=== PATIENT | female | born 1945 | race Caucasian/White ===

== ENCOUNTER 2017-11-10 19:51 | Emergency (ER) | payer MEDICARE ==
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
[2017-11-10] MEDS ORDERED: TYLENOL EXTRA STRENGTH 500 MG PO STA (22:09)
[2017-11-10] MEDS ORDERED: TYLENOL EXTRA STRENGTH 500 MG ONE (22:12)
[2017-11-10 22:22] VITALS: BP 108/54; PULSE 62; O2SAT 96
--- NOTE | 2017-11-11 08:44 | XRAY ---
Indication: Lower rib pain following injury. Comparison: None 2 views of the right ribs demonstrates mild osteopenia, mild multilevel degenerative spondylosis, and mild/moderate right shoulder degenerative arthropathy. No other bony, articular, or soft tissue abnormalities. Comment: Preliminary interpretation was made by [facility]. No discrepancy.
--- NOTE | 2017-11-11 08:46 | XRAY ---
Indication: Right sided pain following injury. Comparison: April 09, 2017. PA/lateral chest again demonstrates normal heart and lungs. Bony thorax intact with stable degenerative changes. No new/acute findings.
== END 2017-11-10 22:24 | disposition home or self-care (01) ==
LOC: ED 19:51
DX: S20.211A Contusion of right front wall of thorax, initial encounter (principal); Y04.2XXA Assault by strike against or bumped into by another person, initial encounter; Z79.899 Other long term (current) drug therapy
CPT/HCPCS: 71046; 71100; 99283; A9270-GY

== ENCOUNTER 2021-01-02 16:03 | Inpatient (IN) | payer MEDICARE ==
[2021-01-02] MEDS ORDERED: BABY ASPIRIN 81 MG CHEW PO ONE (16:28)
[2021-01-02 16:41] LABS: ALBUMIN 4.9 g/dL (3.5-5.0); BILIRUBIN,TOTAL 0.5 mg/dL (0.2-1.3); Calcium 10.1 mg/dL (8.4-10.2); Creatinine 1 1.13 mg/dL (0.52-1.04); EST GLOMERULAR FILTRATION RATE 49.6 ML/MIN; Total Protein 8.1 g/dL (6.3-8.2)
[2021-01-02] MEDS ORDERED: BABY ASPIRIN 81 MG CHEW ONE (16:51)
[2021-01-02 17:06] LABS: Hematocrit 40.6 % (35-47); Hemoglobin 12.9 gm/dl (12.0-16.0); Mean Cell Volume 89.4 fl (78-100); Mean Corpuscular Hemoglobin 28.4 pg (26-32); Mean Corpuscular Hgb Concent. 31.8 g/dl (32-36); Mean Platelet Volume 11.9 fl (7.5-11.0); Red Blood Count 4.54 M/mm3 (4.1-5.4)
[2021-01-02 17:08] LABS: Platelet Count 15 K/mm3 (150-450)
[2021-01-02 17:20] LABS: INR 1.06 (0.8-3.0); PROTIME 12.5 SECONDS (9.4-12.5)
[2021-01-02 17:23] LABS: PTT 25.3 SECONDS (25.1-36.5)
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
--- NOTE | 2021-01-02 17:38 | XRAY ---
Indication: Nausea and back pain. Comparison: November 10, 2017. Portable chest remains clear. Heart and mediastinal structures within normal limits. Bony thorax intact again with degenerative changes. No new/acute findings.
[2021-01-02] MEDS ORDERED: Zofran 4 MG/2 ML VIAL IV PRN (21:14)
[2021-01-02 22:01] LABS: Eosinophil 1 % (0.00-3.0); Lymphocytes 12 % (24-44); Monocyte 3 % (0.0-12.0); Neutrophils 84 % (36.0-66.0); Platelet Estimate DECREASED (NORMAL); Total Cells Counted 100
[2021-01-02 22:02] LABS: Microcytosis 1+
[2021-01-02] MEDS: Sodium Chloride 0.9% 1000 ML 1,000 ML IV SCH (22:17)
[2021-01-02] MEDS: MORPHINE SULFATE 2 MG INJ IV PRN (22:21)
[2021-01-03] MEDS: MORPHINE SULFATE 2 MG INJ IV PRN ×2 (05:04→09:15)
[2021-01-03 05:45] LABS: Absolute Neutrophil Ct (ANC) 6.08 (1.4-6.9); BASOPHIL % 0.2 % (0.0-0.4); Basophil (Absolute #) 0.02 (0-0.4); Eosinophil % 0.8 % (0.00-5.0); Eosinophil (Absolute #) 0.07 (0-0.5); Hemoglobin 11.6 gm/dl (12.0-16.0); Lymphocyte (Absolute #) 1.44 (1.0-4.6); Lymphocytes % 17.3 % (24.0-44.0); Mean Cell Volume 89.6 fl (78-100); Mean Corpuscular Hemoglobin 28.1 pg (26-32); Mean Corpuscular Hgb Concent. 31.4 g/dl (32-36); Mean Platelet Volume 14.1 fl (7.5-11.0); Monocytes % 8.4 % (0.0-12.0); Neutrophil % 73.3 % (36.0-66.0); Red Blood Count 4.13 M/mm3 (4.1-5.4); Red Cell Distribution Width 15.1 % (11.5-14.0); White Blood Count 8.3 K/mm3 (4.0-10.5)
[2021-01-03 05:56] LABS: ALBUMIN 4.1 g/dL (3.5-5.0); ALKALINE PHOSPHATASE 65 U/L (38-126); ANION GAP 15.4 MEQ/L (5-15); BLOOD UREA NITROGEN 23 mg/dL (7-17); CHLORIDE 102 mmol/L (98-107); Carbon Dioxide 24 mmol/L (22-30); Creatinine 1 0.87 mg/dL (0.52-1.04); EST GLOMERULAR FILTRATION RATE > 60.0 ML/MIN; Glucose 116 mg/dL (74-106); Potassium 4.6 mmol/L (3.5-5.1); SGOT/AST 20 U/L (14-36); SGPT/ALT 14 U/L (0-35); SODIUM 137 mmol/L (137-145); Total Protein 6.9 g/dL (6.3-8.2)
[2021-01-03 06:03] LABS: Platelet Count 15 K/mm3 (150-450)
[2021-01-03] MEDS: Sodium Chloride 0.9% 1000 ML 1,000 ML IV SCH ×2 (07:32→17:19)
[2021-01-03 07:33] LABS: Slide Review 1 YES
--- NOTE | 2021-01-03 08:42 | XRAY ---
Indication: Back pain. Aortic dissection. Conventional contrast enhanced CTA chest performed using 80 cc Isovue 370 contrast. Two-dimensional sagittal and coronal reformatted images obtained. Additional 3-dimensional reformatted images obtained using a separate workstation. Comparison: None Thoracic aorta demonstrates mild scattered arteriosclerotic disease without aneurysm/dissection. Heart is not enlarged. No pathologic mediastinal/hilar lymphadenopathy. Moderate-sized hiatal hernia with partial intrathoracic stomach. Lungs demonstrate very minimal bilateral dependent atelectasis. No suspicious pulmonary mass, infiltrate, effusion, or pneumothorax. Bony thorax intact with mild degenerative changes throughout the spine and moderate degenerative changes of both shoulders. Limited upper abdomen demonstrates fatty liver, distended gallbladder without gallstones, and colonic diverticulosis. Impression: 1. Mild scattered arteriosclerotic disease without thoracic aneurysm/dissection. 2. Incidental hiatal hernia with partial intrathoracic stomach, fatty liver, distended gallbladder without gallstones, colonic diverticulosis, and chronic bony findings.
[2021-01-03] MEDS: PROTONIX 40 MG IV IV SCH (09:11)
--- NOTE | 2021-01-03 10:44 | XRAY ---
Indication: Abdomen and back pain. Two-dimensional abdominal sonogram performed. Comparison: None Pancreas and mid to distal aorta not well-seen due to overlying bowel gas. Proximal aorta negative for aneurysm. Gallbladder moderately distended with layering of sludge in the dependent portion. No gallstones, wall thickening, or pericholecystic fluid. Common bile duct measures 6.3 mm. No intrahepatic biliary distention. Mild fatty echogenic liver without focal solid/cystic mass or ascites. Spleen is not enlarged with incidental calcified granulomas. Right kidney measures 8.3 x 4.2 x 3.8 cm and the left measures 8.7 x 5.5 x 5.0 cm. No focal solid/cystic renal mass or hydronephrosis. Impression: 1. Nonvisualization pancreas and mid to distal aorta. 2. Gallbladder sludge. Negative cholelithiasis/cholecystitis. 3. Fatty liver and splenic calcified granulomas. 4. Remaining abdominal sonogram is negative.
--- NOTE | 2021-01-03 11:54 | XRAY ---
Indication: Low back pain. Compression fracture. Comparison: None 3 view lumbar spine demonstrates 5 lumbar segments in normal alignment with vertebral body heights/disc spaces maintained. Mild osteopenia, minimal multilevel thoracal lumbar endplate spurring, and mild aortic calcifications. No other bony, articular, or soft tissue abnormalities.
--- NOTE | 2021-01-03 13:30 | HP ---
CHIEF COMPLAINT: Epigastric and left-sided chest pain. HISTORY OF PRESENT ILLNESS: The patient is a 75 year-old white female who had been seen for sinus infection in the outpatient [facility] and placed on doxycycline and prednisone for what was felt to be a sinus infection. The patient began developing severe epigastric radiating to her back. The patient reports she has had back pain similar to this in the past but due to the area in the epigastric region she was concerned about her overall health and was worried about her heart. She therefore presented to the emergency room and there she reported having some diaphoresis at home. The patient has no history of heart problems in the past, according to her. Evaluation in the emergency room was essentially negative for heart issue as her troponin was less than 0.012 on four different occasions. The patient's only medical problem otherwise she is taking lisinopril and amlodipine. She is normally taken care of by Dr. Sherman but he has not actually seen her in quite a while. PAST MEDICAL/SURGICAL HISTORY: The patient reports past history of diabetes mellitus type II, osteoporosis, hyperlipidemia and hypertension. She previous had a colon resection for what apparently was diverticular abscess that ruptured and she was in the hospital at [place] for nearly two weeks at that time before she had a partial colon resection. She has also had a hysterectomy in the past. The patient reports that she has a bruise over her right knee and denied any petechiae or any other problems with rashes on the skin. MEDICATIONS: Lisinopril 2.5 mg a day, amlodipine 5 mg daily routinely and again she recently had been taking doxycycline and prednisone. ALLERGIES: NKDA. PHYSICAL EXAMINATION: The patient's vital signs in the emergency room showed a temperature of 98.2F, pulse 74, respiratory rate 22, blood pressure 131/81. O2 saturation 97% on room air. HEENT: Normocephalic, atraumatic. Pupils equal round reactive to light. Extraocular movements intact. Oropharynx is pink and moist. NECK: Supple without lymphadenopathy, thyromegaly or JVD. CHEST: Clear to auscultation. HEART: Regular rate and rhythm without murmurs, rubs or gallops. ABDOMEN: Tender in the epigastric region, slightly firm left upper quadrant and also in the suprapubic area. No masses were felt. There is no guarding or rebound. EXTREMITIES: Without cyanosis, clubbing or edema. There is however a bruise over the top of the right foot. LAB DATA AND TESTS: The patient's laboratory studies were significant for PLT count of only 15,000. She had a white count of 8,300, hemoglobin 11.6. The patient's most recent PLT count otherwise was noted in August 2020 was normal. She had a glucose of 116, BUN 22, creatinine 0.87. Liver enzymes were normal. She did have CT scan of abdomen and pelvis which showed distended gallbladder. She is to have a gallbladder ultrasound today. We also looked at her liver, spleen and pancreas for possible for a total abdominal ultrasound. There is also concern for the patient for possible compression fracture of the spine as she has been complaining mostly of back pain which has been going on for quite a while. Her INR was noted to be 1.16. ASSESSMENT: Currently the etiology of thrombocytopenia is in question possibly secondary to doxycycline which undoubtedly causing her gastric pain. As the patient's troponins were negative and gallbladder is currently pending but showed gallbladder distension but no elevation in her liver enzymes or bilirubin level. The patient otherwise currently is getting IV fluid hydration, pain management for her abdominal pain. Unfortunately, we do not have a meat and seafood manager in our facility to help us with the thrombocytopenia issue but will talk with pharmacy about the potential for prednisone and/or doxycycline as the cause for her recent thrombocytopenia issue.
[2021-01-03] MEDS: TYLENOL 325 MG PO PRN (19:59)
[2021-01-04] MEDS: Sodium Chloride 0.9% 1000 ML 1,000 ML IV SCH (03:25)
[2021-01-04 05:35] LABS: Absolute Neutrophil Ct (ANC) 3.19 (1.4-6.9); BASOPHIL % 0.4 % (0.0-0.4); Basophil (Absolute #) 0.02 (0-0.4); Eosinophil % 2.3 % (0.00-5.0); Eosinophil (Absolute #) 0.11 (0-0.5); Hematocrit 33.3 % (35-47); Hemoglobin 10.5 gm/dl (12.0-16.0); Lymphocyte (Absolute #) 1.03 (1.0-4.6); Lymphocytes % 21.5 % (24.0-44.0); Mean Cell Volume 91.2 fl (78-100); Mean Corpuscular Hemoglobin 28.8 pg (26-32); Mean Corpuscular Hgb Concent. 31.5 g/dl (32-36); Mean Platelet Volume 12.2 fl (7.5-11.0); Monocyte (Absolute #) 0.44 (0.0-1.3); Monocytes % 9.2 % (0.0-12.0); Neutrophil % 66.6 % (36.0-66.0); Red Blood Count 3.65 M/mm3 (4.1-5.4); Red Cell Distribution Width 14.8 % (11.5-14.0); White Blood Count 4.8 K/mm3 (4.0-10.5)
[2021-01-04 05:40] LABS: Platelet Count 6 K/mm3 (150-450)
[2021-01-04 06:06] LABS: ALBUMIN 3.6 g/dL (3.5-5.0); ALKALINE PHOSPHATASE 58 U/L (38-126); ANION GAP 11.8 MEQ/L (5-15); BLOOD UREA NITROGEN 13 mg/dL (7-17); CHLORIDE 105 mmol/L (98-107); Calcium 8.5 mg/dL (8.4-10.2); Carbon Dioxide 26 mmol/L (22-30); Creatinine 1 0.87 mg/dL (0.52-1.04); EST GLOMERULAR FILTRATION RATE > 60.0 ML/MIN; Glucose 100 mg/dL (74-106); Potassium 4.7 mmol/L (3.5-5.1); SGOT/AST 20 U/L (14-36); SGPT/ALT 12 U/L (0-35); SODIUM 138 mmol/L (137-145); Total Protein 6.1 g/dL (6.3-8.2)
[2021-01-04 07:17] LABS: Slide Review 1 YES
[2021-01-04] MEDS: PROTONIX 40 MG IV IV SCH (08:05)
[2021-01-04] MEDS: DELTASONE 20 MG PO SCH (08:59)
[2021-01-04] MEDS: TYLENOL 325 MG PO PRN (20:16)
[2021-01-05] MEDS: TYLENOL 325 MG PO PRN ×4 (04:00→20:37)
[2021-01-05 05:07] LABS: Hematocrit 33.6 % (35-47); Hemoglobin 10.8 gm/dl (12.0-16.0); Mean Cell Volume 89.1 fl (78-100); Mean Corpuscular Hemoglobin 28.6 pg (26-32); Mean Corpuscular Hgb Concent. 32.1 g/dl (32-36); Mean Platelet Volume 12.2 fl (7.5-11.0); Red Blood Count 3.77 M/mm3 (4.1-5.4); Red Cell Distribution Width 14.3 % (11.5-14.0); White Blood Count 7.9 K/mm3 (4.0-10.5)
[2021-01-05 05:15] LABS: Platelet Count 13 K/mm3 (150-450)
[2021-01-05 07:22] LABS: BAND 2 % (0.0-2.0); Eosinophil 1 % (0.00-3.0); Lymphocytes 16 % (24-44); Monocyte 5 % (0.0-12.0); Neutrophils 76 % (36.0-66.0); Total Cells Counted 100
[2021-01-05 07:23] LABS: ANISOCYTOSIS 1+; Platelet Estimate DECREASED (NORMAL); Toxic Granulation 1+
[2021-01-05] MEDS: DELTASONE 20 MG PO SCH (08:12)
[2021-01-05] MEDS: PROTONIX 40 MG IV IV SCH (08:13)
[2021-01-05 09:51] LABS: ALBUMIN 4.1 g/dL (3.5-5.0); ALKALINE PHOSPHATASE 56 U/L (38-126); ANION GAP 13.8 MEQ/L (5-15); BLOOD UREA NITROGEN 17 mg/dL (7-17); CHLORIDE 102 mmol/L (98-107); Calcium 9.3 mg/dL (8.4-10.2); Carbon Dioxide 25 mmol/L (22-30); Creatinine 1 0.84 mg/dL (0.52-1.04); EST GLOMERULAR FILTRATION RATE > 60.0 ML/MIN; Glucose 118 mg/dL (74-106); Potassium 4.2 mmol/L (3.5-5.1); SGOT/AST 28 U/L (14-36); SGPT/ALT 19 U/L (0-35); SODIUM 137 mmol/L (137-145); Total Protein 6.9 g/dL (6.3-8.2)
--- NOTE | 2021-01-05 11:19 | XRAY ---
Indication: Headache. Head pressure. Thrombocytopenia. Multiple contiguous axial images obtained through the head prior to and following 80 cc Isovue 370 contrast. Age-appropriate global atrophy. No acute intracranial hemorrhage, abnormal extra-axial fluid collection, or mass effect. Fourth ventricle is midline without hydrocephalus. Postcontrast images are negative for abnormal enhancing intra or extra-axial mass. Moul[place]-white matter differentiation preserved. Bony calvarium intact. Visualized paranasal sinuses and mastoid air cells are clear. Impression: Negative CT head with and without contrast exam.
[2021-01-06 07:23] LABS: Hematocrit 35.8 % (35-47); Hemoglobin 11.5 gm/dl (12.0-16.0); Mean Cell Volume 88.6 fl (78-100); Mean Corpuscular Hemoglobin 28.5 pg (26-32); Mean Corpuscular Hgb Concent. 32.1 g/dl (32-36); Mean Platelet Volume 11.8 fl (7.5-11.0); Red Blood Count 4.04 M/mm3 (4.1-5.4); Red Cell Distribution Width 14.6 % (11.5-14.0); White Blood Count 9.6 K/mm3 (4.0-10.5)
[2021-01-06 07:44] VITALS: BP 147/72; PULSE 69; O2SAT 96
[2021-01-06 07:48] LABS: Platelet Count 25 K/mm3 (150-450)
[2021-01-06] MEDS: PROTONIX 40 MG IV IV SCH (08:43)
[2021-01-06] MEDS: DELTASONE 20 MG PO SCH (08:43)
--- NOTE | 2021-01-06 13:53 | DS ---
DISCHARGE DIAGNOSES: 1) THROMBOCYTOPENIA. 2) GASTRITIS SECONDARY TO DOXYCYCLINE. 3) VIRAL UPPER RESPIRATORY ILLNESS. HOSPITAL COURSE: The patient is a 75 year-old white female who presented to the emergency room after having excruciating epigastric pain radiating to her back. It is important to note that the patient recently had been placed on doxycycline for what they thought was a sinus infection. On the patient's evaluation in the emergency room, she was found to also be thrombocytopenic. She was brought into the hospital and given IV fluids. Doxycycline was immediately discontinued. The patient's platelet count continued to fall to 6,000. We gave her prednisone 1 mg/kg which was roughly 60 mg which the patient had been receiving. Her platelet count rebounded to 13,000 on 01/05/2021 and 25,000 by 01/06/2021. We have arranged for the patient to see a solar photovoltaic crew lead which she will see on Saturday morning. We will recheck her CBC at that time to recheck her platelets. The patient has had no symptoms other than mild bruising over the left foot and occasional bruising where she had IV's drawn and blood draws but otherwise the patient has no internal bleeding whatsoever. We did do a CT scan of the head due to complaints of headache which was present actually before she arrived and a CT scan with and without contrast was essentially negative. The patient will be discharged home now. She was instructed not to take doxycycline any longer. She was given prednisone at 60 mg a day for a total of five days and then down to 40 mg for five days and then 20 mg for five days. I will see her in the office in one week. Again, she will see solar photovoltaic crew lead in three days. She is instructed to take it easy at home particularly with fall prevention in place. The patient verbalized her understanding. She will call if she has any problems in the interim.
== END 2021-01-06 10:17 | disposition home or self-care (01) | DRG 813 ==
LOC: ED 16:03 → MED SURG 21:22 → OBSVTOIN 01-03 13:02
PROVIDERS: ADMIT Family Medicine; ATTEND Family Medicine
DX: D69.6 Thrombocytopenia, unspecified (principal); K29.70 Gastritis, unspecified, without bleeding; T36.4X5A Adverse effect of tetracyclines, initial encounter; J06.9 Acute upper respiratory infection, unspecified; R51.9 Headache, unspecified; R07.9 Chest pain, unspecified; E11.9 Type 2 diabetes mellitus without complications; I10 Essential (primary) hypertension; E78.5 Hyperlipidemia, unspecified; Z79.899 Other long term (current) drug therapy; M54.9 Dorsalgia, unspecified; Z20.828 Contact with and (suspected) exposure to other viral communicable diseases
CPT/HCPCS: 36000; 36415; 70470; 71045; 71275; 72100; 76700; 80053; 82947; 83880; 84484; 85025; 85027; 85610; 85730; 93005; 93268; 99285; G0328; G0378; U0003; 82274; J2270; J2405; A9270-GY

== ENCOUNTER 2021-03-27 05:55 | Day surgery (SDC) | payer MEDICARE ==
[2021-03-27] MEDS ORDERED: Lactated Ringers 1,000 ML IV SCH (06:30)
[2021-03-27] MEDS ORDERED: DIPRIVAN 200 MG/20 ML IV ONE (07:43)
[2021-03-27 08:45] VITALS: PULSE 84; O2SAT 97
[2021-03-27 09:05] VITALS: BP 139/93
--- NOTE | 2021-03-27 11:09 | OP ---
SURGERY DATE/TIME: 03/27/2021 0744 PREOPERATIVE DIAGNOSIS: Heme positive stool, previous history of colon resection for diverticulosis. POSTOPERATIVE DIAGNOSIS: Diverticulosis throughout the colon otherwise normal exam. PROCEDURE: Colonoscopy. SURGEON: Dr. Pérez. ANESTHESIA: MAC. Medications given by anesthesia department. HISTORY: The patient is a 75-year-old white female who had heme positive stools recently. The patient was felt to need endoscopic evaluation. She reports on her history previously she had diverticular abscess and colostomy which was then reversed. The patient has not been evaluated since that time. The patient is felt the need to have endoscopic evaluation. She was appraised of the risks of the procedure including the risk of perforation, phlebitis, untoward reaction to medication, bleeding and missed lesions. The patient verbalized her understanding and desired to have the procedure performed. DESCRIPTION OF PROCEDURE: The patient was given the medications by the anesthesia department. She had continuous pulse oximetry, ECG monitoring, intermittent blood pressure monitoring and tidal CO2 monitoring during the examination. She was placed in the left lateral decubitus position. A digital rectal examination was performed and revealed normal anal sphincter tone and no masses. The flexible Olympus pediatric colonoscope was used to intubate the rectum. A view of the colon was developed sequentially to the cecum. Upon insertion and withdrawal including a retroflex view in the rectum, no mucosal lesions were noted other than scattered diverticula throughout the colon. The scope was removed from the patient who tolerated the procedure well and was sent back to OP recovery in good condition. The prep was noted to be fair with semisolid stool noted in the deep end portion of the colon pretty much throughout the transverse colon.
== END 2021-03-27 09:10 | disposition home or self-care (01) ==
LOC: SDC 05:55
PROVIDERS: ATTEND Family Medicine
DX: K57.30 Diverticulosis of large intestine without perforation or abscess without bleeding (principal); Z87.19 Personal history of other diseases of the digestive system; Z79.899 Other long term (current) drug therapy
CPT/HCPCS: 99100; J2704

== ENCOUNTER 2021-08-02 12:41 | Emergency (ER) | payer MEDICARE ==
--- NOTE | 2021-08-02 12:46 | ERPHSYRPT ---
- History of Present Illness Time Seen by Provider: 08/02/21 12:46 Source: patient, EMS Exam Limitations: no limitations Physician History: This is a 75-year-old white female patient of Dr. Pérez who also sees a flare man for management of her thrombocytopenia and presents with what initially appeared to be was a syncopal episode, diaphoresis and weakness. Patient was brought into the hospital by EMS. Patient denies headache. Patient denies chest pain and denies shortness of breath. She has no abdominal pain. Patient arrives alert and oriented. She did not hit her head. 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 Patient has a history of low platelet count, gastroesophageal reflux disease and hypertension as well as [id number] diabetes. In the last approximately 2 weeks, patient has been taking prednisone because of an 18,000 platelet count level. Patient had a repeat platelet count of 239,000 yesterday. She states during the last 2 weeks she has felt awful on the prednisone. Her blood sugars are all over the place, low in the 70s and his highs in the high 200s. She feels that she has been weak and diaphoretic because of the prednisone. She has never felt like this before. Timing/Duration: today Severity: moderate Associated Symptoms: diaphoresis, weakness, No abdominal pain, No shortness of breath, No chest pain Allergies/Adverse Reactions: No Known Drug Allergies Allergy (Verified 08/02/21 12:52) Home Medications: lisinopriL [Zestril] 2.5 tab PO DAILY 04/09/17 [History] Amlodipine Besylate 5 mg [Norvasc 5 mg] 5 mg PO DAILY 04/10/17 [History] Magnesium 200 mg PO DAILY 03/16/21 [History] ALPRAZolam [Alprazolam] 1 ea DAILY PRN PRN 08/02/21 [History] Prednisone 20 mg [Deltasone 20 mg] 1 ea DAILY 08/02/21 [History] Hx Tetanus, Diphtheria Vaccination/Date Given: Yes Hx Influenza Vaccination/Date Given: Yes Hx Pneumococcal Vaccination/Date Given: Yes Travel Risk - International Travel Have you traveled outside of the country in past 3 weeks: No - Coronavirus Screening Are you exhibiting any of the following symptoms?: No Close contact with a COVID-19 positive Pt in past 14-21 Days: No - Vaccine Status Have you recieved a Covid-19 vaccination: Yes 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 - Vaccination Dates Date of 2cond Vaccination (if applicable): 08/08/20 - Review of Systems Constitutional: Weakness Eyes: No Symptoms Ears, Nose, & Throat: No Symptoms Respiratory: No Symptoms Cardiac: No Symptoms Abdominal/Gastrointestinal: No Symptoms Genitourinary Symptoms: No Symptoms Musculoskeletal: No Symptoms Skin: No Symptoms Neurological: Dizziness Psychological: Anxiety Endocrine: No Symptoms Immunological/Allergic: No Symptoms - Past Medical History Pertinent Past Medical History: Yes Neurological History: No Pertinent History ENT History: Cataracts Cardiac History: High Cholesterol, Hypertension Respiratory History: No Pertinent History Endocrine Medical History: Diabetes Type II Musculoskeletal History: Osteoporosis GI Medical History: No Pertinent History, Diverticulitis History: Other Psycho-Social History: No Pertinent History Female Reproductive Disorders: No Pertinent History Other Medical History: PT STATES SHE WAS ON DIABETIC MEDICATIONS IN IN THE PAST BUT NOTHING PRESENTLY - Past Surgical History Past Surgical History: Yes Neuro Surgical History: No Pertinent History Cardiac: No Pertinent History Respiratory: No Pertinent History Gastrointestinal: Appendectomy, Colon Resection, Hernia Repair Genitourinary: No Pertinent History Musculoskeletal: No Pertinent History Female Surgical History: Hysterectomy - Social History Smoking Status: Former smoker Exposure to second hand smoke: No Drug Use: none Patient Lives Alone: No Significant Family History: no pertinent family hx - Nursing Vital Signs Nursing Vital Signs: Initial Vital Signs O2 Sat by Pulse Oximetry 93 L 08/02/21 12:42 Pain Scale Pain Intensity 0 - Physical Exam General Appearance: no apparent distress, alert, anxiety Eye Exam: PERRL/EOMI, eyes nml inspection Ears, Nose, Throat Exam: normal ENT inspection, moist mucous membranes Neck Exam: normal inspection, non-tender, supple, full range of motion Respiratory Exam: normal breath sounds, lungs clear, airway intact, No chest tenderness, No respiratory distress Cardiovascular Exam: regular rate/rhythm, normal heart sounds, normal peripheral pulses Gastrointestinal/Abdomen Exam: soft, normal bowel sounds, No tenderness Pelvic Exam: not done Rectal Exam: not done Back Exam: normal inspection, normal range of motion, No CVA tenderness, No vertebral tenderness Extremity Exam: normal inspection, normal range of motion, pelvis stable Neurologic Exam: alert, oriented x 3, cooperative, wreath inspector II-XII nml as tested, normal mood/affect, nml cerebellar function, nml station & gait, sensation nml Skin Exam: normal color, warm, dry Lymphatic Exam: No adenopathy SpO2 Interpretation: borderline oxygenation O2 Delivery: Room Air - Course Nursing assessment & vital signs reviewed: Yes Ordered Tests: Active Orders 24 hr Category Date Time Status Clean Catch Urine Specimen STAT Care 08/02/21 12:57 Active EKG-ER Only STAT Care 08/02/21 12:57 Active IV Insertion STAT Care 08/02/21 12:57 Active Pulse Oximetry (ED) STAT Care 08/02/21 12:57 Active HEAD WITHOUT CONTRAST [CT] Stat Exams 08/02/21 12:57 Completed CBC W DIFF Stat Lab 08/02/21 14:13 Completed CMP Stat Lab 08/02/21 14:13 Completed CULTURE,URINE Stat Lab 08/02/21 15:52 Received MAGNESIUM Stat Lab 08/02/21 14:13 Completed TROPONIN Q3H Lab 08/02/21 14:13 Completed TROPONIN Q3H Lab 08/02/21 16:00 Ordered TROPONIN Q3H Lab 08/02/21 19:00 Ordered TROPONIN Q3H Lab 08/02/21 22:00 Ordered TROPONIN Q3H Lab 08/03/21 01:00 Ordered UA W/RFX UR CULTURE Stat Lab 08/02/21 15:52 Completed Urine Triage Profile Stat Lab 08/02/21 15:52 Completed Medication Summary Generic Name Dose Route Start Last Admin Trade Name Freq PRN Reason Stop Dose Admin Sodium Chloride 1,000 mls @ 100 mls/hr 08/02/21 13:00 08/02/21 13:08 Sodium Chloride 0.9% 1000 Ml IV 09/01/21 12:59 100 mls/hr .Q10H SARAH Administration Potassium Chloride 20 meq in 100 mls @ 50 mls/hr 08/02/21 14:39 08/02/21 14:45 Potassium Chloride 20 Meq In Water 100ml IV 08/02/21 16:38 50 mls/hr STAT ONE Administration Discontinued Medications Generic Name Dose Route Start Last Admin Trade Name Freq PRN Reason Stop Dose Admin Potassium Chloride Confirm 08/02/21 14:42 Potassium Chloride 20 Meq In Water 100ml Administered 08/02/21 14:43 Dose 100 mls @ ud IV .STK-MED ONE Potassium Chloride 20 meq 08/02/21 14:39 08/02/21 14:45 Potassium Chloride 10 Meq Tablet PO 08/02/21 14:40 20 meq STAT ONE Administration Potassium Chloride Confirm 08/02/21 14:42 Potassium Chloride 10 Meq Tablet Administered 08/02/21 14:43 Dose 20 meq PO .STK-MED ONE Lab/Rad Data: Laboratory Result Diagrams 08/02/21 14:13 08/02/21 14:13 Laboratory Results 08/02/21 08/02/21 08/02/21 Range/Units 15:52 15:52 14:13 WBC (4.0-10.5) K/mm3 RBC (4.1-5.4) M/mm3 Hgb (12.0-16.0) gm/dl Hct (35-47) % MCV (78-100) fl MCH (26-32) pg MCHC (32-36) g/dl RDW (11.5-14.0) % Plt Count (150-450) K/mm3 MPV (7.5-11.0) fl Gran % (36.0-66.0) % Eos # (Auto) (0-0.5) Absolute Lymphs (auto) (1.0-4.6) Absolute Monos (auto) (0.0-1.3) Lymphocytes % (24.0-44.0) % Monocytes % (0.0-12.0) % Eosinophils % (0.00-5.0) % Basophils % (0.0-0.4) % Absolute Granulocytes (1.4-6.9) Basophils # (0-0.4) Sodium (137-145) mmol/L Potassium (3.5-5.1) mmol/L Chloride (98-107) mmol/L Carbon Dioxide (22-30) mmol/L Anion Gap (5-15) MEQ/L BUN (7-17) mg/dL Creatinine (0.52-1.04) mg/dL Estimated GFR ML/MIN Glucose (74-106) mg/dL Calcium (8.4-10.2) mg/dL Magnesium (1.6-2.3) mg/dL Total Bilirubin (0.2-1.3) mg/dL AST (14-36) U/L ALT (0-35) U/L Alkaline Phosphatase (38-126) U/L Troponin I < 0.012 (0.000-0.034) ng/mL Serum Total Protein (6.3-8.2) g/dL Albumin (3.5-5.0) g/dL Urine Color JAEL (YELLOW) Urine Appearance CLOUDY (CLEAR) Urine pH 5.0 (5-6) Ur Specific [place] 1.017 (1.005-1.025) Urine Protein 30 (Negative) Urine Ketones TRACE (NEGATIVE) Urine Blood SMALL (0-5) Emanuel/ul Urine Nitrite NEGATIVE (NEGATIVE) Urine Bilirubin NEGATIVE (NEGATIVE) Urine Urobilinogen NEGATIVE (0-1) mg/dL Ur Leukocyte Esterase MODERATE (NEGATIVE) Urine WBC (Auto) 16-25 (0-5) /HPF Urine RBC (Auto) 3-5 (0-2) /HPF U Hyaline Cast (Auto) 6-10 (0-2) /LPF U Epithel Cells (Auto) RARE (FEW) /HPF Urine Bacteria (Auto) RARE (NEGATIVE) /HPF Urine Mucus (Auto) SLIGHT (NEGATIVE) /HPF Urine Culture Reflexed YES (NO) Urine Glucose NEGATIVE (NEGATIVE) mg/dL Urine Opiates Level NEGATIVE (NEGATIVE) Ur Methadone NEGATIVE (NEGATIVE) Urine Barbiturates NEGATIVE (NEGATIVE) Ur Phencyclidine (PCP) NEGATIVE (NEGATIVE) Urine Amphetamine NEGATIVE (NEGATIVE) U Benzodiazepine Level POSITIVE (NEGATIVE) Urine Cocaine NEGATIVE (NEGATIVE) Urine Marijuana (THC) NEGATIVE (NEGATIVE) 08/02/21 08/02/21 Range/Units 14:13 14:13 WBC 15.6 H (4.0-10.5) K/mm3 RBC 4.50 (4.1-5.4) M/mm3 Hgb 12.5 (12.0-16.0) gm/dl Hct 38.2 (35-47) % MCV 84.9 (78-100) fl MCH 27.8 (26-32) pg MCHC 32.7 (32-36) g/dl RDW 16.1 H (11.5-14.0) % Plt Count 194 (150-450) K/mm3 MPV 9.9 (7.5-11.0) fl Gran % 76.1 H (36.0-66.0) % Eos # (Auto) 0.05 (0-0.5) Absolute Lymphs (auto) 2.32 (1.0-4.6) Absolute Monos (auto) 1.34 H (0.0-1.3) Lymphocytes % 14.9 L (24.0-44.0) % Monocytes % 8.6 (0.0-12.0) % Eosinophils % 0.3 (0.00-5.0) % Basophils % 0.1 (0.0-0.4) % Absolute Granulocytes 11.89 H (1.4-6.9) Basophils # 0.01 (0-0.4) Sodium 136 L (137-145) mmol/L Potassium 2.6 L* D (3.5-5.1) mmol/L Chloride 100 (98-107) mmol/L Carbon Dioxide 23 (22-30) mmol/L Anion Gap 16.4 H (5-15) MEQ/L BUN 27 H (7-17) mg/dL Creatinine 1.39 H (0.52-1.04) mg/dL Estimated GFR 39.1 ML/MIN Glucose 144 H (74-106) mg/dL Calcium 9.2 (8.4-10.2) mg/dL Magnesium 1.8 (1.6-2.3) mg/dL Total Bilirubin 0.80 (0.2-1.3) mg/dL AST 34 (14-36) U/L ALT 74 H (0-35) U/L Alkaline Phosphatase 48 (38-126) U/L Troponin I (0.000-0.034) ng/mL Serum Total Protein 6.6 (6.3-8.2) g/dL Albumin 4.1 (3.5-5.0) g/dL Urine Color (YELLOW) Urine Appearance (CLEAR) Urine pH (5-6) Ur Specific [place] (1.005-1.025) Urine Protein (Negative) Urine Ketones (NEGATIVE) Urine Blood (0-5) Emanuel/ul Urine Nitrite (NEGATIVE) Urine Bilirubin (NEGATIVE) Urine Urobilinogen (0-1) mg/dL Ur Leukocyte Esterase (NEGATIVE) Urine WBC (Auto) (0-5) /HPF Urine RBC (Auto) (0-2) /HPF U Hyaline Cast (Auto) (0-2) /LPF U Epithel Cells (Auto) (FEW) /HPF Urine Bacteria (Auto) (NEGATIVE) /HPF Urine Mucus (Auto) (NEGATIVE) /HPF Urine Culture Reflexed (NO) Urine Glucose (NEGATIVE) mg/dL Urine Opiates Level (NEGATIVE) Ur Methadone (NEGATIVE) Urine Barbiturates (NEGATIVE) Ur Phencyclidine (PCP) (NEGATIVE) Urine Amphetamine (NEGATIVE) U Benzodiazepine Level (NEGATIVE) Urine Cocaine (NEGATIVE) Urine Marijuana (THC) (NEGATIVE) - Progress Progress Note: 08/02/21 16:36 CAT scan of the head shows no acute intracranial abnormality. - Departure Departure Disposition: Home Clinical Impression: Hypokalemia, Weakness, UTI (urinary tract infection), Mild dehydration Condition: Stable Critical Care Time: No Referrals: BHARGAV PÉREZ [Primary Care Provider] - Follow up/PCP as directed Additional Instructions: Drink plenty of fluids. Take your antibiotic medication as prescribed. Hold the prednisone until you speak with your flare man tomorrow. Obtain the repeat potassium level on August 04, 2021 in the morning. Follow-up with Dr. Pérez's office for the report on that potassium level Prescriptions: Ciprofloxacin [Cipro 500 MG] 500 mg PO BID #14 tablet Potassium Chloride 10 Meq Tab* [Klor Con 10 MEQ] 10 meq PO BID #5 tab
[2021-08-02] MEDS ORDERED: Sodium Chloride 0.9% 1000 ML 1,000 ML IV SCH (13:00)
[2021-08-02] MEDS ORDERED: Sodium Chloride 0.9% 1000 ML 1,000 ML ONE (13:07)
[2021-08-02 14:15] LABS: Absolute Neutrophil Ct (ANC) 11.89 (1.4-6.9); Basophil (Absolute #) 0.01 (0-0.4); Eosinophil % 0.3 % (0.00-5.0); Eosinophil (Absolute #) 0.05 (0-0.5); Hematocrit 38.2 % (35-47); Hemoglobin 12.5 gm/dl (12.0-16.0); Lymphocyte (Absolute #) 2.32 (1.0-4.6); Lymphocytes % 14.9 % (24.0-44.0); Mean Cell Volume 84.9 fl (78-100); Mean Corpuscular Hemoglobin 27.8 pg (26-32); Mean Corpuscular Hgb Concent. 32.7 g/dl (32-36); Mean Platelet Volume 9.9 fl (7.5-11.0); Monocyte (Absolute #) 1.34 (0.0-1.3); Monocytes % 8.6 % (0.0-12.0); Neutrophil % 76.1 % (36.0-66.0); Platelet Count 194 K/mm3 (150-450); Red Cell Distribution Width 16.1 % (11.5-14.0); White Blood Count 15.6 K/mm3 (4.0-10.5)
[2021-08-02 14:27] LABS: ALBUMIN 4.1 g/dL (3.5-5.0); ANION GAP 16.4 MEQ/L (5-15); BILIRUBIN,TOTAL 0.8 mg/dL (0.2-1.3); Calcium 9.2 mg/dL (8.4-10.2); Creatinine 1 1.39 mg/dL (0.52-1.04); EST GLOMERULAR FILTRATION RATE 39.1 ML/MIN; MAGNESIUM 1.8 mg/dL (1.6-2.3); Total Protein 6.6 g/dL (6.3-8.2)
--- NOTE | 2021-08-02 14:35 | XRAY ---
Indication: Syncope. Multiple contiguous axial images obtained through the head without contrast. Comparison: January 05, 2021 Age-appropriate global atrophy. No acute intracranial hemorrhage, abnormal extra-axial fluid collection, or mass effect. Fourth ventricle is midline without hydrocephalus. [place]oul[place]-white matter differentiation preserved. Bony calvarium intact. Visualized paranasal sinuses and mastoid air cells are clear. Impression: Continued negative CT head without contrast exam.
[2021-08-02 14:37] LABS: Potassium 2.6 mmol/L (3.5-5.1)
[2021-08-02] MEDS ORDERED: POTASSIUM CHLORIDE 20 mEq IN WATER 100ML 20 MEQ/100 ML BAG IV ONE (14:39)
[2021-08-02] MEDS ORDERED: Klor Con 10 MEQ PO ONE ×2 (14:39→14:42)
[2021-08-02] MEDS ORDERED: POTASSIUM CHLORIDE 20 mEq IN WATER 100ML 100 ML IV ONE (14:42)
[2021-08-02 15:58] LABS: Appearance CLOUDY (CLEAR); Bacteria RARE /HPF (NEGATIVE); Bilirubin NEGATIVE (NEGATIVE); Blood SMALL Ery/ul (0-5); Epithelial Cells RARE /HPF (FEW); Glucose NEGATIVE (NEGATIVE); Ketones TRACE (NEGATIVE); Leukocyte Esterase MODERATE (NEGATIVE); Mucus SLIGHT /HPF (NEGATIVE); Nitrite NEGATIVE (NEGATIVE); Protein,Urine Dip 30 (Negative); Specific Gravity 1.017 (1.005-1.025); Urobilinogen NEGATIVE mg/dL (0-1)
[2021-08-02 16:08] LABS: Amphetamine,Urine NEGATIVE (NEGATIVE); Barbiturate,Urine NEGATIVE (NEGATIVE); Benzodiazepine,Urine POSITIVE (NEGATIVE); Cocaine,Urine NEGATIVE (NEGATIVE); Methadone,Urine NEGATIVE (NEGATIVE); Opiate,Urine NEGATIVE (NEGATIVE); PCP,Urine NEGATIVE (NEGATIVE); THC,Urine NEGATIVE (NEGATIVE)
[2021-08-02] MEDS ORDERED: ROCEPHIN 1 Gm-D5w 50 ml Bag** 1 G/50 ML IVPB IV STA (16:35)
[2021-08-02] MEDS ORDERED: ROCEPHIN 1 Gm-D5w 50 ml Bag** 1 G/50 ML IVPB IV ONE (16:45)
[2021-08-02 17:46] VITALS: BP 136/87; PULSE 73; O2SAT 100
== END 2021-08-02 17:41 | disposition home or self-care (01) ==
LOC: ED 12:41
DX: N39.0 Urinary tract infection, site not specified (principal); E87.6 Hypokalemia; R53.1 Weakness; E86.0 Dehydration; E78.5 Hyperlipidemia, unspecified; I10 Essential (primary) hypertension; E11.9 Type 2 diabetes mellitus without complications; D69.6 Thrombocytopenia, unspecified; K21.9 Gastro-esophageal reflux disease without esophagitis; Z79.899 Other long term (current) drug therapy
CPT/HCPCS: 36415; 70450; 80053; 80307; 81001; 83735; 84484; 85025; 87077; 87086; 87186; 93005; 94760; 96360; 96361; 96365; 96367; 96374; 99285; J0696; J3480; A9270-GY

== ENCOUNTER 2021-12-23 17:11 | Emergency (ER) | payer MEDICARE | END 2021-12-23 17:27 | disposition home or self-care (01) | LOC: ED 17:11 | DX: Z53.9 Procedure and treatment not carried out, unspecified reason (principal) | CPT/HCPCS: 99281 ==

== ENCOUNTER 2021-12-23 17:12 | Emergency (ER) | payer MEDICARE ==
[2021-12-23] MEDS ORDERED: Zofran 4 MG/2 ML VIAL ONE (17:18)
[2021-12-23] MEDS ORDERED: MORPHINE SULFATE 4 MG INJ ONE ×2 (17:18→17:43)
[2021-12-23] MEDS ORDERED: MORPHINE SULFATE 4 MG INJ IV ONE ×2 (17:18→17:39)
[2021-12-23] MEDS ORDERED: Zofran 4 MG/2 ML VIAL IV ONE (17:18)
[2021-12-23] MEDS ORDERED: Sodium Chloride 0.9% 1000 ML 1,000 ML ONE (17:18)
[2021-12-23] MEDS ORDERED: Sodium Chloride 0.9% 1000 ML 1,000 ML IV SCH (17:30)
[2021-12-23 17:35] LABS: Absolute Neutrophil Ct (ANC) 7.74 x10^3/uL (1.4-6.9); Basophil (Absolute #) 0.02 x10^3/uL (0-0.4); Eosinophil (Absolute #) 0 x10^3/uL (0-0.5); Hematocrit 39.7 % (35-47); Hemoglobin 12.5 g/dL (12.0-16.0); Lymphocytes % 11.8 % (24.0-44.0); Mean Corpuscular Hgb Concent. 31.5 g/dL (32-36); Mean Platelet Volume 8.8 fL (7.5-11.0); Monocytes % 4.3 % (0.0-12.0); Neutrophil % 83.2 % (36.0-66.0); Platelet Count 338 x10^3/uL (150-450); Red Blood Count 4.46 x10^6/uL (4.1-5.4); Red Cell Distribution Width 14.2 % (11.5-14.0); White Blood Count 9.3 x10^3/uL (4.0-10.5)
--- NOTE | 2021-12-23 17:48 | ERPHSYRPT ---
- History of Present Illness Source: patient Exam Limitations: no limitations Patient Subjective Stated Complaint: pt here for chest pain to epigastric area that radiates to back, pain since 0900 today. she states pain radiates to back, Triage Nursing Assessment: pt alert, resp easy at rest, anxious at times, face mask in place, skin w/d/p. no edema noted, cehst clear Physician History: 76 yo wf w epigastric/inferior chest pain x 8.5 hours. Pain is 10 on scale, sharp, and radiates to her back. She has had nausea/dyspnea wo vomiting/diaphore sis. Direct pressure makes the pain better. She denies DC/CAD but has h/o HTN/Renal failure/DM in the past. Fever/cough/diarrhea/melena/hematochezia all denied. She has had similar pain in the past. Timing/Duration: other (9AM) Quality: sharpness Location: central, epigastric Chest Pain Radiation: back Severity of Pain-Max: severe Severity of Pain-Current: severe Modifying Factors: Improves With: other (Better w direct pressure) Nitro Today/Relief: no nitro taken today Aspirin Treatment Today: no aspirin today Associated Symptoms: nausea, abdominal pain, shortness of breath, loss of appetite, No vomiting, No heartburn, No diaphoresis, No cough, No chills, No chest pain, No fever, No headaches, No malaise, No rash, No syncope, No seizure, No weakness Prior Chest Pain/Cardiac Workup: no prior chest pain Allergies/Adverse Reactions: No Known Drug Allergies Allergy (Verified 12/23/21 17:22) Home Medications: lisinopriL [Zestril] 5 tab PO DAILY 04/09/17 [History] Amlodipine Besylate 5 mg [Norvasc 5 mg] 5 mg PO DAILY 04/10/17 [History] Magnesium 200 mg PO DAILY 03/16/21 [History] ALPRAZolam [Alprazolam] 1 ea DAILY PRN PRN 08/02/21 [History] Prednisone 20 mg [Deltasone 20 mg] 5 mg DAILY 08/02/21 [History] Hx Tetanus, Diphtheria Vaccination/Date Given: Yes Hx Influenza Vaccination/Date Given: Yes Hx Pneumococcal Vaccination/Date Given: Yes Immunizations Up to Date: Yes Travel Risk - International Travel Have you traveled outside of the country in past 3 weeks: No - Coronavirus Screening Are you exhibiting any of the following symptoms?: No - Vaccine Status Have you recieved a Covid-19 vaccination: Yes Synthetic Cloth Binding Cutter: Moderna - Vaccination Dates Date of 2cond Vaccination (if applicable): 08/08/20 - Review of Systems Constitutional: No Symptoms Eyes: No Symptoms Ears, Nose, & Throat: No Symptoms Respiratory: No Symptoms, Dyspnea Cardiac: No Symptoms, Chest Pain Abdominal/Gastrointestinal: Abdominal Pain, Nausea, No Vomiting, No Diarrhea, No Constipation, No Hematemesis, No Hematochezia, No Melena, No Dysphagia Genitourinary Symptoms: No Symptoms Musculoskeletal: No Symptoms Skin: No Symptoms Neurological: No Symptoms Psychological: No Symptoms Endocrine: No Symptoms Hematologic/Lymphatic: No Symptoms Immunological/Allergic: No Symptoms - Past Medical History Pertinent Past Medical History: Yes Neurological History: No Pertinent History ENT History: Cataracts Cardiac History: High Cholesterol, Hypertension Respiratory History: No Pertinent History Endocrine Medical History: Diabetes Type II Musculoskeletal History: Osteoporosis GI Medical History: No Pertinent History, Diverticulitis History: Renal Disease, Other Psycho-Social History: No Pertinent History Female Reproductive Disorders: No Pertinent History Other Medical History: PT STATES SHE WAS ON DIABETIC MEDICATIONS IN IN THE PAST BUT NOTHING PRESENTLY - Past Surgical History Past Surgical History: Yes Neuro Surgical History: No Pertinent History Cardiac: No Pertinent History Respiratory: No Pertinent History Gastrointestinal: Appendectomy, Colon Resection, Hernia Repair Genitourinary: No Pertinent History Musculoskeletal: No Pertinent History Female Surgical History: Hysterectomy - Social History Smoking Status: Former smoker Exposure to second hand smoke: No Drug Use: none Patient Lives Alone: No Significant Family History: no pertinent family hx - Nursing Vital Signs Nursing Vital Signs: Initial Vital Signs Temperature 97 F 12/23/21 17:13 Pulse Rate 104 H 12/23/21 17:13 Respiratory Rate 18 12/23/21 17:13 Blood Pressure 159/106 12/23/21 17:13 O2 Sat by Pulse Oximetry 97 12/23/21 17:13 Pain Scale Pain Intensity 0 Hypertensive/Tachycardic - Physical Exam General Appearance: mild distress Eye Exam: PERRL/EOMI, eyes nml inspection Ears, Nose, Throat Exam: normal ENT inspection, TMs normal, pharynx normal, moist mucous membranes Neck Exam: normal inspection, non-tender, supple, full range of motion, No meningismus, No mass, No Brudzinski, No Kernig's, No carotid bruit Respiratory Exam: normal breath sounds, lungs clear, airway intact Cardiovascular Exam: tachycardia, capillary refill <2 sec, No murmur Gastrointestinal/Abdomen Exam: soft, tenderness (Subxyphoid markedly TTP w guarding) Extremity Exam: normal inspection, normal range of motion Neurologic Exam: alert, oriented x 3, cooperative, pharmacy intake technician II-XII nml as tested, normal mood/affect, nml cerebellar function, nml station & gait, sensation nml, No motor deficits, No sensory deficit Skin Exam: normal color, warm, dry Lymphatic Exam: No adenopathy SpO2 Interpretation: normal SpO2: 97 O2 Delivery: Room Air - Course Nursing assessment & vital signs reviewed: Yes EKG Interpreted by Me: RATE (Sinus tach/[id number]/Normal QT-QTc/Low voltage/Possible Q wave 3-AVF) - Radiology Exams Chest X-ray Interpretation: Interpreted by me (CXR NAD) - CT Exams Abdomen/Pelvis CT Interpretation: Tele-radiologist Report (Dilated Gallbladder) Ordered Tests: Active Orders 24 hr Category Date Time Status EKG-ER Only STAT Care 12/23/21 17:19 Completed IV Insertion STAT Care 12/23/21 17:19 Completed Oxygen-ED Only Nasal Cannula 2 lpm Care 12/23/21 17:47 Completed ABDOMEN AND PELVIS W CONTRAST [CT] Stat Exams 12/23/21 18:36 Taken CHEST 1 VIEW (PORTABLE) Stat Exams 12/23/21 17:25 Completed AMYLASE Stat Lab 12/23/21 17:32 Completed CBC W DIFF Stat Lab 12/23/21 17:32 Completed CMP Stat Lab 12/23/21 17:32 Completed LIPASE Stat Lab 12/23/21 17:32 Completed Lactic Acid Stat Lab 12/23/21 17:19 Completed NT PRO BNP Stat Lab 12/23/21 17:32 Completed PROTIME WITH INR Stat Lab 12/23/21 17:32 Completed PTT Stat Lab 12/23/21 17:32 Completed TROPONIN Q3H Lab 12/23/21 17:32 Completed TROPONIN Q3H Lab 12/23/21 19:50 Completed Medication Summary Discontinued Medications Generic Name Dose Route Start Last Admin Trade Name Freq PRN Reason Stop Dose Admin Sodium Chloride Confirm 12/23/21 17:18 Sodium Chloride 0.9% 1000 Ml Administered 12/23/21 17:19 Dose 1,000 mls @ ud .ROUTE .STK-MED ONE Sodium Chloride 1,000 mls @ 100 mls/hr 12/23/21 17:30 12/23/21 17:26 Sodium Chloride 0.9% 1000 Ml IV 01/22/22 17:29 100 mls/hr .Q10H SARAH Administration Morphine Sulfate 4 mg 12/23/21 17:18 12/23/21 17:26 Morphine Sulfate 4 Mg/Ml Injection IV 12/23/21 17:19 4 mg STAT ONE Administration Morphine Sulfate Confirm 12/23/21 17:18 Morphine Sulfate 4 Mg/Ml Injection Administered 12/23/21 17:19 Dose 4 mg .ROUTE .STK-MED ONE Morphine Sulfate 4 mg 12/23/21 17:39 12/23/21 17:44 Morphine Sulfate 4 Mg/Ml Injection IV 12/23/21 17:40 4 mg STAT ONE Administration Morphine Sulfate Confirm 12/23/21 17:43 Morphine Sulfate 4 Mg/Ml Injection Administered 12/23/21 17:44 Dose 4 mg .ROUTE .STK-MED ONE Ondansetron HCl 4 mg 12/23/21 17:18 12/23/21 17:26 Ondansetron Hcl 4 Mg/2 Ml Vial IV 12/23/21 17:19 4 mg STAT ONE Administration Ondansetron HCl Confirm 12/23/21 17:18 Ondansetron Hcl 4 Mg/2 Ml Vial Administered 12/23/21 17:19 Dose 4 mg .ROUTE .STK-MED ONE Lab/Rad Data: Laboratory Result Diagrams 12/23/21 17:32 12/23/21 17:32 Laboratory Results 12/23/21 12/23/21 12/23/21 Range/Units 19:50 17:32 17:32 WBC (4.0-10.5) x10^3/uL RBC (4.1-5.4) x10^6/uL Hgb (12.0-16.0) g/dL Hct (35-47) % MCV (78-100) fL MCH (26-32) pg MCHC (32-36) g/dL RDW (11.5-14.0) % Plt Count (150-450) x10^3/uL MPV (7.5-11.0) fL Gran % (36.0-66.0) % Immature Gran % (Auto) (0.00-0.4) % Nucleat RBC Rel Count (0.00-0.1) % Eos # (Auto) (0-0.5) x10^3/uL Immature Gran # (Auto) (0.00-0.03) x10^3u/L Absolute Lymphs (auto) (1.0-4.6) x10^3/uL Absolute Monos (auto) (0.0-1.3) x10^3/uL Absolute Nucleated RBC (0.00-0.01) x10^3u/L Lymphocytes % (24.0-44.0) % Monocytes % (0.0-12.0) % Eosinophils % (0.00-5.0) % Basophils % (0.0-0.4) % Absolute Granulocytes (1.4-6.9) x10^3/uL Basophils # (0-0.4) x10^3/uL PT 10.7 (9.4-12.5) SECONDS INR 1.01 (0.8-3.0) APTT 24.2 L (25.1-36.5) SECONDS Sodium (137-145) mmol/L Potassium (3.5-5.1) mmol/L Chloride (98-107) mmol/L Carbon Dioxide (22-30) mmol/L Anion Gap (5-15) MEQ/L BUN (7-17) mg/dL Creatinine (0.52-1.04) mg/dL Estimated GFR ML/MIN Glucose (74-106) mg/dL Lactic Acid (0.4-2.0) Calcium (8.4-10.2) mg/dL Total Bilirubin (0.2-1.3) mg/dL AST (14-36) U/L ALT (0-35) U/L Alkaline Phosphatase (38-126) U/L Troponin I < 0.012 < 0.012 (0.000-0.034) ng/mL NT-Pro-B Natriuret Pep (0-1800) pg/mL Serum Total Protein (6.3-8.2) g/dL Albumin (3.5-5.0) g/dL Amylase (30-110) U/L Lipase (23-300) U/L 12/23/21 12/23/21 12/23/21 Range/Units 17:32 17:32 17:19 WBC 9.3 (4.0-10.5) x10^3/uL RBC 4.46 (4.1-5.4) x10^6/uL Hgb 12.5 (12.0-16.0) g/dL Hct 39.7 (35-47) % MCV 89.0 (78-100) fL MCH 28.0 (26-32) pg MCHC 31.5 L (32-36) g/dL RDW 14.2 H (11.5-14.0) % Plt Count 338 (150-450) x10^3/uL MPV 8.8 (7.5-11.0) fL Gran % 83.2 H (36.0-66.0) % Immature Gran % (Auto) 0.5 H (0.00-0.4) % Nucleat RBC Rel Count 0.0 (0.00-0.1) % Eos # (Auto) 0 (0-0.5) x10^3/uL Immature Gran # (Auto) 0.05 H (0.00-0.03) x10^3u/L Absolute Lymphs (auto) 1.10 (1.0-4.6) x10^3/uL Absolute Monos (auto) 0.40 (0.0-1.3) x10^3/uL Absolute Nucleated RBC 0.00 (0.00-0.01) x10^3u/L Lymphocytes % 11.8 L (24.0-44.0) % Monocytes % 4.3 (0.0-12.0) % Eosinophils % 0.0 (0.00-5.0) % Basophils % 0.2 (0.0-0.4) % Absolute Granulocytes 7.74 H (1.4-6.9) x10^3/uL Basophils # 0.02 (0-0.4) x10^3/uL PT (9.4-12.5) SECONDS INR (0.8-3.0) APTT (25.1-36.5) SECONDS Sodium 138 (137-145) mmol/L Potassium 5.1 (3.5-5.1) mmol/L Chloride 102 (98-107) mmol/L Carbon Dioxide 25 (22-30) mmol/L Anion Gap 15.5 H (5-15) MEQ/L BUN 19 H (7-17) mg/dL Creatinine 1.15 H (0.52-1.04) mg/dL Estimated GFR 48.5 ML/MIN Glucose 127 H (74-106) mg/dL Lactic Acid 1.8 (0.4-2.0) Calcium 10.1 (8.4-10.2) mg/dL Total Bilirubin 0.40 (0.2-1.3) mg/dL AST 30 (14-36) U/L ALT 20 (0-35) U/L Alkaline Phosphatase 94 (38-126) U/L Troponin I (0.000-0.034) ng/mL NT-Pro-B Natriuret Pep 285 (0-1800) pg/mL Serum Total Protein 7.3 (6.3-8.2) g/dL Albumin 4.6 (3.5-5.0) g/dL Amylase 91 (30-110) U/L Lipase 132 (23-300) U/L - Progress Progress: improved Progress Note: 12/23/21 20:15 4mg IV Morphine/4mg IV Zofran w improvement 4mg IV Morphine w resolution of pain Gallbladder US 01/03/21 w sludging Counseled pt/family regarding: lab results, diagnosis, need for follow-up, rad results - Departure Departure Disposition: Home Clinical Impression: Biliary colic Condition: Stable Critical Care Time: No Referrals: BHARGAV PÉREZ [ACTIVE STAFF] - Follow up/PCP as directed Instructions: Gallstones (DC) Additional Instructions: Follow up with Dr. Pérez on Saturday Return to ER for increasing pain or temperature greater than 100.5
[2021-12-23 17:51] LABS: INR 1.01 (0.8-3.0); PROTIME 10.7 SECONDS (9.4-12.5); PTT 24.2 SECONDS (25.1-36.5)
[2021-12-23 18:08] LABS: ALBUMIN 4.6 g/dL (3.5-5.0); ANION GAP 15.5 MEQ/L (5-15); BILIRUBIN,TOTAL 0.4 mg/dL (0.2-1.3); Calcium 10.1 mg/dL (8.4-10.2); Creatinine 1 1.15 mg/dL (0.52-1.04); EST GLOMERULAR FILTRATION RATE 48.5 ML/MIN; Potassium 5.1 mmol/L (3.5-5.1); Total Protein 7.3 g/dL (6.3-8.2)
--- NOTE | 2021-12-23 20:07 | XRAY ---
Indication: Epigastric/back pain. Comparison: January 02, 2021. Portable chest remains inflated and clear. Heart not enlarged. Bony thorax intact again with osteopenia and degenerative changes. No new/acute findings.
[2021-12-23 20:41] VITALS: BP 150/90; PULSE 68
[2021-12-23 21:13] VITALS: O2SAT 97
--- NOTE | 2021-12-23 21:31 | XRAY ---
Indication: Epigastric and back pain. Multiple contiguous axial images obtained through the abdomen and pelvis using 80 cc Isovue 370 contrast. Comparison: None Lung bases demonstrates mild bibasilar dependent atelectasis. No infiltrate or effusion. Heart not enlarged. Noncontrasted stomach and bowel loops appear nonobstructed. Appendectomy and hysterectomy reported. Diffuse colonic diverticulosis throughout without diverticulitis. Intact sigmoid anastomosis. Distended gallbladder without gallstones or biliary distention. No free fluid/air. Remaining liver, pancreas, spleen, adrenal glands, kidneys, ureters, and bladder are unremarkable. Mild scattered aortoiliac calcifications. No AAA or pathologic retroperitoneal lymphadenopathy. Osseous structures intact with mild osteopenia, minimal degenerative changes throughout the spine, and mild degenerative changes both hips. Impression: 1. Distended gallbladder without gallstones. Sonogram may yield further information if clinically warranted. 2. Diffuse colonic diverticulosis, arteriosclerotic disease, and chronic bony findings. 3. Remaining CT abdomen/pelvis without contrast exam is negative. Comment: Preliminary interpretation made by [facility]. No critical discrepancy.
== END 2021-12-23 20:45 | disposition home or self-care (01) ==
LOC: ED 17:12
DX: K80.50 Calculus of bile duct without cholangitis or cholecystitis without obstruction (principal); R07.9 Chest pain, unspecified; R10.13 Epigastric pain; R11.0 Nausea; R06.09 Other forms of dyspnea; E78.5 Hyperlipidemia, unspecified; I10 Essential (primary) hypertension; E11.9 Type 2 diabetes mellitus without complications; Z79.899 Other long term (current) drug therapy
CPT/HCPCS: 36000; 36415; 71045; 74177; 80053; 82150; 83605; 83690; 83880; 84484; 85025; 85610; 85730; 93005; 96374; 96375; 96376; 99284; J2270; J2405

== ENCOUNTER 2021-12-24 06:34 | Observation (INO) | payer MEDICARE ==
[2021-12-24] MEDS ORDERED: Zofran 4 MG/2 ML VIAL IV ONE (07:29)
[2021-12-24] MEDS ORDERED: MORPHINE SULFATE 4 MG INJ IV ONE ×2 (07:29→10:13)
[2021-12-24] MEDS ORDERED: Sodium Chloride 0.9% 1000 ML 1,000 ML IV SCH (07:30)
--- NOTE | 2021-12-24 07:37 | ERPHSYRPT ---
- History of Present Illness Time Seen by Provider: 12/24/21 07:29 Historian: patient Exam Limitations: no limitations Patient Subjective Stated Complaint: pt states "I just can't deal with this pain." Triage Nursing Assessment: pt ambulated into the er; pt is axo x4; c/o abd pain; pt states 10/10 pain to RUQ; tenderness present to RUQ; active bowel sounds in all quads; pt denies BM this morning; c/o nausea, denies vomiting; vitals wnl Physician History: 76 years old female with a history of hypertension, hiatal hernia, gallbladder sludging on ultrasound in the past was worked up in detail yesterday for epigastric/right upper quadrant pain with normal white count, normal liver enzymes and CT showing distended gallbladder. Patient was given symptomatic treatment and resolution of pain, was sent home and presented back with worsening pain on the right upper and lower quadrants with radiation to the back, rates 8/10 intensity sharp without any significant aggravating or relieving factors and associated with nausea and dry heaving. Denies any chest pain palpitations or shortness of breath. Patient reports yesterday her pain was more in the epigastric area but today is more in the right upper and special ly on the lower quadrants. Does have history of colon resection anastomosis from perforated diverticulitis. Timing/Duration: yesterday, gradual onset, worse Activities at Onset: rest Quality: sharpness Abdominal Pain Onset Location: RUQ, RLQ Pain Radiation: back Severity of Pain-Max: severe Severity of Pain-Current: moderate Modifying Factors: Improves With: nothing Associated Symptoms: nausea Previous symptoms: same symptoms as today Allergies/Adverse Reactions: No Known Drug Allergies Allergy (Verified 12/24/21 06:41) Home Medications: lisinopriL [Zestril] 5 tab PO DAILY 04/09/17 [History] Amlodipine Besylate 5 mg [Norvasc 5 mg] 5 mg PO DAILY 04/10/17 [History] Magnesium 200 mg PO BID 03/16/21 [History] ALPRAZolam [Alprazolam] 1 ea DAILY PRN PRN 08/02/21 [History] Prednisone 20 mg [Deltasone 20 mg] 5 mg DAILY 08/02/21 [History] Hx Tetanus, Diphtheria Vaccination/Date Given: Yes Hx Influenza Vaccination/Date Given: Yes Hx Pneumococcal Vaccination/Date Given: Yes Travel Risk - International Travel Have you traveled outside of the country in past 3 weeks: No - Coronavirus Screening Are you exhibiting any of the following symptoms?: No Close contact with a COVID-19 positive Pt in past 14-21 Days: No - Vaccine Status Have you recieved a Covid-19 vaccination: Yes [address] Collections Officer: Moderna - Vaccination Dates Date of 2cond Vaccination (if applicable): 08/08/20 - Review of Systems Constitutional: No Symptoms Eyes: No Symptoms Ears, Nose, & Throat: No Symptoms Respiratory: No Symptoms Cardiac: No Symptoms Abdominal/Gastrointestinal: Abdominal Pain, Nausea Genitourinary Symptoms: No Symptoms Musculoskeletal: No Symptoms Skin: No Symptoms Neurological: No Symptoms Psychological: No Symptoms Endocrine: No Symptoms Hematologic/Lymphatic: No Symptoms Immunological/Allergic: No Symptoms - Past Medical History Pertinent Past Medical History: Yes Neurological History: No Pertinent History ENT History: Cataracts Cardiac History: High Cholesterol, Hypertension Respiratory History: No Pertinent History Endocrine Medical History: Diabetes Type II Musculoskeletal History: Osteoporosis GI Medical History: No Pertinent History, Diverticulitis History: Renal Disease, Other Psycho-Social History: Anxiety Female Reproductive Disorders: No Pertinent History Other Medical History: PT STATES SHE WAS ON DIABETIC MEDICATIONS IN IN THE PAST BUT NOTHING PRESENTLY - Past Surgical History Past Surgical History: Yes Neuro Surgical History: No Pertinent History Cardiac: No Pertinent History Respiratory: No Pertinent History Gastrointestinal: Appendectomy, Colon Resection, Hernia Repair Genitourinary: No Pertinent History Musculoskeletal: No Pertinent History Female Surgical History: Hysterectomy - Social History Smoking Status: Former smoker Exposure to second hand smoke: No Drug Use: none Patient Lives Alone: No Significant Family History: no pertinent family hx - Nursing Vital Signs Nursing Vital Signs: Initial Vital Signs Temperature 97.4 F 12/24/21 06:44 Pulse Rate 79 12/24/21 06:44 Respiratory Rate 18 12/24/21 06:44 Blood Pressure 140/84 12/24/21 06:44 O2 Sat by Pulse Oximetry 98 12/24/21 06:44 Pain Scale Pain Intensity 6 - Physical Exam General Appearance: no apparent distress, alert Eye Exam: PERRL/EOMI Ears, Nose, Throat Exam: normal ENT inspection, pharynx normal Neck Exam: normal inspection, supple, full range of motion Respiratory Exam: normal breath sounds, lungs clear Cardiovascular Exam: regular rate/rhythm, normal heart sounds Gastrointestinal/Abdomen Exam: soft, normal bowel sounds, tenderness (Right upper quadrant with positive Mcbride sign. Tenderness right lower quadrant.), guarding Back Exam: normal inspection Extremity Exam: normal inspection, pelvis stable Neurologic Exam: alert, oriented x 3, cooperative Skin Exam: normal color SpO2 Interpretation: normal SpO2: 98 O2 Delivery: Room Air Ordered Tests: Active Orders 24 hr Category Date Time Status IV Insertion STAT Care 12/24/21 07:29 Active NPO (ED) STAT Care 12/24/21 07:29 Active ABDOMEN AND PELVIS W/0 CONTRAS [CT] Stat Exams 12/24/21 07:30 Taken AMYLASE Stat Lab 12/24/21 07:40 Completed CBC W DIFF Stat Lab 12/24/21 07:40 Completed CMP Stat Lab 12/24/21 07:40 Completed LIPASE Stat Lab 12/24/21 07:40 Completed UA W/RFX CULTURE Stat Lab 12/24/21 Ordered Medication Summary Generic Name Dose Route Start Last Admin Trade Name Freq PRN Reason Stop Dose Admin Sodium Chloride 1,000 mls @ 125 mls/hr 12/24/21 07:30 12/24/21 08:04 Sodium Chloride 0.9% 1000 Ml IV 01/23/22 07:29 125 mls/hr .Q8H SARAH Administration Discontinued Medications Generic Name Dose Route Start Last Admin Trade Name Freq PRN Reason Stop Dose Admin Morphine Sulfate 4 mg 12/24/21 07:29 12/24/21 08:05 Morphine Sulfate 4 Mg/Ml Injection IV 12/24/21 07:30 4 mg STAT ONE Administration Morphine Sulfate Confirm 12/24/21 07:56 Morphine Sulfate 4 Mg/Ml Injection Administered 12/24/21 07:57 Dose 4 mg .ROUTE .STK-MED ONE Morphine Sulfate 4 mg 12/24/21 10:13 12/24/21 10:21 Morphine Sulfate 4 Mg/Ml Injection IV 12/24/21 10:14 4 mg STAT ONE Administration Morphine Sulfate Confirm 12/24/21 10:20 Morphine Sulfate 4 Mg/Ml Injection Administered 12/24/21 10:21 Dose 4 mg .ROUTE .STK-MED ONE Ondansetron HCl 4 mg 12/24/21 07:29 12/24/21 08:04 Ondansetron Hcl 4 Mg/2 Ml Vial IV 12/24/21 07:30 4 mg STAT ONE Administration Ondansetron HCl Confirm 12/24/21 07:56 Ondansetron Hcl 4 Mg/2 Ml Vial Administered 12/24/21 07:57 Dose 4 mg .ROUTE .STK-MED ONE Lab/Rad Data: Laboratory Result Diagrams 12/24/21 07:40 12/24/21 07:40 Laboratory Results 12/24/21 12/24/21 Range/Units 07:40 07:40 WBC 9.0 (4.0-10.5) x10^3/uL RBC 4.24 (4.1-5.4) x10^6/uL Hgb 12.0 (12.0-16.0) g/dL Hct 38.3 (35-47) % MCV 90.3 (78-100) fL MCH 28.3 (26-32) pg MCHC 31.3 L (32-36) g/dL RDW 14.3 H (11.5-14.0) % Plt Count 296 (150-450) x10^3/uL MPV 8.8 (7.5-11.0) fL Gran % 74.6 H (36.0-66.0) % Immature Gran % (Auto) 0.4 (0.00-0.4) % Nucleat RBC Rel Count 0.0 (0.00-0.1) % Eos # (Auto) 0.06 (0-0.5) x10^3/uL Immature Gran # (Auto) 0.04 H (0.00-0.03) x10^3u/L Absolute Lymphs (auto) 1.50 (1.0-4.6) x10^3/uL Absolute Monos (auto) 0.63 (0.0-1.3) x10^3/uL Absolute Nucleated RBC 0.00 (0.00-0.01) x10^3u/L Lymphocytes % 16.7 L (24.0-44.0) % Monocytes % 7.0 (0.0-12.0) % Eosinophils % 0.7 (0.00-5.0) % Basophils % 0.6 (0.0-0.4) % Absolute Granulocytes 6.70 (1.4-6.9) x10^3/uL Basophils # 0.05 (0-0.4) x10^3/uL Sodium 134 L (137-145) mmol/L Potassium 4.1 (3.5-5.1) mmol/L Chloride 98 (98-107) mmol/L Carbon Dioxide 28 (22-30) mmol/L Anion Gap 12.1 (5-15) MEQ/L BUN 16 (7-17) mg/dL Creatinine 1.05 H (0.52-1.04) mg/dL Estimated GFR 53.9 ML/MIN Glucose 103 (74-106) mg/dL Calcium 9.8 (8.4-10.2) mg/dL Total Bilirubin 0.40 (0.2-1.3) mg/dL AST 24 (14-36) U/L ALT 18 (0-35) U/L Alkaline Phosphatase 80 (38-126) U/L Serum Total Protein 7.4 (6.3-8.2) g/dL Albumin 4.4 (3.5-5.0) g/dL Amylase 90 (30-110) U/L Lipase 80 (23-300) U/L - Progress Progress: improved, pain not gone completely, re-examined Progress Note: 12/24/21 10:[address] Jacobs and Dr. Stoll Discussed with : Other Will see patient in: hospital (observation) Counseled pt/family regarding: lab results, diagnosis, rad results - Departure Departure Disposition: Observation Clinical Impression: Cholecystitis Condition: Stable Critical Care Time: No Referrals: DIMPLE STACY, RUSSIAN RUBBER [Primary Care Provider] - Follow up/PCP as directed
[2021-12-24 07:44] LABS: Basophil (Absolute #) 0.05 x10^3/uL (0-0.4); Eosinophil % 0.7 % (0.00-5.0); Eosinophil (Absolute #) 0.06 x10^3/uL (0-0.5); Hematocrit 38.3 % (35-47); Lymphocytes % 16.7 % (24.0-44.0); Mean Cell Volume 90.3 fL (78-100); Mean Corpuscular Hemoglobin 28.3 pg (26-32); Mean Corpuscular Hgb Concent. 31.3 g/dL (32-36); Mean Platelet Volume 8.8 fL (7.5-11.0); Monocyte (Absolute #) 0.63 x10^3/uL (0.0-1.3); Neutrophil % 74.6 % (36.0-66.0); Platelet Count 296 x10^3/uL (150-450); Red Blood Count 4.24 x10^6/uL (4.1-5.4); Red Cell Distribution Width 14.3 % (11.5-14.0)
[2021-12-24 07:55] LABS: ALBUMIN 4.4 g/dL (3.5-5.0); ANION GAP 12.1 MEQ/L (5-15); BILIRUBIN,TOTAL 0.4 mg/dL (0.2-1.3); Calcium 9.8 mg/dL (8.4-10.2); Creatinine 1 1.05 mg/dL (0.52-1.04); EST GLOMERULAR FILTRATION RATE 53.9 ML/MIN; Potassium 4.1 mmol/L (3.5-5.1); Total Protein 7.4 g/dL (6.3-8.2)
[2021-12-24] MEDS ORDERED: MORPHINE SULFATE 4 MG INJ ONE ×2 (07:56→10:20)
[2021-12-24] MEDS ORDERED: Zofran 4 MG/2 ML VIAL ONE (07:56)
[2021-12-24] MEDS ORDERED: PIPERACILLIN/TAZOBACTAM 3.375 GM in Sodium Chloride 100ML MINI-BAG PLUS 100 ML IV ONE (10:32)
[2021-12-24] MEDS ORDERED: PIPERACILLIN/TAZOBACTAM IV ONE ×2 (11:02→11:03)
[2021-12-24] MEDS ORDERED: Sodium Chloride 100ML MINI-BAG PLUS 100 ML IV ONE (11:03)
[2021-12-24 11:55] LABS: INFLUENZA A NEGATIVE (NEGATIVE); INFLUENZA B NEGATIVE (NEGATIVE); RESPIRATORY SYNCTIAL VIRUS NEGATIVE (Negative); SARS-CoV-2 Xpert Express NEGATIVE (NEGATIVE)
[2021-12-24] MEDS ORDERED: Zofran 4 MG/2 ML VIAL IV PRN (12:25)
[2021-12-24] MEDS ORDERED: DUONEB 0.5-3 MG/3 ml Neb IH PRN (12:25)
[2021-12-24] MEDS ORDERED: PROTONIX 40 MG IV IV SCH (13:00)
[2021-12-24 13:01] LABS: Appearance CLEAR (CLEAR); Bilirubin NEGATIVE (NEGATIVE); Glucose NEGATIVE (NEGATIVE); Ketones NEGATIVE (NEGATIVE); Ph 5.5 (5-6); Protein,Urine Dip NEGATIVE (Negative); RBC NEGATIVE Ery/ul (0-5)
[2021-12-24 13:02] LABS: Dipstick done @ ? MAIN LAB; Nitrite NEGATIVE (NEGATIVE); Urobilinogen 0.2 mg/dL (0-1)
[2021-12-24 13:03] LABS: Mucus SLIGHT /HPF (NEGATIVE); Urine Cultured Indicated? NO
[2021-12-24] MEDS: MORPHINE SULFATE 4 MG INJ IV PRN ×2 (13:31→19:27)
[2021-12-24] MEDS ORDERED: xanAX 0.25 MG PO PRN (15:12)
[2021-12-24] MEDS: Sodium Chloride 0.9% 1000 ML 1,000 ML IV SCH (15:47)
[2021-12-24] MEDS: Calcium 500MG W/Vit D Tablet PO SCH (17:01)
--- NOTE | 2021-12-24 17:39 | XRAY ---
Indication: Worsening right abdomen pain. Multiple contiguous axial images obtained through the abdomen and pelvis without contrast. Comparison: One day earlier. Lung bases again demonstrates minimal dependent atelectasis. Heart not enlarged. New moderate-sized sliding hiatal hernia with partial intrathoracic stomach. Noncontrasted stomach and bowel loops remain nonobstructed again with diffuse diverticulosis and intact sigmoid anastomosis. Gallbladder continues to remain abnormally distended without gallstones or biliary distention. Stable tiny splenic calcified granulomas. Urinary bladder is now contrast distended from CT with contrast exam one day earlier. Remaining liver, pancreas, adrenal glands, kidneys, and ureters are unremarkable. Again mild scattered aortoiliac calcifications. Impression: 1. New sliding hiatal hernia with partial intrathoracic stomach. 2. Again abnormal distended gallbladder better evaluated with sonogram. 3. Again colonic diverticulosis, arteriosclerotic disease, and old granulomatous disease. Comment: Preliminary interpretation made by [facility]. No critical discrepancy.
[2021-12-24] MEDS: PIPERACILLIN/TAZOBACTAM 3.375 GM in Sodium Chloride 100ML MINI-BAG PLUS 100 ML IV SCH ×2 (17:59→23:45)
--- NOTE | 2021-12-25 01:33 | PCM.HP ---
History of Present Illness - Chief Complaint Chief Complaint: Cholecystitis History of Present Illness: is a 76 year old female admitted through ER for probable cholecystectomy. This is patient's 2nd visit to ER for upper abdominal pain. Work up shows gall bladder sludge and distended gall bladder.Patient c/o severe RUQ pain and nausea. PMHx includes HTN,HLD,Hx DM2 not currently on meds,Diverticulitis S/P colon resection,Anxiety.Denies chest pain cough or dyspnea. Medications & Allergies Home Medications: Home Medication List lisinopriL [Zestril] 5 tab PO DAILY 04/09/17 [History Confirmed 12/24/21] Amlodipine Besylate 5 mg [Norvasc 5 mg] 5 mg PO DAILY 04/10/17 [History Confirmed 12/24/21] Omeprazole Magnesium [Prilosec Otc] 20 mg PO DAILY 30 Days tablet. 01/06/21 [Rx Confirmed 12/24/21] Magnesium 250 mg PO BID 03/16/21 [History Confirmed 12/24/21] ALPRAZolam [Alprazolam] 0.25 mg PO Q6H PRN 08/02/21 [History Confirmed 12/24/21] Prednisone 20 mg [Deltasone 20 mg] 5 mg DAILY 08/02/21 [History Confirmed 12/24/21] Calcium Carbonate [Calcium] 300 mg PO DAILY 12/24/21 [History Confirmed 12/24/21] Multivitamin [One-Daily Multi-Vitamin] 1 each PO DAILY 12/24/21 [History Confirmed 12/24/21] Allergies/Adverse Reactions: Allergies Allergy/AdvReac Type Severity Reaction Status Date / Time No Known Drug Allergies Allergy Verified 12/24/21 14:03 - Past Medical History Past Medical History: Yes Neurological History: No Pertinent History ENT History: Cataracts Cardiac History: High Cholesterol, Hypertension Respiratory History: No Pertinent History Endocrine Medical History: No Pertinent History Musculoskelatal History: No Pertinent History GI Medical History: Diverticulitis History: Renal Disease Pyscho-Social History: Anxiety Reproductive Disorders: No Pertinent History Comment: PT STATES SHE WAS ON DIABETIC MEDICATIONS IN IN THE PAST BUT NOTHING PRESENTLY - Female History Hx Last Menstrual Period: Years ago Are you now?: No - Past Surgical History Past Surgical History: Yes Neuro Surgical History: No Pertinent History Cardiac History: No Pertinent History Respiratory Surgery: No Pertinent History GI Surgical History: Appendectomy, Colon Resection, Hernia Repair Genitourinary Surgical Hx: No Pertinent History Musculskeletal Surgical Hx: No Pertinent History Female Surgical History: Hysterectomy - Social History Smoking Status: Former smoker Exposure to second hand smoke: No Alcohol: None Drug Use: none Significant Family History: no pertinent family hx - Physical Exam Vital Signs: Vital Signs - 24 hr Temp Pulse Resp BP BP Pulse Ox 12/24/21 23:39 97.6 F 80 18 120/59 96 12/24/21 19:19 97.5 F 84 20 133/65 96 12/24/21 15:55 98.9 F 74 18 144/63 98 12/24/21 13:42 98.7 F 74 18 150/63 112/62 97 12/24/21 12:30 98.7 F 74 18 150/63 97 12/24/21 12:25 98.7 F 74 18 150/63 97 12/24/21 11:16 97.1 F 78 20 112/62 92 L 12/24/21 10:30 98 12/24/21 10:19 97.2 F 72 20 115/70 98 12/24/21 09:04 97.4 F 77 18 108/71 92 L 12/24/21 08:06 79 154/93 98 12/24/21 06:44 97.4 F 79 18 140/84 98 Results - Labs Lab/Micro Results: Lab Results-Last 24 Hours 12/24/21 12/24/21 12/24/21 Range/Units 07:40 07:40 10:30 WBC 9.0 (4.0-10.5) x10^3/uL RBC 4.24 (4.1-5.4) x10^6/uL Hgb 12.0 (12.0-16.0) g/dL Hct 38.3 (35-47) % MCV 90.3 (78-100) fL MCH 28.3 (26-32) pg MCHC 31.3 L (32-36) g/dL RDW 14.3 H (11.5-14.0) % Plt Count 296 (150-450) x10^3/uL MPV 8.8 (7.5-11.0) fL Gran % 74.6 H (36.0-66.0) % Immature Gran % (Auto) 0.4 (0.00-0.4) % Nucleat RBC Rel Count 0.0 (0.00-0.1) % Eos # (Auto) 0.06 (0-0.5) x10^3/uL Immature Gran # (Auto) 0.04 H (0.00-0.03) x10^3u/L Absolute Lymphs (auto) 1.50 (1.0-4.6) x10^3/uL Absolute Monos (auto) 0.63 (0.0-1.3) x10^3/uL Absolute Nucleated RBC 0.00 (0.00-0.01) x10^3u/L Lymphocytes % 16.7 L (24.0-44.0) % Monocytes % 7.0 (0.0-12.0) % Eosinophils % 0.7 (0.00-5.0) % Basophils % 0.6 (0.0-0.4) % Absolute Granulocytes 6.70 (1.4-6.9) x10^3/uL Basophils # 0.05 (0-0.4) x10^3/uL Sodium 134 L (137-145) mmol/L Potassium 4.1 (3.5-5.1) mmol/L Chloride 98 (98-107) mmol/L Carbon Dioxide 28 (22-30) mmol/L Anion Gap 12.1 (5-15) MEQ/L BUN 16 (7-17) mg/dL Creatinine 1.05 H (0.52-1.04) mg/dL Estimated GFR 53.9 ML/MIN Glucose 103 (74-106) mg/dL Calcium 9.8 (8.4-10.2) mg/dL Magnesium (1.6-2.3) mg/dL Total Bilirubin 0.40 (0.2-1.3) mg/dL AST 24 (14-36) U/L ALT 18 (0-35) U/L Alkaline Phosphatase 80 (38-126) U/L Serum Total Protein 7.4 (6.3-8.2) g/dL Albumin 4.4 (3.5-5.0) g/dL Amylase 90 (30-110) U/L Lipase 80 (23-300) U/L Urinalys Dipstick Clnc Urine Color (YELLOW) Urine Appearance (CLEAR) Urine pH (5-6) Ur Specific Valera (1.005-1.025) POC Urine Protein Conf (Negative) Urine Ketones (NEGATIVE) Urine Nitrite (NEGATIVE) Urine Bilirubin (NEGATIVE) Urine Urobilinogen (0-1) mg/dL Urine Leukocytes (NEGATIVE) Urine WBC (Auto) (0-5) /HPF Urine RBC (Auto) (0-2) /HPF U Epithel Cells (Auto) (FEW) /HPF Urine Bacteria (Auto) (NEGATIVE) /HPF Urine RBC (0-5) Emanuel/ul Urine Mucus (Auto) (NEGATIVE) /HPF Ur Culture Indicated? Urine Glucose (NEGATIVE) mg/dL Influenza Type A Ag NEGATIVE (NEGATIVE) Influenza Type B Ag NEGATIVE (NEGATIVE) RSV (PCR) NEGATIVE (Negative) SARS-CoV-2 (PCR) NEGATIVE (NEGATIVE) 12/24/21 12/24/21 Range/Units 12:55 15:45 WBC (4.0-10.5) x10^3/uL RBC (4.1-5.4) x10^6/uL Hgb (12.0-16.0) g/dL Hct (35-47) % MCV (78-100) fL MCH (26-32) pg MCHC (32-36) g/dL RDW (11.5-14.0) % Plt Count (150-450) x10^3/uL MPV (7.5-11.0) fL Gran % (36.0-66.0) % Immature Gran % (Auto) (0.00-0.4) % Nucleat RBC Rel Count (0.00-0.1) % Eos # (Auto) (0-0.5) x10^3/uL Immature Gran # (Auto) (0.00-0.03) x10^3u/L Absolute Lymphs (auto) (1.0-4.6) x10^3/uL Absolute Monos (auto) (0.0-1.3) x10^3/uL Absolute Nucleated RBC (0.00-0.01) x10^3u/L Lymphocytes % (24.0-44.0) % Monocytes % (0.0-12.0) % Eosinophils % (0.00-5.0) % Basophils % (0.0-0.4) % Absolute Granulocytes (1.4-6.9) x10^3/uL Basophils # (0-0.4) x10^3/uL Sodium (137-145) mmol/L Potassium (3.5-5.1) mmol/L Chloride (98-107) mmol/L Carbon Dioxide (22-30) mmol/L Anion Gap (5-15) MEQ/L BUN (7-17) mg/dL Creatinine (0.52-1.04) mg/dL Estimated GFR ML/MIN Glucose (74-106) mg/dL Calcium (8.4-10.2) mg/dL Magnesium 1.7 (1.6-2.3) mg/dL Total Bilirubin (0.2-1.3) mg/dL AST (14-36) U/L ALT (0-35) U/L Alkaline Phosphatase (38-126) U/L Serum Total Protein (6.3-8.2) g/dL Albumin (3.5-5.0) g/dL Amylase (30-110) U/L Lipase (23-300) U/L Urinalys Dipstick Clnc MAIN LAB Urine Color YELLOW (YELLOW) Urine Appearance CLEAR (CLEAR) Urine pH 5.5 (5-6) Ur Specific Valera 1.020 (1.005-1.025) POC Urine Protein Conf NEGATIVE (Negative) Urine Ketones NEGATIVE (NEGATIVE) Urine Nitrite NEGATIVE (NEGATIVE) Urine Bilirubin NEGATIVE (NEGATIVE) Urine Urobilinogen 0.2 (0-1) mg/dL Urine Leukocytes NEGATIVE (NEGATIVE) Urine WBC (Auto) NONE (0-5) /HPF Urine RBC (Auto) NONE (0-2) /HPF U Epithel Cells (Auto) NONE (FEW) /HPF Urine Bacteria (Auto) NONE (NEGATIVE) /HPF Urine RBC NEGATIVE (0-5) Emanuel/ul Urine Mucus (Auto) SLIGHT (NEGATIVE) /HPF Ur Culture Indicated? NO Urine Glucose NEGATIVE (NEGATIVE) mg/dL Influenza Type A Ag (NEGATIVE) Influenza Type B Ag (NEGATIVE) RSV (PCR) (Negative) SARS-CoV-2 (PCR) (NEGATIVE) - Radiology Impressions Radiology Exams & Impressions: Radiology Procedures Category Date Time Status ABDOMEN AND PELVIS W/0 CONTRAS [CT] Stat Exams 12/24/21 07:30 Completed CHEST 1 VIEW (PORTABLE) Routine Exams 12/25/21 05:00 Ordered GALLBLADDER [US] Urgent Exams 12/25/21 08:00 Ordered - Other Procedures and Tests Respiratory Therapy 12/25/21 01:06 EKG ROUTINE
[2021-12-25 04:41] LABS: Absolute Neutrophil Ct (ANC) 5.69 x10^3/uL (1.4-6.9); Basophil (Absolute #) 0.06 x10^3/uL (0-0.4); Eosinophil % 0.8 % (0.00-5.0); Eosinophil (Absolute #) 0.06 x10^3/uL (0-0.5); Hematocrit 35.6 % (35-47); Hemoglobin 11.3 g/dL (12.0-16.0); Lymphocyte (Absolute #) 0.96 x10^3/uL (1.0-4.6); Lymphocytes % 13.1 % (24.0-44.0); Mean Cell Volume 89.7 fL (78-100); Mean Corpuscular Hemoglobin 28.5 pg (26-32); Mean Corpuscular Hgb Concent. 31.7 g/dL (32-36); Monocyte (Absolute #) 0.52 x10^3/uL (0.0-1.3); Monocytes % 7.1 % (0.0-12.0); Neutrophil % 77.9 % (36.0-66.0); Platelet Count 296 x10^3/uL (150-450); Red Blood Count 3.97 x10^6/uL (4.1-5.4); Red Cell Distribution Width 14.8 % (11.5-14.0); White Blood Count 7.3 x10^3/uL (4.0-10.5)
[2021-12-25 05:25] LABS: ALBUMIN 3.7 g/dL (3.5-5.0); ALKALINE PHOSPHATASE 73 U/L (38-126); AMYLASE 87 U/L (30-110); BLOOD UREA NITROGEN 13 mg/dL (7-17); CHLORIDE 104 mmol/L (98-107); Calcium 8.9 mg/dL (8.4-10.2); Carbon Dioxide 26 mmol/L (22-30); EST GLOMERULAR FILTRATION RATE 51.1 ML/MIN; Glucose 94 mg/dL (74-106); LIPASE 77 U/L (23-300); Potassium 4.5 mmol/L (3.5-5.1); SGOT/AST 71 U/L (14-36); SGPT/ALT 47 U/L (0-35); SODIUM 136 mmol/L (137-145); TROPONIN < 0.012 ng/mL (0.000-0.034); Total Protein 6.5 g/dL (6.3-8.2)
[2021-12-25] MEDS: PIPERACILLIN/TAZOBACTAM 3.375 GM in Sodium Chloride 100ML MINI-BAG PLUS 100 ML IV SCH ×2 (06:06→13:33)
--- NOTE | 2021-12-25 08:50 | XRAY ---
Indication: Hypertension. Comparison: December 23, 2021. Portable chest demonstrates new minimal right base infiltrate versus atelectasis. Remaining heart and lungs unremarkable.
[2021-12-25] MEDS: Sodium Chloride 0.9% 1000 ML 1,000 ML IV SCH (09:00)
[2021-12-25] MEDS ORDERED: Protonix 40MG Tablet PO SCH (10:00)
[2021-12-25] MEDS ORDERED: NORVASC 5 MG PO SCH (10:00)
[2021-12-25] MEDS ORDERED: NON-FORMULARY ITEM (Calcium Carbonate [Calcium] 600 MG Tablet) PO SCH (10:00)
[2021-12-25] MEDS ORDERED: NON-FORMULARY ITEM (Omeprazole Magnesium [Prilosec Otc] 20 MG Tablet.Dr) PO SCH (10:00)
[2021-12-25] MEDS ORDERED: Zestril 5 MG PO SCH (10:00)
[2021-12-25] MEDS ORDERED: DELTASONE 5 MG PO SCH (10:00)
--- NOTE | 2021-12-25 10:17 | XRAY ---
Indication: Right upper quadrant abdomen pain. Two-dimensional gallbladder sonogram performed. Comparison: None Gallbladder moderately distended with sludge in the dependent portion. No gallstones, wall thickening, or pericholecystic fluid. Common bile duct measures 4.5 mm. No intrahepatic biliary distention. Remaining visualized liver, pancreas, and right kidney are sonographically unremarkable. Right kidney measures 9.7 cm in length. No ascites. Impression: Distended gallbladder with sludge. Negative for acute cholecystitis or biliary distention.
[2021-12-25] MEDS: Calcium 500MG W/Vit D Tablet PO SCH (10:34)
--- NOTE | 2021-12-25 11:48 | CONS ---
CONSULT DATE: 12/24/2021 REASON FOR CONSULT: Possible gallbladder disease. HISTORY: A 76-year-old white female who has had her first major attack. She presented to the emergency room. She felt better. She went home. She came back. She had a CT scan showing distended gallbladder. PAST MEDICAL HISTORY: ALLERGIES: Per the chart. MEDICATIONS: Per the chart. PAST SURGICAL HISTORY: None recent. REVIEW OF SYSTEMS: Cardiovascular stable. Pulmonary stable. : Negative. GI: Present illness. Ortho/Neuro: Negative. PHYSICAL EXAMINATION: She is alert and oriented. She is reasonably comfortable. IMPRESSION/PLAN: She said the attack was substantial and it really brought her back in doubled over. Her chart is reviewed. CT scan showed distended gallbladder. An ultrasound has been ordered for tomorrow morning. We will see if this shows stone. If this does not suggestive of gallbladder disease, will proceed immediately with HIDA scan. She possibly could have surgical intervention tomorrow. The procedure was discussed with her to some degree at this point.
[2021-12-25 13:12] VITALS: BP 135/66; PULSE 77; O2SAT 95
--- NOTE | 2021-12-25 16:39 | XRAY ---
Indication: Right upper quadrant/epigastric pain. Comparison: None Patient received 6.0 mCi technetium 99 Choletec. Immediate anterior planar imaging was performed for 60 minutes. Normal hepatic activity on the first image. Normal biliary and gallbladder activity within 20 minutes. Normal biliary to bowel activity within 40 minutes. Patient then ingested 8 ounces of Ensure Plus. Ejection fraction calculated 3%, low. Impression: 1. HIDA scan portion of the exam is normal. 2. Low ejection fraction 3%. Rule out chronic cholecystitis.
--- NOTE | 2021-12-26 11:15 | CONS ---
CONSULT DATE: 12/25/2021 HISTORY: A 76-year-old who had some aches and pain on Saturday and got better. She came back to the emergency room apparently yesterday and had some more aches and pains. She had some epigastric right upper quadrant pain radiating to her back. She is not having any pain right now. She had an ultrasound that showed no cholelithiasis. It did show a little bit of sludge. CT scan showed a little bit distended gallbladder and a little bit slight hiatal hernia. Otherwise had some diverticula in the past. PAST MEDICAL HISTORY: High cholesterol, hypertension, diabetes, anxiety and renal disease in the past. PAST SURGICAL HISTORY: Diverticular resection in the past by Dr. Kidd and later had hernia repair by Dr. Leticia Tracy in the past with some mesh. I think she mentioned something about a hysterectomy, too. She had colonoscopy by Dr. Bienvenido Pérez. MEDICATIONS: Lisinopril, amlodipine, omeprazole, magnesium, Alprazolam, prednisone, calcium carbonate, multivitamins. ALLERGIES: NKDA. FAMILY HISTORY: Negative in regards to this problem. SOCIAL HISTORY: No current smoking, former smoker. REVIEW OF SYSTEMS: Fourteen systems reviewed. Negative or noncontributory as above and per preadmission questionnaire. No current chest pain or palpitations. Denies any abdominal pain, nausea or vomiting currently. PHYSICAL EXAMINATION: GENERAL: No acute distress. She is afebrile. Vital signs stable. HEENT: Sclera nonicteric. NECK: No JVD. CHEST: Equal excursion, nonlabored breathing. CVS: Regular rate and rhythm. ABDOMEN: Soft. No peritoneal signs. EXTREMITIES: No cyanosis. NEURO: Alert, moving extremities grossly symmetrically. PSYCH: Appropriate mood and affect. IMPRESSION: Some upper abdominal pain radiating to the back. She had a distended gallbladder. The ultrasound did not show any specific stones, it may have had a little bit of sludge and/or stones. HIDA scan is pending. She said she did not have any pain after drinking. She is not NPO. She is not willing to consider any intervention. We do not have the results back yet. If it is abnormal, would offer cholecystectomy in the future. However, she is not jumping to want any surgical intervention at this time. She wants to try some diet modifications. She understands if her HIDA is normal, chance of being a gallbladder issue would be less likely. She likely would benefit from upper endoscopy at some point. Otherwise, she agrees she is not interested in jumping into any surgical intervention at this time. Likely if she tolerates p.o. she can follow up in our office.
== END 2021-12-25 17:27 | disposition home or self-care (01) ==
LOC: ED 06:34 → MED SURG 12:20
PROVIDERS: ADMIT Family Medicine; ATTEND Family Medicine
DX: K81.9 Cholecystitis, unspecified (principal); K44.9 Diaphragmatic hernia without obstruction or gangrene; I10 Essential (primary) hypertension; E78.5 Hyperlipidemia, unspecified; E11.9 Type 2 diabetes mellitus without complications; K57.92 Diverticulitis of intestine, part unspecified, without perforation or abscess without bleeding; F41.9 Anxiety disorder, unspecified; Z79.899 Other long term (current) drug therapy; Z20.828 Contact with and (suspected) exposure to other viral communicable diseases
CPT/HCPCS: 0241U; 36415; 71045; 74176; 76705; 78226; 80053; 81015; 82150; 83036; 83690; 83735; 84484; 85025; 93005; 96374; 96375; 96376; 99284; A9537; 93268; J2270; J2405; G0378

== ENCOUNTER 2022-01-29 08:25 | Day surgery (SDC) | payer MEDICARE ==
[2022-01-29] MEDS ORDERED: Lactated Ringers 1,000 ML IV SCH (09:00)
--- NOTE | 2022-01-29 09:56 | HP ---
DATE OF SURGERY: 01/29/2022 HISTORY OF PRESENT ILLNESS: The patient is a 76-year-old has history of hiatal hernia and is in need of upper endoscopy. She has a history of some gallbladder issues but wanted to hold off on the cholecystectomy at the moment and would like to proceed with upper endoscopy. She had HIDA ejection fraction of about 3% consistent with some chronic cholecystitis. She had gallbladder with some sludge in it. No gallstones. She had some epigastric pain in the past. She had epigastric pain with pain to her back. PAST MEDICAL HISTORY: Diabetes mellitus type II, cataracts, hypertension, reflux, osteoporosis, anxiety. History of hiatal hernia on CT scan in the past. PAST SURGICAL HISTORY: Hysterectomy. Colon resection. Appendectomy. Hernia repair. No recent upper endoscopy. MEDICATIONS: Lisinopril, prednisone, alprazolam, omeprazole, amlodipine, calcium, magnesium, one a day vitamins. ALLERGIES: NKDA. FAMILY HISTORY: Negative in regards to this problem. SOCIAL HISTORY: No alcohol abuse. REVIEW OF SYSTEMS: Fourteen systems reviewed. Pertinent for as noted above. No chest pain or palpitations currently. Other systems negative or noncontributory as above and per preadmission assessment. PHYSICAL EXAMINATION: GENERAL: No acute distress. HEENT: Sclerae nonicteric. NECK: No JVD. CHEST: Equal excursion, nonlabored breathing. CVS: Regular rate and rhythm. ABDOMEN: Soft. No peritoneal signs. EXTREMITIES: No significant edema. NEURO: Alert, oriented, moving extremities symmetrically. PSYCH: Appropriate mood and affect. IMPRESSION: HIDA scan ejection fraction 3%. She does have chronic cholecystitis. She has history of sludge. She also has history of hiatal hernia on CT scan. She has not had a recent upper endoscopy. Discussed options. She wants to hold off on cholecystectomy now. She would however like to proceed with upper endoscopy possible biopsy to evaluate hiatal hernia, evaluate gastropathy, reflux or other etiology, would consider cholecystectomy at a later date. General risk of bleeding or infection, risk of bowel injury or perforation possibly requiring further procedure, risk of missed or nondiagnosis or incomplete exam possibly requiring barium swallow, other studies or procedures, general risk of anesthesia or sedation but not limited to. She understands and agrees to the planned procedure, will proceed with EGD possible biopsy as an outpatient for history of some epigastric pain, history of hiatal hernia, history of abnormal HIDA scan. Will proceed with EGD possible biopsy as outpatient. She will hold off on considering cholecystectomy at this time.
[2022-01-29] MEDS ORDERED: DIPRIVAN 200 MG/20 ML IV ONE (10:38)
[2022-01-29 11:46] VITALS: BP 139/90; PULSE 67; O2SAT 97
--- NOTE | 2022-01-29 15:34 | OP ---
SURGERY DATE/TIME: 01/29/2022 1053 PREOPERATIVE DIAGNOSES: 1) History of abnormal HIDA scan, symptomatic biliary colic, biliary dyskinesia, low ejection fraction, chronic cholecystitis. 2) History of hiatal hernia. 3) History of epigastric pain, need for upper endoscopy and evaluation of hiatal hernia. POSTOPERATIVE DIAGNOSES: 1) Small hiatal hernia. 2) Mild gastritis. PROCEDURES: 1) EGD with cold biopsy of antrum. 2) Cold biopsy of small bowel to evaluate for celiac disease, evaluate other causes of her symptoms. 3) Cold biopsy of antrum for Helicobacter pylori. SURGEON: Dr. Navneet Serrato. ANESTHESIA: MAC. ESTIMATED BLOOD LOSS: Minimal. INDICATIONS: As noted above. Risks and benefits explained in detail and not limited to and consent obtained. DESCRIPTION OF PROCEDURE AND FINDINGS: The patient is taken to the endoscopy room. MAC anesthesia introduced. After official time out and no disagreement with planned procedure, a bite block positioned. Video gastroscope easily passed down the esophagus. The gastroesophageal junction was about 36 to 37 cm. The Z-line was fairly crisp. There was a small hiatal hernia. Scope passed through the pylorus to the third portion of the duodenum. Third, second, first portion of duodenum no obvious ulcers. To rule out other cause of her symptoms, cold biopsy to taken to evaluate for celiac disease. Good hemostasis noted. Back in the stomach, she had some minimal to mild gastritis. Cold biopsy taken to evaluate for Helicobacter pylori. Good hemostasis noted. On retroflex, she did have a small hiatal hernia. There were no signs of any obvious ulcers or other mucosal lesions. The scope is carefully withdrawn. Cold biopsy taken in the antrum for Helicobacter pylori. Good hemostasis noted. The patient tolerated the procedure well. There were no immediate complications. The esophageal mucosa looked fairly unremarkable. No signs of any obvious lesions or masses. The scope is withdrawn. The patient tolerated the procedure well. Findings discuss with the family out in the waiting area.
== END 2022-01-29 11:53 | disposition home or self-care (01) ==
LOC: SDC 08:25
PROVIDERS: ATTEND Surgery
DX: K44.9 Diaphragmatic hernia without obstruction or gangrene (principal); K82.8 Other specified diseases of gallbladder; K81.1 Chronic cholecystitis; K29.70 Gastritis, unspecified, without bleeding
CPT/HCPCS: 99100; J2704

== ENCOUNTER 2022-03-05 08:18 | Day surgery (SDC) | payer MEDICARE ==
[~2022-03-05 08:18] MED LIST: Sensorcaine 0.25% 10 ML ONE
[2022-03-05] MEDS ORDERED: MEFOXIN 2 GM PREMIX** 2 GM/50 ML ML IV ONE (08:42)
[2022-03-05] MEDS ORDERED: Lactated Ringers 1,000 ML IV ONE (08:42)
[2022-03-05] MEDS ORDERED: Lactated Ringers 1,000 ML IV SCH (09:00)
[2022-03-05] MEDS ORDERED: MEFOXIN 2 GM PREMIX** 2 GM/50 ML ML IV SCH (09:00)
--- NOTE | 2022-03-05 09:12 | HP ---
DATE OF SURGERY: 03/05/2022 HISTORY OF PRESENT ILLNESS: The patient is a 76-year-old had epigastric pain in the past radiating to her back. She had upper endoscopy show just a small hiatal hernia and some minimal gastritis. She had a low ejection fraction at 3%. It was felt she had acute exacerbation of chronic cholecystitis, symptomatic cholelithiasis. She is agreeable to cholecystectomy at this point. PAST MEDICAL HISTORY: Diabetes. Cataracts. Hypertension. Hypercholesterolemia. Anxiety. She had a small hiatal hernia in the past. PAST SURGICAL HISTORY: Hysterectomy. Colon resection. Appendectomy. Hernia repair. Recent upper endoscopy. MEDICATIONS: Lisinopril, prednisone, Alprazolam, omeprazole, amlodipine, Calcium, magnesium, One-Daily vitamin. ALLERGIES: NKDA. FAMILY HISTORY: Negative in regards to this problem. SOCIAL HISTORY: No alcohol abuse. REVIEW OF SYSTEMS: Fourteen systems reviewed. No chest pain or palpitations. Other systems negative or noncontributory as above and per preadmission questionnaire. PHYSICAL EXAMINATION: GENERAL: No acute distress. HEENT: Sclerae nonicteric. NECK: No JVD. CHEST: Equal excursion, nonlabored breathing. CVS: Regular rate and rhythm. ABDOMEN: Soft, some mild tenderness epigastric. EXTREMITIES: No significant edema. NEURO: Alert, oriented, moving extremities symmetrically. PSYCH: Appropriate mood and affect. IMPRESSION: Acute exacerbation of chronic cholecystitis, symptomatic cholelithiasis. I feel the patient would benefit from cholecystectomy. Risks and benefits explained in detail including but not limited to bleeding or infection, risk of trocar injury or hernia, risk of bowel, bladder or blood vessel injury, risk of bile leak, bile duct injury, retained stone or sludge possibly requiring further procedure either open or ERCP, general risk of anesthesia, deep venous thrombosis, pulmonary embolism, pneumonia, perioperative risk of aches, pains, bloating, constipation and/or loose stools but not limited to, consent was obtained. Will proceed with laparoscopic cholecystectomy with possible open as an outpatient.
[2022-03-05] MEDS ORDERED: TORAdol 30 mg Injection ONE (10:48)
[2022-03-05] MEDS ORDERED: SUBLIMAZE 100 MCG/2 ML ONE (10:48)
[2022-03-05] MEDS ORDERED: Decadron 4 MG INJ ONE (10:48)
[2022-03-05] MEDS ORDERED: Zofran 4 MG/2 ML VIAL ONE (10:48)
[2022-03-05] MEDS ORDERED: BRIDION 200MG/2ML IV ONE (10:48)
[2022-03-05] MEDS ORDERED: Xylocaine-Mpf 2% 5 Ml Vial ONE (10:48)
[2022-03-05] MEDS ORDERED: Zemuron 100 MG/10 ML ONE (10:48)
[2022-03-05] MEDS ORDERED: DIPRIVAN 200 MG/20 ML IV ONE (10:48)
[2022-03-05] MEDS ORDERED: NORCO 5/325 MG PO PRN (13:20)
[2022-03-05 13:39] VITALS: O2SAT 93
[2022-03-05 13:52] VITALS: BP 169/77; PULSE 91
--- NOTE | 2022-03-06 08:51 | OP ---
SURGERY DATE/TIME: 03/05/2022 1056 PREOPERATIVE DIAGNOSIS: Acute exacerbation of chronic cholecystitis, symptomatic biliary dyskinesia. POSTOPERATIVE DIAGNOSIS: Acute exacerbation of chronic cholecystitis, symptomatic biliary dyskinesia. PROCEDURE: Laparoscopic cholecystectomy. SURGEON: Dr. Navneet Serrato. ANESTHESIA: General. ESTIMATED BLOOD LOSS: Minimal. INDICATIONS: As noted above. Risks and benefits explained in detail but not limited to and consent obtained. DESCRIPTION OF PROCEDURE AND FINDINGS: The patient was taken to the operating room. General anesthesia was induced. Abdomen prepped and draped in usual sterile fashion. After official time out and no disagreement with planned procedure, a transverse incision made in the supraumbilical area. Fascia grasped pulled up. Veress needle inserted and tested with saline. Pneumoperitoneum accomplished insufflating opening pressure of 0-15. An 11 mm bladeless port and camera were inserted without difficulty followed by two - 5 mm right upper quadrant ports and 5 mm epigastric port. The gallbladder is grasped. There was quite a bit of omental reaction over the top. It is dissected posterior, lateral to anterior fashion with gentle blunt dissection and cautery as necessary. Slowly and carefully cystic duct and infundibular junction isolated until the critical view was obtained both anteriorly and posteriorly. Once this is accomplished, the cystic duct and cystic artery were clipped x3 and divided in the usual fashion. The gallbladder is slowly and carefully dissected free from its dense attachment to the liver bed. Staying directly on gallbladder wall clipping additional oozing side branches off the cystic vein and cystic artery as necessary directly on the gallbladder wall this took some time as she was quite friable, almost like an antiplatelet effect. The gallbladder was slowly and carefully dissected free. A small amount bile in the gallbladder spilled from the gallbladder. It is suctioned and irrigated as clear as possible. Just prior to releasing from final attachments to the anterior edge of the liver, the liver bed re-inspected. Clips noted in place in the cystic duct and cystic artery stumps. No signs of any active bleeding or bile leakage from the gallbladder bed itself. Clips noted to be in place cystic duct and cystic artery stumps. The gallbladder released from final attachments to anterior edge of the liver and placed in the provided sac, pulled up in the supraumbilical port site and decompressed of bile, gallbladder and bag pulled free and passed off. The fascia defect closed with puncture closure device with #1 Vicryl. Copious amount of irrigation accomplished lateral to the liver and subhepatic space irrigating clear. Liver bed re-inspected. Clips noted to be in place cystic duct and cystic artery stumps. No signs of any active bleeding or bile leakage. It was felt there was no benefit of any drain placement. Pneumoperitoneum decompressed. The wound irrigated out. Skin incision closed with 4-0 Vicryl. Steri-Strips and sterile dressing applied. 0.25% Marcaine local had been injected along the skin incision fascial defect at the beginning of the procedure. There were no immediate complications. Findings discussed with the family out in the waiting area.
== END 2022-03-05 14:00 | disposition home or self-care (01) ==
LOC: SDC 08:18
PROVIDERS: ATTEND Surgery
DX: K81.1 Chronic cholecystitis (principal); K82.8 Other specified diseases of gallbladder; E11.9 Type 2 diabetes mellitus without complications
CPT/HCPCS: 82947; J0694; J1100; J1885; J2405; J2704; J3010; A9270-GY

== ENCOUNTER 2022-06-08 10:06 | Emergency (ER) | payer MEDICARE ==
[2022-06-08 10:39] LABS: Absolute Neutrophil Ct (ANC) 7.69 x10^3/uL (1.4-6.9); Basophil (Absolute #) 0.03 x10^3/uL (0-0.4); Eosinophil % 0.2 % (0.00-5.0); Eosinophil (Absolute #) 0.02 x10^3/uL (0-0.5); Hematocrit 39.7 % (35-47); Hemoglobin 12.3 g/dL (12.0-16.0); Lymphocyte (Absolute #) 0.76 x10^3/uL (1.0-4.6); Lymphocytes % 8.6 % (24.0-44.0); Mean Cell Volume 91.1 fL (78-100); Mean Corpuscular Hemoglobin 28.2 pg (26-32); Mean Platelet Volume 8.9 fL (7.5-11.0); Monocyte (Absolute #) 0.34 x10^3/uL (0.0-1.3); Monocytes % 3.8 % (0.0-12.0); Neutrophil % 86.8 % (36.0-66.0); Platelet Count 270 x10^3/uL (150-450); Red Blood Count 4.36 x10^6/uL (4.1-5.4); Red Cell Distribution Width 14.7 % (11.5-14.0); White Blood Count 8.9 x10^3/uL (4.0-10.5)
[2022-06-08 10:53] LABS: ALBUMIN 4.7 g/dL (3.5-5.0); ANION GAP 14.1 MEQ/L (5-15); BILIRUBIN,TOTAL 0.4 mg/dL (0.2-1.3); Calcium 9.9 mg/dL (8.4-10.2); Creatinine 1 1.02 mg/dL (0.52-1.04); EST GLOMERULAR FILTRATION RATE 55.7 ML/MIN; Potassium 4.5 mmol/L (3.5-5.1); Total Protein 7.8 g/dL (6.3-8.2)
[2022-06-08 11:19] LABS: PROTIME 10.6 SECONDS (9.4-12.5); PTT 21.4 SECONDS (25.1-36.5)
--- NOTE | 2022-06-08 11:34 | ERPHSYRPT ---
- History of Present Illness Source: patient Exam Limitations: other (Poor historian) Patient Subjective Stated Complaint: pt here for dizziness, unsteady and nasuea about 0500 this am. she was able to dirve self here Triage Nursing Assessment: pt alert arrived per wc, resp easy, face mask in place, skin w/d/p. able to get undressed, no edema noted Physician History: 76 yo wf cc of dizziness x2-3 weeks. Pt also complains of a frontal GALINDO which she describes as throbbing and 7/10 which started at 5AM. She states that she has been nauseated wo vomiting. Focal weakness/fever/chest pain/dyspnea/cough/coryza/abdominal pain/dysuria/hematuria are all denied. She has mild B otalgia. Timing/Duration: other (Dizziness 2-3 wks/GALINDO since 5AM) Character of Deficits: none Deficits: no difficulties Baseline/Normal Cognition: alert oriented x 3 Current Cognition: alert oriented x 3 Baseline Gait: walks w/o assistance Associated Symptoms: denies symptoms, nausea, weakness, headache Allergies/Adverse Reactions: No Known Drug Allergies Allergy (Verified 06/08/22 10:15) Home Medications: lisinopriL [Zestril] 5 tab PO DAILY 04/09/17 [History] Amlodipine Besylate 5 mg [Norvasc 5 mg] 5 mg PO DAILY 04/10/17 [History] Magnesium 250 mg PO BID 03/16/21 [History] ALPRAZolam [Alprazolam] 0.25 mg PO Q6H PRN 08/02/21 [History] Prednisone 20 mg [Deltasone 20 mg] 5 mg PO DAILY 08/02/21 [History] Calcium Carbonate [Calcium] 300 mg PO DAILY 12/24/21 [History] Multivitamin [One-Daily Multi-Vitamin] 1 each PO DAILY 12/24/21 [History] Hx Tetanus, Diphtheria Vaccination/Date Given: Yes Hx Influenza Vaccination/Date Given: Yes Hx Pneumococcal Vaccination/Date Given: Yes Immunizations Up to Date: Yes Travel Risk - International Travel Have you traveled outside of the country in past 3 weeks: No - Coronavirus Screening Are you exhibiting any of the following symptoms?: No Close contact with a COVID-19 positive Pt in past 14-21 Days: No - Vaccine Status Have you recieved a Covid-19 vaccination: Yes [employer]: Moderna - Vaccination Dates Date of 2cond Vaccination (if applicable): 08/08/20 - Review of Systems Constitutional: No Symptoms Eyes: No Symptoms Ears, Nose, & Throat: No Symptoms, Ear Pain Respiratory: No Symptoms Cardiac: No Symptoms Abdominal/Gastrointestinal: No Symptoms, Nausea Genitourinary Symptoms: No Symptoms Musculoskeletal: No Symptoms Skin: No Symptoms Neurological: No Symptoms Psychological: No Symptoms Endocrine: No Symptoms Hematologic/Lymphatic: No Symptoms Immunological/Allergic: No Symptoms - Past Medical History Pertinent Past Medical History: Yes Neurological History: No Pertinent History ENT History: Cataracts Cardiac History: High Cholesterol, Hypertension Respiratory History: No Pertinent History Endocrine Medical History: Diabetes Type II Musculoskeletal History: Osteoporosis GI Medical History: No Pertinent History, Diverticulitis History: Renal Disease, Other Psycho-Social History: Anxiety Female Reproductive Disorders: No Pertinent History Other Medical History: PT STATES SHE WAS ON DIABETIC MEDICATIONS IN IN THE PAST BUT NOTHING PRESENTLY. 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 Ruiz manages. - Past Surgical History Past Surgical History: Yes Neuro Surgical History: No Pertinent History Cardiac: No Pertinent History Respiratory: No Pertinent History Gastrointestinal: Appendectomy, Colon Resection, Hernia Repair Genitourinary: No Pertinent History Musculoskeletal: No Pertinent History Female Surgical History: Hysterectomy - Social History Smoking Status: Former smoker Exposure to second hand smoke: No Drug Use: none Patient Lives Alone: Yes Significant Family History: no pertinent family hx - Nursing Vital Signs Nursing Vital Signs: Initial Vital Signs Temperature 97.3 F 06/08/22 10:14 Pulse Rate 104 H 06/08/22 10:14 Respiratory Rate 20 06/08/22 10:14 Blood Pressure 139/87 06/08/22 10:14 O2 Sat by Pulse Oximetry 98 06/08/22 10:14 Pain Scale Pain Intensity 0 Tachy/Mildly hypertensive - Zoila Coma Scale Best Eye Response ([place]): (4) open spontaneously Best Verbal Response ([place]): (5) oriented Best Motor Response ([place]): (6) obeys commands [place] Total: 15 - Physical Exam General Appearance: no apparent distress, anxiety Eye Exam: bilateral eye: normal inspection, PERRL, EOMI Ears, Nose, Throat Exam: normal ENT inspection, TMs normal, pharynx normal, moist mucous membranes Neck Exam: normal inspection, non-tender, supple, full range of motion, No meningismus, No mass, No Brudzinski, No Kernig's, No carotid bruit Respiratory: normal breath sounds, lungs clear, airway intact Cardiovascular: regular rate/rhythm, normal heart sounds, normal peripheral pulses, capillary refill <2 sec, No murmur Gastrointestinal: soft, normal bowel sounds Back Exam: normal inspection, normal range of motion, No CVA tenderness, No vertebral tenderness Extremity Exam: normal inspection, normal range of motion Peripheral Pulses: carotid (R): 2+, carotid (L): 2+ Mental Status: alert, oriented x 3, cooperative cpas Exam: normal hearing, normal speech, PERRL, No abnormal eye position, No abnormal gag reflex Coordination/Gait: negative Romberg's sign Motor/Sensory: no motor deficit, no sensory deficit, no pronator drift, negative Babinski's sign DTR: bicep (R): 2+, bicep (L): 2+ Skin Exam: normal color, warm, dry, No rash SpO2 Interpretation: normal SpO2: 95 O2 Delivery: Room Air - Course Nursing assessment & vital signs reviewed: Yes EKG Interpreted by Me: RATE (NSR/Rate 98/Normal QT-QTc/Low voltage/Tall R wave V2/Possible Qwave 3-AVF) - CT Exams Head CT Interpretation: Discussed w/radiologist (CT-CTA head neg) Other CT Interpretation: Discussed w/radiologist (CTA of neck-minimal calcifications) Ordered Tests: Active Orders 24 hr Category Date Time Status EKG-ER Only STAT Care 06/08/22 10:29 Completed CHEST 1 VIEW (PORTABLE) Stat Exams 06/08/22 13:[address] ANGIOGRAPHY NECK [CT] Stat Exams 06/08/22 11:20 Completed CTA HEAD W AND/OR WO CONTRAST [CT] Stat Exams 06/08/22 11:20 Completed CBC W DIFF Stat Lab 06/08/22 10:29 Completed CMP Stat Lab 06/08/22 10:41 Completed Lactic Acid Stat Lab 06/08/22 10:41 Completed Lactic Acid Stat Lab 06/08/22 12:49 Completed POCT GLUCOSE Stat Lab 06/08/22 10:14 Completed PROTIME WITH INR Stat Lab 06/08/22 10:41 Completed PTT Stat Lab 06/08/22 10:41 Completed TROPONIN Q4H Lab 06/08/22 10:41 Completed UA W/RFX CULTURE Stat Lab 06/08/22 11:43 Completed Medication Summary Discontinued Medications Generic Name Dose Route Start Last Admin Trade Name Lady PRN Reason Stop Dose Admin Acetaminophen 1,000 mg 06/08/22 14:53 06/08/22 14:57 Acetaminophen 500 Mg Tablet PO 06/08/22 14:54 1,000 mg STAT ONE Administration Acetaminophen Confirm 06/08/22 14:55 Acetaminophen 500 Mg Tablet Administered 06/08/22 14:56 Dose 1,000 mg .ROUTE .STK-MED ONE Sodium Chloride 1,000 mls @ 999 mls/hr 06/08/22 13:15 06/08/22 14:54 Sodium Chloride 0.9% 1000 Ml IV 06/08/22 14:15 Infused .Q1H1M STA Infusion Sodium Chloride Confirm 06/08/22 13:18 Sodium Chloride 0.9% 1000 Ml Administered 06/08/22 13:19 Dose 1,000 mls @ ud .ROUTE .STK-MED ONE Lab/Rad Data: Laboratory Result Diagrams 06/08/22 10:29 06/08/22 10:41 Laboratory Results 06/08/22 06/08/22 06/08/22 Range/Units 13:09 12:49 11:43 WBC (4.0-10.5) x10^3/uL RBC (4.1-5.4) x10^6/uL Hgb (12.0-16.0) g/dL Hct (35-47) % MCV (78-100) fL MCH (26-32) pg MCHC (32-36) g/dL RDW (11.5-14.0) % Plt Count (150-450) x10^3/uL MPV (7.5-11.0) fL Gran % (36.0-66.0) % Immature Gran % (Auto) (0.00-0.4) % Nucleat RBC Rel Count (0.00-0.1) % Eos # (Auto) (0-0.5) x10^3/uL Immature Gran # (Auto) (0.00-0.03) x10^3u/L Absolute Lymphs (auto) (1.0-4.6) x10^3/uL Absolute Monos (auto) (0.0-1.3) x10^3/uL Absolute Nucleated RBC (0.00-0.01) x10^3u/L Lymphocytes % (24.0-44.0) % Monocytes % (0.0-12.0) % Eosinophils % (0.00-5.0) % Basophils % (0.0-0.4) % Absolute Granulocytes (1.4-6.9) x10^3/uL Basophils # (0-0.4) x10^3/uL PT (9.4-12.5) SECONDS INR (0.8-3.0) APTT (25.1-36.5) SECONDS Sodium (137-145) mmol/L Potassium (3.5-5.1) mmol/L Chloride (98-107) mmol/L Carbon Dioxide (22-30) mmol/L Anion Gap (5-15) MEQ/L BUN (7-17) mg/dL Creatinine (0.52-1.04) mg/dL Estimated GFR ML/MIN Glucose (74-106) mg/dL POC Glucometer (74 to 106) mg/dL Lactic Acid 1.1 (0.4-2.0) Calcium (8.4-10.2) mg/dL Total Bilirubin (0.2-1.3) mg/dL AST (14-36) U/L ALT (0-35) U/L Alkaline Phosphatase (38-126) U/L Troponin I (0.000-0.034) ng/mL Serum Total Protein (6.3-8.2) g/dL Albumin (3.5-5.0) g/dL Urinalys Dipstick Clnc MAIN LAB Urine Color YELLOW (YELLOW) Urine Appearance CLEAR (CLEAR) Urine pH 7.0 (5-6) Ur Specific Colon 1.010 (1.005-1.025) POC Urine Protein Conf NEGATIVE (Negative) Urine Ketones NEGATIVE (NEGATIVE) Urine Nitrite NEGATIVE (NEGATIVE) Urine Bilirubin NEGATIVE (NEGATIVE) Urine Urobilinogen 0.2 (0-1) mg/dL Urine Leukocytes NEGATIVE (NEGATIVE) Urine WBC (Auto) 0-2 (0-5) /HPF Urine RBC (Auto) 0-2 (0-2) /HPF U Epithel Cells (Auto) RARE (FEW) /HPF Urine Bacteria (Auto) FEW A (NEGATIVE) /HPF Urine RBC TRACE-INTACT A (0-5) Emanuel/ul Ur Culture Indicated? NO Urine Glucose NEGATIVE (NEGATIVE) mg/dL Influenza Type A Ag NEGATIVE (NEGATIVE) Influenza Type B Ag NEGATIVE (NEGATIVE) RSV (PCR) NEGATIVE (Negative) SARS-CoV-2 (PCR) POSITIVE A (NEGATIVE) 06/08/22 06/08/22 06/08/22 Range/Units 10:41 10:41 10:41 WBC (4.0-10.5) x10^3/uL RBC (4.1-5.4) x10^6/uL Hgb (12.0-16.0) g/dL Hct (35-47) % MCV (78-100) fL MCH (26-32) pg MCHC (32-36) g/dL RDW (11.5-14.0) % Plt Count (150-450) x10^3/uL MPV (7.5-11.0) fL Gran % (36.0-66.0) % Immature Gran % (Auto) (0.00-0.4) % Nucleat RBC Rel Count (0.00-0.1) % Eos # (Auto) (0-0.5) x10^3/uL Immature Gran # (Auto) (0.00-0.03) x10^3u/L Absolute Lymphs (auto) (1.0-4.6) x10^3/uL Absolute Monos (auto) (0.0-1.3) x10^3/uL Absolute Nucleated RBC (0.00-0.01) x10^3u/L Lymphocytes % (24.0-44.0) % Monocytes % (0.0-12.0) % Eosinophils % (0.00-5.0) % Basophils % (0.0-0.4) % Absolute Granulocytes (1.4-6.9) x10^3/uL Basophils # (0-0.4) x10^3/uL PT 10.6 (9.4-12.5) SECONDS INR 1.00 (0.8-3.0) APTT 21.4 L (25.1-36.5) SECONDS Sodium 137 (137-145) mmol/L Potassium 4.5 (3.5-5.1) mmol/L Chloride 103 (98-107) mmol/L Carbon Dioxide 24 (22-30) mmol/L Anion Gap 14.1 (5-15) MEQ/L BUN 18 H (7-17) mg/dL Creatinine 1.02 (0.52-1.04) mg/dL Estimated GFR 55.7 ML/MIN Glucose 179 H (74-106) mg/dL POC Glucometer (74 to 106) mg/dL Lactic Acid (0.4-2.0) Calcium 9.9 (8.4-10.2) mg/dL Total Bilirubin 0.40 (0.2-1.3) mg/dL AST 23 (14-36) U/L ALT 18 (0-35) U/L Alkaline Phosphatase 73 (38-126) U/L Troponin I < 0.012 (0.000-0.034) ng/mL Serum Total Protein 7.8 (6.3-8.2) g/dL Albumin 4.7 (3.5-5.0) g/dL Urinalys Dipstick Clnc Urine Color (YELLOW) Urine Appearance (CLEAR) Urine pH (5-6) Ur Specific Colon (1.005-1.025) POC Urine Protein Conf (Negative) Urine Ketones (NEGATIVE) Urine Nitrite (NEGATIVE) Urine Bilirubin (NEGATIVE) Urine Urobilinogen (0-1) mg/dL Urine Leukocytes (NEGATIVE) Urine WBC (Auto) (0-5) /HPF Urine RBC (Auto) (0-2) /HPF U Epithel Cells (Auto) (FEW) /HPF Urine Bacteria (Auto) (NEGATIVE) /HPF Urine RBC (0-5) Emanuel/ul Ur Culture Indicated? Urine Glucose (NEGATIVE) mg/dL Influenza Type A Ag (NEGATIVE) Influenza Type B Ag (NEGATIVE) RSV (PCR) (Negative) SARS-CoV-2 (PCR) (NEGATIVE) 06/08/22 06/08/22 06/08/22 Range/Units 10:41 10:29 10:14 WBC 8.9 (4.0-10.5) x10^3/uL RBC 4.36 (4.1-5.4) x10^6/uL Hgb 12.3 (12.0-16.0) g/dL Hct 39.7 (35-47) % MCV 91.1 (78-100) fL MCH 28.2 (26-32) pg MCHC 31.0 L (32-36) g/dL RDW 14.7 H (11.5-14.0) % Plt Count 270 (150-450) x10^3/uL MPV 8.9 (7.5-11.0) fL Gran % 86.8 H (36.0-66.0) % Immature Gran % (Auto) 0.3 (0.00-0.4) % Nucleat RBC Rel Count 0.0 (0.00-0.1) % Eos # (Auto) 0.02 (0-0.5) x10^3/uL Immature Gran # (Auto) 0.03 (0.00-0.03) x10^3u/L Absolute Lymphs (auto) 0.76 L (1.0-4.6) x10^3/uL Absolute Monos (auto) 0.34 (0.0-1.3) x10^3/uL Absolute Nucleated RBC 0.00 (0.00-0.01) x10^3u/L Lymphocytes % 8.6 L (24.0-44.0) % Monocytes % 3.8 (0.0-12.0) % Eosinophils % 0.2 (0.00-5.0) % Basophils % 0.3 (0.0-0.4) % Absolute Granulocytes 7.69 H (1.4-6.9) x10^3/uL Basophils # 0.03 (0-0.4) x10^3/uL PT (9.4-12.5) SECONDS INR (0.8-3.0) APTT (25.1-36.5) SECONDS Sodium (137-145) mmol/L Potassium (3.5-5.1) mmol/L Chloride (98-107) mmol/L Carbon Dioxide (22-30) mmol/L Anion Gap (5-15) MEQ/L BUN (7-17) mg/dL Creatinine (0.52-1.04) mg/dL Estimated GFR ML/MIN Glucose (74-106) mg/dL POC Glucometer 147 H (74 to 106) mg/dL Lactic Acid 2.3 H (0.4-2.0) Calcium (8.4-10.2) mg/dL Total Bilirubin (0.2-1.3) mg/dL AST (14-36) U/L ALT (0-35) U/L Alkaline Phosphatase (38-126) U/L Troponin I (0.000-0.034) ng/mL Serum Total Protein (6.3-8.2) g/dL Albumin (3.5-5.0) g/dL Urinalys Dipstick Clnc Urine Color (YELLOW) Urine Appearance (CLEAR) Urine pH (5-6) Ur Specific Colon (1.005-1.025) POC Urine Protein Conf (Negative) Urine Ketones (NEGATIVE) Urine Nitrite (NEGATIVE) Urine Bilirubin (NEGATIVE) Urine Urobilinogen (0-1) mg/dL Urine Leukocytes (NEGATIVE) Urine WBC (Auto) (0-5) /HPF Urine RBC (Auto) (0-2) /HPF U Epithel Cells (Auto) (FEW) /HPF Urine Bacteria (Auto) (NEGATIVE) /HPF Urine RBC (0-5) Emanuel/ul Ur Culture Indicated? Urine Glucose (NEGATIVE) mg/dL Influenza Type A Ag (NEGATIVE) Influenza Type B Ag (NEGATIVE) RSV (PCR) (Negative) SARS-CoV-2 (PCR) (NEGATIVE) - Progress Progress Note: 06/08/22 14:53 1gm po Tylenol 1L NS Bolus w normalization of lactic acid 06/08/22 15:37 Pt's headache most likely due to CV19, and since GALINDO started today, will start Paxlovid. GFR greater than 50. Dizziness most likely peripheral/benign as CT/CTA of head-neck negative for CVA/Aneurism/Bleed. Counseled pt/family regarding: lab results, diagnosis, need for follow-up, rad results - Departure Departure Disposition: Home Clinical Impression: COVID-19, Dizziness Condition: Stable Critical Care Time: No Referrals: JACQUELYN STYLES DO [Primary Care Provider] - Follow up/PCP as directed Instructions: COVID-19 (DC) Additional Instructions: Fluids Rest Quarantine for 5 days Paxlovid for 5 days Get a pulse oximeter and monitor oxygen saturation 2-3 times a day Return to ER for persistent oxygen saturation less than 90% Prescriptions: Nirmatrelvir/Ritonavir [Paxlovid 2X150 mg-100 mg (Eua)] 1 each PO BID 5 Days #30 tablet
[2022-06-08 12:08] VITALS: BP 153/86
--- NOTE | 2022-06-08 12:35 | XRAY ---
Indication: Headache and dizziness. Conventional contrast enhanced CTA neck performed using 100 cc Isovue 370 contrast. 2-D sagittal and coronal reformatted images obtained. Additional 3-D reformatted images obtained using a separate workstation. Comparison: None Visualized aortic arch minimally arteriosclerotic with normal widely patent branching right brachiocephalic, left common carotid, and left subclavian arteries. Examination of the right carotid circulation demonstrates minimal eccentric calcifications at the level of the bulb and lesser degree origin internal carotid artery. Remaining common carotid, external carotid, and more distal internal carotid arteries are normal in CTA appearance. Examination of the left carotid circulation also demonstrates minimal eccentric calcifications at the level of bulb and internal carotid artery. Remaining common carotid, external carotid, and more distal internal carotid arteries are normal in CTA appearance. Vertebral arteries are bilaterally patent with the right larger in caliber. Visualized soft tissues are negative for pathologic cervical/supraclavicular lymphadenopathy. Thyroid gland enhances homogeneously. Parotid and submandibular glands are bilaterally symmetric. Supra and infraglottic airway widely patent. Patient is edentulous. Visualized cervical spine intact with minimal C4-C6 degenerative changes. Lung apices are clear. Impression: 1. Minimal eccentric calcifications in both carotid bulb and both origins internal carotid artery. No critical stenosis/obstruction. 2. Remaining CTA neck with contrast exam is normal. 3. Incidental minimal cervical degenerative spondylosis.
--- NOTE | 2022-06-08 12:39 | XRAY ---
Indication: Headache and dizziness. Initial CT head performed without contrast. Than conventional contrast enhanced CTA head performed using 100 cc Isovue 370 contrast. 2-D sagittal and coronal reformatted images obtained. Additional 3-D reformatted images obtained using a separate workstation. Comparison: None Noncontrast CT head demonstrate normal appearing brain parenchyma, ventricles, and bony calvarium. Visualized paranasal sinuses and mastoid air cells are clear. CTA images demonstrate bilaterally symmetric internal carotid arteries with minimal calcifications in both parasellar segments without critical stenosis/obstruction. Normal carotid terminus with normal branching A1 and M1 segments bilaterally. More distal anterior cerebral and middle cerebral arteries are normal in CT appearance bilaterally. Posterior circulation demonstrates normal CTA appearance to the basilar, left/right posterior cerebral, and left/right superior cerebellar arteries. Venous sinuses/drainage unremarkable. There is no abnormal enhancing intra-or extra-axial mass. Impression: 1. Normal CT head with and without contrast exam. 2. CTA head demonstrates minimal calcifications in both parasellar internal carotid arteries without critical stenosis/obstruction. Remaining CTA head with contrast exam is normal.
[2022-06-08 12:50] LABS: Appearance CLEAR (CLEAR); Bilirubin NEGATIVE (NEGATIVE); Dipstick done @ ? MAIN LAB; Glucose NEGATIVE (NEGATIVE); Ketones NEGATIVE (NEGATIVE); Nitrite NEGATIVE (NEGATIVE); Protein,Urine Dip NEGATIVE (Negative); RBC TRACE-INTACT Ery/ul (0-5); Urobilinogen 0.2 mg/dL (0-1)
[2022-06-08 12:58] LABS: Bacteria FEW /HPF (NEGATIVE); Epithelial Cells RARE /HPF (FEW); RBC 0-2 /HPF (0-2); Urine Cultured Indicated? NO; WBC 0-2 /HPF (0-5)
[2022-06-08] MEDS ORDERED: Sodium Chloride 0.9% 1000 ML 1,000 ML IV STA (13:15)
[2022-06-08] MEDS ORDERED: Sodium Chloride 0.9% 1000 ML 1,000 ML ONE (13:18)
--- NOTE | 2022-06-08 13:19 | XRAY ---
Indication: Vertigo. Lethargy. Comparison: December 25, 2021 Portable chest inflated and clear. Heart not enlarged. Bony thorax intact again with mild osteopenia and degenerative changes. Impression: Nonacute chest with chronic bony findings.
[2022-06-08 13:47] LABS: INFLUENZA A NEGATIVE (NEGATIVE); INFLUENZA B NEGATIVE (NEGATIVE); RESPIRATORY SYNCTIAL VIRUS NEGATIVE (Negative)
[2022-06-08 13:49] LABS: SARS-CoV-2 Xpert Express POSITIVE (NEGATIVE)
[2022-06-08 14:50] VITALS: O2SAT 95
[2022-06-08] MEDS ORDERED: TYLENOL EXTRA STRENGTH 500 MG PO ONE (14:53)
[2022-06-08] MEDS ORDERED: TYLENOL EXTRA STRENGTH 500 MG ONE (14:55)
[2022-06-08 14:59] VITALS: PULSE 96
== END 2022-06-08 15:04 | disposition home or self-care (01) ==
LOC: ED 10:06
DX: U07.1 COVID-19 (principal); R42 Dizziness and giddiness; R51.9 Headache, unspecified; R11.0 Nausea; E78.5 Hyperlipidemia, unspecified; I10 Essential (primary) hypertension; E11.9 Type 2 diabetes mellitus without complications; Z79.899 Other long term (current) drug therapy; Z79.52 Long term (current) use of systemic steroids
CPT/HCPCS: 0241U; 36000; 36415; 70496; 70498; 71045; 80053; 81015; 82947; 83605; 84484; 85025; 85610; 85730; 93005; 96360; 99284; A9270-GY

== ENCOUNTER 2022-06-14 03:11 | Emergency (ER) | payer MEDICARE ==
--- NOTE | 2022-06-14 03:27 | ERPHSYRPT ---
- History of Present Illness Time Seen by Provider: 06/14/22 03:23 Source: patient Exam Limitations: no limitations Physician History: This is an obese 76-year-old white female who presents with 2 to 3-day history of right plantar surface base of fifth toe sharp, stabbing, shooting pain that travels proximally when a very localized area is palpated. There is been no drainage. There is no odor. Patient does not recall stepping on glass or metal. She has no history of peripheral neuropathy. She does have a history, she states, of diabetes but does not take medication for it. Patient use Neosporin ointment to the area but there was no improvement in her symptoms. Timing/Duration: day(s) (2 to 3 days), other (Persistent) Quality: painful Severity: moderate (When she steps or if it is palpated) Location: feet (Plantar surface base of right fifth toe) Possible Causes: no cause identified Associated Symptoms: denies symptoms Allergies/Adverse Reactions: No Known Drug Allergies Allergy (Verified 06/14/22 03:22) Home Medications: lisinopriL [Zestril] 5 tab PO DAILY 04/09/17 [History] Amlodipine Besylate 5 mg [Norvasc 5 mg] 5 mg PO DAILY 04/10/17 [History] Magnesium 250 mg PO BID 03/16/21 [History] ALPRAZolam [Alprazolam] 0.25 mg PO Q6H PRN 08/02/21 [History] Prednisone 20 mg [Deltasone 20 mg] 5 mg PO DAILY 08/02/21 [History] Calcium Carbonate [Calcium] 300 mg PO DAILY 12/24/21 [History] Multivitamin [One-Daily Multi-Vitamin] 1 each PO DAILY 12/24/21 [History] Hx Tetanus, Diphtheria Vaccination/Date Given: Yes Hx Influenza Vaccination/Date Given: Yes Hx Pneumococcal Vaccination/Date Given: Yes Travel Risk - International Travel Have you traveled outside of the country in past 3 weeks: No - Coronavirus Screening Are you exhibiting any of the following symptoms?: No Close contact with a COVID-19 positive Pt in past 14-21 Days: No - Vaccine Status Have you recieved a Covid-19 vaccination: Yes Manager Project Management: Moderna - Vaccination Dates Date of 2cond Vaccination (if applicable): 08/08/20 - Review of Systems Constitutional: No Symptoms Eyes: No Symptoms Ears, Nose, & Throat: No Symptoms Respiratory: No Symptoms Cardiac: No Symptoms Abdominal/Gastrointestinal: No Symptoms Genitourinary Symptoms: No Symptoms Musculoskeletal: No Symptoms Skin: Other (Very localized area of tenderness plantar surface base of right fifth toe with palpation. No redness or drainage present. No obvious foreign body) Neurological: No Symptoms Psychological: No Symptoms Endocrine: No Symptoms Hematologic/Lymphatic: No Symptoms Immunological/Allergic: No Symptoms All Other Systems: Reviewed and Negative - Past Medical History Pertinent Past Medical History: Yes Neurological History: No Pertinent History ENT History: Cataracts Cardiac History: High Cholesterol, Hypertension Respiratory History: No Pertinent History Endocrine Medical History: Diabetes Type II Musculoskeletal History: Osteoporosis GI Medical History: No Pertinent History, Diverticulitis History: Renal Disease, Other Psycho-Social History: Anxiety Female Reproductive Disorders: No Pertinent History Other Medical History: PT STATES SHE WAS ON DIABETIC MEDICATIONS IN IN THE PAST BUT NOTHING PRESENTLY. 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 Ruiz manages. - Past Surgical History Past Surgical History: Yes Neuro Surgical History: No Pertinent History Cardiac: No Pertinent History Respiratory: No Pertinent History Gastrointestinal: Appendectomy, Colon Resection, Hernia Repair Genitourinary: No Pertinent History Musculoskeletal: No Pertinent History Female Surgical History: Hysterectomy - Social History Smoking Status: Former smoker Exposure to second hand smoke: No Drug Use: none Patient Lives Alone: Yes Significant Family History: no pertinent family hx - Nursing Vital Signs Nursing Vital Signs: Initial Vital Signs Temperature 97 F 06/14/22 03:22 Pulse Rate 100 H 06/14/22 03:22 Respiratory Rate 20 06/14/22 03:22 Blood Pressure 140/81 06/14/22 03:22 O2 Sat by Pulse Oximetry 97 06/14/22 03:22 Pain Scale Pain Intensity 10 - Physical Exam General Appearance: no apparent distress, alert, anxiety, obese Eye Exam: PERRL/EOMI, eyes nml inspection Ears, Nose, Throat Exam: normal ENT inspection, moist mucous membranes Neck Exam: normal inspection, non-tender, supple, full range of motion Respiratory Exam: airway intact, No chest tenderness, No respiratory distress Gastrointestinal/Abdomen Exam: No tenderness Pelvic Exam: not done Rectal Exam: not done Back Exam: normal inspection, normal range of motion, No CVA tenderness, No vertebral tenderness Extremity Exam: normal inspection, normal range of motion, pelvis stable, tenderness (Localized tenderness plantar surface base of right fifth toe at the crease. No visible or palpable foreign body present. No redness and no drainage present) Neurologic Exam: alert, oriented x 3, cooperative, crisis worker II-XII nml as tested, normal mood/affect, nml cerebellar function, nml station & gait, sensation nml Skin Exam: normal color, warm, dry, other (See extremity exam section above) Lymphatic Exam: No adenopathy SpO2 Interpretation: normal O2 Delivery: Room Air Procedures - Additional Procedures Progress: Timeout performed at wa 3:40 AM on 06/14/2022. The skin overlying the radiopaque foreign body was prepped with Betadine solution. Next approximately 1 cc of 1% lidocaine plain was used to infiltrate the skin and subcutaneous tissue around the radiopaque foreign body. A #15 blade was used to make approximately 3 to 4 mm incision. The radiopaque foreign body was grasped with a hemostat and brought out. It appears to be intact. Patient tolerated procedure well. The area was cleaned dried and a thin layer of antibiotic ointment was applied overlying the site, next a nonstick gauze and bandage was placed. Post foreign body removal x-ray pending - Course Nursing assessment & vital signs reviewed: Yes Ordered Tests: Active Orders 24 hr Category Date Time Status FOOT (MINIMUM 3 VIEWS) Stat Exams 06/14/22 03:21 Taken FOOT (MINIMUM 3 VIEWS) Stat Exams 06/14/22 03:58 Ordered - Progress Progress: improved, re-examined Progress Note: 06/14/22 03:53 X-ray right foot shows a approximately 5 mm linear radiopaque foreign body plantar surface base of right fifth toe. X-ray was interpreted by me 06/14/22 03:57 Counseled pt/family regarding: diagnosis, need for follow-up, rad results - Departure Departure Disposition: Home Clinical Impression: H/O retained foreign body fully removed Condition: Stable Critical Care Time: No Referrals: JACQUELYN STYLES DO [Primary Care Provider] - Follow up/PCP as directed Additional Instructions: Today, begin twice a day soaking of right foot and warm soapy water or warm Epson salts. After each soaking, blot dry use a hairdryer to dry the site and apply bandage. Use Tylenol and ibuprofen for pain control.
[2022-06-14 04:39] VITALS: BP 114/97; PULSE 85; O2SAT 94
--- NOTE | 2022-06-14 08:54 | XRAY ---
Indication: Foreign body removal. Comparison: Taken earlier in the day 2 nonweightbearing views right foot demonstrates successful removal of previous foreign body. Stable heel spur. No other bony, articular, or soft tissue abnormalities.
--- NOTE | 2022-06-14 08:54 | XRAY ---
Indication: Pain. Unknown injury. Comparison: February 10, 2011 3 nonweightbearing views right foot demonstrates new 9 mm plantar foreign body needle between 4th and 5th toes. Stable small posterior spur. No other bony, articular, or soft tissue abnormalities.
== END 2022-06-14 04:43 | disposition home or self-care (01) ==
LOC: ED 03:11
DX: M79.5 Residual foreign body in soft tissue (principal); M79.674 Pain in right toe(s); E78.5 Hyperlipidemia, unspecified; I10 Essential (primary) hypertension; E11.9 Type 2 diabetes mellitus without complications; Z79.52 Long term (current) use of systemic steroids; Z79.899 Other long term (current) drug therapy
CPT/HCPCS: 28190; 73620; 73630; 99283

== ENCOUNTER 2022-07-04 11:16 | Emergency (ER) | payer MEDICARE ==
[2022-07-04] MEDS ORDERED: Sodium Chloride 0.9% 1000 ML 1,000 ML IV STA (11:34)
[2022-07-04] MEDS ORDERED: Sodium Chloride 0.9% 1000 ML 1,000 ML ONE (11:41)
[2022-07-04 11:51] LABS: Absolute Neutrophil Ct (ANC) 7.12 x10^3/uL (1.4-6.9); BASOPHIL % 0.4 % (0.0-0.4); Basophil (Absolute #) 0.04 x10^3/uL (0-0.4); Eosinophil % 0.3 % (0.00-5.0); Eosinophil (Absolute #) 0.03 x10^3/uL (0-0.5); Hemoglobin 12.7 g/dL (12.0-16.0); IMMATURE GRAN # 0.03 x10^3u/L (0.00-0.03); IMMATURE GRAN % 0.3 % (0.00-0.4); Lymphocyte (Absolute #) 1.51 x10^3/uL (1.0-4.6); Lymphocytes % 16.2 % (24.0-44.0); Mean Cell Volume 90.7 fL (78-100); Mean Corpuscular Hemoglobin 28.8 pg (26-32); Mean Corpuscular Hgb Concent. 31.8 g/dL (32-36); Mean Platelet Volume 8.9 fL (7.5-11.0); Monocyte (Absolute #) 0.59 x10^3/uL (0.0-1.3); Monocytes % 6.3 % (0.0-12.0); Neutrophil % 76.5 % (36.0-66.0); Platelet Count 335 x10^3/uL (150-450); Red Blood Count 4.41 x10^6/uL (4.1-5.4); Red Cell Distribution Width 15.5 % (11.5-14.0); White Blood Count 9.3 x10^3/uL (4.0-10.5)
[2022-07-04 11:54] LABS: Appearance CLEAR (CLEAR); Bilirubin NEGATIVE (NEGATIVE); Glucose NEGATIVE (NEGATIVE); Ketones NEGATIVE (NEGATIVE); RBC NEGATIVE Ery/ul (0-5)
[2022-07-04 11:55] LABS: Nitrite NEGATIVE (NEGATIVE); Protein,Urine Dip NEGATIVE (Negative); Urobilinogen 0.2 mg/dL (0-1)
[2022-07-04 12:01] LABS: Bacteria None Seen /HPF (None Seen); Epithelial Cells None Seen /HPF (None Seen); Hyaline Casts NONE SEEN /LPF (0-2); RBC 0-2 /HPF (0-5); WBC 0-2 /HPF (0-5)
[2022-07-04 12:03] LABS: Urine Cultured Indicated? NO
--- NOTE | 2022-07-04 12:16 | XRAY ---
Indication: Pneumonia. Comparison: June 08, 2022 PA/lateral chest remains inflated and clear. Heart not enlarged again with tortuous distal descending aorta. Bony thorax intact again with osteopenia and moderate degenerative changes. Impression: Continued nonacute chest with chronic features.
[2022-07-04 12:24] LABS: ISTAT CREA 1.1 mg/dL (0.6-1.3); ISTAT K 4.6 mmol/L (3.5-4.9); ISTAT iCA 1.23 mmol/L (1.12-1.32)
[2022-07-04 12:30] LABS: INFLUENZA A NEGATIVE (NEGATIVE); INFLUENZA B NEGATIVE (NEGATIVE); RESPIRATORY SYNCTIAL VIRUS NEGATIVE (Negative); SARS-CoV-2 Xpert Express NEGATIVE (NEGATIVE)
[2022-07-04 13:11] LABS: ALBUMIN 4.8 g/dL (3.5-5.0); BILIRUBIN,TOTAL 0.4 mg/dL (0.2-1.3); Direct Bilirubin 0.3 mg/dL (0.0-0.4); Total Protein 7.6 g/dL (6.3-8.2)
[2022-07-04 13:22] VITALS: O2SAT 94
--- NOTE | 2022-07-04 14:03 | XRAY ---
Indication: Diarrhea. Multiple contiguous axial images obtained through the abdomen and pelvis using 80 cc Isovue-370 contrast. Comparison: December 24, 2021 Lung bases again demonstrate minimal dependent atelectasis. Heart not enlarged. Again small hiatal hernia. Noncontrasted stomach and bowel loops nonobstructed. There remains scattered colonic diverticulosis without diverticulitis or inflammatory changes. Intact sigmoid anastomosis. Interval cholecystectomy. Again appendectomy and hysterectomy reported. No free fluid/air. Remaining liver, pancreas, spleen, adrenal glands, kidneys, ureters, and bladder are unremarkable. Again mild scattered aortoiliac calcifications. No AAA or pathologic retroperitoneal lymphadenopathy. Osseous structures intact again with mild degenerative changes throughout the spine and both hips. Impression: 1. Interval cholecystectomy. 2. Again small hiatal hernia, colonic diverticulosis, arteriosclerotic disease, and chronic bony findings. 3. Remaining CT abdomen/pelvis with contrast exam is negative.
[2022-07-04 14:11] VITALS: BP 135/88; PULSE 96
--- NOTE | 2022-07-04 14:11 | ERPHSYRPT ---
- History of Present Illness Time Seen by Provider: 07/04/22 11:18 Source: patient Exam Limitations: no limitations Patient Subjective Stated Complaint: Pt states "I was at Dr. Chauhan office on saturday and she gave me two shots and an antibiotic to take for an ear infection. My ears hurt, my head hurts, my neck hurts, I am so weak I just do not feel well. I have diarrhea." Triage Nursing Assessment: Pt presented alert and oriented X 3, skin pwd. Pt ambulates with an upright steady gait, able to speak in clear full sentences. PT moaning when moves. Physician History: Patient here with sore throat, ear pain, generalized malaise. Patient states she has not been feeling good for a few days. She was seen by her PCP, Dr. Jarvis earlier this week. She was started on an antibiotic. This antibiotic was Augmentin. Patient went on to develop diarrhea. She now feels minimally weak from the diarrhea, overall does not feel well. No falls or other trauma. No fever, tachycardia, chest pain or shortness of breath. Patient just complains of "generally not feeling well". He has not tried thing to make her symptoms better or worse outside of taking the antibiotic. Patient states that she was given several shots by Dr. Chauhan. However she does not know what the shots were. Allergies/Adverse Reactions: No Known Drug Allergies Allergy (Verified 06/14/22 03:22) Home Medications: lisinopriL [Zestril] 5 tab PO DAILY 04/09/17 [History] Amlodipine Besylate 5 mg [Norvasc 5 mg] 5 mg PO DAILY 04/10/17 [History] Magnesium 250 mg PO BID 03/16/21 [History] ALPRAZolam [Alprazolam] 0.25 mg PO Q6H PRN 08/02/21 [History] Calcium Carbonate [Calcium] 300 mg PO DAILY 12/24/21 [History] Multivitamin [One-Daily Multi-Vitamin] 1 each PO DAILY 12/24/21 [History] Hx Tetanus, Diphtheria Vaccination/Date Given: Yes Hx Influenza Vaccination/Date Given: Yes Hx Pneumococcal Vaccination/Date Given: Yes Immunizations Up to Date: Yes Travel Risk - International Travel Have you traveled outside of the country in past 3 weeks: No - Coronavirus Screening Are you exhibiting any of the following symptoms?: Yes Symptoms: Vomiting/Diarrhea, Headaches/Body Aches/Fatigue Close contact with a COVID-19 positive Pt in past 14-21 Days: No - Vaccine Status Have you recieved a Covid-19 vaccination: Yes Purchase Request Editor: Moderna - Vaccination Dates Date of 2cond Vaccination (if applicable): 08/08/20 - Review of Systems Constitutional: Malaise, No Fever, No Chills Eyes: No Symptoms Ears, Nose, & Throat: Ear Pain, Nose Congestion Respiratory: No Cough, No Dyspnea Cardiac: No Chest Pain, No Edema, No Syncope Abdominal/Gastrointestinal: Diarrhea, No Abdominal Pain, No Nausea, No Vomiting Genitourinary Symptoms: No Dysuria Musculoskeletal: No Back Pain, No Neck Pain Skin: No Rash Neurological: No Dizziness, No Focal Weakness, No Sensory Changes Psychological: No Symptoms Endocrine: No Symptoms All Other Systems: Reviewed and Negative - Past Medical History Pertinent Past Medical History: Yes Neurological History: No Pertinent History ENT History: Cataracts Cardiac History: High Cholesterol, Hypertension Respiratory History: No Pertinent History Endocrine Medical History: Diabetes Type II Musculoskeletal History: Osteoporosis GI Medical History: No Pertinent History, Diverticulitis History: Renal Disease, Other Psycho-Social History: Anxiety Female Reproductive Disorders: No Pertinent History Other Medical History: PT STATES SHE WAS ON DIABETIC MEDICATIONS IN IN THE PAST BUT NOTHING PRESENTLY. 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 Ruiz manages. - Past Surgical History Past Surgical History: Yes Neuro Surgical History: No Pertinent History Cardiac: No Pertinent History Respiratory: No Pertinent History Gastrointestinal: Appendectomy, Colon Resection, Hernia Repair Genitourinary: No Pertinent History Musculoskeletal: No Pertinent History Female Surgical History: Hysterectomy - Social History Smoking Status: Former smoker Exposure to second hand smoke: No Drug Use: none Patient Lives Alone: Yes Significant Family History: no pertinent family hx - Nursing Vital Signs Nursing Vital Signs: Initial Vital Signs Temperature 98.1 F 07/04/22 11:27 Pulse Rate 110 H 07/04/22 11:27 Respiratory Rate 20 07/04/22 11:27 Blood Pressure 152/94 07/04/22 11:27 O2 Sat by Pulse Oximetry 97 07/04/22 11:27 Pain Scale Pain Intensity 4 - Physical Exam General Appearance: no apparent distress, alert Eye Exam: PERRL/EOMI, eyes nml inspection Ears, Nose, Throat Exam: normal ENT inspection, TMs normal, pharynx normal, mois t mucous membranes Neck Exam: normal inspection, non-tender, supple, full range of motion Respiratory Exam: normal breath sounds, lungs clear, No respiratory distress Cardiovascular Exam: regular rate/rhythm, normal heart sounds, normal peripheral pulses Gastrointestinal/Abdomen Exam: soft, normal bowel sounds, No tenderness, No mass Back Exam: normal inspection, normal range of motion, No CVA tenderness, No vertebral tenderness Extremity Exam: normal inspection, normal range of motion, pelvis stable Neurologic Exam: alert, oriented x 3, cooperative, normal mood/affect, nml cerebellar function, nml station & gait, sensation nml, No motor deficits Skin Exam: normal color, warm, dry, No rash Lymphatic Exam: No adenopathy SpO2: 94 Comments: 07/04/22 18:05 No abdominal pain, rebound, guarding. No trismus, able to fully extend neck, normal range of motion of neck without pain. Uvula is midline, no swelling of the mouth, noraml oropharynx. No exudate, no signs of meningitis, no floor of mouth swelling, no hot potato voice on exam. No buccal swelling, no gum bleeding, no signs of tooth abscess/infection. TMs are clear bilaterally - Course Nursing assessment & vital signs reviewed: Yes EKG Interpreted by Me: Sinus Rhythm Ordered Tests: Active Orders 24 hr Category Date Time Status EKG-ER Only STAT Care 07/04/22 11:34 Completed IV Insertion STAT Care 07/04/22 11:34 Completed ABDOMEN AND PELVIS W CONTRAST [CT] Stat Exams 07/04/22 12:52 Completed CHEST 2 VIEWS (PA AND LAT) Stat Exams 07/04/22 11:35 Completed CBC W DIFF Stat Lab 07/04/22 11:47 Completed Hepatic Function Panel Stat Lab 07/04/22 11:47 Completed LIPASE Stat Lab 07/04/22 11:47 Completed NT PRO BNP Stat Lab 07/04/22 11:47 Completed Medication Summary Discontinued Medications Generic Name Dose Route Start Last Admin Trade Name Freq PRN Reason Stop Dose Admin Sodium Chloride 1,000 mls @ 500 mls/hr 07/04/22 11:34 07/04/22 13:54 Sodium Chloride 0.9% 1000 Ml IV 07/04/22 13:33 Infused .Q2H STA Infusion Sodium Chloride Confirm 07/04/22 11:41 Sodium Chloride 0.9% 1000 Ml Administered 07/04/22 11:42 Dose 1,000 mls @ .ROUTE [facility] Lab/Rad Data: Laboratory Result Diagrams 07/04/22 11:47 07/04/22 12:23 Laboratory Results 07/04/22 07/04/22 07/04/22 Range/Units Unknown 12: 11:51 WBC (4.0-10.5) x10^3/uL RBC (4.1-5.4) x10^6/uL Hgb (12.0-16.0) g/dL Hct (35-47) % MCV (78-100) fL MCH (26-32) pg MCHC (32-36) g/dL RDW (11.5-14.0) % Plt Count (150-450) x10^3/uL MPV (7.5-11.0) fL Gran % (36.0-66.0) % Immature Gran % (Auto) (0.00-0.4) % Nucleat RBC Rel Count (0.00-0.1) % Eos # (Auto) (0-0.5) x10^3/uL Immature Gran # (Auto) (0.00-0.03) x10^3u/L Absolute Lymphs (auto) (1.0-4.6) x10^3/uL Absolute Monos (auto) (0.0-1.3) x10^3/uL Absolute Nucleated RBC (0.00-0.01) x10^3u/L Lymphocytes % (24.0-44.0) % Monocytes % (0.0-12.0) % Eosinophils % (0.00-5.0) % Basophils % (0.0-0.4) % Absolute Granulocytes (1.4-6.9) x10^3/uL Basophils # (0-0.4) x10^3/uL Sodium Direct 138 (138-146) mmol/L Potassium 4.6 (3.5-4.9) mmol/L Chloride 103 (98-109) mmol/L Carbon Dioxide 27 (24-29) mmol/L Venous BUN 30 H (8-26) mg/dL Creatinine 1.1 (0.6-1.3) mg/dL Glucose 121 H (70-105) mg/dL Ionized Calcium 1.23 (1.12-1.32) mmol/L Total Bilirubin (0.2-1.3) mg/dL Direct Bilirubin (0.0-0.4) mg/dL AST (14-36) U/L ALT (0-35) U/L Alkaline Phosphatase (38-126) U/L Troponin 0.00 NT-Pro-B Natriuret Pep (0-1800) pg/mL Serum Total Protein (6.3-8.2) g/dL Albumin (3.5-5.0) g/dL Lipase (23-300) U/L Urine Color YELLOW (YELLOW) Urine Appearance CLEAR (CLEAR) Urine pH 6.0 (5-6) Ur Specific [place] 1.010 (1.005-1.025) Urine Protein Cancelled POC Urine Protein Conf NEGATIVE (Negative) Urine Glucose (UA) Cancelled Urine Ketones NEGATIVE (NEGATIVE) Urine Blood Cancelled Urine Nitrite NEGATIVE (NEGATIVE) Urine Bilirubin NEGATIVE (NEGATIVE) Urine Urobilinogen 0.2 (0-1) mg/dL Ur Leukocyte Esterase Cancelled Urine Leukocytes NEGATIVE (NEGATIVE) U Hyaline Cast (Auto) NONE SEEN (0-2) /LPF Urine RBC NEGATIVE (0-5) Emanuel/ul Urine Microscopic RBC 0-2 (0-5) /HPF Urine Microscopic WBC 0-2 (0-5) /HPF Ur Epithelial Cells None Seen (None Seen) /HPF Urine Bacteria None Seen (None Seen) /HPF Ur Culture Indicated? NO Urine Culture Reflexed Cancelled Urine Glucose NEGATIVE (NEGATIVE) mg/dL Influenza Type A Ag (NEGATIVE) Influenza Type B Ag (NEGATIVE) RSV (PCR) (Negative) SARS-CoV-2 (PCR) (NEGATIVE) Group A Strep Antibody (NEGATIVE) 07/04/22 07/04/22 07/04/22 Range/Units 11:47 11:47 11:47 WBC (4.0-10.5) x10^3/uL RBC (4.1-5.4) x10^6/uL Hgb (12.0-16.0) g/dL Hct (35-47) % MCV (78-100) fL MCH (26-32) pg MCHC (32-36) g/dL RDW (11.5-14.0) % Plt Count (150-450) x10^3/uL MPV (7.5-11.0) fL Gran % (36.0-66.0) % Immature Gran % (Auto) (0.00-0.4) % Nucleat RBC Rel Count (0.00-0.1) % Eos # (Auto) (0-0.5) x10^3/uL Immature Gran # (Auto) (0.00-0.03) x10^3u/L Absolute Lymphs (auto) (1.0-4.6) x10^3/uL Absolute Monos (auto) (0.0-1.3) x10^3/uL Absolute Nucleated RBC (0.00-0.01) x10^3u/L Lymphocytes % (24.0-44.0) % Monocytes % (0.0-12.0) % Eosinophils % (0.00-5.0) % Basophils % (0.0-0.4) % Absolute Granulocytes (1.4-6.9) x10^3/uL Basophils # (0-0.4) x10^3/uL Sodium Direct (138-146) mmol/L Potassium (3.5-4.9) mmol/L Chloride (98-109) mmol/L Carbon Dioxide (24-29) mmol/L Venous BUN (8-26) mg/dL Creatinine (0.6-1.3) mg/dL Glucose (70-105) mg/dL Ionized Calcium (1.12-1.32) mmol/L Total Bilirubin 0.40 (0.2-1.3) mg/dL Direct Bilirubin 0.3 (0.0-0.4) mg/dL AST 20 (14-36) U/L ALT 17 (0-35) U/L Alkaline Phosphatase 78 (38-126) U/L Troponin Cancelled NT-Pro-B Natriuret Pep 153 (0-1800) pg/mL Serum Total Protein 7.6 (6.3-8.2) g/dL Albumin 4.8 (3.5-5.0) g/dL Lipase 203 (23-300) U/L Urine Color (YELLOW) Urine Appearance (CLEAR) Urine pH (5-6) Ur Specific [place] (1.005-1.025) Urine Protein POC Urine Protein Conf (Negative) Urine Glucose (UA) Urine Ketones (NEGATIVE) Urine Blood Urine Nitrite (NEGATIVE) Urine Bilirubin (NEGATIVE) Urine Urobilinogen (0-1) mg/dL Ur Leukocyte Esterase Urine Leukocytes (NEGATIVE) U Hyaline Cast (Auto) (0-2) /LPF Urine RBC (0-5) Emanuel/ul Urine Microscopic RBC (0-5) /HPF Urine Microscopic WBC (0-5) /HPF Ur Epithelial Cells (None Seen) /HPF Urine Bacteria (None Seen) /HPF Ur Culture Indicated? Urine Culture Reflexed Urine Glucose (NEGATIVE) mg/dL Influenza Type A Ag NEGATIVE (NEGATIVE) Influenza Type B Ag NEGATIVE (NEGATIVE) RSV (PCR) NEGATIVE (Negative) SARS-CoV-2 (PCR) NEGATIVE (NEGATIVE) Group A Strep Antibody NOT DETECTED (NEGATIVE) 07/04/22 Range/Units 11:47 WBC 9.3 (4.0-10.5) x10^3/uL RBC 4.41 (4.1-5.4) x10^6/uL Hgb 12.7 (12.0-16.0) g/dL Hct 40.0 (35-47) % MCV 90.7 (78-100) fL MCH 28.8 (26-32) pg MCHC 31.8 L (32-36) g/dL RDW 15.5 H (11.5-14.0) % Plt Count 335 (150-450) x10^3/uL MPV 8.9 (7.5-11.0) fL Gran % 76.5 H (36.0-66.0) % Immature Gran % (Auto) 0.3 (0.00-0.4) % Nucleat RBC Rel Count 0.0 (0.00-0.1) % Eos # (Auto) 0.03 (0-0.5) x10^3/uL Immature Gran # (Auto) 0.03 (0.00-0.03) x10^3u/L Absolute Lymphs (auto) 1.51 (1.0-4.6) x10^3/uL Absolute Monos (auto) 0.59 (0.0-1.3) x10^3/uL Absolute Nucleated RBC 0.00 (0.00-0.01) x10^3u/L Lymphocytes % 16.2 L (24.0-44.0) % Monocytes % 6.3 (0.0-12.0) % Eosinophils % 0.3 (0.00-5.0) % Basophils % 0.4 (0.0-0.4) % Absolute Granulocytes 7.12 H (1.4-6.9) x10^3/uL Basophils # 0.04 (0-0.4) x10^3/uL Sodium Direct (138-146) mmol/L Potassium (3.5-4.9) mmol/L Chloride (98-109) mmol/L Carbon Dioxide (24-29) mmol/L Venous BUN (8-26) mg/dL Creatinine (0.6-1.3) mg/dL Glucose (70-105) mg/dL Ionized Calcium (1.12-1.32) mmol/L Total Bilirubin (0.2-1.3) mg/dL Direct Bilirubin (0.0-0.4) mg/dL AST (14-36) U/L ALT (0-35) U/L Alkaline Phosphatase (38-126) U/L Troponin NT-Pro-B Natriuret Pep (0-1800) pg/mL Serum Total Protein (6.3-8.2) g/dL Albumin (3.5-5.0) g/dL Lipase (23-300) U/L Urine Color (YELLOW) Urine Appearance (CLEAR) Urine pH (5-6) Ur Specific [place] (1.005-1.025) Urine Protein POC Urine Protein Conf (Negative) Urine Glucose (UA) Urine Ketones (NEGATIVE) Urine Blood Urine Nitrite (NEGATIVE) Urine Bilirubin (NEGATIVE) Urine Urobilinogen (0-1) mg/dL Ur Leukocyte Esterase Urine Leukocytes (NEGATIVE) U Hyaline Cast (Auto) (0-2) /LPF Urine RBC (0-5) Emanuel/ul Urine Microscopic RBC (0-5) /HPF Urine Microscopic WBC (0-5) /HPF Ur Epithelial Cells (None Seen) /HPF Urine Bacteria (None Seen) /HPF Ur Culture Indicated? Urine Culture Reflexed Urine Glucose (NEGATIVE) mg/dL Influenza Type A Ag (NEGATIVE) Influenza Type B Ag (NEGATIVE) RSV (PCR) (Negative) SARS-CoV-2 (PCR) (NEGATIVE) Group A Strep Antibody (NEGATIVE) - Progress Progress: improved Progress Note: 07/04/22 18:06 differential diagnosis includes kidney stone, compression fracture, infection, UTI, triple AAA, STEMI, non-STEMI - basic labs including: CBC, lipase, CMP, UA - Troponin, EKG, chest x-ray - insert IV for fluids, pain meds, nausea control - consider imaging: CT ab/pelvis Patient feels improved with medication. Labs and CT demonstrate no obvious pathology. Troponin negative, EKG, chest x-ray unremarkable as well. I feel comfortable with 1 time negative troponin given patient is feeling stable, no change in chest pain, shortness of breath or anything sense 3-4 days when she was seen. Patient states that she would like to stop taking her antibiotic be cause she feels that the diarrhea is the worst part. Overall, labs and imaging are reassuring. No obvious cause for symptoms outside of a viral illness with antibiotic induced diarrhea. At this point time plan for discharge home. Patient may return here sooner for new or changing symptoms. Counseled pt/family regarding: lab results, diagnosis, need for follow-up, rad results - Departure Departure Disposition: Home Clinical Impression: Viral syndrome, Antibiotic-associated diarrhea Condition: Stable Critical Care Time: No Referrals: JACQUELYN JARVIS, DO [Primary Care Provider] - Follow up/PCP as directed
== END 2022-07-04 14:45 | disposition home or self-care (01) ==
LOC: ED 11:16
DX: K52.1 Toxic gastroenteritis and colitis (principal); T36.0X5A Adverse effect of penicillins, initial encounter; B34.9 Viral infection, unspecified; J02.9 Acute pharyngitis, unspecified; H92.03 Otalgia, bilateral; R53.81 Other malaise; E78.5 Hyperlipidemia, unspecified; I10 Essential (primary) hypertension; E11.9 Type 2 diabetes mellitus without complications; Z79.899 Other long term (current) drug therapy; Z20.828 Contact with and (suspected) exposure to other viral communicable diseases
CPT/HCPCS: 0241U; 36000; 36415; 71046; 74177; 80047; 80076; 81015; 83690; 83880; 84484; 85025; 87651; 93005; 96360; 99284

== ENCOUNTER 2022-07-06 19:58 | Emergency (ER) | payer MEDICARE ==
[2022-07-06] MEDS ORDERED: TYLENOL 325 MG PO ONE (21:20)
[2022-07-06] MEDS ORDERED: Compazine 10 MG/2 ML IV ONE (21:21)
[2022-07-06] MEDS ORDERED: TORAdol 30 mg Injection IV ONE (21:21)
[2022-07-06] MEDS ORDERED: BENADRYL 50 MG/ML IV ONE (21:21)
[2022-07-06] MEDS ORDERED: Compazine 10 MG/2 ML ONE (21:25)
[2022-07-06] MEDS ORDERED: BENADRYL 50 MG/ML ONE (21:25)
[2022-07-06] MEDS ORDERED: TORAdol 30 mg Injection ONE (21:25)
[2022-07-06] MEDS ORDERED: TYLENOL 325 MG ONE (21:25)
[2022-07-06 21:58] LABS: Absolute Neutrophil Ct (ANC) 6.91 x10^3/uL (1.4-6.9); BASOPHIL % 0.6 % (0.0-0.4); Basophil (Absolute #) 0.05 x10^3/uL (0-0.4); Eosinophil % 0.6 % (0.00-5.0); Eosinophil (Absolute #) 0.05 x10^3/uL (0-0.5); Hematocrit 39.9 % (35-47); Hemoglobin 12.9 g/dL (12.0-16.0); IMMATURE GRAN # 0.04 x10^3u/L (0.00-0.03); IMMATURE GRAN % 0.4 % (0.00-0.4); Lymphocyte (Absolute #) 1.25 x10^3/uL (1.0-4.6); Mean Cell Volume 89.7 fL (78-100); Mean Corpuscular Hgb Concent. 32.3 g/dL (32-36); Mean Platelet Volume 10.2 fL (7.5-11.0); Monocyte (Absolute #) 0.65 x10^3/uL (0.0-1.3); Monocytes % 7.3 % (0.0-12.0); Neutrophil % 77.1 % (36.0-66.0); Platelet Count 276 x10^3/uL (150-450); Red Blood Count 4.45 x10^6/uL (4.1-5.4); Red Cell Distribution Width 15.9 % (11.5-14.0)
[2022-07-06 22:08] LABS: ALBUMIN 4.5 g/dL (3.5-5.0); ANION GAP 14.2 MEQ/L (5-15); BILIRUBIN,TOTAL 0.8 mg/dL (0.2-1.3); Calcium 9.4 mg/dL (8.4-10.2); Creatinine 1 1.25 mg/dL (0.52-1.04); EST GLOMERULAR FILTRATION RATE 44.1 ML/MIN; Total Protein 7.8 g/dL (6.3-8.2)
[2022-07-06 23:12] VITALS: O2SAT 95
[2022-07-06 23:28] LABS: ADD URINE CULTURE? NO (NO); Appearance Clear (Clear); Bacteria None Seen /HPF (None Seen); Bilirubin Negative (Negative); Blood Negative (Negative); Epithelial Cells Few /HPF (None Seen); Glucose, Urine Negative (Negative); Ketones Negative (Negative); Leukocyte Esterase Negative (Negative); Nitrite Negative (Negative); Protein,Urine Dip Negative (Negative); RBC 0-2 /HPF (0-5); Urobilinogen 0.2 mg/dL (0.2); WBC 0-2 /HPF (0-5)
[2022-07-06 23:57] VITALS: BP 101/67; PULSE 73
--- NOTE | 2022-07-07 00:02 | ERPHSYRPT ---
- History of Present Illness Time Seen by Provider: 07/06/22 20:20 Source: patient Patient Subjective Stated Complaint: pt states I was here saturday and was told I have an ear infection. I was given a new antibiotic today to help but it is not relieving the pain. Triage Nursing Assessment: pt ambulated into the er; pt is axo x4; c/o headache, mario ear pain; pt states 9/10 pain; pupils 3 mm and PERRL; redness in mario middle ear; no respiratory distress present; skin PDW; vital wnl Physician History: Patient is a 76-year-old female presents to our ED for evaluation of a headache. Patient states she has a history of migraine headaches but states that her symptoms do not feel the same. Headache is global. No trauma. No fevers. No neck pain or nuchal rigidity. No photophobia. No meningeal signs. Patient was in our ED on Saturday. She was diagnosed with an ear infection. Patient took her medications for 1 day. Patient states her symptoms not improve. Patient called Dr. Chauhan who changed her antibiotic. Patient is here because the antibiotic has not helped her ear pain at this point. Symptoms are mild to moderate in intensity. No specific worsening improving factors. Patient voices no other complaints or concerns at this time. Portions of this note were created with voice recognition technology. There may be grammatical, spelling, punctuation or sound alike errors Timing/Duration: day(s) (2 days) Quality: aching Head Pain Location: global (Headache involves her frontal sinuses or maxillary sinuses both ears) Severity of Pain-Max: moderate Severity of Pain-Current: mild Recent Head Trauma: no recent headache/trauma Modifying Factors: Improves With: other (Patient has not taken any pain medication. Patient has only taken antibiotics.) Associated Symptoms: denies symptoms, No confusion, No dizziness, No nausea/vomiting, No neck pain, No sensitive to light, No trouble walking, No visual disturbance Previous symptoms: no prior history Allergies/Adverse Reactions: No Known Drug Allergies Allergy (Verified 07/06/22 20:08) Home Medications: lisinopriL [Zestril] 10 tab PO DAILY 04/09/17 [History] Amlodipine Besylate 5 mg [Norvasc 5 mg] 5 mg PO DAILY 04/10/17 [History] Magnesium 400 mg PO BID 03/16/21 [History] ALPRAZolam [Alprazolam] 0.25 mg PO Q6H PRN 08/02/21 [History] Calcium Carbonate [Calcium] 300 mg PO DAILY 12/24/21 [History] Multivitamin [One-Daily Multi-Vitamin] 1 each PO DAILY 12/24/21 [History] Amitriptyline HCl 25 mg [Amitriptyline 25 mg Tablet] 25 mg PO HS 07/06/22 [History] Cephalexin Mh 500 mg [Keflex 500 mg] 500 mg PO TID 07/06/22 [History] Cyanocobalamin/Cobamamide [Vitamin B-12 5,000 Mcg Tab Sl] 1,000 mcg SL DAILY 07/06/22 [History] Obie/Baci/Poly/Hc Ear Susp [Cortisporin Ear Drops 10 ml Suspension] 3 drop OP TID 07/06/22 [History] Spironolactone 25 mg [Aldactone 25 MG] 25 mg PO DAILY 07/06/22 [History] Hx Tetanus, Diphtheria Vaccination/Date Given: Yes Hx Influenza Vaccination/Date Given: Yes Hx Pneumococcal Vaccination/Date Given: Yes Travel Risk - International Travel Have you traveled outside of the country in past 3 weeks: No - Coronavirus Screening Are you exhibiting any of the following symptoms?: No Close contact with a COVID-19 positive Pt in past 14-21 Days: No - Vaccine Status Have you recieved a Covid-19 vaccination: Yes [employer]: Moderna - Vaccination Dates Date of 2cond Vaccination (if applicable): 08/08/20 - Review of Systems Constitutional: No Symptoms, No Fever, No Chills Eyes: No Symptoms Ears, Nose, & Throat: No Symptoms Respiratory: No Symptoms, No Cough, No Dyspnea Cardiac: No Symptoms, No Chest Pain, No Edema, No Syncope Abdominal/Gastrointestinal: No Symptoms, No Abdominal Pain, No Nausea, No Vomiting, No Diarrhea Genitourinary Symptoms: No Symptoms, No Dysuria Musculoskeletal: No Symptoms, No Back Pain, No Neck Pain Skin: No Symptoms, No Rash Neurological: No Symptoms, No Dizziness, No Focal Weakness, No Sensory Changes Psychological: No Symptoms Endocrine: No Symptoms Hematologic/Lymphatic: No Symptoms Immunological/Allergic: No Symptoms All Other Systems: Reviewed and Negative - Past Medical History Pertinent Past Medical History: Yes Neurological History: Migraines ENT History: Cataracts Cardiac History: High Cholesterol, Hypertension Respiratory History: No Pertinent History Endocrine Medical History: Diabetes Type II Musculoskeletal History: Osteoporosis GI Medical History: No Pertinent History, Diverticulitis History: Renal Disease, Other Psycho-Social History: Anxiety Female Reproductive Disorders: No Pertinent History Other Medical History: PT STATES SHE WAS ON DIABETIC MEDICATIONS IN IN THE PAST BUT NOTHING PRESENTLY. 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 Ruiz manages. - Past Surgical History Past Surgical History: Yes Neuro Surgical History: No Pertinent History Cardiac: No Pertinent History Respiratory: No Pertinent History Gastrointestinal: Appendectomy, Colon Resection, Hernia Repair Genitourinary: No Pertinent History Musculoskeletal: No Pertinent History Female Surgical History: Hysterectomy - Social History Smoking Status: Former smoker Exposure to second hand smoke: No Drug Use: none Patient Lives Alone: Yes Significant Family History: no pertinent family hx - Nursing Vital Signs Nursing Vital Signs: Initial Vital Signs Temperature 98.8 F 07/06/22 20:09 Pulse Rate 80 07/06/22 20:09 Respiratory Rate 20 07/06/22 20:09 Blood Pressure 140/56 07/06/22 20:09 O2 Sat by Pulse Oximetry 97 07/06/22 20:09 Pain Scale Pain Intensity 4 - Physical Exam General Appearance: no apparent distress Eye Exam: PERRL/EOMI Ears, Nose, Throat Exam: normal ENT inspection, moist mucous membranes Neck Exam: normal inspection, supple, full range of motion, No meningismus Respiratory Exam: normal breath sounds, lungs clear, airway intact, No respiratory distress Cardiovascular Exam: regular rate/rhythm, normal heart sounds, normal peripheral pulses Gastrointestinal/Abdominal Exam: soft, No tenderness, No distention Back Exam: normal inspection, normal range of motion Extremity Exam: normal inspection, normal range of motion Mental Status Exam: alert, oriented x 3, 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 Mild chronic brain volume loss and chronic small vessel ischemic changes.) Ordered Tests: Active Orders 24 hr Category Date Time Status Whizzer STAT Care 07/06/22 21:18 Active IV Insertion STAT Care 07/06/22 21:18 Active Pulse Oximetry (ED) STAT Care 07/06/22 21:18 Active HEAD WITHOUT CONTRAST [CT] Stat Exams 07/06/22 21:19 Taken BLOOD CULTURE Stat Lab 07/06/22 22:35 Received CBC W DIFF Stat Lab 07/06/22 21:30 Completed CMP Stat Lab 07/06/22 21:30 Completed UA W/RFX UR CULTURE Stat Lab 07/06/22 23:03 Completed Medication Summary Discontinued Medications Generic Name Dose Route Start Last Admin Trade Name Freq PRN Reason Stop Dose Admin Acetaminophen 975 mg 07/06/22 21:20 07/06/22 21:58 Acetaminophen 325 Mg Tablet PO 07/06/22 21:21 975 mg STAT ONE Administration Acetaminophen Confirm 07/06/22 21:25 Acetaminophen 325 Mg Tablet Administered 07/06/22 21:26 Dose 975 mg .ROUTE .STK-MED ONE Diphenhydramine HCl 25 mg 07/06/22 21:21 07/06/22 22:07 Diphenhydramine Hcl 50 Mg/Ml Vial IV 07/06/22 21:22 25 mg STAT ONE Administration Diphenhydramine HCl Confirm 07/06/22 21:25 Diphenhydramine Hcl 50 Mg/Ml Vial Administered 07/06/22 21:26 Dose 50 mg .ROUTE .STK-MED ONE Ketorolac Tromethamine 30 mg 07/06/22 21:21 07/06/22 22:07 Ketorolac Tromethamine 30 Mg/Ml Inj IV 07/06/22 21:22 30 mg STAT ONE Administration Ketorolac Tromethamine Confirm 07/06/22 21:25 Ketorolac Tromethamine 30 Mg/Ml Inj Administered 07/06/22 21:26 Dose 30 mg .ROUTE .STK-MED ONE Prochlorperazine Edisylate 10 mg 07/06/22 21:21 07/06/22 21:58 Prochlorperazine Edisylate 10 Mg/2 Ml Vial IV 07/06/22 21:22 10 mg STAT ONE Administration Prochlorperazine Edisylate Confirm 07/06/22 21:25 Prochlorperazine Edisylate 10 Mg/2 Ml Vial Administered 07/06/22 21:26 Dose 10 mg .ROUTE .STK-MED ONE Lab/Rad Data: Laboratory Result Diagrams 07/06/22 21:30 07/06/22 21:30 Laboratory Results 07/06/22 07/06/22 07/06/22 Range/Units 23:03 21:30 21:30 WBC 9.0 (4.0-10.5) x10^3/uL RBC 4.45 (4.1-5.4) x10^6/uL Hgb 12.9 (12.0-16.0) g/dL Hct 39.9 (35-47) % MCV 89.7 (78-100) fL MCH 29.0 (26-32) pg MCHC 32.3 (32-36) g/dL RDW 15.9 H (11.5-14.0) % Plt Count 276 (150-450) x10^3/uL MPV 10.2 (7.5-11.0) fL Gran % 77.1 H (36.0-66.0) % Immature Gran % (Auto) 0.4 (0.00-0.4) % Nucleat RBC Rel Count 0.0 (0.00-0.1) % Eos # (Auto) 0.05 (0-0.5) x10^3/uL Immature Gran # (Auto) 0.04 H (0.00-0.03) x10^3u/L Absolute Lymphs (auto) 1.25 (1.0-4.6) x10^3/uL Absolute Monos (auto) 0.65 (0.0-1.3) x10^3/uL Absolute Nucleated RBC 0.00 (0.00-0.01) x10^3u/L Lymphocytes % 14.0 L (24.0-44.0) % Monocytes % 7.3 (0.0-12.0) % Eosinophils % 0.6 (0.00-5.0) % Basophils % 0.6 (0.0-0.4) % Absolute Granulocytes 6.91 H (1.4-6.9) x10^3/uL Basophils # 0.05 (0-0.4) x10^3/uL Sodium 132 L (137-145) mmol/L Potassium 5.0 (3.5-5.1) mmol/L Chloride 102 (98-107) mmol/L Carbon Dioxide 20 L (22-30) mmol/L Anion Gap 14.2 (5-15) MEQ/L BUN 33 H (7-17) mg/dL Creatinine 1.25 H (0.52-1.04) mg/dL Estimated GFR 44.1 ML/MIN Glucose 121 H (74-106) mg/dL Calcium 9.4 (8.4-10.2) mg/dL Total Bilirubin 0.80 (0.2-1.3) mg/dL AST 63 H (14-36) U/L ALT 71 H (0-35) U/L Alkaline Phosphatase 82 (38-126) U/L Serum Total Protein 7.8 (6.3-8.2) g/dL Albumin 4.5 (3.5-5.0) g/dL Urine Color Yellow (Yellow) Urine Appearance Clear (Clear) Urine pH 5.0 (4.6-8.0) Ur Specific [place] 1.020 (1.005-1.030) Urine Protein Negative (Negative) Urine Glucose (UA) Negative (Negative) mg/dL Urine Ketones Negative (Negative) Urine Blood Negative (Negative) Urine Nitrite Negative (Negative) Urine Bilirubin Negative (Negative) Urine Urobilinogen 0.2 (0.2) mg/dL Ur Leukocyte Esterase Negative (Negative) U Hyaline Cast (Auto) 6-10 A (0-2) /LPF Urine Microscopic RBC 0-2 (0-5) /HPF Urine Microscopic WBC 0-2 (0-5) /HPF Ur Epithelial Cells Few (None Seen) /HPF Urine Bacteria None Seen (None Seen) /HPF Urine Culture Reflexed NO (NO) - Progress Progress: improved Air Movement: good Progress Note: Patient is a 76-year-old female history of migraine presents to our ED for evaluation of a headache. Headache ongoing for approximately 2 days. Patient was diagnosed with an ear infection 2 days ago. Patient currently on antibiotic. Patient's headache is global. Physical exam nonremarkable. Patient's headache is gradual in onset but considered acute. Headache was not abrupt on onset. Complexity of complaint is moderate. No significant comorbidities to attribute patient symptoms. Work-up reveals CT head, CBC CMP UA. CBC shows elevated creatinine. Mild hyponatremia. CT head negative for acute pathology. Lab findings used for me dical decision making. Patient received Benadryl Compazine Toradol and acetaminophen for headache. Headache resolved. Patient requested discharge prior to IV fluid administration. Was negative for UTI. Patient requesting discharge. Patient agrees to follow- up with her primary care doctor within 48 hours for evaluation. Level of EM service provided was moderate. Complexity of problem addressed was moderate. Complexity of data reviewed and analyzed is moderate. Risks of complication or risk of morbidity/mortality of patient management is moderate. Patient served as an independent historian. Patient competent and reliable. Patient history used for history of present illness. Time spent during discharge is approximately 5 to 10 minutes. Discharge diagnosis is headache. Patient agrees to follow-up with primary care doctor within 48 hours for evaluation. Portions of this note were created with voice recognition technology. There may be grammatical, spelling, punctuation or sound alike errors 07/07/22 00:10 Blood Culture(s) Obtained: No Antibiotics given: No Counseled pt/family regarding: diagnosis, need for follow-up, rad results - Departure Departure Disposition: Home Clinical Impression: Headache, Elevated serum creatinine Condition: Stable Critical Care Time: No Referrals: JACQUELYN STYLES DO [Primary Care Provider] - Follow up/PCP as directed Additional Instructions: Discharge/Care Plan PITA NICOLE was seen on 07/06/22 in the Emergency Room. The patient was counseled regarding Diagnosis,Lab results, Imaging studies, need for follow up and when to return to the Emergency Room. Prescriptions given: Discharge Note I have spoken with the patient and/or caregivers. I have explained the patient's condition, diagnosis and treatment plan based on the information available to me at this time. I have answered the patient's and/or caregiver's questions and addressed any concerns. The patient and/or caregivers have as good understanding of the patient's diagnosis, condition and treatment plan as can be expected at this point. The vital signs have been stable. The patient's condition is stable and appropriate for discharge from the emergency department. The patient will pursue further outpatient evaluation with the primary care physician or other designated or consulting physician as outlined in the discharge instructions. The patient and/or caregivers are agreeable to this plan of care and follow-up instructions have been explained in detail. The patient and/or caregivers have received these instruction. The patient/and or caregivers are aware that any significant change in condition or worsening of symptoms should prompt an immediate return to this or the closest emergency department or call 911.
--- NOTE | 2022-07-07 08:10 | XRAY ---
Indication: Headache. Sinus infection. Multiple contiguous axial images obtained through the head without contrast. Comparison: August 02, 2021 Normal appearing brain parenchyma, ventricles, and bony calvarium for patient's age. Visualized paranasal sinuses and mastoid air cells are clear. Impression: Continued normal CT head without contrast exam. Comment: Preliminary interpretation made by [facility]. No critical discrepancy.
== END 2022-07-07 00:05 | disposition home or self-care (01) ==
LOC: ED 19:58
DX: R51.9 Headache, unspecified (principal); R79.89 Other specified abnormal findings of blood chemistry; E78.5 Hyperlipidemia, unspecified; I10 Essential (primary) hypertension; E11.9 Type 2 diabetes mellitus without complications; Z79.899 Other long term (current) drug therapy
CPT/HCPCS: 36000; 36415; 70450; 80053; 81001; 85025; 87040; 93041; 94760; 96374; 96375; 99284; J1200; J1885; A9270-GY

== ENCOUNTER 2022-07-17 10:26 | Emergency (ER) | payer MEDICARE ==
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
[2022-07-17 10:32] VITALS: BP 98/67
[2022-07-17] MEDS ORDERED: Sodium Chloride 0.9% 1000 ML 1,000 ML IV STA (11:01)
[2022-07-17] MEDS ORDERED: Ativan 2 MG/1 ML VIAL IV ONE (11:02)
[2022-07-17] MEDS ORDERED: Ativan 2 MG/1 ML VIAL ONE (11:22)
[2022-07-17] MEDS ORDERED: Sodium Chloride 0.9% 1000 ML 1,000 ML ONE (11:22)
[2022-07-17 11:31] LABS: Appearance Clear (Clear); Bacteria None Seen /HPF (None Seen); Bilirubin Negative (Negative); Blood Negative (Negative); Epithelial Cells Rare /HPF (None Seen); Glucose, Urine Negative (Negative); Hyaline Casts NONE SEEN /LPF (0-2); Ketones Negative (Negative); Leukocyte Esterase Negative (Negative); Nitrite Negative (Negative); Protein,Urine Dip Negative (Negative); RBC 0-2 /HPF (0-5); Urobilinogen 0.2 mg/dL (0.2); WBC 0-2 /HPF (0-5)
[2022-07-17 11:35] VITALS: PULSE 72; O2SAT 97
[2022-07-17 11:43] LABS: Amphetamine,Urine NEGATIVE (NEGATIVE); Barbiturate,Urine NEGATIVE (NEGATIVE); Benzodiazepine,Urine NEGATIVE (NEGATIVE); Cocaine,Urine NEGATIVE (NEGATIVE); Methadone,Urine NEGATIVE (NEGATIVE); Opiate,Urine NEGATIVE (NEGATIVE); PCP,Urine NEGATIVE (NEGATIVE); THC,Urine NEGATIVE (NEGATIVE)
[2022-07-17 11:47] LABS: ADD URINE CULTURE? NO (NO)
[2022-07-17 11:55] LABS: BASOPHIL % 0.4 % (0.0-0.4); Basophil (Absolute #) 0.03 x10^3/uL (0-0.4); Eosinophil % 0.4 % (0.00-5.0); Eosinophil (Absolute #) 0.03 x10^3/uL (0-0.5); Hematocrit 38.2 % (35-47); Hemoglobin 12.3 g/dL (12.0-16.0); IMMATURE GRAN # 0.02 x10^3u/L (0.00-0.03); IMMATURE GRAN % 0.3 % (0.00-0.4); Lymphocyte (Absolute #) 1.14 x10^3/uL (1.0-4.6); Lymphocytes % 16.2 % (24.0-44.0); Mean Cell Volume 90.7 fL (78-100); Mean Corpuscular Hemoglobin 29.2 pg (26-32); Mean Corpuscular Hgb Concent. 32.2 g/dL (32-36); Mean Platelet Volume 9.6 fL (7.5-11.0); Monocyte (Absolute #) 0.43 x10^3/uL (0.0-1.3); Monocytes % 6.1 % (0.0-12.0); Neutrophil % 76.6 % (36.0-66.0); Platelet Count 286 x10^3/uL (150-450); Red Blood Count 4.21 x10^6/uL (4.1-5.4); White Blood Count 7.1 x10^3/uL (4.0-10.5)
[2022-07-17 12:05] LABS: ALBUMIN 4.7 g/dL (3.5-5.0); ANION GAP 11.2 MEQ/L (5-15); BILIRUBIN,TOTAL 0.6 mg/dL (0.2-1.3); Calcium 9.2 mg/dL (8.4-10.2); Creatinine 1 1.02 mg/dL (0.52-1.04); EST GLOMERULAR FILTRATION RATE 55.7 ML/MIN; Potassium 4.5 mmol/L (3.5-5.1); Total Protein 7.7 g/dL (6.3-8.2)
== END 2022-07-17 13:37 | disposition home or self-care (01) ==
LOC: ED 10:26
DX: F45.9 Somatoform disorder, unspecified (principal); R53.1 Weakness; E78.5 Hyperlipidemia, unspecified; I10 Essential (primary) hypertension; E11.9 Type 2 diabetes mellitus without complications; Z79.899 Other long term (current) drug therapy; Z86.16 Personal history of COVID-19; Z59.89 Other problems related to housing and economic circumstances
CPT/HCPCS: 36000; 36415; 80053; 80307; 81001; 84484; 85025; 93005; 96374; 99284; J2060

== ENCOUNTER 2022-07-21 18:28 | Emergency (ER) | payer MEDICARE ==
[2022-07-21] MEDS ORDERED: Ativan 2 MG/1 ML VIAL IV ONE (18:37)
[2022-07-21] MEDS ORDERED: Ativan 2 MG/1 ML VIAL ONE (18:43)
[2022-07-21] MEDS ORDERED: Sodium Chloride 0.9% 1000 ML 1,000 ML ONE (18:43)
[2022-07-21] MEDS ORDERED: Sodium Chloride 0.9% 1000 ML 1,000 ML IV SCH (18:45)
--- NOTE | 2022-07-21 19:08 | ERPHSYRPT ---
- History of Present Illness Time Seen by Provider: 07/21/22 19:08 Source: patient, family Exam Limitations: no limitations Patient Subjective Stated Complaint: C/O RLE pain and swelling. Indicates the pain started in her big toe and has now spread up her calf area. Patient states this started yesterday. Pain is intermittent. Triage Nursing Assessment: Patient arrived by ambulance. She is alert and oriented but anxious; speaking rapidly. No SOB. Bilateral pedal pulses present. Physician History: Patient c/o right calf swelling and localized pain. Patient reports she was laying down on the couch w/ legs stretched out when a sudden pain occurred in her right calf and immediate swelling occurred. The episode lasted several minutes and by the time EMS arrived the swelling had improved, but pain persisted. She has never had an episode similar to this in the past. No h/o VTE. No h/o smoking. No recent hospitalization or major surgery. No recent trauma. No recent traveling. Denies F/C/N/V, CP, SOB, palpitations, abd pain. Method of Injury: unknown Occurred: just prior to arrival Quality: intermittent, cramping, sharpness, stabbing Severity of Pain-Max: severe Severity of Pain-Current: mild Lower Extremities Pain: leg: right (medial aspect right LE) Modifying Factors: Worsens With: movement Associated Symptoms: none Allergies/Adverse Reactions: No Known Drug Allergies Allergy (Verified 07/21/22 18:31) Home Medications: lisinopriL [Zestril] 10 tab PO DAILY 04/09/17 [History] Amlodipine Besylate 5 mg [Norvasc 5 mg] 5 mg PO DAILY 04/10/17 [History] hydrOXYzine HCL [Hydroxyzine HCl] 50 mg PO BID 07/17/22 [History] ALPRAZolam 0.25 MG [xanAX 0.25 MG] 1 tab PO DAILY 07/21/22 [History] Fluoxetine HCl [Prozac] 1 cap PO HS 07/21/22 [History] Levothyroxine Sodium 1 tab PO DAILY 07/21/22 [History] Hx Tetanus, Diphtheria Vaccination/Date Given: Yes Hx Influenza Vaccination/Date Given: Yes Hx Pneumococcal Vaccination/Date Given: Yes Immunizations Up to Date: Yes Travel Risk - International Travel Have you traveled outside of the country in past 3 weeks: No - Coronavirus Screening Are you exhibiting any of the following symptoms?: No Close contact with a COVID-19 positive Pt in past 14-21 Days: No - Vaccine Status Have you recieved a Covid-19 vaccination: Yes Portfolio Manager: Moderna - Vaccination Dates Date of 2cond Vaccination (if applicable): 08/08/20 - Review of Systems Constitutional: No Symptoms Eyes: No Symptoms Ears, Nose, & Throat: No Symptoms Respiratory: No Symptoms Cardiac: No Symptoms Abdominal/Gastrointestinal: No Symptoms Genitourinary Symptoms: No Symptoms Musculoskeletal: Other (RLE pain and swelling) Skin: No Symptoms Neurological: No Symptoms Psychological: Anxiety Endocrine: No Symptoms Hematologic/Lymphatic: No Blood Clots Immunological/Allergic: No Symptoms All Other Systems: Reviewed and Negative - Past Medical History Pertinent Past Medical History: Yes Neurological History: Migraines ENT History: Cataracts Cardiac History: High Cholesterol, Hypertension Respiratory History: No Pertinent History Endocrine Medical History: Diabetes Type II, Hypothyroidism Musculoskeletal History: Osteoporosis GI Medical History: No Pertinent History, Diverticulitis History: Renal Disease, Other Psycho-Social History: Anxiety Female Reproductive Disorders: No Pertinent History Other Medical History: hx low platelets; Dr. Ruiz manages. - Past Surgical History Past Surgical History: Yes Neuro Surgical History: No Pertinent History Cardiac: No Pertinent History Respiratory: No Pertinent History Gastrointestinal: Appendectomy, Colon Resection, Hernia Repair Genitourinary: No Pertinent History Musculoskeletal: No Pertinent History Female Surgical History: Hysterectomy - Social History Smoking Status: Former smoker Exposure to second hand smoke: No Drug Use: none Patient Lives Alone: Yes Significant Family History: no pertinent family hx - Nursing Vital Signs Nursing Vital Signs: Initial Vital Signs Temperature 98.2 F 07/21/22 18:34 Pulse Rate 81 07/21/22 18:34 Respiratory Rate 18 07/21/22 18:34 Blood Pressure 102/74 07/21/22 18:34 O2 Sat by Pulse Oximetry 96 07/21/22 18:34 Pain Scale Pain Intensity 2 - Physical Exam General Appearance: no apparent distress Eyes, Ears, Nose, Throat Exam: normal ENT inspection Neck Exam: normal inspection Cardiovascular/Respiratory Exam: chest non-tender, normal breath sounds, regular rate/rhythm, heart sounds normal Gastrointestinal/Abdominal Exam: non-tender, soft Back Exam: normal inspection Legs Exam: right leg: pain (medial RLE), soft tissue tenderness (medial RLE), bilateral leg: normal inspection, normal range of motion, no evidence of injury Neuro/Tendon Exam: normal sensation, normal motor functions, responds to pain, no evidence tendon injury Mental Status Exam: alert, oriented x 3, cooperative Skin Exam: normal color, warm, dry SpO2 Interpretation: normal SpO2: 96 O2 Delivery: Room Air - Course Nursing assessment & vital signs reviewed: Yes EKG Interpreted by Me: RATE (81), Sinus Rhythm, NORMAL AXIS, NORMAL INTERVALS, NORMAL ST-T - Radiology Exams Chest X-ray Interpretation: Interpreted by me, Negative - Radiology Ultrasound Exam Venous Lower Extremity Ultrasound: Other (neg for DVT) Ordered Tests: Active Orders 24 hr Category Date Time Status EKG-ER Only STAT Care 07/21/22 18:35 Active IV Insertion STAT Care 07/21/22 18:39 Active CHEST 1 VIEW (PORTABLE) Stat Exams 07/21/22 18:37 Completed VENOUS BILATERAL EXTREMITY [US] Stat Exams 07/21/22 19:14 Completed VENOUS UNILAT/LIMITED EXTREMIT [US] Stat Exams 07/21/22 18:33 Stop Req CBC W DIFF Stat Lab 07/21/22 19:43 Completed CMP Stat Lab 07/21/22 19:43 Completed D-DIMER QUANTITATIVE Stat Lab 07/21/22 19:43 Completed Ferritin Stat Lab 07/21/22 19:50 Received Folate (Folic Acid) Stat Lab 07/21/22 19:50 Received LDH-LACTATE DEHYDROGENASE Stat Lab 07/21/22 19:50 Completed Lactic Acid Stat Lab 07/21/22 19:40 Completed MAGNESIUM Stat Lab 07/21/22 19:43 Completed VENOUS BLOOD GAS Urgent Lab 07/21/22 19:40 Completed Vitamin B12 Stat Lab 07/21/22 19:50 Received Medication Summary Generic Name Dose Route Start Last Admin Trade Name Freq PRN Reason Stop Dose Admin Sodium Chloride 1,000 mls @ 100 mls/hr 07/21/22 18:45 07/21/22 18:45 Sodium Chloride 0.9% 1000 Ml IV 08/20/22 18:44 100 mls/hr .Q10H SARAH Administration Magnesium Sulfate/Dextrose 100 mls @ 100 mls/hr 07/21/22 20:30 07/21/22 20:48 Magnesium 1 Gm / 100 Ml D5w IV 07/21/22 22:29 100 mls/hr Q1H SARAH Administration Discontinued Medications Generic Name Dose Route Start Last Admin Trade Name aLdy PRN Reason Stop Dose Admin Lorazepam 1 mg 07/21/22 18:37 07/21/22 18:45 Lorazepam 2 Mg/1 Ml 2 Mg Vial IV 07/21/22 18:38 1 mg STAT ONE Administration Lorazepam Confirm 07/21/22 18:43 Lorazepam 2 Mg/1 Ml 2 Mg Vial Administered 07/21/22 18:44 Dose 2 mg .ROUTE .STK-MED ONE Lab/Rad Data: Laboratory Result Diagrams 07/21/22 19:43 07/21/22 19:43 Laboratory Results 07/21/22 07/21/22 07/21/22 Range/Units 19:50 19:50 19:43 WBC (4.0-10.5) x10^3/uL RBC (4.1-5.4) x10^6/uL Hgb (12.0-16.0) g/dL Hct (35-47) % MCV (78-100) fL MCH (26-32) pg MCHC (32-36) g/dL RDW (11.5-14.0) % Plt Count (150-450) x10^3/uL MPV (7.5-11.0) fL Gran % (36.0-66.0) % Immature Gran % (Auto) (0.00-0.4) % Nucleat RBC Rel Count (0.00-0.1) % Eos # (Auto) (0-0.5) x10^3/uL Immature Gran # (Auto) (0.00-0.03) x10^3u/L Absolute Lymphs (auto) (1.0-4.6) x10^3/uL Absolute Monos (auto) (0.0-1.3) x10^3/uL Absolute Nucleated RBC (0.00-0.01) x10^3u/L Lymphocytes % (24.0-44.0) % Monocytes % (0.0-12.0) % Eosinophils % (0.00-5.0) % Basophils % (0.0-0.4) % Absolute Granulocytes (1.4-6.9) x10^3/uL Basophils # (0-0.4) x10^3/uL D-Dimer 1.33 H* (0.0-0.50) mg/L pO2/FiO2 Ratio % VBG pH (7.32-7.42) VBG pCO2 at Pat Temp (42-55) mm/Hg VBG pO2 at Pat Temp (25-40) mm/Hg VBG HCO3 (22-28) meq/L VBG O2 Sat (Olive) (95-100) VBG Base Excess (-2.0-2.0) VBG Hemoglobin VBG Carboxyhemoglobin (0.0-6.9) % T HGB POC Potassium (3.5-5.1) Sodium (137-145) mmol/L Potassium (3.5-5.1) mmol/L Chloride (98-107) mmol/L Carbon Dioxide (22-30) mmol/L Anion Gap (5-15) MEQ/L BUN (7-17) mg/dL Creatinine (0.52-1.04) mg/dL Estimated GFR ML/MIN Glucose (74-106) mg/dL Lactic Acid (0.4-2.0) Calcium (8.4-10.2) mg/dL Magnesium (1.6-2.3) mg/dL Iron 61 (37-170) ug/dL TIBC 340 (265-462) ug/dL Iron Saturation 18 L (20-39) % Total Bilirubin (0.2-1.3) mg/dL AST (14-36) U/L ALT (0-35) U/L Alkaline Phosphatase (38-126) U/L Lactate Dehydrogenase 139 (120-246) U/L Serum Total Protein (6.3-8.2) g/dL Albumin (3.5-5.0) g/dL 07/21/22 07/21/22 07/21/22 Range/Units 19:43 19:43 19:40 WBC 7.6 (4.0-10.5) x10^3/uL RBC 4.12 (4.1-5.4) x10^6/uL Hgb 11.8 L (12.0-16.0) g/dL Hct 37.8 (35-47) % MCV 91.7 (78-100) fL MCH 28.6 (26-32) pg MCHC 31.2 L (32-36) g/dL RDW 15.7 H (11.5-14.0) % Plt Count 327 (150-450) x10^3/uL MPV 8.7 (7.5-11.0) fL Gran % 76.6 H (36.0-66.0) % Immature Gran % (Auto) 0.1 (0.00-0.4) % Nucleat RBC Rel Count 0.0 (0.00-0.1) % Eos # (Auto) 0.02 (0-0.5) x10^3/uL Immature Gran # (Auto) 0.01 (0.00-0.03) x10^3u/L Absolute Lymphs (auto) 1.22 (1.0-4.6) x10^3/uL Absolute Monos (auto) 0.48 (0.0-1.3) x10^3/uL Absolute Nucleated RBC 0.00 (0.00-0.01) x10^3u/L Lymphocytes % 16.2 L (24.0-44.0) % Monocytes % 6.4 (0.0-12.0) % Eosinophils % 0.3 (0.00-5.0) % Basophils % 0.4 (0.0-0.4) % Absolute Granulocytes 5.79 (1.4-6.9) x10^3/uL Basophils # 0.03 (0-0.4) x10^3/uL D-Dimer (0.0-0.50) mg/L pO2/FiO2 Ratio 21.0 % VBG pH 7.41 (7.32-7.42) VBG pCO2 at Pat Temp 44 (42-55) mm/Hg VBG pO2 at Pat Temp 23 L (25-40) mm/Hg VBG HCO3 27.9 (22-28) meq/L VBG O2 Sat (Olive) 40.6 L (95-100) VBG Base Excess 2.8 H (-2.0-2.0) VBG Hemoglobin 12.5 VBG Carboxyhemoglobin 2.8 (0.0-6.9) % T HGB POC Potassium 4.0 (3.5-5.1) Sodium 138 (137-145) mmol/L Potassium 4.1 (3.5-5.1) mmol/L Chloride 104 (98-107) mmol/L Carbon Dioxide 28 (22-30) mmol/L Anion Gap 10.0 (5-15) MEQ/L BUN 17 (7-17) mg/dL Creatinine 1.07 H (0.52-1.04) mg/dL Estimated GFR 52.7 ML/MIN Glucose 147 H (74-106) mg/dL Lactic Acid (0.4-2.0) Calcium 9.0 (8.4-10.2) mg/dL Magnesium 1.5 L (1.6-2.3) mg/dL Iron (37-170) ug/dL TIBC (265-462) ug/dL Iron Saturation (20-39) % Total Bilirubin 0.30 (0.2-1.3) mg/dL AST 19 (14-36) U/L ALT 14 (0-35) U/L Alkaline Phosphatase 51 (38-126) U/L Lactate Dehydrogenase (120-246) U/L Serum Total Protein 7.2 (6.3-8.2) g/dL Albumin 4.4 (3.5-5.0) g/dL 07/21/22 Range/Units 19:40 WBC (4.0-10.5) x10^3/uL RBC (4.1-5.4) x10^6/uL Hgb (12.0-16.0) g/dL Hct (35-47) % MCV (78-100) fL MCH (26-32) pg MCHC (32-36) g/dL RDW (11.5-14.0) % Plt Count (150-450) x10^3/uL MPV (7.5-11.0) fL Gran % (36.0-66.0) % Immature Gran % (Auto) (0.00-0.4) % Nucleat RBC Rel Count (0.00-0.1) % Eos # (Auto) (0-0.5) x10^3/uL Immature Gran # (Auto) (0.00-0.03) x10^3u/L Absolute Lymphs (auto) (1.0-4.6) x10^3/uL Absolute Monos (auto) (0.0-1.3) x10^3/uL Absolute Nucleated RBC (0.00-0.01) x10^3u/L Lymphocytes % (24.0-44.0) % Monocytes % (0.0-12.0) % Eosinophils % (0.00-5.0) % Basophils % (0.0-0.4) % Absolute Granulocytes (1.4-6.9) x10^3/uL Basophils # (0-0.4) x10^3/uL D-Dimer (0.0-0.50) mg/L pO2/FiO2 Ratio % VBG pH (7.32-7.42) VBG pCO2 at Pat Temp (42-55) mm/Hg VBG pO2 at Pat Temp (25-40) mm/Hg VBG HCO3 (22-28) meq/L VBG O2 Sat (Olive) (95-100) VBG Base Excess (-2.0-2.0) VBG Hemoglobin VBG Carboxyhemoglobin (0.0-6.9) % T HGB POC Potassium (3.5-5.1) Sodium (137-145) mmol/L Potassium (3.5-5.1) mmol/L Chloride (98-107) mmol/L Carbon Dioxide (22-30) mmol/L Anion Gap (5-15) MEQ/L BUN (7-17) mg/dL Creatinine (0.52-1.04) mg/dL Estimated GFR ML/MIN Glucose (74-106) mg/dL Lactic Acid 1.4 (0.4-2.0) Calcium (8.4-10.2) mg/dL Magnesium (1.6-2.3) mg/dL Iron (37-170) ug/dL TIBC (265-462) ug/dL Iron Saturation (20-39) % Total Bilirubin (0.2-1.3) mg/dL AST (14-36) U/L ALT (0-35) U/L Alkaline Phosphatase (38-126) U/L Lactate Dehydrogenase (120-246) U/L Serum Total Protein (6.3-8.2) g/dL Albumin (3.5-5.0) g/dL - Progress Progress: improved Progress Note: Venous duplex negative for DVT at shift change. 07/21/22 19:16 07/21/22 19:43 Patient evaluated, pain and swelling improved. Labs and CXR pending. Patient doi ng well at this time. Will reevaluate after results and likely d/c. 07/21/22 20:31 Mg 1.5, Hb 11.8, Cr 1.07, D-dimer 1.33. Patient has no sxs of CP, SOB, tachycardia and has Cr of 1.07 in light of neg venous duplex decision was made not to pursue CTA chest to r/o PE. 2g MgSO4 ordered. Iron studies ordered for anemia. Patient feeling much better on reevaluation. 07/21/22 21:25 Discussed discharge plans w/ patient encouraged her to try pickle juice QD to help w/ cramping. F/U w/ Dr. Jarvis at the beginning of the week. Counseled pt/family regarding: lab results, diagnosis, need for follow-up, rad results Medical Desision Making - Independent Historian Additional History obtained from: Spouse - Diagnostic Testing Diagnostic Testing: Diagnostic tests were ordered,analyzed, and reviewed by me and used in my medical decision making for this patient. Radiologic studies (if ordered) were read by me initially then discussed with the radiologist . - Risk of complications The pt has a mod risk of morbidity or mortality based on: Need for prescription drug management - Departure Departure Disposition: Home Clinical Impression: Hypomagnesemia, Anemia, Muscle spasm of calf Condition: Good Critical Care Time: No Referrals: JACQUELYN JARVIS DO [Primary Care Provider] - Follow up/PCP as directed Instructions: Muscle Spasm ED, Muscle Spasms (DC) Prescriptions: Cyclobenzaprine HCl 5 mg PO TID PRN 5 Days #15 tablet PRN Reason: Pain
[2022-07-21 19:45] LABS: Absolute Neutrophil Ct (ANC) 5.79 x10^3/uL (1.4-6.9); BASOPHIL % 0.4 % (0.0-0.4); Basophil (Absolute #) 0.03 x10^3/uL (0-0.4); Eosinophil % 0.3 % (0.00-5.0); Eosinophil (Absolute #) 0.02 x10^3/uL (0-0.5); Hematocrit 37.8 % (35-47); Hemoglobin 11.8 g/dL (12.0-16.0); IMMATURE GRAN # 0.01 x10^3u/L (0.00-0.03); IMMATURE GRAN % 0.1 % (0.00-0.4); Lymphocyte (Absolute #) 1.22 x10^3/uL (1.0-4.6); Lymphocytes % 16.2 % (24.0-44.0); Mean Cell Volume 91.7 fL (78-100); Mean Corpuscular Hemoglobin 28.6 pg (26-32); Mean Corpuscular Hgb Concent. 31.2 g/dL (32-36); Mean Platelet Volume 8.7 fL (7.5-11.0); Monocyte (Absolute #) 0.48 x10^3/uL (0.0-1.3); Monocytes % 6.4 % (0.0-12.0); Neutrophil % 76.6 % (36.0-66.0); Platelet Count 327 x10^3/uL (150-450); Red Blood Count 4.12 x10^6/uL (4.1-5.4); Red Cell Distribution Width 15.7 % (11.5-14.0); White Blood Count 7.6 x10^3/uL (4.0-10.5)
[2022-07-21 19:46] LABS: VBG BASE EXCESS 2.8 (-2.0-2.0); VBG CARBOXYHEMOGLOBIN 2.8 % T HGB (0.0-6.9); VBG HCO3- 27.9 meq/L (22-28); VBG HEMOGLOBIN 12.5; VBG O2 SATURATION 40.6 (95-100); VBG pH 7.41 (7.32-7.42)
[2022-07-21 19:56] LABS: ALBUMIN 4.4 g/dL (3.5-5.0); BILIRUBIN,TOTAL 0.3 mg/dL (0.2-1.3); Creatinine 1 1.07 mg/dL (0.52-1.04); EST GLOMERULAR FILTRATION RATE 52.7 ML/MIN; MAGNESIUM 1.5 mg/dL (1.6-2.3); Potassium 4.1 mmol/L (3.5-5.1); Total Protein 7.2 g/dL (6.3-8.2)
[2022-07-21] MEDS: Magnesium 1 Gm / 100 Ml D5W*** 100 ML IV SCH ×2 (20:21→20:48)
[2022-07-21 20:42] LABS: Iron 61 ug/dL (37-170); Iron Saturation 18 % (20-39); TIBC 340 ug/dL (265-462)
--- NOTE | 2022-07-21 20:53 | XRAY ---
Indication: Short of breath. Comparison: July 04, 2022 Portable chest remains inflated and clear. Heart not enlarged again with mild tortuous descending aorta. Bony thorax intact again with osteopenia and degenerative changes. Impression: Continued nonacute chest with chronic features.
--- NOTE | 2022-07-21 20:53 | XRAY ---
Indication: Bilateral pain and swelling. Two-dimensional sonogram and color Doppler imaging of the major venous vessels of the left and right leg performed. Comparison: None No thrombus seen in the examined deep venous vessels of the left and right leg including greater saphenous vein. Veins demonstrate normal compressibility. Venous waveforms are normal with and without augmentation. Impression: Left and right leg negative for DVT. Comment: Preliminary report was given.
[2022-07-21 21:34] VITALS: BP 107/73; PULSE 76; O2SAT 94
[2022-07-21 21:40] LABS: Ferritin 51.5 ng/mL (11.1-264); Folate (Folic Acid) 13.2 ng/mL (2.76 - >20)
== END 2022-07-21 21:39 | disposition home or self-care (01) ==
LOC: ED 18:28
DX: E83.42 Hypomagnesemia (principal); D64.9 Anemia, unspecified; R25.2 Cramp and spasm; M79.661 Pain in right lower leg; E78.5 Hyperlipidemia, unspecified; I10 Essential (primary) hypertension; E11.9 Type 2 diabetes mellitus without complications; Z79.899 Other long term (current) drug therapy
CPT/HCPCS: 36000; 36415; 71045; 80053; 82607; 82728; 82746; 82805; 83010; 83540; 83550; 83605; 83615; 83735; 85025; 85379; 93005; 93970; 96374; 99284; J2060; J3475

== ENCOUNTER 2022-12-12 21:25 | Emergency (ER) | payer MEDICARE ==
--- NOTE | 2022-12-12 21:29 | ERPHSYRPT ---
- History of Present Illness Time Seen by Provider: 12/12/22 21:28 Source: patient Exam Limitations: no limitations Physician History: This is a 76-year-old female who presents to the emergency room with an area of itching and redness in her right upper inner thigh. She thinks she had an insect bite. Since that time she has been putting Neosporin on the site. The redness area has increased and therefore she wanted the area evaluated. Patient's primary care doctor is Dr. Chauhan. Patient does see trash collector Dr. Thomas and has an appointment to see him this week. Patient has a history of hypertension, anxiety, migraine headaches, hyperlipidemia, osteop orosis, chronic thrombocytopenia and hypothyroidism. She has been told she is diabetic but she is currently not on any medications. She has not had a fever. Timing/Duration: day(s) (3 to 4 days ago) Quality: itchy Severity: mild Location: extremities (Right inner thigh) Possible Causes: insect bite Associated Symptoms: denies symptoms Allergies/Adverse Reactions: No Known Drug Allergies Allergy (Verified 12/12/22 21:30) Home Medications: lisinopriL [Zestril] 10 tab PO DAILY 04/09/17 [History] Amlodipine Besylate 5 mg [Norvasc 5 mg] 5 mg PO DAILY 04/10/17 [History] hydrOXYzine HCL [Hydroxyzine HCl] 50 mg PO BID 07/17/22 [History] ALPRAZolam 0.25 MG [xanAX 0.25 MG] 1 tab PO DAILY 07/21/22 [History] Fluoxetine HCl [Prozac] 1 cap PO HS 07/21/22 [History] Levothyroxine Sodium 1 tab PO DAILY 07/21/22 [History] Hx Tetanus, Diphtheria Vaccination/Date Given: Yes Hx Influenza Vaccination/Date Given: Yes Hx Pneumococcal Vaccination/Date Given: Yes Travel Risk - International Travel Have you traveled outside of the country in past 3 weeks: No - Coronavirus Screening Are you exhibiting any of the following symptoms?: No Close contact with a COVID-19 positive Pt in past 14-21 Days: No - Vaccine Status Have you recieved a Covid-19 vaccination: Yes Spray Mixer: Moderna - Vaccination Dates Date of 2cond Vaccination (if applicable): 08/08/20 - Review of Systems Constitutional: No Symptoms Eyes: No Symptoms Ears, Nose, & Throat: No Symptoms Respiratory: No Symptoms Cardiac: No Symptoms Abdominal/Gastrointestinal: No Symptoms Genitourinary Symptoms: No Symptoms Musculoskeletal: No Symptoms Skin: Cellulitis (Localized in the cervical right upper inner thigh) Neurological: No Symptoms Psychological: No Symptoms Endocrine: No Symptoms Hematologic/Lymphatic: No Symptoms Immunological/Allergic: No Symptoms All Other Systems: Reviewed and Negative - Past Medical History Pertinent Past Medical History: Yes Neurological History: Migraines ENT History: Cataracts Cardiac History: High Cholesterol, Hypertension Respiratory History: No Pertinent History Endocrine Medical History: Diabetes Type II, Hypothyroidism Musculoskeletal History: Osteoporosis GI Medical History: No Pertinent History, Diverticulitis History: Renal Disease, Other Psycho-Social History: Anxiety Female Reproductive Disorders: No Pertinent History Other Medical History: hx low platelets; Dr. Ruiz manages. - Past Surgical History Past Surgical History: Yes Neuro Surgical History: No Pertinent History Cardiac: No Pertinent History Respiratory: No Pertinent History Gastrointestinal: Appendectomy, Colon Resection, Hernia Repair Genitourinary: No Pertinent History Musculoskeletal: No Pertinent History Female Surgical History: Hysterectomy - Social History Smoking Status: Former smoker Exposure to second hand smoke: No Drug Use: none Patient Lives Alone: Yes Significant Family History: no pertinent family hx - Physical Exam General Appearance: no apparent distress, alert, anxiety Eye Exam: PERRL/EOMI, eyes nml inspection Ears, Nose, Throat Exam: normal ENT inspection, moist mucous membranes Neck Exam: normal inspection, non-tender, supple, full range of motion Respiratory Exam: airway intact, No chest tenderness, No respiratory distress Gastrointestinal/Abdomen Exam: No tenderness Pelvic Exam: not done Rectal Exam: not done Back Exam: normal inspection, normal range of motion, No CVA tenderness, No vertebral tenderness Extremity Exam: normal range of motion, pelvis stable Neurologic Exam: alert, oriented x 3, cooperative, turkey roll maker II-XII nml as tested, normal mood/affect, nml cerebellar function, nml station & gait, sensation nml Skin Exam: warm (No abscess), other (Localized cellulitis right upper inner thigh with 2 "insect bite galvez" in the center) Lymphatic Exam: No adenopathy SpO2 Interpretation: normal O2 Delivery: Room Air - Course Nursing assessment & vital signs reviewed: Yes - Progress Progress: unchanged Progress Note: 12/12/22 21:38 This patient's medical issue is 1 of low complexity. The level of complexity in the work-up performed is based on the review of the patient's past medical hi story, review the patient's medication list, review of the drug allergy list, history present illness and physical findings on examination. This patient does not require any laboratory radiographic studies. Patient has a localized area of cellulitis after an insect bite. There is no abscess to drain. Patient was using topical antibiotics and we will have her stop using the topical antibiotics and place her on Keflex 500 mg 3 times a day for 7 days. We will give her the first dose here in the emergency department. She can cover the area with a bandage and change as needed. Counseled pt/family regarding: diagnosis, need for follow-up Medical Desision Making - Diagnostic Testing Diagnostic test were ordered, analyzed, and reviewed by me: No - Risk of complications The pt has a mod risk of morbidity or mortality based on: Need for prescription drug management - Departure Departure Disposition: Home Clinical Impression: Insect bite, Cellulitis Condition: Stable Critical Care Time: No Referrals: JACQUELYN STYLES DO [Primary Care Provider] - Follow up/PCP as directed Additional Instructions: Keep the site clean daily with soap and water. Avoid lotion ointments and creams to the site. Cover the area with a bandage daily and as needed. Take your antibiotics as prescribed. Follow-up with your primary care provider for further evaluation management. Prescriptions: Cephalexin Mh 500 mg [Keflex 500 mg] 500 mg PO TID #21 cap
[2022-12-12 21:39] VITALS: BP 135/87
[2022-12-12] MEDS ORDERED: KEFLEX 500 MG PO ONE (21:44)
[2022-12-12] MEDS ORDERED: KEFLEX 500 MG ONE (21:47)
[2022-12-12 21:57] VITALS: PULSE 71; O2SAT 98
== END 2022-12-12 21:58 | disposition home or self-care (01) ==
LOC: ED 21:25
DX: S70.361A Insect bite (nonvenomous), right thigh, initial encounter (principal); L03.115 Cellulitis of right lower limb; I10 Essential (primary) hypertension; E78.5 Hyperlipidemia, unspecified; E11.9 Type 2 diabetes mellitus without complications; Z79.899 Other long term (current) drug therapy
CPT/HCPCS: 99281; A9270-GY

== ENCOUNTER 2023-01-18 14:35 | Emergency (ER) | payer MEDICARE ==
[2023-01-18 14:51] VITALS: TEMP 97.1; O2SAT 93
[2023-01-18] MEDS ORDERED: TORAdol 30 mg Injection IV ONE (15:13)
[2023-01-18] MEDS ORDERED: Sodium Chloride 0.9% 1000 ML 1,000 ML IV STA (15:13)
[2023-01-18] MEDS ORDERED: Zofran 4 MG/2 ML VIAL IV ONE (15:13)
[2023-01-18] MEDS ORDERED: TORAdol 30 mg Injection ONE (15:26)
[2023-01-18] MEDS ORDERED: Zofran 4 MG/2 ML VIAL ONE (15:26)
[2023-01-18] MEDS ORDERED: Sodium Chloride 0.9% 1000 ML 1,000 ML ONE (15:27)
[2023-01-18 15:28] LABS: Absolute Neutrophil Ct (ANC) 8.98 x10^3/uL (1.4-6.9); BASOPHIL % 0.6 % (0.0-0.4); Basophil (Absolute #) 0.07 x10^3/uL (0-0.4); Eosinophil % 0.7 % (0.00-5.0); Eosinophil (Absolute #) 0.08 x10^3/uL (0-0.5); Hematocrit 41.6 % (35-47); IMMATURE GRAN # 0.06 x10^3u/L (0.00-0.03); IMMATURE GRAN % 0.5 % (0.00-0.4); Lymphocyte (Absolute #) 2.15 x10^3/uL (1.0-4.6); Lymphocytes % 17.6 % (24.0-44.0); Mean Cell Volume 92.7 fL (78-100); Mean Corpuscular Hgb Concent. 31.3 g/dL (32-36); Mean Platelet Volume 10.4 fL (7.5-11.0); Monocyte (Absolute #) 0.91 x10^3/uL (0.0-1.3); Monocytes % 7.4 % (0.0-12.0); Neutrophil % 73.2 % (36.0-66.0); Platelet Count 377 x10^3/uL (150-450); Red Blood Count 4.49 x10^6/uL (4.1-5.4); Red Cell Distribution Width 13.2 % (11.5-14.0); White Blood Count 12.3 x10^3/uL (4.0-10.5)
[2023-01-18 15:43] LABS: INR 0.93 (0.8-3.0); PROTIME 10.2 SECONDS (9.4-12.5)
[2023-01-18 16:29] LABS: ALBUMIN 4.2 g/dL (3.5-5.0); ANION GAP 17.3 MEQ/L (5-15); BILIRUBIN,TOTAL 0.4 mg/dL (0.2-1.3); Calcium 9.4 mg/dL (8.4-10.2); Creatinine 1 1.29 mg/dL (0.52-1.04); EST GLOMERULAR FILTRATION RATE 42.4 ML/MIN; Potassium 5.3 mmol/L (3.5-5.1); Total Protein 7.1 g/dL (6.3-8.2)
--- NOTE | 2023-01-18 17:35 | ERPHSYRPT ---
- History of Present Illness Time Seen by Provider: 01/18/23 14:40 Historian: patient, lang interpreter Patient Subjective Stated Complaint: Pt states "I had lower belly pain for the past three days. I had diarrhea for the first two days and I took immodium and then I could not go, so I took some miralax and now the diarrhea is back and I have so much gas and pressure." Triage Nursing Assessment: Pt presented alert and oriented X 3, skin pwd. Pt ambulates with a slow gait, able to sepak in clear full sentences pt in no apparent respiratory distress. PT will moan occasionally. PT will guard abodmen occasionally Physician History: Patient is a 77-year-old white female who presents with generalized but especially lower abdominal pain and diarrhea for 3 days. She took some insulin Lomotil then became constipated and switched back to MiraLAX. She has a history of diverticulitis and feels that this is very similar. Timing/Duration: day(s) (3) Activities at Onset: none Quality: cramping, stabbing Abdominal Pain Onset Location: LLQ Pain Radiation: groin Severity of Pain-Max: moderate Severity of Pain-Current: mild Modifying Factors: Improves With: movement Associated Symptoms: diarrhea, heartburn, nausea Allergies/Adverse Reactions: No Known Drug Allergies Allergy (Verified 12/12/22 21:30) Home Medications: lisinopriL [Zestril] 10 tab PO DAILY 04/09/17 [History] Amlodipine Besylate 5 mg [Norvasc 5 mg] 5 mg PO DAILY 04/10/17 [History] hydrOXYzine HCL [Hydroxyzine HCl] 50 mg PO BID 07/17/22 [History] Levothyroxine Sodium 1 tab PO DAILY 07/21/22 [History] Buspirone HCl 5 mg [Buspar 5 mg] 5 mg PO DAILY 01/18/23 [History] Spironolactone 25 mg [Aldactone 25 MG] 25 mg PO DAILY 01/18/23 [History] Hx Tetanus, Diphtheria Vaccination/Date Given: Yes Hx Influenza Vaccination/Date Given: Yes Hx Pneumococcal Vaccination/Date Given: Yes Immunizations Up to Date: Yes Travel Risk - International Travel Have you traveled outside of the country in past 3 weeks: No - Coronavirus Screening Are you exhibiting any of the following symptoms?: Yes Symptoms: Vomiting/Diarrhea Close contact with a COVID-19 positive Pt in past 14-21 Days: No - Vaccine Status Have you recieved a Covid-19 vaccination: Yes Electronics [employer]sperson: Moderna - Vaccination Dates Date of 2cond Vaccination (if applicable): 08/08/20 - Review of Systems Constitutional: No Fever, No Chills Eyes: No Symptoms Ears, Nose, & Throat: No Symptoms Respiratory: No Cough, No Dyspnea Cardiac: No Chest Pain, No Edema, No Syncope Abdominal/Gastrointestinal: Abdominal Pain, Nausea, Diarrhea, Constipation, No Vomiting Genitourinary Symptoms: No Dysuria Musculoskeletal: No Back Pain, No Neck Pain Skin: No Rash Neurological: No Dizziness, No Focal Weakness, No Sensory Changes Psychological: No Symptoms Endocrine: No Symptoms All Other Systems: Reviewed and Negative - Past Medical History Pertinent Past Medical History: Yes Neurological History: Migraines ENT History: Cataracts Cardiac History: High Cholesterol, Hypertension Respiratory History: No Pertinent History Endocrine Medical History: Diabetes Type II, Hypothyroidism Musculoskeletal History: Osteoporosis GI Medical History: No Pertinent History, Diverticulitis History: Renal Disease, Other Psycho-Social History: Anxiety Female Reproductive Disorders: No Pertinent History Other Medical History: hx low platelets; Dr. Ruiz manages. - Past Surgical History Past Surgical History: Yes Neuro Surgical History: No Pertinent History Cardiac: No Pertinent History Respiratory: No Pertinent History Gastrointestinal: Appendectomy, Colon Resection, Hernia Repair Genitourinary: No Pertinent History Musculoskeletal: No Pertinent History Female Surgical History: Hysterectomy - Social History Smoking Status: Former smoker Exposure to second hand smoke: No Drug Use: none Patient Lives Alone: Yes Significant Family History: no pertinent family hx - Nursing Vital Signs Nursing Vital Signs: Initial Vital Signs Temperature 97.1 F 01/18/23 14:39 Pulse Rate 90 01/18/23 14:39 Respiratory Rate 20 01/18/23 14:39 Blood Pressure 96/67 01/18/23 14:39 O2 Sat by Pulse Oximetry 93 L 01/18/23 14:39 Pain Scale Pain Intensity 4 - Physical Exam General Appearance: no apparent distress, alert Eye Exam: PERRL/EOMI, eyes nml inspection Ears, Nose, Throat Exam: normal ENT inspection, pharynx normal, moist mucous membranes Neck Exam: normal inspection, non-tender, supple, full range of motion Respiratory Exam: normal breath sounds, lungs clear, No respiratory distress Cardiovascular Exam: regular rate/rhythm, normal heart sounds Gastrointestinal/Abdomen Exam: tenderness, guarding, rebound (Rebound in the lower quadrants), No mass Back Exam: normal inspection, normal range of motion, No CVA tenderness, No vert ebral tenderness Extremity Exam: normal inspection, normal range of motion, pelvis stable Neurologic Exam: alert, oriented x 3, cooperative, normal mood/affect, nml cerebellar function, sensation nml, No motor deficits Skin Exam: normal color, warm, dry SpO2: 93 - CT Exams Abdomen/Pelvis CT Interpretation: Other (Radiologist reports that there is on the CT scan of the abdomen pelvis and this patient a worsening of the hiatal hernia and now a small portion is intrathoracic in addition there is diverticulosis but no diverticulitis is grossly obvious.) Ordered Tests: Active Orders 24 hr Category Date Time Status IV Insertion STAT Care 01/18/23 15:13 Active ABDOMEN AND PELVIS W/0 CONTRAS [CT] Stat Exams 01/18/23 15:13 Completed AMYLASE Stat Lab 01/18/23 15:20 Completed CBC W DIFF Stat Lab 01/18/23 15:20 Completed CMP Stat Lab 01/18/23 15:20 Completed LIPASE Stat Lab 01/18/23 15:20 Completed Lactic Acid Stat Lab 01/18/23 15:13 Completed Lactic Acid Stat Lab 01/18/23 17:58 Stop Req PROTIME WITH INR Stat Lab 01/18/23 15:20 Completed UA W/RFX UR CULTURE Stat Lab 01/18/23 17:53 Completed Medication Summary Discontinued Medications Generic Name Dose Route Start Last Admin Trade Name Lady PRN Reason Stop Dose Admin Sodium Chloride 1,000 mls @ 999 mls/hr 01/18/23 15:13 01/18/23 16:35 Sodium Chloride 0.9% 1000 Ml IV 01/18/23 16:13 Infused .Q1H1M STA Infusion Sodium Chloride Confirm 01/18/23 15:27 Sodium Chloride 0.9% 1000 Ml Administered 01/18/23 15:28 Dose 1,000 mls @ ud .ROUTE .STK-MED ONE Ketorolac Tromethamine 30 mg 01/18/23 15:13 01/18/23 15:29 Ketorolac Tromethamine 30 Mg/Ml Inj IV 01/18/23 15:14 30 mg STAT ONE Administration Ketorolac Tromethamine Confirm 01/18/23 15:26 Ketorolac Tromethamine 30 Mg/Ml Inj Administered 01/18/23 15:27 Dose 30 mg .ROUTE .STK-MED ONE Ondansetron HCl 4 mg 01/18/23 15:13 01/18/23 15:29 Ondansetron Hcl 4 Mg/2 Ml Vial IV 01/18/23 15:14 4 mg STAT ONE Administration Ondansetron HCl Confirm 01/18/23 15:26 Ondansetron Hcl 4 Mg/2 Ml Vial Administered 01/18/23 15:27 Dose 4 mg .ROUTE .STK-MED ONE Lab/Rad Data: Laboratory Result Diagrams 01/18/23 15:20 01/18/23 15:20 Laboratory Results 01/18/23 01/18/23 01/18/23 Range/Units 17:53 15:20 15:20 WBC (4.0-10.5) x10^3/uL RBC (4.1-5.4) x10^6/uL Hgb (12.0-16.0) g/dL Hct (35-47) % MCV (78-100) fL MCH (26-32) pg MCHC (32-36) g/dL RDW (11.5-14.0) % Plt Count (150-450) x10^3/uL MPV (7.5-11.0) fL Gran % (36.0-66.0) % Immature Gran % (Auto) (0.00-0.4) % Nucleat RBC Rel Count (0.00-0.1) % Eos # (Auto) (0-0.5) x10^3/uL Immature Gran # (Auto) (0.00-0.03) x10^3u/L Absolute Lymphs (auto) (1.0-4.6) x10^3/uL Absolute Monos (auto) (0.0-1.3) x10^3/uL Absolute Nucleated RBC (0.00-0.01) x10^3u/L Lymphocytes % (24.0-44.0) % Monocytes % (0.0-12.0) % Eosinophils % (0.00-5.0) % Basophils % (0.0-0.4) % Absolute Granulocytes (1.4-6.9) x10^3/uL Basophils # (0-0.4) x10^3/uL PT 10.2 (9.4-12.5) SECONDS INR 0.93 (0.8-3.0) Sodium 139 (137-145) mmol/L Potassium 5.3 H (3.5-5.1) mmol/L Chloride 101 (98-107) mmol/L Carbon Dioxide 26 (22-30) mmol/L Anion Gap 17.3 H (5-15) MEQ/L BUN 31 H (7-17) mg/dL Creatinine 1.29 H (0.52-1.04) mg/dL Estimated GFR 42.4 ML/MIN Glucose 123 H (74-106) mg/dL Lactic Acid (0.4-2.0) Calcium 9.4 (8.4-10.2) mg/dL Total Bilirubin 0.40 (0.2-1.3) mg/dL AST 19 (14-36) U/L ALT 15 (0-35) U/L Alkaline Phosphatase 70 (38-126) U/L Serum Total Protein 7.1 (6.3-8.2) g/dL Albumin 4.2 (3.5-5.0) g/dL Amylase 80 (30-110) U/L Lipase 98 (23-300) U/L Urine Color Yellow (Yellow) Urine Appearance Clear (Clear) Urine pH 5.0 (4.6-8.0) Ur Specific [place] 1.020 (1.005-1.030) Urine Protein Trace A (Negative) Urine Glucose (UA) Negative (Negative) mg/dL Urine Ketones Trace A (Negative) Urine Blood Negative (Negative) Urine Nitrite Negative (Negative) Urine Bilirubin Negative (Negative) Urine Urobilinogen 0.2 (0.2) mg/dL Ur Leukocyte Esterase Negative (Negative) U Hyaline Cast (Auto) 11-20 (0-2) /LPF Urine Microscopic RBC 0-2 (0-5) /HPF Urine Microscopic WBC 3-5 (0-5) /HPF Ur Epithelial Cells Few (None Seen) /HPF Urine Bacteria None Seen (None Seen) /HPF Urine Culture Reflexed NO (NO) 01/18/23 01/18/23 Range/Units 15:20 15:13 WBC 12.3 H (4.0-10.5) x10^3/uL RBC 4.49 (4.1-5.4) x10^6/uL Hgb 13.0 (12.0-16.0) g/dL Hct 41.6 (35-47) % MCV 92.7 (78-100) fL MCH 29.0 (26-32) pg MCHC 31.3 L (32-36) g/dL RDW 13.2 (11.5-14.0) % Plt Count 377 (150-450) x10^3/uL MPV 10.4 (7.5-11.0) fL Gran % 73.2 H (36.0-66.0) % Immature Gran % (Auto) 0.5 H (0.00-0.4) % Nucleat RBC Rel Count 0.0 (0.00-0.1) % Eos # (Auto) 0.08 (0-0.5) x10^3/uL Immature Gran # (Auto) 0.06 H (0.00-0.03) x10^3u/L Absolute Lymphs (auto) 2.15 (1.0-4.6) x10^3/uL Absolute Monos (auto) 0.91 (0.0-1.3) x10^3/uL Absolute Nucleated RBC 0.00 (0.00-0.01) x10^3u/L Lymphocytes % 17.6 L (24.0-44.0) % Monocytes % 7.4 (0.0-12.0) % Eosinophils % 0.7 (0.00-5.0) % Basophils % 0.6 (0.0-0.4) % Absolute Granulocytes 8.98 H (1.4-6.9) x10^3/uL Basophils # 0.07 (0-0.4) x10^3/uL PT (9.4-12.5) SECONDS INR (0.8-3.0) Sodium (137-145) mmol/L Potassium (3.5-5.1) mmol/L Chloride (98-107) mmol/L Carbon Dioxide (22-30) mmol/L Anion Gap (5-15) MEQ/L BUN (7-17) mg/dL Creatinine (0.52-1.04) mg/dL Estimated GFR ML/MIN Glucose (74-106) mg/dL Lactic Acid 2.0 (0.4-2.0) Calcium (8.4-10.2) mg/dL Total Bilirubin (0.2-1.3) mg/dL AST (14-36) U/L ALT (0-35) U/L Alkaline Phosphatase (38-126) U/L Serum Total Protein (6.3-8.2) g/dL Albumin (3.5-5.0) g/dL Amylase (30-110) U/L Lipase (23-300) U/L Urine Color (Yellow) Urine Appearance (Clear) Urine pH (4.6-8.0) Ur Specific [place] (1.005-1.030) Urine Protein (Negative) Urine Glucose (UA) (Negative) mg/dL Urine Ketones (Negative) Urine Blood (Negative) Urine Nitrite (Negative) Urine Bilirubin (Negative) Urine Urobilinogen (0.2) mg/dL Ur Leukocyte Esterase (Negative) U Hyaline Cast (Auto) (0-2) /LPF Urine Microscopic RBC (0-5) /HPF Urine Microscopic WBC (0-5) /HPF Ur Epithelial Cells (None Seen) /HPF Urine Bacteria (None Seen) /HPF Urine Culture Reflexed (NO) - Progress Progress: unchanged Medical Desision Making - Diagnostic Testing Diagnostic test were ordered, analyzed, and reviewed by me: Yes Radiological Interpretation: Reviewed by me - Risk of complications The pt has a mod risk of morbidity or mortality based on: Need for prescription drug management - Departure Departure Disposition: Home Clinical Impression: Diverticulitis Condition: Stable Critical Care Time: No Referrals: JACQUELYN STYLES DO [Primary Care Provider] - Follow up/PCP as directed Instructions: Diverticulitis (DC) Prescriptions: Amox Tr/Potass Clav. 875 mg [Augmentin 875-125 Tablet] 875 mg PO BID 7 Days #14 tablet Metronidazole 500 mg [Flagyl 500 MG] 500 mg PO TID #21 tablet
--- NOTE | 2023-01-18 18:10 | XRAY ---
Indication: Abdomen pain and diarrhea. Multiple contiguous axial images obtained through the abdomen and pelvis without contrast. Comparison: July 04, 2022 Lung bases clear. Heart not enlarged. Enlarging moderate size hiatal hernia with now partial intrathoracic stomach. Noncontrasted stomach and bowel loops nonobstructed. Remaining scattered colonic diverticulosis without diverticulitis. Intact distal sigmoid anastomosis. Again appendectomy, cholecystomy, and hysterectomy. No free fluid/air. Remaining liver, pancreas, spleen, adrenal glands, kidneys, ureters, and bladder are unremarkable for noncontrast exam. Stable mild aortoiliac calcifications without AAA. Osseous structures intact again with mild degenerative changes throughout the spine and both hips. Impression: 1. Worsening hiatal hernia with new partial intrathoracic stomach. 2. Again chronic findings including colonic diverticulosis, arteriosclerotic disease, and chronic bony findings.
[2023-01-18 18:11] LABS: ADD URINE CULTURE? NO (NO); Appearance Clear (Clear); Bacteria None Seen /HPF (None Seen); Bilirubin Negative (Negative); Blood Negative (Negative); Epithelial Cells Few /HPF (None Seen); Glucose, Urine Negative (Negative); Ketones Trace (Negative); Leukocyte Esterase Negative (Negative); Nitrite Negative (Negative); Protein,Urine Dip Trace (Negative); RBC 0-2 /HPF (0-5); Urobilinogen 0.2 mg/dL (0.2)
[2023-01-18] MEDS ORDERED: Augmentin 875-125 Tablet PO ONE (18:41)
[2023-01-18] MEDS ORDERED: Flagyl 500 MG PO ONE (18:42)
[2023-01-18] MEDS ORDERED: Augmentin 875-125 Tablet ONE (18:47)
[2023-01-18] MEDS ORDERED: Flagyl 500 MG ONE (18:47)
[2023-01-18 18:53] VITALS: BP 115/59; PULSE 84; RESP 15
== END 2023-01-18 19:00 | disposition home or self-care (01) ==
LOC: ED 14:35
DX: K57.92 Diverticulitis of intestine, part unspecified, without perforation or abscess without bleeding (principal); R10.30 Lower abdominal pain, unspecified; R19.7 Diarrhea, unspecified; E78.5 Hyperlipidemia, unspecified; I10 Essential (primary) hypertension; E11.9 Type 2 diabetes mellitus without complications; Z79.899 Other long term (current) drug therapy
CPT/HCPCS: 36000; 36415; 74176; 80053; 81001; 82150; 83605; 83690; 85025; 85610; 96374; 96375; 99284; J1885; J2405; A9270-GY

== ENCOUNTER 2023-02-04 09:56 | Day surgery (SDC) | payer MEDICARE ==
--- NOTE | 2023-02-04 08:36 | HP ---
DATE OF SURGERY: 02/04/2023 HISTORY OF PRESENT ILLNESS: The patient is a 77-year-old with nausea, hiatal hernia in the past, had diverticulitis several weeks ago. Last EGD some time ago. PAST MEDICAL HISTORY: Cataracts, anemia, depression, history of hernia in the past. Diabetes mellitus type II. PAST SURGICAL HISTORY: Cataract surgery. Appendectomy. Cholecystectomy. Hernia repair in the past. Colon resection, partial colectomy in 2007. MEDICATIONS: Calcium, vitamin B12, magnesium, Prednisone, levothyroxine for hypothyroidism, buspirone, gabapentin, spironolactone, lisinopril, amlodipine for hypertension. ALLERGIES: NKDA. FAMILY HISTORY: Negative in regards to this problem. SOCIAL HISTORY: Former smoker. No alcohol abuse. REVIEW OF SYSTEMS: Fourteen systems reviewed. No chest pain or palpitations. Other systems negative or noncontributory as above and per preadmission questionnaire. PHYSICAL EXAMINATION: Height 5'2". BMI 31. GENERAL: No acute distress. HEENT: Sclerae nonicteric. EOMI. Oral mucous membranes moist. NECK: No JVD. CHEST: Equal excursion, nonlabored breathing. CVS: Regular rate and rhythm. ABDOMEN: Soft. No peritoneal signs. EXTREMITIES: No cyanosis or edema. NEURO: Alert, oriented, moving extremities symmetrically. PSYCH: Appropriate mood and affect. SKIN: Dry. IMPRESSION: Some increasing reflux, history of hiatal hernia. She is in need of EGD upper GI study for further evaluation. General risk of bleeding or infection, risk of bowel injury or perforation, risk of missed or nondiagnosis or incomplete exam, possibly requiring barium swallow, other studies or procedures possibly requiring operative procedure or transfer for stent placement, risk of sedation but not limited to, consent obtained, will proceed with EGD possible biopsy as an outpatient and will also schedule upper GI study. Otherwise continue with medications for hypertension, hypothyroidism
[2023-02-04] MEDS ORDERED: Lactated Ringers 1,000 ML IV SCH (10:30)
[2023-02-04] MEDS ORDERED: DIPRIVAN 200 MG/20 ML IV ONE (12:12)
[2023-02-04] MEDS ORDERED: Xylocaine-Mpf 2% 5 Ml Vial ONE (12:12)
[2023-02-04 13:11] VITALS: TEMP 97.2; O2SAT 98
[2023-02-04 13:18] VITALS: BP 140/82; PULSE 78; RESP 18
--- NOTE | 2023-02-04 14:12 | OP ---
SURGERY DATE/TIME: 02/04/2023 1218 PREOPERATIVE DIAGNOSES: 1) History of hiatal hernia. 2) History of increased reflux. POSTOPERATIVE DIAGNOSES: 1) Small to medium size hiatal hernia. 2) Minimal to mild gastritis. PROCEDURES: 1) EGD with cold biopsy of antrum for Helicobacter pylori. 2) Cold biopsy of distal esophagus to evaluate for eosinophilic esophagitis or other etiology. SURGEON: Dr. Navneet Serrato. ANESTHESIA: MAC. ESTIMATED BLOOD LOSS: Minimal. INDICATIONS: As noted above. Risks and benefits explained in detail and not limited to and consent obtained. DESCRIPTION OF PROCEDURE AND FINDINGS: The patient is taken to the endoscopy room. MAC anesthesia introduced. After official time out and no disagreement with planned procedure, bite block positioned. Video gastroscope easily passed down the esophagus through the patent pylorus to the third portion of the duodenum. Third, second and first portion of the duodenum grossly unremarkable. Back in the stomach there is a little bit of gastric erythema and congestion possibly some minimal to mild early gastritis. Cold biopsy is taken for Helicobacter pylori. On retroflex the patient had small to medium sized hiatal hernia. The scope is pulled back. The gastroesophageal junction is about 37 to 38 cm. There was no evidence of any Alaniz's, no evidence of erosion. Random cold biopsies are taken from distal esophagus. Good hemostasis noted. The remainder of the esophagus is grossly unremarkable. She did have a few tertiary contractions otherwise. No signs of any masses or other mucosal lesions. The scope is withdrawn. The patient tolerated the procedure well. There was no family to discuss the findings with at this time.
== END 2023-02-04 13:21 | disposition home or self-care (01) ==
LOC: SDC 09:56
PROVIDERS: ATTEND Surgery
DX: Z87.19 Personal history of other diseases of the digestive system (principal); E11.9 Type 2 diabetes mellitus without complications; K44.9 Diaphragmatic hernia without obstruction or gangrene; K29.70 Gastritis, unspecified, without bleeding
CPT/HCPCS: 82947; 99100; J2704

== ENCOUNTER 2023-06-10 18:10 | Emergency (ER) | payer MEDICARE ==
[2023-06-10 18:27] VITALS: PULSE 116; RESP 16; TEMP 97; O2SAT 96
--- NOTE | 2023-06-10 18:49 | ERPHSYRPT ---
- History of Present Illness Source: patient Exam Limitations: no limitations Patient Subjective Stated Complaint: pt here for pain to lower right leg, radiates to hip and ankle. she states she had an injury a week ago, and today she states her right leg gave out but she did not fall Triage Nursing Assessment: pt arrived per , to bed with assist of one, alert resp skin w/d/p. no swelling or redness noted, strong radial pulse Hx Tetanus, Diphtheria Vaccination/Date Given: Yes Hx Influenza Vaccination/Date Given: Yes Hx Pneumococcal Vaccination/Date Given: Yes Immunizations Up to Date: Yes <SHILPA HENNING - Last Filed: 06/10/23 19:37> <KIMBERLY ULLOA - Last Filed: 06/10/23 19:55> - History of Present Illness Time Seen by Provider: 06/10/23 18:29 Physician History: Pt states 1 week ago she stepped off a step and had pain in her right calf. Pt states today she was walking on steps and her right leg gave out but she did not fall. Pt is concerned about a blood clot in her right calf. Pt states the pain radiates to her right hip and right ankle. (SHILPA HENNING) Allergies/Adverse Reactions: No Known Drug Allergies Allergy (Verified 06/10/23 18:28) Home Medications: lisinopriL [Zestril] 10 tab PO DAILY 04/09/17 [History] Amlodipine Besylate 5 mg [Norvasc 5 mg] 5 mg PO DAILY 04/10/17 [History] Levothyroxine Sodium 2 tab PO DAILY 07/21/22 [History] Buspirone HCl 5 mg [Buspar 5 mg] 5 mg PO BID 01/18/23 [History] Spironolactone 25 mg [Aldactone 25 MG] 25 mg PO DAILY 01/18/23 [History] Calcium Carbonate [Calcium] 600 mg PO DAILY 01/29/23 [History] Cyanocobalamin/Folic Acid [Vitamin Q67-Cncxs Acid Tablet] 1 each SL DAILY 01/29/23 [History] Gabapentin 100 mg PO BID 01/29/23 [History] Magnesium Oxide [Magnesium] 500 mg PO BID 01/29/23 [History] predniSONE [Prednisone] 5 mg PO DAILY 01/29/23 [History] Travel Risk - International Travel Have you traveled outside of the country in past 3 weeks: No - Coronavirus Screening Are you exhibiting any of the following symptoms?: No Close contact with a COVID-19 positive Pt in past 14-21 Days: No - Vaccine Status Have you recieved a Covid-19 vaccination: Yes [employer]: Moderna - Vaccination Dates Date of 2cond Vaccination (if applicable): 08/08/20 <SHILPA HENNING - Last Filed: 06/10/23 19:37> - Past Medical History Pertinent Past Medical History: Yes Neurological History: Migraines ENT History: Cataracts Cardiac History: High Cholesterol, Hypertension Respiratory History: No Pertinent History Endocrine Medical History: Diabetes Type II, Hypothyroidism Musculoskeletal History: Osteoporosis GI Medical History: Diverticulitis, Gallbladder Disease History: Renal Disease, Other Psycho-Social History: Anxiety Female Reproductive Disorders: No Pertinent History Other Medical History: hx low platelets; Dr. Ruiz manages. - Past Surgical History Past Surgical History: Yes Neuro Surgical History: No Pertinent History Cardiac: No Pertinent History Respiratory: No Pertinent History Gastrointestinal: Appendectomy, Cholecystectomy, Colon Resection, Hernia Repair Genitourinary: No Pertinent History Musculoskeletal: No Pertinent History Female Surgical History: Hysterectomy Other Surgical History: colonoscopy,EGD - Social History Smoking Status: Former smoker Exposure to second hand smoke: No Drug Use: none Patient Lives Alone: Yes Significant Family History: no pertinent family hx <SHILPA HENNING - Last Filed: 06/10/23 19:37> - Physical Exam SpO2: 96 <SHILPA EHNNING - Last Filed: 06/10/23 19:37> - Nursing Vital Signs Nursing Vital Signs: Initial Vital Signs Temperature 97.0 F 06/10/23 18:27 Pulse Rate 116 H 06/10/23 18:27 Respiratory Rate 16 06/10/23 18:27 Blood Pressure 151/95 06/10/23 18:27 O2 Sat by Pulse Oximetry 96 06/10/23 18:27 Pain Scale Pain Intensity 7 - Radiology Ultrasound Exam Right Venous Lower Extremity Ultrasound: Other (tech report - no DVT) <SHILPA HENNING - Last Filed: 06/10/23 19:37> Ordered Tests: Active Orders 24 hr Category Date Time Status FEMUR Stat Exams 06/10/23 18:47 Taken LOWER LEG Stat Exams 06/10/23 18:48 Taken VENOUS UNILAT/LIMITED EXTREMIT [US] Stat Exams 06/10/23 18:46 Taken Medication Summary Discontinued Medications Generic Name Dose Route Start Last Admin Trade Name Lady PRN Reason Stop Dose Admin Acetaminophen 650 mg 06/10/23 18:48 06/10/23 19:41 Acetaminophen 325 Mg Tablet PO 06/10/23 18:49 650 mg STAT ONE Administration Acetaminophen Confirm 06/10/23 19:38 Acetaminophen 325 Mg Tablet Administered 06/10/23 19:39 Dose 650 mg .ROUTE .STK-MED ONE - Progress Progress: unchanged, pain not gone completely, re-examined Counseled pt/family regarding: diagnosis, need for follow-up, rad results <KIMBERLY ULLOA - Last Filed: 06/10/23 19:55> - Progress Progress Note: 06/10/23 19:51 I interpreted the x-ray results except for the ultrasound which was interpreted by the angio technologist/hemodialysis technician. The terrazzo worker helper/technologist reads this study as negative DVT venous Doppler right lower extremity. The x-ray of the right femur does not show any acute fracture or dislocation. The x-ray of the right tib-fib (lower leg) does not show acute fracture or dislocation. Patient cannot get a ride home per her report. She has a friend following her. We will provide her with take-home 10 mg prednisone and 100 mg orphenadrine tablets. Patient is to contact her primary care provider tomorrow, 06-11-2023 (KIMBERLY ULLOA) Medical Desision Making - Independent Historian Additional History obtained from: Relative/friend - Diagnostic Testing Diagnostic test were ordered, analyzed, and reviewed by me: Yes Radiological Interpretation: Interpreted by me, Reviewed by me, Teleradiologist Report - Risk of complications The pt has a mod risk of morbidity or mortality based on: Need for prescription drug management <KIMBERLY ULLOA - Last Filed: 06/10/23 19:55> <SHILPA HENNING - Last Filed: 06/10/23 19:37> - Departure Departure Disposition: Home Critical Care Time: No <KIMBERLY ULLOA - Last Filed: 06/10/23 19:55> - Departure Clinical Impression: Pain of right lower extremity Condition: Stable Referrals: JOHANA FELIX DO [Primary Care Provider] - Follow up/PCP as directed Additional Instructions: Continue massaging the area of tenderness of your right lower extremity. May apply Bengay or IcyHot to the area of tenderness per the instructions on the package. Call your primary care provider tomorrow, June 11, 2023, to make arrangements for further evaluation and management. Take your prescriptions as prescribed. Prescriptions: Prednisone 5 mg [Deltasone 5 mg] 5 mg PO TID #12 tablet Orphenadrine Citrate 100 mg [Norflex 100 MG Tablet] 100 mg PO BID #10 tab
[2023-06-10] MEDS ORDERED: TYLENOL 325 MG ONE (19:38)
[2023-06-10] MEDS: TYLENOL 325 MG PO ONE (19:41)
[2023-06-10] MEDS ORDERED: DELTASONE 20 MG ONE (20:02)
[2023-06-10] MEDS ORDERED: Norflex 100 MG Tablet PO ONE (20:02)
[2023-06-10] MEDS: Norflex 100 MG Tablet PO ONE (20:13)
[2023-06-10] MEDS: DELTASONE 10 MG PO ONE (20:15)
[2023-06-10 20:26] VITALS: BP 129/75
--- NOTE | 2023-06-11 08:45 | XRAY ---
Indication: Calf pain. Two-dimensional sonogram and color Doppler deep venous vessels right leg performed. Comparison: None No thrombus seen in visualized deep venous vessels right leg including greater saphenous vein. Veins demonstrate normal compressibility. Venous waveforms are normal with and without augmentation. Impression: Right leg negative for DVT. Comment: Preliminary report given.
--- NOTE | 2023-06-11 08:45 | XRAY ---
Indication: Pain. Comparison: None 2 view right lower leg demonstrates osteopenia and small posterior heel spur. No other bony, articular, or soft tissue abnormalities.
--- NOTE | 2023-06-11 08:45 | XRAY ---
Indication: Pain. Comparison: None 2 view right femur demonstrates osteopenia, moderate hip degenerative arthropathy, and mild scattered vascular calcifications. No other bony, articular, or soft tissue abnormalities.
== END 2023-06-10 20:29 | disposition home or self-care (01) ==
LOC: ED 18:10
DX: M79.604 Pain in right leg (principal); E78.5 Hyperlipidemia, unspecified; I10 Essential (primary) hypertension; E11.9 Type 2 diabetes mellitus without complications; Z79.52 Long term (current) use of systemic steroids; Z79.899 Other long term (current) drug therapy
CPT/HCPCS: 73552; 73590; 93971; 99283; A9270-GY

== ENCOUNTER 2023-08-31 02:07 | Emergency (ER) | payer MEDICARE ==
[2023-08-31 02:27] VITALS: TEMP 98.3
[2023-08-31 02:27] LABS: Appearance Clear (Clear); Bacteria None Seen /HPF (None Seen); Bilirubin Negative (Negative); Blood Negative (Negative); Epithelial Cells Few /HPF (None Seen); Glucose, Urine Negative (Negative); Hyaline Casts NONE SEEN /LPF (0-2); Ketones Negative (Negative); Leukocyte Esterase Negative (Negative); Nitrite Negative (Negative); Protein,Urine Dip Negative (Negative); RBC 0-2 /HPF (0-5); Urobilinogen 0.2 mg/dL (0.2); WBC 0-2 /HPF (0-5)
[2023-08-31 02:28] LABS: ADD URINE CULTURE? NO (NO)
--- NOTE | 2023-08-31 02:34 | ERPHSYRPT ---
- History of Present Illness Time Seen by Provider: 08/31/23 02:25 Historian: patient Exam Limitations: no limitations Patient Subjective Stated Complaint: pt states that she has had stomach pain for the past 2 days and will not go away Triage Nursing Assessment: pt ambulated into the er; pt is axo x4; c/o abd pain; pt states 8/10 pain to LUQ; abd is soft, round; tenderness present to LUQ; active bowel sounds in all quads; pt denies N/V/D today and states that she had N/V/D; skin is PDW; mucus membranes pink and moist; no respiratory distress present; hypertensive Physician History: This is an obese 77-year-old white female patient of Dr. Felix who noticed 2- day history of bandlike pain in the left upper quadrant and left lower anterior/lateral posterior regions of the left chest. She has not noticed a rash present. She has not noticed any fevers. She denies fall or trauma to the area. She has a known large hiatal hernia. She describes the pain as a stinging, burning sharp twinges achiness. Patient has multiple medical problems including hypertension, hypothyroidism, migraine headaches, chronic renal disease and thrombocytopenia. Patient has diet-controlled diabetes. Her bilingual interpreter is . She denies chest pain and she denies shortness of breath. Timing/Duration: day(s) (2), worse Quality: aching, burning, sharpness Abdominal Pain Onset Location: LUQ Pain Radiation: chest (Bandlike fashion left lower anterior/lateral and posterior chest wall) Severity of Pain-Max: moderate Modifying Factors: Improves With: nothing, analgesics Associated Symptoms: denies symptoms Previous symptoms: no prior history, no recent treatment Allergies/Adverse Reactions: No Known Drug Allergies Allergy (Verified 08/31/23 02:13) Home Medications: lisinopriL [Zestril] 10 tab PO DAILY 04/09/17 [History] Amlodipine Besylate 5 mg [Norvasc 5 mg] 5 mg PO DAILY 04/10/17 [History] Levothyroxine Sodium 2 tab PO DAILY 07/21/22 [History] Buspirone HCl 5 mg [Buspar 5 mg] 5 mg PO BID 01/18/23 [History] Spironolactone 25 mg [Aldactone 25 MG] 25 mg PO DAILY 01/18/23 [History] Calcium Carbonate [Calcium] 600 mg PO DAILY 01/29/23 [History] Cyanocobalamin/Folic Acid [Vitamin K16-Nqpcs Acid Tablet] 1 each SL DAILY [History] Gabapentin 100 mg PO BID 01/29/23 [History] Magnesium Oxide [Magnesium] 500 mg PO BID 01/29/23 [History] predniSONE [Prednisone] 5 mg PO DAILY 01/29/23 [History] Hx Tetanus, Diphtheria Vaccination/Date Given: Yes Hx Influenza Vaccination/Date Given: Yes Hx Pneumococcal Vaccination/Date Given: Yes Travel Risk - International Travel Have you traveled outside of the country in past 3 weeks: No - Emerging Infectious Disease Are you exhibiting symptoms associated with any current EIDs: Yes Symptoms: Abdominal Pain, Diarrhea, Vomitting - Review of Systems Constitutional: No Symptoms Eyes: No Symptoms Ears, Nose, & Throat: No Symptoms Respiratory: No Symptoms Cardiac: No Symptoms Abdominal/Gastrointestinal: Abdominal Pain (Left upper quadrant) Genitourinary Symptoms: No Symptoms Musculoskeletal: No Symptoms Skin: No Symptoms Neurological: No Symptoms Psychological: No Symptoms Endocrine: No Symptoms Hematologic/Lymphatic: No Symptoms Immunological/Allergic: No Symptoms All Other Systems: Reviewed and Negative - Past Medical History Pertinent Past Medical History: Yes Neurological History: Migraines ENT History: Cataracts Cardiac History: High Cholesterol, Hypertension Respiratory History: No Pertinent History Endocrine Medical History: Diabetes Type II, Hypothyroidism Musculoskeletal History: Osteoporosis GI Medical History: Diverticulitis, Gallbladder Disease, Hernia History: Renal Disease, Other Psycho-Social History: Anxiety Female Reproductive Disorders: No Pertinent History Other Medical History: hx low platelets; Dr. Ruiz manages. - Past Surgical History Past Surgical History: Yes Neuro Surgical History: No Pertinent History Cardiac: No Pertinent History Respiratory: No Pertinent History Gastrointestinal: Appendectomy, Cholecystectomy, Colon Resection, Hernia Repair Genitourinary: No Pertinent History Musculoskeletal: No Pertinent History Female Surgical History: Hysterectomy Other Surgical History: colonoscopy,EGD Significant Family History: no pertinent family hx - Social History Smoking Status: Former smoker Exposure to second hand smoke: No Drug Use: none Patient Lives Alone: Yes - Nursing Vital Signs Nursing Vital Signs: Initial Vital Signs Temperature 98.3 F 08/31/23 02:18 Pulse Rate 91 H 08/31/23 02:18 Respiratory Rate 22 08/31/23 02:18 Blood Pressure 155/87 08/31/23 02:18 O2 Sat by Pulse Oximetry 97 08/31/23 02:18 Pain Scale Pain Intensity 8 - Physical Exam General Appearance: no apparent distress, alert, anxiety, obese Eye Exam: PERRL/EOMI, eyes nml inspection Ears, Nose, Throat Exam: normal ENT inspection, moist mucous membranes Neck Exam: normal inspection, non-tender, supple, full range of motion Respiratory Exam: normal breath sounds, chest tenderness, lungs clear, respiratory distress, airway intact Cardiovascular Exam: regular rate/rhythm, normal heart sounds, normal peripheral pulses Gastrointestinal/Abdomen Exam: soft, normal bowel sounds, tenderness (Left upper quadrant to palpation), guarding (Left upper quadrant to palpation) Pelvic Exam: not done Rectal Exam: not done Back Exam: normal inspection, normal range of motion, No CVA tenderness, No vertebral tenderness Extremity Exam: normal inspection, normal range of motion, pelvis stable Neurologic Exam: alert, oriented x 3, cooperative, general inspector II-XII nml as tested, nml cerebellar function, nml station & gait, sensation nml Skin Exam: other (Patient appears to have pain in bandlike, dermatomal pattern and location left upper quadrant and left lower, lateral and posterior chest wall. I see what possibly could be a few punctated lesions but they are faint. There is certainly no blisters present.) Lymphatic Exam: No adenopathy SpO2 Interpretation: normal SpO2: 97 O2 Delivery: Room Air - Course Nursing assessment & vital signs reviewed: Yes Ordered Tests: Active Orders 24 hr Category Date Time Status ABDOMEN AND PELVIS W/0 CONTRAS [CT] Stat Exams 08/31/23 02:34 Completed CHEST WITHOUT CONTRAST [CT] Stat Exams 08/31/23 02:43 Completed AMYLASE Stat Lab 08/31/23 02:58 Completed CBC W DIFF Stat Lab 08/31/23 02:58 Completed CMP Stat Lab 08/31/23 02:58 Completed LIPASE Stat Lab 08/31/23 02:58 Completed UA W/RFX UR CULTURE Stat Lab 08/31/23 02:16 Completed Lab/Rad Data: Laboratory Result Diagrams 08/31/23 02:58 08/31/23 02:58 Laboratory Results 08/31/23 08/31/23 08/31/23 Range/Units 02:58 02:58 02:16 WBC 6.8 (4.0-10.5) x10^3/uL RBC 4.53 (4.1-5.4) x10^6/uL Hgb 13.2 (12.0-16.0) g/dL Hct 42.3 (35-47) % MCV 93.4 (78-100) fL MCH 29.1 (26-32) pg MCHC 31.2 L (32-36) g/dL RDW 13.6 (11.5-14.0) % Plt Count 289 (150-450) x10^3/uL MPV 8.9 (7.5-11.0) fL Gran % 66.0 (36.0-66.0) % Immature Gran % (Auto) 0.3 (0.00-0.4) % Nucleat RBC Rel Count 0.0 (0.00-0.1) % Eos # (Auto) 0.08 (0-0.5) x10^3/uL Immature Gran # (Auto) 0.02 (0.00-0.03) x10^3u/L Absolute Lymphs (auto) 1.57 (1.0-4.6) x10^3/uL Absolute Monos (auto) 0.59 (0.0-1.3) x10^3/uL Absolute Nucleated RBC 0.00 (0.00-0.01) x10^3u/L Lymphocytes % 23.2 L (24.0-44.0) % Monocytes % 8.7 (0.0-12.0) % Eosinophils % 1.2 (0.00-5.0) % Basophils % 0.6 (0.0-0.4) % Absolute Granulocytes 4.48 (1.4-6.9) x10^3/uL Basophils # 0.04 (0-0.4) x10^3/uL Sodium 137 (135-145) mmol/L Potassium 4.0 (3.5-5.1) mmol/L Chloride 101 (98-107) mmol/L Carbon Dioxide 25 (22-30) mmol/L Anion Gap 14.3 (5-15) MEQ/L BUN 20 H (7-17) mg/dL Creatinine 1.12 H (0.52-1.04) mg/dL Estimated GFR 50.0 ML/MIN Glucose 116 H (74-106) mg/dL Calcium 9.6 (8.4-10.2) mg/dL Total Bilirubin 0.40 (0.2-1.3) mg/dL AST 17 (14-36) U/L ALT 13 (0-35) U/L Alkaline Phosphatase 59 (38-126) U/L Serum Total Protein 7.2 (6.3-8.2) g/dL Albumin 4.3 (3.5-5.0) g/dL Amylase 103 (30-110) U/L Lipase 116 (23-300) U/L Urine Color Yellow (Yellow) Urine Appearance Clear (Clear) Urine pH 5.0 (4.6-8.0) Ur Specific [place] 1.020 (1.005-1.030) Urine Protein Negative (Negative) Urine Glucose (UA) Negative (Negative) mg/dL Urine Ketones Negative (Negative) Urine Blood Negative (Negative) Urine Nitrite Negative (Negative) Urine Bilirubin Negative (Negative) Urine Urobilinogen 0.2 (0.2) mg/dL Ur Leukocyte Esterase Negative (Negative) U Hyaline Cast (Auto) NONE SEEN (0-2) /LPF Urine Microscopic RBC 0-2 (0-5) /HPF Urine Microscopic WBC 0-2 (0-5) /HPF Ur Epithelial Cells Few (None Seen) /HPF Urine Bacteria None Seen (None Seen) /HPF Urine Culture Reflexed NO (NO) - Progress Progress Note: 08/31/23 02:51 This is a 77-year-old female whose medical issue is of at least moderate complexity. The level complex in the workup performed is based on review of the patient's past medical history, review the patient medication list, review of patient drug allergy list, history present illness and physical findings on examination. The workup in this patient includes urinalysis, CBC, CMP, amylase, lipase and CT scan of the abdomen pelvis as well as CT scan of the chest. Both of these CT scans are without contrast. I cannot say she definitely has shingles. However the pain pattern the type of pain and the timing of pain hence that this could be a possibility. There is no definite rash present there is certainly no blistered lesions present. This certainly is in the differential. 08/31/23 04:59 Interpreted the patient's laboratory data results. There is no evidence of any acute or emergent medical issue based on the laboratory data results. The CT scans were both interpreted by the radiologist and I reviewed the impression: CT scan of the chest without contrast shows a hiatal hernia with no other significant abnormalities. CT scan of the abdomen pelvis without contrast shows no acute abnormality present. There is mild increase in the size hiatal hernia compared to a prior CT scan. 08/31/23 05:00 We will provide the patient with a take-home tablet of Venetia 5/325. We will treat her as if she possibly has shingles. Will provide her with the tablet as discussed previously. We will also remotely send a prescription for Venetia 5/325 to her pharmacy. I will also send a prescription of acyclovir. Patient is to only start the acyclovir if the area that she is having pain and has skin rash eruption with redness and blistering. 08/31/23 05:19 Patient is no longer on cyclobenzaprine or orphenadrine. She still is on gabapentin. Counseled pt/family regarding: lab results, diagnosis, rad results Medical Desision Making - Diagnostic Testing Diagnostic test were ordered, analyzed, and reviewed by me: Yes Radiological Interpretation: Reviewed by me, Teleradiologist Report - Risk of complications The pt has a mod risk of morbidity or mortality based on: Need for prescription drug management - Departure Departure Disposition: Home Clinical Impression: Left upper quadrant abdominal pain Condition: Stable Critical Care Time: No Referrals: JOHANA FELIX DO [Primary Care Provider] - Follow up/PCP as directed Additional Instructions: Take your pain medicine as prescribed. Only take the acyclovir antiviral medication if you have an eruption of a red tender rash with blistering. Follow-up with your primary care provider on 09/02/2023. Prescriptions: Hydrocodone/APAP 5/325 [Venetia 5/325 mg] 1 each PO Q8H PRN PRN #7 tablet MDD 3 PRN Reason: Pain Acyclovir 800 mg [Acyclovir] 800 mg PO 5XD #35 tablet
[2023-08-31 03:05] LABS: Absolute Neutrophil Ct (ANC) 4.48 x10^3/uL (1.4-6.9); BASOPHIL % 0.6 % (0.0-0.4); Basophil (Absolute #) 0.04 x10^3/uL (0-0.4); Eosinophil % 1.2 % (0.00-5.0); Eosinophil (Absolute #) 0.08 x10^3/uL (0-0.5); Hematocrit 42.3 % (35-47); Hemoglobin 13.2 g/dL (12.0-16.0); IMMATURE GRAN # 0.02 x10^3u/L (0.00-0.03); IMMATURE GRAN % 0.3 % (0.00-0.4); Lymphocyte (Absolute #) 1.57 x10^3/uL (1.0-4.6); Lymphocytes % 23.2 % (24.0-44.0); Mean Cell Volume 93.4 fL (78-100); Mean Corpuscular Hemoglobin 29.1 pg (26-32); Mean Corpuscular Hgb Concent. 31.2 g/dL (32-36); Mean Platelet Volume 8.9 fL (7.5-11.0); Monocyte (Absolute #) 0.59 x10^3/uL (0.0-1.3); Monocytes % 8.7 % (0.0-12.0); Platelet Count 289 x10^3/uL (150-450); Red Blood Count 4.53 x10^6/uL (4.1-5.4); Red Cell Distribution Width 13.6 % (11.5-14.0); White Blood Count 6.8 x10^3/uL (4.0-10.5)
[2023-08-31 03:20] LABS: ALBUMIN 4.3 g/dL (3.5-5.0); ANION GAP 14.3 MEQ/L (5-15); BILIRUBIN,TOTAL 0.4 mg/dL (0.2-1.3); Calcium 9.6 mg/dL (8.4-10.2); Creatinine 1 1.12 mg/dL (0.52-1.04); Total Protein 7.2 g/dL (6.3-8.2)
--- NOTE | 2023-08-31 04:26 | XRAY ---
CLINICAL HISTORY: Flank pain TECHNIQUE: Contiguous axial images were obtained from the level of the diaphragm to the pubic symphysis without intravenous or oral contrast. Coronal and sagittal reconstructions were likewise performed and indicated to increase the sensitivity for detecting clinically relevant pathology. CT scan was performed according to ALARA (as low as reasonable achievable). COMPARISON: CT on 03/20/2023 (images only) FINDINGS: The visualized lung bases are clear. Mild increase in size of sliding hiatus hernia noted. Evaluation of the abdominal and pelvic visceral organs is limited without intravenous contrast. The unenhanced liver, pancreas, and adrenal glands are grossly unremarkable. The gallbladder is postsurgical status. Few calcified granulomas in the spleen. The kidneys are normal in size and attenuation without obvious calcification. There is no hydronephrosis or perinephric stranding. The ureters are normal in caliber. No adenopathy or fluid collections are seen. No evidence of focal or diffuse bowel wall thickening or evidence of bowel obstruction is seen. The appendix is not visualized. However, no acute inflammation seen. Stable diffuse uncomplicated colonic diverticulosis noted. The aorta is normal in caliber. Mild atheromatous calcifications noted in aorta. The urinary bladder is normal in contour. No aggressive appearing osseous lesions are identified. IMPRESSION: 1. No acute intra-abdominal abnormality demonstrated. 2. Mild increase in size of sliding hiatus hernia as compared to previous study. 3. No new finding compared to previous study. Electronically Signed by: Rob Cook MD. (08/31/2023 04:21:49 EDT)
--- NOTE | 2023-08-31 04:41 | XRAY ---
CLINICAL HISTORY: L ant, post, lateral CP TECHNIQUE: Contiguous axial images were obtained from the neck base through the upper abdomen without contrast. In addition, sagittal and coronal reconstructions were performed to potentially increase the sensitivity for the detection of disease. CT scan was performed according to ALARA (as low as reasonable achievable). 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 No pulmonary nodules are seen. The central airways are patent. There are no pleural effusions. No pneumothorax is seen. Evaluation of the mediastinum and jeff is limited due to the lack of intravenous contrast. No axillary or mediastinal adenopathy is identified. The thyroid is unremarkable. The heart, aorta, and pulmonary arteries are of normal size and configuration. A hiatus hernia of size 52 x 43 mm (measured in axial image) seen. There are mild coronary artery and aortic atherosclerotic calcifications. No pericardial effusion is identified. Imaged portions of the upper abdomen are unremarkable (Post-cholecystectomy status seen). No aggressive appearing osseous lesions are identified. IMPRESSION: 1. Hiatus hernia. 2. No other significant abnormality detected. [In comparison to previous CT study in 2020: No significant interval change noted] Electronically Signed by: Rob Cook MD. (08/31/2023 04:36:48 EDT)
[2023-08-31 05:03] VITALS: BP 132/66; PULSE 87; RESP 15
[2023-08-31 05:19] VITALS: O2SAT 97
[2023-08-31] MEDS ORDERED: NORCO 5/325 MG ONE (05:24)
[2023-08-31] MEDS: NORCO 5/325 MG PO ONE (05:25)
== END 2023-08-31 05:30 | disposition home or self-care (01) ==
LOC: ED 02:07
DX: R10.12 Left upper quadrant pain (principal); R07.9 Chest pain, unspecified; I12.9 Hypertensive chronic kidney disease with stage 1 through stage 4 chronic kidney disease, or unspecified chronic kidney disease; E11.22 Type 2 diabetes mellitus with diabetic chronic kidney disease; N18.9 Chronic kidney disease, unspecified; Z79.52 Long term (current) use of systemic steroids; Z79.891 Long term (current) use of opiate analgesic; Z79.899 Other long term (current) drug therapy
CPT/HCPCS: 36415; 71250; 74176; 80053; 81001; 82150; 83690; 85025; 99284; A9270-GY

== ENCOUNTER 2024-06-08 15:03 | Emergency (ER) | payer MEDICARE | END 2024-06-08 15:16 | disposition left against medical advice (07) | LOC: ED 15:03 | DX: Z53.21 Procedure and treatment not carried out due to patient leaving prior to being seen by health care provider (principal) ==

== ENCOUNTER 2024-06-09 18:26 | Emergency (ER) | payer MEDICARE ==
[2024-06-09 19:33] VITALS: TEMP 98.1
[2024-06-09 19:43] VITALS: RESP 18
[2024-06-09 19:58] LABS: Appearance Clear (Clear); Bacteria None Seen /HPF (None Seen); Bilirubin Negative (Negative); Blood Negative (Negative); Epithelial Cells Moderate /HPF (None Seen); Glucose, Urine Negative (Negative); Hyaline Casts NONE SEEN /LPF (0-2); Ketones Trace (Negative); Leukocyte Esterase Trace (Negative); Nitrite Negative (Negative); Protein,Urine Dip Negative (Negative); RBC 0-2 /HPF (0-5); Specific Gravity >=1.030 (1.005-1.030); Urobilinogen 0.2 mg/dL (0.2); WBC 0-2 /HPF (0-5)
--- NOTE | 2024-06-09 19:58 | ERPHSYRPT ---
- History of Present Illness Time Seen by Provider: 06/09/24 19:50 Historian: patient Exam Limitations: no limitations Patient Subjective Stated Complaint: c/o flank pain Triage Nursing Assessment: patient brought self into ED with c/o flank pain. pt states that her pain started on Saturday in the lower back and now the pain radiates into her flank and abdominal/ rib area. patient rates pain 10/10. patient has a history of kidney disease.patient states she is a little nauseous, last BM and oral intake today. vitals wnl, skin w/n/d, gait steady, patient doesn't appear to be in any distress at this time. Physician History: 78yo f presents via private vehicle for epigastric pain. Pt has hx of multiple abdominal surgeries (keeley,appy, partial colon resection) as well as known current hiatal hernia. Pt reports her epigastric pain has been worsening for the past 3 days, states she has taken tylenol and used ice packs at home w/ some improvement. Pt reports the pain radiates to her mid back b/l. Pt denies any cp, sob, n/v/d. Pt does endorse significant acid reflux sx but states that is chronic for her. Pt denies any hematochezia or hematemesis. Timing/Duration: day(s) (3) Activities at Onset: none Quality: sharpness Abdominal Pain Onset Location: epigastric Pain Radiation: back Severity of Pain-Max: moderate Severity of Pain-Current: moderate Modifying Factors: Improves With: analgesics Associated Symptoms: back, heartburn, No chest pain, No diaphoresis, No diarrhea, No fever/chills, No nausea, No shortness of breath, No vomiting Allergies/Adverse Reactions: No Known Drug Allergies Allergy (Verified 06/09/24 19:33) Home Medications: lisinopriL [Zestril] 10 tab PO DAILY 04/09/17 [History] Amlodipine Besylate 5 mg [Norvasc 5 mg] 5 mg PO DAILY 04/10/17 [History] Buspirone HCl 5 mg [Buspar 5 mg] 5 mg PO TID 01/18/23 [History] Calcium Carbonate [Calcium] 1,200 mg PO DAILY 01/29/23 [History] Cyanocobalamin/Folic Acid [Vitamin W92-Jbuvt Acid Tablet] 1 each SL DAILY 01/29/23 [History] Gabapentin 100 mg PO BID 01/29/23 [History] Magnesium Oxide [Magnesium] 500 mg PO DAILY 01/29/23 [History] predniSONE [Prednisone] 5 mg PO DAILY 01/29/23 [History] Cetirizine HCl [Zyrtec] 10 mg PO DAILY 06/09/24 [History] Metoprolol Succinate 25 mg Xl* [Toprol-Xl 25MG Tablets] 25 mg PO DAILY 06/09/24 [History] Omeprazole 10 mg PO DAILY 06/09/24 [History] Rosuvastatin Calcium 10 mg PO DAILY 06/09/24 [History] Hx Tetanus, Diphtheria Vaccination/Date Given: Yes Hx Influenza Vaccination/Date Given: Yes Hx Pneumococcal Vaccination/Date Given: Yes Travel Risk - International Travel Have you traveled outside of the country in past 3 weeks: No - Emerging Infectious Disease Are you exhibiting symptoms associated with any current EIDs: No Symptoms: Abdominal Pain, Diarrhea, Vomitting - Review of Systems Constitutional: No Symptoms Respiratory: No Symptoms Cardiac: No Symptoms Abdominal/Gastrointestinal: Abdominal Pain, No Nausea, No Vomiting, No Diarrhea, No Constipation, No Hematemesis, No Hematochezia Genitourinary Symptoms: No Dysuria, No Frequency, No Hematuria - Past Medical History Pertinent Past Medical History: Yes Neurological History: Migraines ENT History: Cataracts Cardiac History: High Cholesterol, Hypertension Respiratory History: No Pertinent History Endocrine Medical History: Diabetes Type II, Hypothyroidism Musculoskeletal History: Osteoporosis GI Medical History: Diverticulitis, Gallbladder Disease, Hernia History: Renal Disease, Other Psycho-Social History: Anxiety Female Reproductive Disorders: No Pertinent History Other Medical History: hx low platelets; Dr. Ruiz manages. - Past Surgical History Past Surgical History: Yes Neuro Surgical History: No Pertinent History Cardiac: No Pertinent History Respiratory: No Pertinent History Gastrointestinal: Appendectomy, Cholecystectomy, Colon Resection, Hernia Repair Genitourinary: No Pertinent History Musculoskeletal: No Pertinent History Female Surgical History: Hysterectomy Other Surgical History: colonoscopy,EGD Significant Family History: no pertinent family hx - Social History Smoking Status: Former smoker Exposure to second hand smoke: No Drug Use: none Patient Lives Alone: Yes - Social Determinants of Health Will the patient participate in the screening: Yes Do you worry about a steady place to live?: No Do you have any problems with any of the following?: No known problems In the past 12 months,have you had to go without utilities?: No Transportation Issues: No Has anyone in your support network made you feel unsafe?: No Have you or anyone in your house had to go without enough: No - Nursing Vital Signs Nursing Vital Signs: Initial Vital Signs Temperature 98.1 F 06/09/24 19:21 Pulse Rate 81 06/09/24 19:21 Respiratory Rate 19 06/09/24 19:21 Blood Pressure 138/82 06/09/24 19:21 O2 Sat by Pulse Oximetry 97 06/09/24 19:21 Pain Scale Pain Intensity 8 - Physical Exam General Appearance: no apparent distress, alert Respiratory Exam: normal breath sounds, lungs clear, airway intact, No chest tenderness, No respiratory distress Cardiovascular Exam: regular rate/rhythm, normal peripheral pulses, No normal heart sounds, No murmur Gastrointestinal/Abdomen Exam: soft, normal bowel sounds, tenderness (epigastric TTP, otherwise abdomen non-tender), No distention, No mass, No guarding, No rebound SpO2: 95 - Course EKG Interpreted by Me: RATE (64), Sinus Rhythm, NORMAL ST-T (not suggestive of acute ischemia) Ordered Tests: Active Orders 24 hr Category Date Time Status EKG-ER Only STAT Care 06/09/24 19:56 Active ABDOMEN AND PELVIS W/0 CONTRAS [CT] Stat Exams 06/09/24 19:56 Taken CBC W DIFF Stat Lab 06/09/24 20:15 Completed CMP Stat Lab 06/09/24 20:15 Completed LIPASE Stat Lab 06/09/24 20:15 Completed TROPONIN Q4H Lab 06/09/24 20:15 Completed UA W/RFX UR CULTURE Stat Lab 06/09/24 19:46 Completed Medication Summary Discontinued Medications Generic Name Dose Route Start Last Admin Trade Name Freq PRN Reason Stop Dose Admin Acetaminophen 1,000 mg in 100 mls @ 400 mls/hr 06/09/24 19:57 06/09/24 20:14 Ofirmev IV 06/09/24 20:11 400 mls/hr 1HRPRIOR ONE Administration Acetaminophen Confirm 06/09/24 20:13 Ofirmev Administered 06/09/24 20:14 Dose 100 mls @ ud IV .STK-MED ONE Ibuprofen 600 mg 06/09/24 23:07 06/09/24 23:16 Ibuprofen 600 Mg Tablet PO 06/09/24 23:08 600 mg STAT ONE Administration Ibuprofen Confirm 06/09/24 23:15 Ibuprofen 600 Mg Tablet Administered 06/09/24 23:16 Dose 600 mg .ROUTE .STK-MED ONE Lidocaine 1 patch 06/09/24 23:08 06/09/24 23:25 Lidocaine Hcl 1 Patch Patch TOP 06/09/24 23:09 1 patch ONCE ONE Administration Pantoprazole Sodium 40 mg 06/09/24 19:56 06/09/24 20:14 Pantoprazole 40 Mg Vial IV 06/09/24 19:57 40 mg STAT ONE Administration Pantoprazole Sodium Confirm 06/09/24 20:12 Pantoprazole 40 Mg Vial Administered 06/09/24 20:13 Dose 40 mg IV .STK-MED ONE Lab/Rad Data: Laboratory Result Diagrams 06/09/24 20:15 06/09/24 20:15 Laboratory Results 06/09/24 06/09/24 06/09/24 Range/Units 20:15 20:15 20:15 WBC 7.6 (3.98-10.04) x10^3/uL RBC 4.12 (3.93-5.22) x10^6/uL Hgb 11.8 (11.2-15.7) g/dL Hct 36.8 (34.1-44.9) % MCV 89.3 (79.4-94.8) fL MCH 28.6 (25.6-32.2) pg MCHC 32.1 L (32.2-35.5) g/dL RDW 15.9 H (11.7-14.4) % Plt Count 279 (182-369) x10^3/uL MPV 8.8 L (9.4-12.3) fL Gran % 68.1 (34.0-71.1) % Immature Gran % (Auto) 0.3 (0.001-0.429) % Nucleat RBC Rel Count 0.0 (0.00-0.2) % Eos # (Auto) 0.04 (0.04-0.36) x10^3/uL Immature Gran # (Auto) 0.02 (0.001-0.031) x10^3u/L Absolute Lymphs (auto) 1.72 (1.18-3.74) x10^3/uL Absolute Monos (auto) 0.61 (0.24-0.86) x10^3/uL Absolute Nucleated RBC 0.00 (0.00-0.012) x10^3u/L Lymphocytes % 22.6 (19.3-51.7) % Monocytes % 8.0 (4.7-12.5) % Eosinophils % 0.5 L (0.7-5.8) % Basophils % 0.5 (0.1-1.2) % Absolute Granulocytes 5.19 (1.56-6.13) x10^3/uL Basophils # 0.04 (0.01-0.08) x10^3/uL Sodium 135 (135-145) mmol/L Potassium 4.4 (3.5-5.1) mmol/L Chloride 102 (98-107) mmol/L Carbon Dioxide 24 (22-30) mmol/L Anion Gap 12.4 (5-15) MEQ/L BUN 31 H (7-17) mg/dL Creatinine 1.16 H (0.52-1.04) mg/dL Estimated GFR 47.7 ML/MIN Glucose 105 (74-106) mg/dL Calcium 9.3 (8.4-10.2) mg/dL Total Bilirubin 0.60 (0.2-1.3) mg/dL AST 31 (14-36) U/L ALT 18 (0-35) U/L Alkaline Phosphatase 43 (38-126) U/L Troponin I < 0.012 (0.000-0.033) ng/mL Serum Total Protein 7.3 (6.3-8.2) g/dL Albumin 4.7 (3.5-5.0) g/dL Lipase 135 (23-300) U/L Urine Color (Yellow) Urine Appearance (Clear) Urine pH (4.6-8.0) Ur Specific [place] (1.005-1.030) Urine Protein (Negative) Urine Glucose (UA) (Negative) mg/dL Urine Ketones (Negative) Urine Blood (Negative) Urine Nitrite (Negative) Urine Bilirubin (Negative) Urine Urobilinogen (0.2) mg/dL Ur Leukocyte Esterase (Negative) U Hyaline Cast (Auto) (0-2) /LPF Urine Microscopic RBC (0-5) /HPF Urine Microscopic WBC (0-5) /HPF Ur Epithelial Cells (None Seen) /HPF Urine Bacteria (None Seen) /HPF Urine Culture Reflexed (NO) 06/09/24 Range/Units 19:46 WBC (3.98-10.04) x10^3/uL RBC (3.93-5.22) x10^6/uL Hgb (11.2-15.7) g/dL Hct (34.1-44.9) % MCV (79.4-94.8) fL MCH (25.6-32.2) pg MCHC (32.2-35.5) g/dL RDW (11.7-14.4) % Plt Count (182-369) x10^3/uL MPV (9.4-12.3) fL Gran % (34.0-71.1) % Immature Gran % (Auto) (0.001-0.429) % Nucleat RBC Rel Count (0.00-0.2) % Eos # (Auto) (0.04-0.36) x10^3/uL Immature Gran # (Auto) (0.001-0.031) x10^3u/L Absolute Lymphs (auto) (1.18-3.74) x10^3/uL Absolute Monos (auto) (0.24-0.86) x10^3/uL Absolute Nucleated RBC (0.00-0.012) x10^3u/L Lymphocytes % (19.3-51.7) % Monocytes % (4.7-12.5) % Eosinophils % (0.7-5.8) % Basophils % (0.1-1.2) % Absolute Granulocytes (1.56-6.13) x10^3/uL Basophils # (0.01-0.08) x10^3/uL Sodium (135-145) mmol/L Potassium (3.5-5.1) mmol/L Chloride (98-107) mmol/L Carbon Dioxide (22-30) mmol/L Anion Gap (5-15) MEQ/L BUN (7-17) mg/dL Creatinine (0.52-1.04) mg/dL Estimated GFR ML/MIN Glucose (74-106) mg/dL Calcium (8.4-10.2) mg/dL Total Bilirubin (0.2-1.3) mg/dL AST (14-36) U/L ALT (0-35) U/L Alkaline Phosphatase (38-126) U/L Troponin I (0.000-0.033) ng/mL Serum Total Protein (6.3-8.2) g/dL Albumin (3.5-5.0) g/dL Lipase (23-300) U/L Urine Color Yellow (Yellow) Urine Appearance Clear (Clear) Urine pH 5.0 (4.6-8.0) Ur Specific [place] >=1.030 A (1.005-1.030) Urine Protein Negative (Negative) Urine Glucose (UA) Negative (Negative) mg/dL Urine Ketones Trace A (Negative) Urine Blood Negative (Negative) Urine Nitrite Negative (Negative) Urine Bilirubin Negative (Negative) Urine Urobilinogen 0.2 (0.2) mg/dL Ur Leukocyte Esterase Trace A (Negative) U Hyaline Cast (Auto) NONE SEEN (0-2) /LPF Urine Microscopic RBC 0-2 (0-5) /HPF Urine Microscopic WBC 0-2 (0-5) /HPF Ur Epithelial Cells Moderate A (None Seen) /HPF Urine Bacteria None Seen (None Seen) /HPF Urine Culture Reflexed NO (NO) - Progress Progress: re-examined Progress Note: 06/09/24 22:16 CT abd/pel w/o contrast showed: "compared to 08/31/23. stable moderate HH w/ partial intrathoracic stomach and colonic diverticulosis. No new acute/findings 06/09/24 23:20 pt complaining of worsening low back pain worse on the right side, on palpation pt's lumbar paraspinal musculature is very hypertonic from T11-L4, minimally TTP, does not radiate into the hip or down the right leg - pt stating pain has been present for 4 days and is worsening, does not recall any injury or fall, does not report any increase in lifting/pulling/exercise recently labs not suggestive of UTI or kidney stone, imaging negative for acute intra- abdominal pathology will give dose of ibuprofen and place lidocaine patch - pt is adamant that she wants to drive herself home tonight, is requesting to not have any sedating or opioid medications; has hx of CKD - will avoid toradol no obvious laboratory or imaging causes for low back pain and muscle spasms - likely sprain vs strain in absence of intra-abdominal pathology 06/10/24 00:04 06/10/24 00:23 pt reports significant improvement after dose of ibuprofen and lidocaine patch, muscle spasms subsided plan for discharge home w/ PCP follow up w/in 7d ([facility]) recommend tylenol/ibuprofen/lidocaine patches OTC for low back pain relief keep surgery referral for hernia repair recommend gentle low back stretches at home return to ED if: pain becomes unbearable, develop numbness/weakness in the legs, develop pain w/ urination, develop severe constipation, develop bloody vomiting or bloody stools Counseled pt/family regarding: lab results, diagnosis, need for follow-up, rad results Medical Desision Making - Diagnostic Testing Diagnostic test were ordered, analyzed, and reviewed by me: Yes Radiological Interpretation: Reviewed by me, Teleradiologist Report - Risk of complications Minimal Risk: Minimal risk of morbidity - Departure Departure Disposition: Home Clinical Impression: Back muscle spasm Abdominal pain Qualifiers: Abdominal location: epigastric Qualified Code(s): R10.13 - Epigastric pain Low back pain Qualifiers: Chronicity: acute Back pain laterality: right Sciatica presence: without sciatica Qualified Code(s): M54.50 - Low back pain, unspecified Condition: Stable Critical Care Time: No Referrals: JOHANA FELIX DO [Primary Care Provider] - Follow up/PCP as directed Additional Instructions: plan for discharge home w/ PCP follow up w/in 7d ([facility]) recommend tylenol/ibuprofen/lidocaine patches/ice and heat, OTC for low back pain relief keep surgery referral for hernia repair recommend gentle low back stretches at home return to ED if: pain becomes unbearable, develop numbness/weakness in the legs, develop pain w/ urination, develop severe constipation, develop bloody vomiting or bloody stools
[2024-06-09] MEDS ORDERED: PROTONIX 40 MG IV IV ONE (20:12)
[2024-06-09] MEDS ORDERED: OFIRMEV 100 ML IV ONE (20:13)
[2024-06-09] MEDS: OFIRMEV 1,000 MG/100 ML ML IV ONE (20:14)
[2024-06-09] MEDS: PROTONIX 40 MG IV IV ONE (20:14)
[2024-06-09 20:16] LABS: Absolute Neutrophil Ct (ANC) 5.19 x10^3/uL (1.56-6.13); BASOPHIL % 0.5 % (0.1-1.2); Basophil (Absolute #) 0.04 x10^3/uL (0.01-0.08); Eosinophil % 0.5 % (0.7-5.8); Eosinophil (Absolute #) 0.04 x10^3/uL (0.04-0.36); Hematocrit 36.8 % (34.1-44.9); Hemoglobin 11.8 g/dL (11.2-15.7); IMMATURE GRAN # 0.02 x10^3u/L (0.001-0.031); IMMATURE GRAN % 0.3 % (0.001-0.429); Lymphocyte (Absolute #) 1.72 x10^3/uL (1.18-3.74); Lymphocytes % 22.6 % (19.3-51.7); Mean Cell Volume 89.3 fL (79.4-94.8); Mean Corpuscular Hemoglobin 28.6 pg (25.6-32.2); Mean Corpuscular Hgb Concent. 32.1 g/dL (32.2-35.5); Mean Platelet Volume 8.8 fL (9.4-12.3); Monocyte (Absolute #) 0.61 x10^3/uL (0.24-0.86); Neutrophil % 68.1 % (34.0-71.1); Platelet Count 279 x10^3/uL (182-369); Red Blood Count 4.12 x10^6/uL (3.93-5.22); Red Cell Distribution Width 15.9 % (11.7-14.4); White Blood Count 7.6 x10^3/uL (3.98-10.04)
[2024-06-09 20:25] VITALS: O2SAT 95
[2024-06-09 20:31] LABS: ALBUMIN 4.7 g/dL (3.5-5.0); ANION GAP 12.4 MEQ/L (5-15); BILIRUBIN,TOTAL 0.6 mg/dL (0.2-1.3); Calcium 9.3 mg/dL (8.4-10.2); Creatinine 1 1.16 mg/dL (0.52-1.04); EST GLOMERULAR FILTRATION RATE 47.7 ML/MIN; Potassium 4.4 mmol/L (3.5-5.1); Total Protein 7.3 g/dL (6.3-8.2)
[2024-06-09] MEDS ORDERED: MOTRIN 600 MG ONE (23:15)
[2024-06-09] MEDS: MOTRIN 600 MG PO ONE (23:16)
[2024-06-09] MEDS: Lidoderm Patch 5% TOP ONE (23:25)
[2024-06-10 00:25] VITALS: BP 138/75; PULSE 83
--- NOTE | 2024-06-10 08:51 | XRAY ---
Indication: Epigastric pain. Multiple contiguous axial images obtained through the abdomen and pelvis without contrast. Comparison: August 31, 2023 Lung bases again demonstrates very minimal dependent atelectasis. No infiltrate or effusion. Heart not enlarged. Stable moderate-sized hiatal hernia with partial intrathoracic stomach. Noncontrasted stomach and bowel loops appear nonobstructed. Again scattered colonic diverticulosis without diverticulitis. Intact sigmoid anastomosis. Again appendectomy and cholecystectomy. No free fluid/air. Remaining liver, pancreas, spleen, adrenal glands, kidneys, ureters, and bladder are unremarkable for noncontrast exam. Stable mild scattered aortoiliac calcifications without AAA. Osseous structures intact again with osteopenia and minimal degenerative changes throughout spine. Impression: Again chronic findings including hiatal hernia with partial intrathoracic stomach, colonic diverticulosis, arteriosclerotic disease, and chronic bony findings. No new/acute abnormalities on this noncontrast exam.
== END 2024-06-10 00:34 | disposition home or self-care (01) ==
LOC: ED 18:26
DX: M62.830 Muscle spasm of back (principal); R10.13 Epigastric pain; M54.50 Low back pain, unspecified; E78.5 Hyperlipidemia, unspecified; I10 Essential (primary) hypertension; E11.9 Type 2 diabetes mellitus without complications; Z79.899 Other long term (current) drug therapy
CPT/HCPCS: 36415; 74176; 80053; 81001; 83690; 84484; 85025; 93005; 96374; 99284; 99285; A9270-GY

== ENCOUNTER 2024-07-27 06:15 | Emergency (ER) | payer MEDICARE ==
[2024-07-27 06:37] VITALS: TEMP 98.1
--- NOTE | 2024-07-27 06:42 | ERPHSYRPT ---
- History of Present Illness Time Seen by Provider: 07/27/24 06:40 Source: patient Exam Limitations: no limitations Physician History: 78-year-old female presents to our ED via EMS 3-day postop hiatal hernia repair by Dr. Serrato performed at [facility]. Patient was discharged home with [place] pills. Patient has been taking her [place] pills on an empty stomach. Patient states that she developed dry heaves no vomiting. Patient feels she is getting dehydrated. Patient states she is tolerating liquids and producing normal urine output. However patient feels she is becoming dehydrated. Patient describes abdominal discomfort however this is typical of her pain since surgery. No acute change in the level of pain or discomfort. No fever. No diarrhea no rash. Patient otherwise feels well. Patient voices no other complaints or concerns at this time. Timing/Duration: today Severity: moderate Modifying Factors: Improves With: nothing Associated Symptoms: denies symptoms Allergies/Adverse Reactions: No Known Drug Allergies Allergy (Verified 06/09/24 19:33) Home Medications: lisinopriL [Zestril] 10 tab PO DAILY 04/09/17 [History] Amlodipine Besylate 5 mg [Norvasc 5 mg] 5 mg PO DAILY 04/10/17 [History] Buspirone HCl 5 mg [Buspar 5 mg] 5 mg PO TID 01/18/23 [History] Calcium Carbonate [Calcium] 1,200 mg PO DAILY 01/29/23 [History] Cyanocobalamin/Folic Acid [Vitamin E26-Nytmd Acid Tablet] 1 each SL DAILY 01/29/23 [History] Gabapentin 100 mg PO BID 01/29/23 [History] Magnesium Oxide [Magnesium] 500 mg PO DAILY 01/29/23 [History] predniSONE [Prednisone] 5 mg PO DAILY 01/29/23 [History] Cetirizine HCl [Zyrtec] 10 mg PO DAILY 06/09/24 [History] Metoprolol Succinate 25 mg Xl* [Toprol-Xl 25MG Tablets] 25 mg PO DAILY 06/09/24 [History] Omeprazole 10 mg PO DAILY 06/09/24 [History] Rosuvastatin Calcium 10 mg PO DAILY 06/09/24 [History] Hydrocodone/Acetaminophen [Hydrocodone-Acetamin 5-325 mg] 1 tab PO Q6HPRN PRN MDD 4 07/27/24 [History] Hx Tetanus, Diphtheria Vaccination/Date Given: Yes Hx Influenza Vaccination/Date Given: Yes Hx Pneumococcal Vaccination/Date Given: Yes Travel Risk - Emerging Infectious Disease Are you exhibiting symptoms associated with any current EIDs: No Symptoms: Abdominal Pain, Diarrhea, Vomitting - Review of Systems Constitutional: No Symptoms, No Fever, No Chills Eyes: No Symptoms Ears, Nose, & Throat: No Symptoms Respiratory: No Symptoms, No Cough, No Dyspnea Cardiac: No Symptoms, No Chest Pain, No Edema, No Syncope Abdominal/Gastrointestinal: No Symptoms, No Abdominal Pain, No Nausea, No Vomiting, No Diarrhea Genitourinary Symptoms: No Symptoms, No Dysuria Musculoskeletal: No Symptoms, No Back Pain, No Neck Pain Skin: No Symptoms, No Rash Neurological: No Symptoms, No Dizziness, No Focal Weakness, No Sensory Changes Psychological: No Symptoms Endocrine: No Symptoms Hematologic/Lymphatic: No Symptoms Immunological/Allergic: No Symptoms All Other Systems: Reviewed and Negative - Past Medical History Pertinent Past Medical History: Yes Neurological History: Migraines ENT History: Cataracts Cardiac History: High Cholesterol, Hypertension Respiratory History: No Pertinent History Endocrine Medical History: Diabetes Type II, Hypothyroidism Musculoskeletal History: Osteoporosis GI Medical History: Diverticulitis, Gallbladder Disease, Hernia History: Renal Disease, Other Psycho-Social History: Anxiety Female Reproductive Disorders: No Pertinent History Other Medical History: hx low platelets; Dr. Ruiz manages. - Past Surgical History Past Surgical History: Yes Neuro Surgical History: No Pertinent History Cardiac: No Pertinent History Respiratory: No Pertinent History Gastrointestinal: Appendectomy, Cholecystectomy, Colon Resection, Hernia Repair Genitourinary: No Pertinent History Musculoskeletal: No Pertinent History Female Surgical History: Hysterectomy Other Surgical History: colonoscopy,EGD Significant Family History: no pertinent family hx - Social History Smoking Status: Former smoker Exposure to second hand smoke: No Drug Use: none Patient Lives Alone: Yes - Social Determinants of Health Will the patient participate in the screening: Yes Do you worry about a steady place to live?: No In the past 12 months,have you had to go without utilities?: No Transportation Issues: No Has anyone in your support network made you feel unsafe?: No Have you or anyone in your house had to go w/o enough food: No - Nursing Vital Signs Nursing Vital Signs: Initial Vital Signs Pulse Rate 84 07/27/24 06:20 Blood Pressure 144/83 07/27/24 06:20 O2 Sat by Pulse Oximetry 94 L 07/27/24 06:20 Pain Scale Pain Intensity 8 - Physical Exam General Appearance: no apparent distress, alert Eye Exam: PERRL/EOMI, eyes nml inspection Ears, Nose, Throat Exam: normal ENT inspection, TMs normal, pharynx normal, moist mucous membranes Neck Exam: normal inspection, non-tender, supple, full range of motion Respiratory Exam: normal breath sounds, lungs clear, No respiratory distress Cardiovascular Exam: regular rate/rhythm, normal heart sounds, normal peripheral pulses Gastrointestinal/Abdomen Exam: soft, normal bowel sounds, other (Intact postsurgical dressings. SAMMIE drain intact. Some abdominal tenderness likely secondary to postsurgical pain), No tenderness, No mass Back Exam: normal inspection, normal range of motion, No CVA tenderness, No vertebral tenderness Extremity Exam: normal inspection, normal range of motion, pelvis stable Neurologic Exam: alert, oriented x 3, cooperative, normal mood/affect, nml cerebellar function, nml station & gait, sensation nml, No motor deficits Skin Exam: normal color, warm, dry, No rash Lymphatic Exam: No adenopathy SpO2 Interpretation: normal O2 Delivery: Room Air - Course Nursing assessment & vital signs reviewed: Yes Ordered Tests: Active Orders 24 hr Category Date Time Status IV Insertion STAT Care 07/27/24 06:36 Active CBC W DIFF Stat Lab 07/27/24 06:50 Completed CMP Stat Lab 07/27/24 06:50 Completed TROPONIN Q4H Lab 07/27/24 06:50 Completed TROPONIN Q4H Lab 07/27/24 10:45 Ordered TROPONIN Q4H Lab 07/27/24 14:45 Ordered UA W/RFX UR CULTURE Stat Lab 07/27/24 07:48 Ordered Medication Summary Generic Name Dose Route Start Last Admin Trade Name Freq PRN Reason Stop Dose Admin Sodium Chloride 1,000 mls @ 500 mls/hr 07/27/24 06:45 07/27/24 06:50 Sodium Chloride 0.9% 1000 Ml IV 08/26/24 06:44 500 mls/hr .Q2H SARAH Administration Discontinued Medications Generic Name Dose Route Start Last Admin Trade Name Freq PRN Reason Stop Dose Admin Sodium Chloride Confirm 07/27/24 06:47 Sodium Chloride 0.9% 500 Ml Administered 07/27/24 06:48 Dose 500 mls @ ud IV .STK-MED ONE Morphine Sulfate 4 mg 07/27/24 06:36 07/27/24 06:48 Morphine Sulfate 4 Mg/Ml Injection IV 07/27/24 06:37 4 mg STAT ONE Administration Morphine Sulfate Confirm 07/27/24 06:47 Morphine Sulfate 4 Mg/Ml Injection Administered 07/27/24 06:48 Dose 4 mg .ROUTE .STK-MED ONE Ondansetron HCl 4 mg 07/27/24 06:36 07/27/24 06:48 Ondansetron Hcl 4 Mg/2 Ml Vial IV 07/27/24 06:37 4 mg STAT ONE Administration Ondansetron HCl Confirm 07/27/24 06:47 Ondansetron Hcl 4 Mg/2 Ml Vial Administered 07/27/24 06:48 Dose 4 mg .ROUTE .STK-MED ONE Lab/Rad Data: Laboratory Result Diagrams 07/27/24 06:50 07/27/24 06:50 Laboratory Results 07/27/24 07/27/24 07/27/24 Range/Units 06:50 06:50 06:50 WBC 9.9 (3.98-10.04) x10^3/uL RBC 4.01 (3.93-5.22) x10^6/uL Hgb 11.8 (11.2-15.7) g/dL Hct 36.4 (34.1-44.9) % MCV 90.8 (79.4-94.8) fL MCH 29.4 (25.6-32.2) pg MCHC 32.4 (32.2-35.5) g/dL RDW 13.9 (11.7-14.4) % Plt Count 126 L (182-369) x10^3/uL MPV 9.3 L (9.4-12.3) fL Gran % 78.9 H (34.0-71.1) % Immature Gran % (Auto) 0.6 H (0.001-0.429) % Nucleat RBC Rel Count 0.0 (0.00-0.2) % Eos # (Auto) 0.06 (0.04-0.36) x10^3/uL Immature Gran # (Auto) 0.06 H (0.001-0.031) x10^3u/L Absolute Lymphs (auto) 1.07 L (1.18-3.74) x10^3/uL Absolute Monos (auto) 0.86 (0.24-0.86) x10^3/uL Absolute Nucleated RBC 0.00 (0.00-0.012) x10^3u/L Lymphocytes % 10.8 L (19.3-51.7) % Monocytes % 8.7 (4.7-12.5) % Eosinophils % 0.6 L (0.7-5.8) % Basophils % 0.4 (0.1-1.2) % Absolute Granulocytes 7.83 H (1.56-6.13) x10^3/uL Basophils # 0.04 (0.01-0.08) x10^3/uL Sodium 137 (135-145) mmol/L Potassium 3.9 (3.5-5.1) mmol/L Chloride 100 (98-107) mmol/L Carbon Dioxide 27 (22-30) mmol/L Anion Gap 13.9 (5-15) MEQ/L BUN 16 (7-17) mg/dL Creatinine 0.77 (0.52-1.04) mg/dL Estimated GFR 77.9 ML/MIN Glucose 136 H (74-106) mg/dL Calcium 9.2 (8.4-10.2) mg/dL Total Bilirubin 1.00 (0.2-1.3) mg/dL AST 255 H (14-36) U/L ALT 453 H (0-35) U/L Alkaline Phosphatase 76 (38-126) U/L Troponin I < 0.012 (0.000-0.033) ng/mL Serum Total Protein 6.4 (6.3-8.2) g/dL Albumin 4.1 (3.5-5.0) g/dL - Progress Progress: improved Progress Note: 78-year-old female postop day 3 presents to our ED for evaluation of feeling unwell dry heaves and concerns for dehydration. Physical exam shows postoperative dressings intact SAMMIE drain intact. Patient's abdominal discomfort is at her baseline since surgery. No acute increase in pain. Labs ordered. Transaminitis observed. It is currently the change of shift. Patient endorsed to incoming physician Dr. Flanagan who will contact the surgeon regarding patient's complaints and findings. Dr. Farnsworth will make final disposition. Portions of this note were created with voice recognition technology. There may be grammatical, spelling, punctuation or sound alike errors Complexity of problem addressed is moderate acute complicated. No critical care time. Complex of data reviewed and analyzed is extensive. Test ordered test reviewed results analyzed and correlated clinically with history and physical exam. Risk of complication and or risk of morbidity/mortality of patient management is low. Vital stable. Time spent to discharge patient approximately 15 minutes. Plan of care established for shared decision making. No social determinants of health present to impede follow-up. Portions of this note were created with voice recognition technology. There may be grammatical, spelling, punctuation or sound alike errors 07/27/24 07:52 Counseled pt/family regarding: lab results, diagnosis - Departure Departure Disposition: Home Clinical Impression: Dry heaves, Feeling unwell, Transaminitis Condition: Stable Critical Care Time: No Referrals: JOHANA FELIX DO [Primary Care Provider] - Follow up/PCP as directed
[2024-07-27] MEDS ORDERED: MORPHINE SULFATE 4 MG INJ ONE (06:47)
[2024-07-27] MEDS ORDERED: Zofran 4 MG/2 ML VIAL ONE (06:47)
[2024-07-27] MEDS ORDERED: Sodium Chloride 0.9% 500 ML 0 ML IV ONE (06:47)
[2024-07-27] MEDS: Zofran 4 MG/2 ML VIAL IV ONE (06:48)
[2024-07-27] MEDS: MORPHINE SULFATE 4 MG INJ IV ONE (06:48)
[2024-07-27] MEDS ORDERED: Sodium Chloride 0.9% 1000 ML 1,000 ML ONE (06:50)
[2024-07-27] MEDS: Sodium Chloride 0.9% 1000 ML 1,000 ML IV SCH (06:50)
[2024-07-27 06:57] LABS: Absolute Neutrophil Ct (ANC) 7.83 x10^3/uL (1.56-6.13); BASOPHIL % 0.4 % (0.1-1.2); Basophil (Absolute #) 0.04 x10^3/uL (0.01-0.08); Eosinophil % 0.6 % (0.7-5.8); Eosinophil (Absolute #) 0.06 x10^3/uL (0.04-0.36); Hematocrit 36.4 % (34.1-44.9); Hemoglobin 11.8 g/dL (11.2-15.7); IMMATURE GRAN # 0.06 x10^3u/L (0.001-0.031); IMMATURE GRAN % 0.6 % (0.001-0.429); Lymphocyte (Absolute #) 1.07 x10^3/uL (1.18-3.74); Lymphocytes % 10.8 % (19.3-51.7); Mean Cell Volume 90.8 fL (79.4-94.8); Mean Corpuscular Hemoglobin 29.4 pg (25.6-32.2); Mean Corpuscular Hgb Concent. 32.4 g/dL (32.2-35.5); Mean Platelet Volume 9.3 fL (9.4-12.3); Monocyte (Absolute #) 0.86 x10^3/uL (0.24-0.86); Monocytes % 8.7 % (4.7-12.5); Neutrophil % 78.9 % (34.0-71.1); Platelet Count 126 x10^3/uL (182-369); Red Blood Count 4.01 x10^6/uL (3.93-5.22); Red Cell Distribution Width 13.9 % (11.7-14.4); White Blood Count 9.9 x10^3/uL (3.98-10.04)
[2024-07-27 07:18] LABS: ALBUMIN 4.1 g/dL (3.5-5.0); ANION GAP 13.9 MEQ/L (5-15); Calcium 9.2 mg/dL (8.4-10.2); Creatinine 1 0.77 mg/dL (0.52-1.04); EST GLOMERULAR FILTRATION RATE 77.9 ML/MIN; Potassium 3.9 mmol/L (3.5-5.1); Total Protein 6.4 g/dL (6.3-8.2)
[2024-07-27 08:22] LABS: Appearance Clear (Clear); Bacteria None Seen /HPF (None Seen); Bilirubin Negative (Negative); Blood Negative (Negative); Epithelial Cells None Seen /HPF (None Seen); Glucose, Urine Negative (Negative); Hyaline Casts NONE SEEN /LPF (0-2); Ketones 15 (Negative); Leukocyte Esterase Negative (Negative); Nitrite Negative (Negative); Ph 6.5 (4.6-8.0); Protein,Urine Dip Negative (Negative); RBC 0-2 /HPF (0-5); Urobilinogen 0.2 mg/dL (0.2); WBC 0-2 /HPF (0-5)
[2024-07-27 09:05] VITALS: BP 126/85; PULSE 89
[2024-07-27 09:27] VITALS: RESP 18; O2SAT 94
== END 2024-07-27 09:20 | disposition home or self-care (01) ==
LOC: ED 06:15
DX: R11.2 Nausea with vomiting, unspecified (principal); R74.01 Elevation of levels of liver transaminase levels; R68.89 Other general symptoms and signs; E86.0 Dehydration; E78.5 Hyperlipidemia, unspecified; I10 Essential (primary) hypertension; E11.9 Type 2 diabetes mellitus without complications; Z79.891 Long term (current) use of opiate analgesic; Z79.899 Other long term (current) drug therapy
CPT/HCPCS: 36415; 80053; 81001; 84484; 85025; 96361; 96374; 96375; 99284; J2270; J2405

== ENCOUNTER 2024-07-30 06:37 | Observation (INO) | payer MEDICARE ==
[2024-07-30] MEDS ORDERED: ANTIVERT 25 MG ONE (08:54)
[2024-07-30] MEDS: ANTIVERT 25 MG PO ONE (08:56)
[2024-07-30 09:15] LABS: Absolute Neutrophil Ct (ANC) 8.46 x10^3/uL (1.56-6.13); BASOPHIL % 0.4 % (0.1-1.2); Basophil (Absolute #) 0.04 x10^3/uL (0.01-0.08); Eosinophil % 0.2 % (0.7-5.8); Eosinophil (Absolute #) 0.02 x10^3/uL (0.04-0.36); Hematocrit 38.8 % (34.1-44.9); Hemoglobin 12.3 g/dL (11.2-15.7); IMMATURE GRAN # 0.05 x10^3u/L (0.001-0.031); IMMATURE GRAN % 0.5 % (0.001-0.429); Lymphocyte (Absolute #) 0.49 x10^3/uL (1.18-3.74); Lymphocytes % 5.2 % (19.3-51.7); Mean Cell Volume 92.6 fL (79.4-94.8); Mean Corpuscular Hemoglobin 29.4 pg (25.6-32.2); Mean Corpuscular Hgb Concent. 31.7 g/dL (32.2-35.5); Mean Platelet Volume 9.8 fL (9.4-12.3); Monocyte (Absolute #) 0.38 x10^3/uL (0.24-0.86); Neutrophil % 89.7 % (34.0-71.1); Platelet Count 211 x10^3/uL (182-369); Red Blood Count 4.19 x10^6/uL (3.93-5.22); Red Cell Distribution Width 13.9 % (11.7-14.4); White Blood Count 9.4 x10^3/uL (3.98-10.04)
[2024-07-30 09:29] LABS: ALBUMIN 4.3 g/dL (3.5-5.0); ANION GAP 18.2 MEQ/L (5-15); BILIRUBIN,TOTAL 0.7 mg/dL (0.2-1.3); Calcium 9.1 mg/dL (8.4-10.2); Creatinine 1 0.77 mg/dL (0.52-1.04); EST GLOMERULAR FILTRATION RATE 77.9 ML/MIN; MAGNESIUM 1.7 mg/dL (1.6-2.3); Potassium 4.4 mmol/L (3.5-5.1); Total Protein 6.8 g/dL (6.3-8.2)
--- NOTE | 2024-07-30 09:55 | XRAY ---
Indication: Dizziness. Comparison: July 21, 2022 Portable chest again hyperinflated and clear. Heart not enlarged. Bony thorax intact again with osteopenia and degenerative changes. No new/acute findings.
--- NOTE | 2024-07-30 10:21 | XRAY ---
Indication: Dizziness. Multiple contiguous axial images obtained through the head without contrast. Comparison: July 06, 2022 Again normal appearing brain parenchyma, ventricles, and bony calvarium for patient's age. Visualized paranasal sinuses and mastoid air cells are clear. Impression: Continued normal CT head without contrast exam.
[2024-07-30] MEDS ORDERED: Sodium Chloride 0.9% 1000 ML 1,000 ML ONE (10:51)
[2024-07-30] MEDS: Sodium Chloride 0.9% 1000 ML 1,000 ML IV SCH ×2 (10:53→17:36)
[2024-07-30 11:06] LABS: Slide Review 1 YES
[2024-07-30 11:14] LABS: Appearance Clear (Clear); Bacteria None Seen /HPF (None Seen); Bilirubin Negative (Negative); Blood Negative (Negative); Epithelial Cells None Seen /HPF (None Seen); Glucose, Urine Negative (Negative); Hyaline Casts NONE SEEN /LPF (0-2); Ketones 15 (Negative); Leukocyte Esterase Negative (Negative); Nitrite Negative (Negative); Ph 7.5 (4.6-8.0); Protein,Urine Dip Negative (Negative); RBC 0-2 /HPF (0-5); Urobilinogen 0.2 mg/dL (0.2)
--- NOTE | 2024-07-30 11:37 | ERPHSYRPT ---
- History of Present Illness Time Seen by Provider: 07/30/24 08:20 Source: patient Exam Limitations: no limitations Patient Subjective Stated Complaint: pt had a hernia repair on Saturday, came to the ER on Saturday for dizziness, and returns today for the same problem, pt rep orts that she believes that it is her platelet count and thinks that it is low, pt has a hx of low platelets Triage Nursing Assessment: Pt brought to the ER by a friend, hypertensive, denies pain, dizziness, denies any other issues, drain was removed yesterday from hernia repair, pulses normal, skin n/w/d, denies N&V, has had a headache, no difficulties breathing, denies chest pain, pt is on a soft foods diet Physician History: 78 years old female with history of hypertension, anxiety, chronic pain status post a hiatal hernia repair postop day 6 presented in the ER with complains of dizziness/lightheadedness with a feeling as if she is going to pass out. It is more when she is standing and ambulating and better with resting. No spinning sensation. No numbness tingling or focal weakness. Patient was seen here for this complaint 3 days ago but it persisted. Denies any visual disturbance, does have nausea without vomiting. Has decreased oral intake since surgery and feels weak fatigued tired and dehydrated. Has mild upper abdominal tenderness around area of surgery but no acute pain. No fever or chills reported. Allergies/Adverse Reactions: No Known Drug Allergies Allergy (Verified 07/30/24 08:10) Home Medications: lisinopriL [Zestril] 10 tab PO DAILY 04/09/17 [History] Amlodipine Besylate 5 mg [Norvasc 5 mg] 5 mg PO DAILY 04/10/17 [History] Buspirone HCl 5 mg [Buspar 5 mg] 5 mg PO TID 01/18/23 [History] Calcium Carbonate [Calcium] 1,200 mg PO DAILY 01/29/23 [History] Cyanocobalamin/Folic Acid [Vitamin R82-[place] Acid Tablet] 1 each SL DAILY 01/29 [History] Gabapentin 100 mg PO BID 01/29/23 [History] Magnesium Oxide [Magnesium] 500 mg PO DAILY 01/29/23 [History] predniSONE [Prednisone] 5 mg PO DAILY 01/29/23 [History] Cetirizine HCl [Zyrtec] 10 mg PO DAILY 06/09/24 [History] Metoprolol Succinate 25 mg Xl* [Toprol-Xl 25MG Tablets] 25 mg PO DAILY 06/09/24 [History] Omeprazole 10 mg PO DAILY 06/09/24 [History] Rosuvastatin Calcium 10 mg PO DAILY 06/09/24 [History] Hydrocodone/Acetaminophen [Hydrocodone-Acetamin 5-325 mg] 1 tab PO Q6HPRN PRN MDD 4 07/27/24 [History] Hx Tetanus, Diphtheria Vaccination/Date Given: Yes Hx Influenza Vaccination/Date Given: Yes Hx Pneumococcal Vaccination/Date Given: Yes Travel Risk - International Travel Have you traveled outside of the country in past 3 weeks: No - Emerging Infectious Disease Are you exhibiting symptoms associated with any current EIDs: No Symptoms: Abdominal Pain, Diarrhea, Vomitting - Review of Systems Constitutional: Fatigue, Weakness Eyes: No Symptoms Ears, Nose, & Throat: No Symptoms Respiratory: No Symptoms Cardiac: No Symptoms Abdominal/Gastrointestinal: Nausea Genitourinary Symptoms: No Symptoms Musculoskeletal: Arthralgias Skin: No Symptoms Neurological: Dizziness Endocrine: No Symptoms Hematologic/Lymphatic: No Symptoms Immunological/Allergic: No Symptoms - Past Medical History Pertinent Past Medical History: Yes Neurological History: Migraines ENT History: Cataracts Cardiac History: High Cholesterol, Hypertension Respiratory History: No Pertinent History Endocrine Medical History: Diabetes Type II, Hypothyroidism Musculoskeletal History: Osteoporosis GI Medical History: Diverticulitis, Gallbladder Disease, Hernia History: Renal Disease, Other Psycho-Social History: Anxiety Female Reproductive Disorders: No Pertinent History Other Medical History: hx low platelets; Dr. Ruiz manages. - Past Surgical History Past Surgical History: Yes Neuro Surgical History: No Pertinent History Cardiac: No Pertinent History Respiratory: No Pertinent History Gastrointestinal: Appendectomy, Cholecystectomy, Colon Resection, Hernia Repair Genitourinary: No Pertinent History Musculoskeletal: No Pertinent History Female Surgical History: Hysterectomy Other Surgical History: colonoscopy,EGD Significant Family History: no pertinent family hx - Social History Smoking Status: Former smoker Exposure to second hand smoke: No Drug Use: none - Social Determinants of Health Will the patient participate in the screening: Yes Do you worry about a steady place to live?: No Do you have any problems with any of the following?: No known problems In the past 12 months,have you had to go without utilities?: No Transportation Issues: No Has anyone in your support network made you feel unsafe?: No Have you or anyone in your house had to go w/o enough food: No - Nursing Vital Signs Nursing Vital Signs: Initial Vital Signs Pulse Rate 80 07/30/24 08:03 Respiratory Rate 10 L 07/30/24 08:03 Blood Pressure 146/65 07/30/24 08:03 O2 Sat by Pulse Oximetry 97 07/30/24 08:03 Pain Scale Pain Intensity 0 - Zoila Coma Scale Best Eye Response ([place]): (4) open spontaneously Best Verbal Response ([place]): (5) oriented Best Motor Response ([place]): (6) obeys commands Zoila Total: 15 - Physical Exam General Appearance: no apparent distress, alert Eye Exam: bilateral eye: normal inspection, PERRL, EOMI Ears, Nose, Throat Exam: normal ENT inspection, TMs normal Neck Exam: normal inspection, non-tender, supple, full range of motion Respiratory: normal breath sounds, lungs clear Cardiovascular: regular rate/rhythm, normal heart sounds Gastrointestinal: soft, normal bowel sounds, tenderness (Appropriate tenderness upper back) Back Exam: normal inspection, normal range of motion Extremity Exam: normal inspection, normal range of motion Mental Status: alert, oriented 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, 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 Exam: normal hearing, normal speech, PERRL Coordination/Gait: normal finger to nose, normal gait, normal cerebellar function, negative Romberg's sign Motor/Sensory: no motor deficit, no sensory deficit, no pronator drift, negative Babinski's sign DTR: bicep (R): 2+, bicep (L): 2+, knee (R): 2+, knee (L): 2+ Skin Exam: normal color SpO2 Interpretation: normal SpO2: 95 O2 Delivery: Room Air - Course EKG Interpreted by Me: RATE (81), Sinus Rhythm, NORMAL AXIS, NORMAL INTERVALS, NORMAL QRS Ordered Tests: Active Orders 24 hr Category Date Time Status Beer Runner STAT Care 07/30/24 08:33 Active EKG-ER Only STAT Care 07/30/24 08:32 Active IV Insertion STAT Care 07/30/24 08:32 Active Orthostatic Vital Signs STAT Care 07/30/24 08:32 Active CHEST 1 VIEW (PORTABLE) Stat Exams 07/30/24 08:32 Completed HEAD WITHOUT CONTRAST [CT] Stat Exams 07/30/24 08:32 Completed CBC W DIFF Stat Lab 07/30/24 09:15 Completed CMP Stat Lab 07/30/24 09:15 Completed MAGNESIUM Stat Lab 07/30/24 09:15 Completed TROPONIN Q4H Lab 07/30/24 09:15 Completed TROPONIN Q4H Lab 07/30/24 12:45 Ordered TROPONIN Q4H Lab 07/30/24 16:45 Ordered UA W/RFX UR CULTURE Stat Lab 07/30/24 08:32 Completed Transfer Order Routine Transfer 07/30/24 Ordered Medication Summary Generic Name Dose Route Start Last Admin Trade Name Freq PRN Reason Stop Dose Admin Sodium Chloride 1,000 mls @ 100 mls/hr 07/30/24 10:45 07/30/24 10:53 Sodium Chloride 0.9% 1000 Ml IV 08/29/24 10:44 100 mls/hr .Q10H SARAH Administration Discontinued Medications Generic Name Dose Route Start Last Admin Trade Name Freq PRN Reason Stop Dose Admin Meclizine HCl 12.5 mg 07/30/24 08:32 07/30/24 08:56 Meclizine Hcl 25 Mg Tablet PO 07/30/24 08:33 12.5 mg STAT ONE Administration Meclizine HCl Confirm 07/30/24 08:54 Meclizine Hcl 25 Mg Tablet Administered 07/30/24 08:55 Dose 25 mg .ROUTE .[employer] ONE Lab/Rad Data: Laboratory Result Diagrams 07/30/24 09:15 07/30/24 09:15 Laboratory Results 07/30/24 07/30/24 07/30/24 Range/Units 09:15 09:15 09:15 WBC 9.4 (3.98-10.04) x10^3/uL RBC 4.19 (3.93-5.22) x10^6/uL Hgb 12.3 (11.2-15.7) g/dL Hct 38.8 (34.1-44.9) % MCV 92.6 (79.4-94.8) fL MCH 29.4 (25.6-32.2) pg MCHC 31.7 L (32.2-35.5) g/dL RDW 13.9 (11.7-14.4) % Plt Count 211 (182-369) x10^3/uL MPV 9.8 (9.4-12.3) fL Gran % 89.7 H (34.0-71.1) % Immature Gran % (Auto) 0.5 H (0.001-0.429) % Nucleat RBC Rel Count 0.0 (0.00-0.2) % Eos # (Auto) 0.02 L (0.04-0.36) x10^3/uL Immature Gran # (Auto) 0.05 H (0.001-0.031) x10^3u/L Absolute Lymphs (auto) 0.49 L (1.18-3.74) x10^3/uL Absolute Monos (auto) 0.38 (0.24-0.86) x10^3/uL Absolute Nucleated RBC 0.00 (0.00-0.012) x10^3u/L Lymphocytes % 5.2 L (19.3-51.7) % Monocytes % 4.0 L (4.7-12.5) % Eosinophils % 0.2 L (0.7-5.8) % Basophils % 0.4 (0.1-1.2) % Absolute Granulocytes 8.46 H (1.56-6.13) x10^3/uL Basophils # 0.04 (0.01-0.08) x10^3/uL Sodium 139 (135-145) mmol/L Potassium 4.4 (3.5-5.1) mmol/L Chloride 101 (98-107) mmol/L Carbon Dioxide 24 (22-30) mmol/L Anion Gap 18.2 H (5-15) MEQ/L BUN 17 (7-17) mg/dL Creatinine 0.77 (0.52-1.04) mg/dL Estimated GFR 77.9 ML/MIN Glucose 150 H (74-106) mg/dL Calcium 9.1 (8.4-10.2) mg/dL Magnesium 1.7 (1.6-2.3) mg/dL Total Bilirubin 0.70 (0.2-1.3) mg/dL AST 37 H (14-36) U/L ALT 142 H (0-35) U/L Alkaline Phosphatase 148 H (38-126) U/L Troponin I < 0.012 (0.000-0.033) ng/mL Serum Total Protein 6.8 (6.3-8.2) g/dL Albumin 4.3 (3.5-5.0) g/dL Urine Color (Yellow) Urine Appearance (Clear) Urine pH (4.6-8.0) Ur Specific [place] (1.005-1.030) Urine Protein (Negative) Urine Glucose (UA) (Negative) mg/dL Urine Ketones (Negative) Urine Blood (Negative) Urine Nitrite (Negative) Urine Bilirubin (Negative) Urine Urobilinogen (0.2) mg/dL Ur Leukocyte Esterase (Negative) U Hyaline Cast (Auto) (0-2) /LPF Urine Microscopic RBC (0-5) /HPF Urine Microscopic WBC (0-5) /HPF Ur Epithelial Cells (None Seen) /HPF Urine Bacteria (None Seen) /HPF Urine Culture Reflexed (NO) Slides for Path Review YES 07/30/24 Range/Units 08:32 WBC (3.98-10.04) x10^3/uL RBC (3.93-5.22) x10^6/uL Hgb (11.2-15.7) g/dL Hct (34.1-44.9) % MCV (79.4-94.8) fL MCH (25.6-32.2) pg MCHC (32.2-35.5) g/dL RDW (11.7-14.4) % Plt Count (182-369) x10^3/uL MPV (9.4-12.3) fL Gran % (34.0-71.1) % Immature Gran % (Auto) (0.001-0.429) % Nucleat RBC Rel Count (0.00-0.2) % Eos # (Auto) (0.04-0.36) x10^3/uL Immature Gran # (Auto) (0.001-0.031) x10^3u/L Absolute Lymphs (auto) (1.18-3.74) x10^3/uL Absolute Monos (auto) (0.24-0.86) x10^3/uL Absolute Nucleated RBC (0.00-0.012) x10^3u/L Lymphocytes % (19.3-51.7) % Monocytes % (4.7-12.5) % Eosinophils % (0.7-5.8) % Basophils % (0.1-1.2) % Absolute Granulocytes (1.56-6.13) x10^3/uL Basophils # (0.01-0.08) x10^3/uL Sodium (135-145) mmol/L Potassium (3.5-5.1) mmol/L Chloride (98-107) mmol/L Carbon Dioxide (22-30) mmol/L Anion Gap (5-15) MEQ/L BUN (7-17) mg/dL Creatinine (0.52-1.04) mg/dL Estimated GFR ML/MIN Glucose (74-106) mg/dL Calcium (8.4-10.2) mg/dL Magnesium (1.6-2.3) mg/dL Total Bilirubin (0.2-1.3) mg/dL AST (14-36) U/L ALT (0-35) U/L Alkaline Phosphatase (38-126) U/L Troponin I (0.000-0.033) ng/mL Serum Total Protein (6.3-8.2) g/dL Albumin (3.5-5.0) g/dL Urine Color Yellow (Yellow) Urine Appearance Clear (Clear) Urine pH 7.5 (4.6-8.0) Ur Specific [place] 1.010 (1.005-1.030) Urine Protein Negative (Negative) Urine Glucose (UA) Negative (Negative) mg/dL Urine Ketones 15 A (Negative) Urine Blood Negative (Negative) Urine Nitrite Negative (Negative) Urine Bilirubin Negative (Negative) Urine Urobilinogen 0.2 (0.2) mg/dL Ur Leukocyte Esterase Negative (Negative) U Hyaline Cast (Auto) NONE SEEN (0-2) /LPF Urine Microscopic RBC 0-2 (0-5) /HPF Urine Microscopic WBC 3-5 (0-5) /HPF Ur Epithelial Cells None Seen (None Seen) /HPF Urine Bacteria None Seen (None Seen) /HPF Urine Culture Reflexed NO (NO) Slides for Path Review - Progress Progress: improved Progress Note: 07/30/24 11:35 78 years old is evaluated in the ER for dizziness which is more of a positional with ambulation/orthostatic. Positive orthostatic vitals with blood pressure dropping from 140s to 110s. EKG is sinus rhythm with no acute ischemic changes, negative troponin. Normal white count and stable platelet counts. Chemistries fairly unremarkable except for mild element of dehydration. No UTI. CT head is negative for any acute intracranial findings. Negative chest x-ray. She is given fluids and meclizine, on reevaluation feeling better but still getting dizzy and lightheaded with ambulation to the bathroom. I did not appreciate any focal neurosymptoms on initial and reevaluation exam. I believe patient would benefit with hydration and may need further evaluation for her dizziness. Discussed with Dr. Stevens, reviewed history, workup and agreed with admission. Complexity of problems addressed is moderate acute, complexity of data review analyzed is moderate. Test ordered, reviewed results and correlated to patient management, previous workup reviewed. Vitals are stable, negative neuro exam, plan of care established for shared care decision making. Discussed with Dr.: Other Will see patient in: hospital (observation) Counseled pt/family regarding: lab results, diagnosis, need for follow-up, rad results Medical Desision Making - Discussion of managment Care discussed with:: hospitalist (Erwin) Reviewed:: Test results Agreed on:: place in obs Will see patient: in hospital - Diagnostic Testing Diagnostic test were ordered, analyzed, and reviewed by me: Yes Radiological Interpretation: Interpreted by me, Reviewed by me - Risk of complications The pt has a mod risk of morbidity or mortality based on: Need for prescription drug management The pt has a high risk of morbidity or mortality based on: Decision regarding hospitilization or escalation of hosp level of care - Departure Departure Disposition: Observation Clinical Impression: Orthostatic dizziness, Dehydration Condition: Stable Critical Care Time: No Referrals: JOHANA FELIX DO [Primary Care Provider] - Follow up/PCP as directed
--- NOTE | 2024-07-30 12:20 | PCM.HP ---
<GUERITA LEE - Last Filed: 07/30/24 12:41> History of Present Illness - Chief Complaint Chief Complaint: dizziness Date: 07/30/24 History of Present Illness: The patient is an 78-year-old female with a history of hypertension, anxiety, chronic pain, and status post hiatal hernia repair, presenting on postoperative day 6 with complaints of dizziness and lightheadedness, feeling as if she is going to pass out, particularly when standing or ambulating. The symptoms improve with rest and are not associated with a spinning sensation. She denies any numbness, tingling, or focal weakness. The patient had presented to the ER with similar complaints three days ago, but the symptoms have persisted. She denies any visual disturbances but reports nausea without vomiting. She has had decreased oral intake since surgery, resulting in weakness, fatigue, and dehydration. She also has mild upper abdominal tenderness around the surgical site, but no acute pain. No fever or chills are reported. Given her recent surgery, decreased intake, and dehydration, her symptoms are likely related to a combination of orthostatic hypotension and dehydration. She is being evaluated further for any complications related to her surgery, and appropriate hydration and management will be prioritized. Monitoring and supportive care will be initiated, and the plan for further workup will be made based on her progress. - Review of Systems Constitutional: No Fever, No Chills Eyes: No Symptoms Ears, Nose, & Throat: No Symptoms Respiratory: No Cough, No Short Of Breath Cardiac: No Chest Pain, No Edema, No Syncope Abdominal/Gastrointestinal: No Abdominal Pain, No Nausea, No Vomiting, No Diarrhea Genitourinary Symptoms: No Dysuria Musculoskeletal: No Back Pain, No Neck Pain Skin: No Rash Neurological: Dizziness, No Focal Weakness, No Sensory Changes Psychological: No Symptoms Endocrine: No Symptoms Hematologic/Lymphatic: No Symptoms Immunological/Allergic: No Symptoms Medications & Allergies Home Medications: Home Medication List lisinopriL [Zestril] 10 tab PO DAILY 04/09/17 [History Confirmed 07/30/24] Amlodipine Besylate 5 mg [Norvasc 5 mg] 5 mg PO DAILY 04/10/17 [History Confirmed 07/30/24] Buspirone HCl 5 mg [Buspar 5 mg] 5 mg PO TID 01/18/23 [History Confirmed 07/30/24] Calcium Carbonate [Calcium] 1,200 mg PO DAILY 01/29/23 [History Confirmed 07/30/24] Cyanocobalamin/Folic Acid [Vitamin Y56-Xiymg Acid Tablet] 1 each SL DAILY 01/29/23 [History Confirmed 07/30/24] Gabapentin 100 mg PO BID 01/29/23 [History Confirmed 07/30/24] Magnesium Oxide [Magnesium] 500 mg PO DAILY 01/29/23 [History Confirmed 07/30/24] predniSONE [Prednisone] 5 mg PO DAILY 01/29/23 [History Confirmed 07/30/24] Metoprolol Succinate 25 mg Xl* [Toprol-Xl 25MG Tablets] 25 mg PO DAILY 06/09/24 [History Confirmed 07/30/24] Omeprazole 40 mg PO DAILY 06/09/24 [History Confirmed 07/30/24] Rosuvastatin Calcium 10 mg PO DAILY 06/09/24 [History Confirmed 07/30/24] Allergies/Adverse Reactions: Allergies Allergy/AdvReac Type Severity Reaction Status Date / Time No Known Drug Allergies Allergy Verified 07/30/24 08:10 - Past Medical History Past Medical History: Yes Neurological History: Migraines ENT History: Cataracts Cardiac History: High Cholesterol, Hypertension Respiratory History: No Pertinent History Endocrine Medical History: Diabetes Type II, Hypothyroidism Musculoskelatal History: Osteoporosis GI Medical History: Diverticulitis, Gallbladder Disease, Hernia History: Renal Disease, Other Pyscho-Social History: Anxiety Reproductive Disorders: No Pertinent History Comment: hx low platelets; Dr. Ruiz manages. - Past Surgical History Past Surgical History: Yes Neuro Surgical History: No Pertinent History Cardiac History: No Pertinent History Respiratory Surgery: No Pertinent History GI Surgical History: Appendectomy, Cholecystectomy, Colon Resection, Hernia Repair Genitourinary Surgical Hx: No Pertinent History Musculskeletal Surgical Hx: No Pertinent History Female Surgical History: Hysterectomy Other Surgical History: colonoscopy,EGD Significant Family History: no pertinent family hx - Social History Smoking Status: Former smoker Exposure to second hand smoke: No Alcohol: None Drug Use: none - Social Determinants of Health Will the patient participate in the screening: Yes Do you worry about a steady place to live?: No Do you have any problems with any of the following?: No known problems In the past 12 months,have you had to go without utilities?: No Have you or anyone in your house had to go without enough: No Transportation Issues: No Has anyone in your support network made you feel unsafe?: No - Physical Exam Vital Signs: Vital Signs - 24 hr Temp Pulse Resp BP BP Pulse Ox 07/30/24 12:00 86 146/95 97 07/30/24 11:54 95 07/30/24 11:30 91 H 13 147/80 94 L 07/30/24 11:10 92 H 19 117/86 95 07/30/24 11:09 101 H 23 139/101 98 07/30/24 11:07 95 H 19 147/83 95 07/30/24 11:00 85 17 139/115 95 07/30/24 10:56 90 21 145/92 94 L 07/30/24 10:55 82 17 07/30/24 10:32 82 19 96 07/30/24 10:00 99 H 23 123/78 82 L 07/30/24 09:32 76 18 114/84 94 L 07/30/24 09:31 81 20 97 07/30/24 09:00 126/84 07/30/24 08:30 90 21 134/86 96 07/30/24 08:04 98.5 F 85 15 146/65 96 07/30/24 08:03 80 10 L 146/65 97 General Appearance: no apparent distress, alert Neurologic Exam: alert, oriented x 3, cooperative, normal mood/affect, nml cerebellar function, nml station & gait, sensation nml, No motor deficits Eye Exam: PERRL/EOMI, eyes nml inspection Ears, Nose, Throat Exam: normal ENT inspection, TMs normal, pharynx normal, moist mucous membranes Neck Exam: normal inspection, non-tender, supple, full range of motion Respiratory Exam: normal breath sounds, lungs clear, No respiratory distress Cardiovascular Exam: regular rate/rhythm, normal heart sounds, normal peripheral pulses Gastrointestinal/Abdomen Exam: soft, normal bowel sounds, No tenderness, No mass Back Exam: normal inspection, normal range of motion, No CVA tenderness, No vertebral tenderness Extremity Exam: normal inspection, normal range of motion, pelvis stable Skin Exam: normal color, warm, dry, No rash Lymphatic Exam: No adenopathy Results - Labs Lab/Micro Results: Lab Results-Last 24 Hours 07/30/24 07/30/24 07/30/24 Range/Units 08:32 09:15 09:15 WBC 9.4 (3.98-10.04) x10^3/uL RBC 4.19 (3.93-5.22) x10^6/uL Hgb 12.3 (11.2-15.7) g/dL Hct 38.8 (34.1-44.9) % MCV 92.6 (79.4-94.8) fL MCH 29.4 (25.6-32.2) pg MCHC 31.7 L (32.2-35.5) g/dL RDW 13.9 (11.7-14.4) % Plt Count 211 (182-369) x10^3/uL MPV 9.8 (9.4-12.3) fL Gran % 89.7 H (34.0-71.1) % Immature Gran % (Auto) 0.5 H (0.001-0.429) % Nucleat RBC Rel Count 0.0 (0.00-0.2) % Eos # (Auto) 0.02 L (0.04-0.36) x10^3/uL Immature Gran # (Auto) 0.05 H (0.001-0.031) x10^3u/L Absolute Lymphs (auto) 0.49 L (1.18-3.74) x10^3/uL Absolute Monos (auto) 0.38 (0.24-0.86) x10^3/uL Absolute Nucleated RBC 0.00 (0.00-0.012) x10^3u/L Lymphocytes % 5.2 L (19.3-51.7) % Monocytes % 4.0 L (4.7-12.5) % Eosinophils % 0.2 L (0.7-5.8) % Basophils % 0.4 (0.1-1.2) % Absolute Granulocytes 8.46 H (1.56-6.13) x10^3/uL Basophils # 0.04 (0.01-0.08) x10^3/uL Sodium 139 (135-145) mmol/L Potassium 4.4 (3.5-5.1) mmol/L Chloride 101 (98-107) mmol/L Carbon Dioxide 24 (22-30) mmol/L Anion Gap 18.2 H (5-15) MEQ/L BUN 17 (7-17) mg/dL Creatinine 0.77 (0.52-1.04) mg/dL Estimated GFR 77.9 ML/MIN Glucose 150 H (74-106) mg/dL Calcium 9.1 (8.4-10.2) mg/dL Magnesium 1.7 (1.6-2.3) mg/dL Total Bilirubin 0.70 (0.2-1.3) mg/dL AST 37 H (14-36) U/L ALT 142 H (0-35) U/L Alkaline Phosphatase 148 H (38-126) U/L Troponin I (0.000-0.033) ng/mL Serum Total Protein 6.8 (6.3-8.2) g/dL Albumin 4.3 (3.5-5.0) g/dL Urine Color Yellow (Yellow) Urine Appearance Clear (Clear) Urine pH 7.5 (4.6-8.0) Ur Specific [place] 1.010 (1.005-1.030) Urine Protein Negative (Negative) Urine Glucose (UA) Negative (Negative) mg/dL Urine Ketones 15 A (Negative) Urine Blood Negative (Negative) Urine Nitrite Negative (Negative) Urine Bilirubin Negative (Negative) Urine Urobilinogen 0.2 (0.2) mg/dL Ur Leukocyte Esterase Negative (Negative) U Hyaline Cast (Auto) NONE SEEN (0-2) /LPF Urine Microscopic RBC 0-2 (0-5) /HPF Urine Microscopic WBC 3-5 (0-5) /HPF Ur Epithelial Cells None Seen (None Seen) /HPF Urine Bacteria None Seen (None Seen) /HPF Urine Culture Reflexed NO (NO) Slides for Path Review YES 07/30/24 Range/Units 09:15 WBC (3.98-10.04) x10^3/uL RBC (3.93-5.22) x10^6/uL Hgb (11.2-15.7) g/dL Hct (34.1-44.9) % MCV (79.4-94.8) fL MCH (25.6-32.2) pg MCHC (32.2-35.5) g/dL RDW (11.7-14.4) % Plt Count (182-369) x10^3/uL MPV (9.4-12.3) fL Gran % (34.0-71.1) % Immature Gran % (Auto) (0.001-0.429) % Nucleat RBC Rel Count (0.00-0.2) % Eos # (Auto) (0.04-0.36) x10^3/uL Immature Gran # (Auto) (0.001-0.031) x10^3u/L Absolute Lymphs (auto) (1.18-3.74) x10^3/uL Absolute Monos (auto) (0.24-0.86) x10^3/uL Absolute Nucleated RBC (0.00-0.012) x10^3u/L Lymphocytes % (19.3-51.7) % Monocytes % (4.7-12.5) % Eosinophils % (0.7-5.8) % Basophils % (0.1-1.2) % Absolute Granulocytes (1.56-6.13) x10^3/uL Basophils # (0.01-0.08) x10^3/uL Sodium (135-145) mmol/L Potassium (3.5-5.1) mmol/L Chloride (98-107) mmol/L Carbon Dioxide (22-30) mmol/L Anion Gap (5-15) MEQ/L BUN (7-17) mg/dL Creatinine (0.52-1.04) mg/dL Estimated GFR ML/MIN Glucose (74-106) mg/dL Calcium (8.4-10.2) mg/dL Magnesium (1.6-2.3) mg/dL Total Bilirubin (0.2-1.3) mg/dL AST (14-36) U/L ALT (0-35) U/L Alkaline Phosphatase (38-126) U/L Troponin I < 0.012 (0.000-0.033) ng/mL Serum Total Protein (6.3-8.2) g/dL Albumin (3.5-5.0) g/dL Urine Color (Yellow) Urine Appearance (Clear) Urine pH (4.6-8.0) Ur Specific [place] (1.005-1.030) Urine Protein (Negative) Urine Glucose (UA) (Negative) mg/dL Urine Ketones (Negative) Urine Blood (Negative) Urine Nitrite (Negative) Urine Bilirubin (Negative) Urine Urobilinogen (0.2) mg/dL Ur Leukocyte Esterase (Negative) U Hyaline Cast (Auto) (0-2) /LPF Urine Microscopic RBC (0-5) /HPF Urine Microscopic WBC (0-5) /HPF Ur Epithelial Cells (None Seen) /HPF Urine Bacteria (None Seen) /HPF Urine Culture Reflexed (NO) Slides for Path Review - Radiology Impressions Radiology Exams & Impressions: Radiology Procedures Category Date Time Status CHEST 1 VIEW (PORTABLE) Stat Exams 07/30/24 08:32 Completed HEAD WITHOUT CONTRAST [CT] Stat Exams 07/30/24 08:32 Completed Assessment/Plan (1) Dehydration Current Visit: Yes Status: Acute Assessment & Plan: - Anion gap 18.2 - IVF Code(s): E86.0 - DEHYDRATION (2) Orthostatic dizziness Current Visit: Yes Status: Acute Assessment & Plan: - 2:2 decreased oral intake at home - Orthostats + in ER will recheck in AM - IVF - Head CT negative - Meclizine PRN - Consider Echo - Previous echo 04/10/24 DESCRIPTION OF FINDINGS: Patient underwent 2D echo, M-mode study, and color flow mapping which showed normal LV size and measuring 5.2 cm, normal LV wall thickness measuring 1.0 cm with normal LV systolic function with calculated ejection fraction of 63%. The left atrium appeared to be borderline enlarged. The right atrium was normal in size. The right ventricle was normal in size. There was no evidence of any pericardial effusion. The aortic root size was within normal limits. The mitral valve appears to be mildly thickened but opening well without evidence of any restriction. The aortic valve was tricuspid and opening well without evidence of any stenosis. Tricuspid valve was pliable and opening well. Pulmonic valve appears to be within normal limits. Color Doppler flow mapping showed trace aortic insufficiency, trace mitral regurgitation, and trace tricuspid regurgitation. IMPRESSION: 1) NORMAL LEFT VENTRICULAR SIZE. 2) NORMAL LEFT VENTRICULAR SYSTOLIC FUNCTION. 3) TRACE AORTIC INSUFFICIENCY AND TRACE MITRAL REGURGITATION. Code(s): R42 - DIZZINESS AND GIDDINESS (3) S/P hernia repair Current Visit: Yes Status: Acute Assessment & Plan: - Pt had hernia repair on 07/24- POD #6 - Mild upper abdominal tenderness around area of surgery but no acute pain - Pt reports she saw surgeon, Dr Guzman yesterday and she was transitioned to a soft diet x1 week. she was previously on a clear liquid diet - Continue omeprazole Code(s): Z98.890 - OTHER SPECIFIED POSTPROCEDURAL STATES; Z87.19 - PERSONAL HISTORY OF OTHER DISEASES OF THE DIGESTIVE SYSTEM (4) Transaminitis Current Visit: Yes Status: Acute Assessment & Plan: - AST 37, ALT 142- likely from dehydration and recent surgery- trend VTE: SCD's PPI: omeprazole Next of KIN: Jamal - Gaby Walker [phone] Code status: Full D/C plan: 1-2 days Code(s): R74.01 - ELEVATION OF LEVELS OF LIVER TRANSAMINASE LEVELS <SIERRA ARORA - Last Filed: 07/30/24 21:38> History of Present Illness - Chief Complaint History of Present Illness: is a 78 year old female. - Physical Exam Vital Signs: Vital Signs - 24 hr Temp Pulse Resp BP BP Pulse Ox 07/30/24 20:00 97.5 F 70 18 134/72 93 L 07/30/24 17:00 97.5 F 82 22 121/71 97 07/30/24 14:00 96 07/30/24 13:05 97.8 F 88 20 133/61 96 07/30/24 13:00 97.8 F 88 20 133/61 94 L 07/30/24 12:00 86 146/95 97 07/30/24 11:54 95 07/30/24 11:30 91 H 13 147/80 94 L 07/30/24 11:10 92 H 19 117/86 95 07/30/24 11:09 101 H 23 139/101 98 07/30/24 11:07 95 H 19 147/83 95 07/30/24 11:00 85 17 139/115 95 07/30/24 10:56 90 21 145/92 94 L 07/30/24 10:55 82 17 07/30/24 10:32 82 19 96 07/30/24 10:00 99 H 23 123/78 82 L 07/30/24 09:32 76 18 114/84 94 L 07/30/24 09:31 81 20 97 07/30/24 09:00 126/84 07/30/24 08:30 90 21 134/86 96 07/30/24 08:04 98.5 F 85 15 146/65 96 07/30/24 08:03 80 10 L 146/65 97 Results - Labs Lab/Micro Results: Lab Results-Last 24 Hours 07/30/24 07/30/24 07/30/24 Range/Units 08:32 09:15 09:15 WBC 9.4 (3.98-10.04) x10^3/uL RBC 4.19 (3.93-5.22) x10^6/uL Hgb 12.3 (11.2-15.7) g/dL Hct 38.8 (34.1-44.9) % MCV 92.6 (79.4-94.8) fL MCH 29.4 (25.6-32.2) pg MCHC 31.7 L (32.2-35.5) g/dL RDW 13.9 (11.7-14.4) % Plt Count 211 (182-369) x10^3/uL MPV 9.8 (9.4-12.3) fL Gran % 89.7 H (34.0-71.1) % Immature Gran % (Auto) 0.5 H (0.001-0.429) % Nucleat RBC Rel Count 0.0 (0.00-0.2) % Eos # (Auto) 0.02 L (0.04-0.36) x10^3/uL Immature Gran # (Auto) 0.05 H (0.001-0.031) x10^3u/L Absolute Lymphs (auto) 0.49 L (1.18-3.74) x10^3/uL Absolute Monos (auto) 0.38 (0.24-0.86) x10^3/uL Absolute Nucleated RBC 0.00 (0.00-0.012) x10^3u/L Lymphocytes % 5.2 L (19.3-51.7) % Monocytes % 4.0 L (4.7-12.5) % Eosinophils % 0.2 L (0.7-5.8) % Basophils % 0.4 (0.1-1.2) % Absolute Granulocytes 8.46 H (1.56-6.13) x10^3/uL Basophils # 0.04 (0.01-0.08) x10^3/uL Sodium 139 (135-145) mmol/L Potassium 4.4 (3.5-5.1) mmol/L Chloride 101 (98-107) mmol/L Carbon Dioxide 24 (22-30) mmol/L Anion Gap 18.2 H (5-15) MEQ/L BUN 17 (7-17) mg/dL Creatinine 0.77 (0.52-1.04) mg/dL Estimated GFR 77.9 ML/MIN Glucose 150 H (74-106) mg/dL POC Glucometer (74 to 106) mg/dL Calcium 9.1 (8.4-10.2) mg/dL Magnesium 1.7 (1.6-2.3) mg/dL Total Bilirubin 0.70 (0.2-1.3) mg/dL AST 37 H (14-36) U/L ALT 142 H (0-35) U/L Alkaline Phosphatase 148 H (38-126) U/L Troponin I (0.000-0.033) ng/mL Serum Total Protein 6.8 (6.3-8.2) g/dL Albumin 4.3 (3.5-5.0) g/dL Urine Color Yellow (Yellow) Urine Appearance Clear (Clear) Urine pH 7.5 (4.6-8.0) Ur Specific [place] 1.010 (1.005-1.030) Urine Protein Negative (Negative) Urine Glucose (UA) Negative (Negative) mg/dL Urine Ketones 15 A (Negative) Urine Blood Negative (Negative) Urine Nitrite Negative (Negative) Urine Bilirubin Negative (Negative) Urine Urobilinogen 0.2 (0.2) mg/dL Ur Leukocyte Esterase Negative (Negative) U Hyaline Cast (Auto) NONE SEEN (0-2) /LPF Urine Microscopic RBC 0-2 (0-5) /HPF Urine Microscopic WBC 3-5 (0-5) /HPF Ur Epithelial Cells None Seen (None Seen) /HPF Urine Bacteria None Seen (None Seen) /HPF Urine Culture Reflexed NO (NO) Influenza Type A Ag (NEGATIVE) Influenza Type B Ag (NEGATIVE) RSV (PCR) (NEGATIVE) SARS-CoV-2 (PCR) (NEGATIVE) Slides for Path Review YES 07/30/24 07/30/24 07/30/24 Range/Units 09:15 13:15 16:19 WBC (3.98-10.04) x10^3/uL RBC (3.93-5.22) x10^6/uL Hgb (11.2-15.7) g/dL Hct (34.1-44.9) % MCV (79.4-94.8) fL MCH (25.6-32.2) pg MCHC (32.2-35.5) g/dL RDW (11.7-14.4) % Plt Count (182-369) x10^3/uL MPV (9.4-12.3) fL Gran % (34.0-71.1) % Immature Gran % (Auto) (0.001-0.429) % Nucleat RBC Rel Count (0.00-0.2) % Eos # (Auto) (0.04-0.36) x10^3/uL Immature Gran # (Auto) (0.001-0.031) x10^3u/L Absolute Lymphs (auto) (1.18-3.74) x10^3/uL Absolute Monos (auto) (0.24-0.86) x10^3/uL Absolute Nucleated RBC (0.00-0.012) x10^3u/L Lymphocytes % (19.3-51.7) % Monocytes % (4.7-12.5) % Eosinophils % (0.7-5.8) % Basophils % (0.1-1.2) % Absolute Granulocytes (1.56-6.13) x10^3/uL Basophils # (0.01-0.08) x10^3/uL Sodium (135-145) mmol/L Potassium (3.5-5.1) mmol/L Chloride (98-107) mmol/L Carbon Dioxide (22-30) mmol/L Anion Gap (5-15) MEQ/L BUN (7-17) mg/dL Creatinine (0.52-1.04) mg/dL Estimated GFR ML/MIN Glucose (74-106) mg/dL POC Glucometer 149 H (74 to 106) mg/dL Calcium (8.4-10.2) mg/dL Magnesium (1.6-2.3) mg/dL Total Bilirubin (0.2-1.3) mg/dL AST (14-36) U/L ALT (0-35) U/L Alkaline Phosphatase (38-126) U/L Troponin I < 0.012 < 0.012 (0.000-0.033) ng/mL Serum Total Protein (6.3-8.2) g/dL Albumin (3.5-5.0) g/dL Urine Color (Yellow) Urine Appearance (Clear) Urine pH (4.6-8.0) Ur Specific [place] (1.005-1.030) Urine Protein (Negative) Urine Glucose (UA) (Negative) mg/dL Urine Ketones (Negative) Urine Blood (Negative) Urine Nitrite (Negative) Urine Bilirubin (Negative) Urine Urobilinogen (0.2) mg/dL Ur Leukocyte Esterase (Negative) U Hyaline Cast (Auto) (0-2) /LPF Urine Microscopic RBC (0-5) /HPF Urine Microscopic WBC (0-5) /HPF Ur Epithelial Cells (None Seen) /HPF Urine Bacteria (None Seen) /HPF Urine Culture Reflexed (NO) Influenza Type A Ag (NEGATIVE) Influenza Type B Ag (NEGATIVE) RSV (PCR) (NEGATIVE) SARS-CoV-2 (PCR) (NEGATIVE) Slides for Path Review 07/30/24 07/30/24 Range/Units 17:20 17:20 WBC (3.98-10.04) x10^3/uL RBC (3.93-5.22) x10^6/uL Hgb (11.2-15.7) g/dL Hct (34.1-44.9) % MCV (79.4-94.8) fL MCH (25.6-32.2) pg MCHC (32.2-35.5) g/dL RDW (11.7-14.4) % Plt Count (182-369) x10^3/uL MPV (9.4-12.3) fL Gran % (34.0-71.1) % Immature Gran % (Auto) (0.001-0.429) % Nucleat RBC Rel Count (0.00-0.2) % Eos # (Auto) (0.04-0.36) x10^3/uL Immature Gran # (Auto) (0.001-0.031) x10^3u/L Absolute Lymphs (auto) (1.18-3.74) x10^3/uL Absolute Monos (auto) (0.24-0.86) x10^3/uL Absolute Nucleated RBC (0.00-0.012) x10^3u/L Lymphocytes % (19.3-51.7) % Monocytes % (4.7-12.5) % Eosinophils % (0.7-5.8) % Basophils % (0.1-1.2) % Absolute Granulocytes (1.56-6.13) x10^3/uL Basophils # (0.01-0.08) x10^3/uL Sodium (135-145) mmol/L Potassium (3.5-5.1) mmol/L Chloride (98-107) mmol/L Carbon Dioxide (22-30) mmol/L Anion Gap (5-15) MEQ/L BUN (7-17) mg/dL Creatinine (0.52-1.04) mg/dL Estimated GFR ML/MIN Glucose (74-106) mg/dL POC Glucometer (74 to 106) mg/dL Calcium (8.4-10.2) mg/dL Magnesium (1.6-2.3) mg/dL Total Bilirubin (0.2-1.3) mg/dL AST (14-36) U/L ALT (0-35) U/L Alkaline Phosphatase (38-126) U/L Troponin I < 0.012 (0.000-0.033) ng/mL Serum Total Protein (6.3-8.2) g/dL Albumin (3.5-5.0) g/dL Urine Color (Yellow) Urine Appearance (Clear) Urine pH (4.6-8.0) Ur Specific [place] (1.005-1.030) Urine Protein (Negative) Urine Glucose (UA) (Negative) mg/dL Urine Ketones (Negative) Urine Blood (Negative) Urine Nitrite (Negative) Urine Bilirubin (Negative) Urine Urobilinogen (0.2) mg/dL Ur Leukocyte Esterase (Negative) U Hyaline Cast (Auto) (0-2) /LPF Urine Microscopic RBC (0-5) /HPF Urine Microscopic WBC (0-5) /HPF Ur Epithelial Cells (None Seen) /HPF Urine Bacteria (None Seen) /HPF Urine Culture Reflexed (NO) Influenza Type A Ag NEGATIVE (NEGATIVE) Influenza Type B Ag NEGATIVE (NEGATIVE) RSV (PCR) NEGATIVE (NEGATIVE) SARS-CoV-2 (PCR) NEGATIVE (NEGATIVE) Slides for Path Review - Radiology Impressions Radiology Exams & Impressions: Radiology Procedures Category Date Time Status CHEST 1 VIEW (PORTABLE) Stat Exams 07/30/24 08:32 Completed HEAD WITHOUT CONTRAST [CT] Stat Exams 07/30/24 08:32 Completed JOVANA Encounter - JOVANA Encounter Attestation JOVANA Encounter Attestation: "PITA Lauren andnahidiscussed pertinent aspects of their care with Guerita Sharma agree with the history, physical exam (any modifications based on my personal exam will be noted below), assessment, and plan as outlined in original note. Please see immediately below for my summary of findings and additional assessment and plan along with any meaningful corrections/explanations to the Subjective/Objective portions of the JOVANA note will be noted." My portion of the encounter took place via telemedicine. -Patient presenting with dizziness due to hypovolemia and orthostatic hypotension due to limited oral intake for the past week since her hiatal hernia repair surgery. Admit for IVF, soft diet per surgery.
[2024-07-30] MEDS ORDERED: ANTIVERT 25 MG PO PRN (12:26)
[2024-07-30] MEDS ORDERED: HEPARIN 5000 UNITS/0.5 ML (HIGH RISK MED) SQ SCH (13:00)
[2024-07-30] MEDS ORDERED: MEDICATION INTERVENTION MC SCH (14:00)
[2024-07-30] MEDS: TYLENOL 325 MG PO PRN (14:45)
[2024-07-30] MEDS: BUSPAR 5 MG PO SCH (14:45)
[2024-07-30] MEDS: Flonase NASAL NS SCH (17:35)
[2024-07-30] MEDS: HALLS COUGH DROPS 5.4 MG MM PRN (17:37)
[2024-07-30 18:05] LABS: INFLUENZA A NEGATIVE (NEGATIVE); INFLUENZA B NEGATIVE (NEGATIVE); RESPIRATORY SYNCTIAL VIRUS NEGATIVE (NEGATIVE); SARS-CoV-2 Xpert Express NEGATIVE (NEGATIVE)
[2024-07-30] MEDS: Mucinex 600MG ER Tabs PO SCH (21:52)
[2024-07-30] MEDS: Neurontin PO SCH (21:52)
[2024-07-31 05:01] LABS: Absolute Neutrophil Ct (ANC) 5.44 x10^3/uL (1.56-6.13); BASOPHIL % 0.8 % (0.1-1.2); Basophil (Absolute #) 0.06 x10^3/uL (0.01-0.08); Eosinophil % 1.5 % (0.7-5.8); Eosinophil (Absolute #) 0.12 x10^3/uL (0.04-0.36); Hematocrit 35.3 % (34.1-44.9); Hemoglobin 10.5 g/dL (11.2-15.7); IMMATURE GRAN # 0.05 x10^3u/L (0.001-0.031); IMMATURE GRAN % 0.6 % (0.001-0.429); Lymphocyte (Absolute #) 1.49 x10^3/uL (1.18-3.74); Lymphocytes % 18.9 % (19.3-51.7); Mean Cell Volume 98.1 fL (79.4-94.8); Mean Corpuscular Hemoglobin 29.2 pg (25.6-32.2); Mean Corpuscular Hgb Concent. 29.7 g/dL (32.2-35.5); Mean Platelet Volume 9.9 fL (9.4-12.3); Monocyte (Absolute #) 0.71 x10^3/uL (0.24-0.86); Neutrophil % 69.2 % (34.0-71.1); Platelet Count 178 x10^3/uL (182-369); White Blood Count 7.9 x10^3/uL (3.98-10.04)
[2024-07-31 08:00] LABS: ALBUMIN 3.6 g/dL (3.5-5.0); ANION GAP 14.7 MEQ/L (5-15); BILIRUBIN,TOTAL 0.6 mg/dL (0.2-1.3); Calcium 8.3 mg/dL (8.4-10.2); Creatinine 1 0.73 mg/dL (0.52-1.04); EST GLOMERULAR FILTRATION RATE 83.1 ML/MIN; Potassium 3.9 mmol/L (3.5-5.1); Total Protein 6.2 g/dL (6.3-8.2)
[2024-07-31 08:22] VITALS: BP 135/68; PULSE 74; RESP 18; TEMP 97.3; O2SAT 97
--- NOTE | 2024-07-31 09:21 | PCM.DS ---
Discharge Summary Date of Admission: 07/30/24 12:05 Date of Discharge: 07/31/24 Admitting Physician: SIERRA ARORA MD Primary Care Provider: JOHANA FELIX DO Allergies Allergies No Known Drug Allergies Allergy (Verified 07/30/24 08:10) Hospital Summary - Hospital Course Hospital Course: 07/30/24 The patient is an 78-year-old female with a history of hypertension, anxiety, chronic pain, and status post hiatal hernia repair, presenting on postoperative day 6 with complaints of dizziness and lightheadedness, feeling as if she is going to pass out, particularly when standing or ambulating. The symptoms improve with rest and are not associated with a spinning sensation. She denies any numbness, tingling, or focal weakness. The patient had presented to the ER with similar complaints three days ago, but the symptoms have persisted. She de nies any visual disturbances but reports nausea without vomiting. She has had decreased oral intake since surgery, resulting in weakness, fatigue, and dehydration. She also has mild upper abdominal tenderness around the surgical site, but no acute pain. No fever or chills are reported. Given her recent surgery, decreased intake, and dehydration, her symptoms are likely related to a combination of orthostatic hypotension and dehydration. She is being evaluated further for any complications related to her surgery, and appropriate hydration and management will be prioritized. Monitoring and supp ortive care will be initiated, and the plan for further workup will be made based on her progress. 07/31/24 Pt feeling much better today and ready to d/c home. Labs overall improved. Orthostats negative. IVF stopped. She will need to f/u OP with PCP for repeat labs. She denies any further concerns at this time. - Vitals & Intake/Output Vital Signs: Vital Signs Temperature 97.3 F 07/31/24 08:00 Pulse Rate 74 07/31/24 08:00 Respiratory Rate 18 07/31/24 08:00 Blood Pressure 135/68 07/31/24 08:00 O2 Sat by Pulse Oximetry 97 07/31/24 08:00 Intake & Output: Intake & Output 07/28/24 07/29/24 07/30/24 07/31/24 11:59 11:59 11:59 11:59 Intake Total 2403 Output Total 500 Balance 1903 Weight 76.204 kg 76.4 kg - Lab Result Diagrams: 07/31/24 04:40 07/31/24 05:03 Lab Results-Last 24 Hrs: Lab Results-Last 24 Hours 07/30/24 07/30/24 07/30/24 Range/Units 08:32 09:15 09:15 WBC 9.4 (3.98-10.04) x10^3/uL RBC 4.19 (3.93-5.22) x10^6/uL Hgb 12.3 (11.2-15.7) g/dL Hct 38.8 (34.1-44.9) % MCV 92.6 (79.4-94.8) fL MCH 29.4 (25.6-32.2) pg MCHC 31.7 L (32.2-35.5) g/dL RDW 13.9 (11.7-14.4) % Plt Count 211 (182-369) x10^3/uL MPV 9.8 (9.4-12.3) fL Gran % 89.7 H (34.0-71.1) % Immature Gran % (Auto) 0.5 H (0.001-0.429) % Nucleat RBC Rel Count 0.0 (0.00-0.2) % Eos # (Auto) 0.02 L (0.04-0.36) x10^3/uL Immature Gran # (Auto) 0.05 H (0.001-0.031) x10^3u/L Absolute Lymphs (auto) 0.49 L (1.18-3.74) x10^3/uL Absolute Monos (auto) 0.38 (0.24-0.86) x10^3/uL Absolute Nucleated RBC 0.00 (0.00-0.012) x10^3u/L Lymphocytes % 5.2 L (19.3-51.7) % Monocytes % 4.0 L (4.7-12.5) % Eosinophils % 0.2 L (0.7-5.8) % Basophils % 0.4 (0.1-1.2) % Absolute Granulocytes 8.46 H (1.56-6.13) x10^3/uL Basophils # 0.04 (0.01-0.08) x10^3/uL Sodium 139 (135-145) mmol/L Potassium 4.4 (3.5-5.1) mmol/L Chloride 101 (98-107) mmol/L Carbon Dioxide 24 (22-30) mmol/L Anion Gap 18.2 H (5-15) MEQ/L BUN 17 (7-17) mg/dL Creatinine 0.77 (0.52-1.04) mg/dL Estimated GFR 77.9 ML/MIN Glucose 150 H (74-106) mg/dL POC Glucometer (74 to 106) mg/dL Hemoglobin A1c (4.5-6.0) % Calcium 9.1 (8.4-10.2) mg/dL Magnesium 1.7 (1.6-2.3) mg/dL Total Bilirubin 0.70 (0.2-1.3) mg/dL AST 37 H (14-36) U/L ALT 142 H (0-35) U/L Alkaline Phosphatase 148 H (38-126) U/L Troponin I (0.000-0.033) ng/mL Serum Total Protein 6.8 (6.3-8.2) g/dL Albumin 4.3 (3.5-5.0) g/dL Urine Color Yellow (Yellow) Urine Appearance Clear (Clear) Urine pH 7.5 (4.6-8.0) Ur Specific [place] 1.010 (1.005-1.030) Urine Protein Negative (Negative) Urine Glucose (UA) Negative (Negative) mg/dL Urine Ketones 15 A (Negative) Urine Blood Negative (Negative) Urine Nitrite Negative (Negative) Urine Bilirubin Negative (Negative) Urine Urobilinogen 0.2 (0.2) mg/dL Ur Leukocyte Esterase Negative (Negative) U Hyaline Cast (Auto) NONE SEEN (0-2) /LPF Urine Microscopic RBC 0-2 (0-5) /HPF Urine Microscopic WBC 3-5 (0-5) /HPF Ur Epithelial Cells None Seen (None Seen) /HPF Urine Bacteria None Seen (None Seen) /HPF Urine Culture Reflexed NO (NO) Influenza Type A Ag (NEGATIVE) Influenza Type B Ag (NEGATIVE) RSV (PCR) (NEGATIVE) SARS-CoV-2 (PCR) (NEGATIVE) Slides for Path Review YES 07/30/24 07/30/24 07/30/24 Range/Units 09:15 13:15 16:19 WBC (3.98-10.04) x10^3/uL RBC (3.93-5.22) x10^6/uL Hgb (11.2-15.7) g/dL Hct (34.1-44.9) % MCV (79.4-94.8) fL MCH (25.6-32.2) pg MCHC (32.2-35.5) g/dL RDW (11.7-14.4) % Plt Count (182-369) x10^3/uL MPV (9.4-12.3) fL Gran % (34.0-71.1) % Immature Gran % (Auto) (0.001-0.429) % Nucleat RBC Rel Count (0.00-0.2) % Eos # (Auto) (0.04-0.36) x10^3/uL Immature Gran # (Auto) (0.001-0.031) x10^3u/L Absolute Lymphs (auto) (1.18-3.74) x10^3/uL Absolute Monos (auto) (0.24-0.86) x10^3/uL Absolute Nucleated RBC (0.00-0.012) x10^3u/L Lymphocytes % (19.3-51.7) % Monocytes % (4.7-12.5) % Eosinophils % (0.7-5.8) % Basophils % (0.1-1.2) % Absolute Granulocytes (1.56-6.13) x10^3/uL Basophils # (0.01-0.08) x10^3/uL Sodium (135-145) mmol/L Potassium (3.5-5.1) mmol/L Chloride (98-107) mmol/L Carbon Dioxide (22-30) mmol/L Anion Gap (5-15) MEQ/L BUN (7-17) mg/dL Creatinine (0.52-1.04) mg/dL Estimated GFR ML/MIN Glucose (74-106) mg/dL POC Glucometer 149 H (74 to 106) mg/dL Hemoglobin A1c (4.5-6.0) % Calcium (8.4-10.2) mg/dL Magnesium (1.6-2.3) mg/dL Total Bilirubin (0.2-1.3) mg/dL AST (14-36) U/L ALT (0-35) U/L Alkaline Phosphatase (38-126) U/L Troponin I < 0.012 < 0.012 (0.000-0.033) ng/mL Serum Total Protein (6.3-8.2) g/dL Albumin (3.5-5.0) g/dL Urine Color (Yellow) Urine Appearance (Clear) Urine pH (4.6-8.0) Ur Specific [place] (1.005-1.030) Urine Protein (Negative) Urine Glucose (UA) (Negative) mg/dL Urine Ketones (Negative) Urine Blood (Negative) Urine Nitrite (Negative) Urine Bilirubin (Negative) Urine Urobilinogen (0.2) mg/dL Ur Leukocyte Esterase (Negative) U Hyaline Cast (Auto) (0-2) /LPF Urine Microscopic RBC (0-5) /HPF Urine Microscopic WBC (0-5) /HPF Ur Epithelial Cells (None Seen) /HPF Urine Bacteria (None Seen) /HPF Urine Culture Reflexed (NO) Influenza Type A Ag (NEGATIVE) Influenza Type B Ag (NEGATIVE) RSV (PCR) (NEGATIVE) SARS-CoV-2 (PCR) (NEGATIVE) Slides for Path Review 07/30/24 07/30/24 07/30/24 Range/Units 17:20 17:20 21:46 WBC (3.98-10.04) x10^3/uL RBC (3.93-5.22) x10^6/uL Hgb (11.2-15.7) g/dL Hct (34.1-44.9) % MCV (79.4-94.8) fL MCH (25.6-32.2) pg MCHC (32.2-35.5) g/dL RDW (11.7-14.4) % Plt Count (182-369) x10^3/uL MPV (9.4-12.3) fL Gran % (34.0-71.1) % Immature Gran % (Auto) (0.001-0.429) % Nucleat RBC Rel Count (0.00-0.2) % Eos # (Auto) (0.04-0.36) x10^3/uL Immature Gran # (Auto) (0.001-0.031) x10^3u/L Absolute Lymphs (auto) (1.18-3.74) x10^3/uL Absolute Monos (auto) (0.24-0.86) x10^3/uL Absolute Nucleated RBC (0.00-0.012) x10^3u/L Lymphocytes % (19.3-51.7) % Monocytes % (4.7-12.5) % Eosinophils % (0.7-5.8) % Basophils % (0.1-1.2) % Absolute Granulocytes (1.56-6.13) x10^3/uL Basophils # (0.01-0.08) x10^3/uL Sodium (135-145) mmol/L Potassium (3.5-5.1) mmol/L Chloride (98-107) mmol/L Carbon Dioxide (22-30) mmol/L Anion Gap (5-15) MEQ/L BUN (7-17) mg/dL Creatinine (0.52-1.04) mg/dL Estimated GFR ML/MIN Glucose (74-106) mg/dL POC Glucometer 102 (74 to 106) mg/dL Hemoglobin A1c (4.5-6.0) % Calcium (8.4-10.2) mg/dL Magnesium (1.6-2.3) mg/dL Total Bilirubin (0.2-1.3) mg/dL AST (14-36) U/L ALT (0-35) U/L Alkaline Phosphatase (38-126) U/L Troponin I < 0.012 (0.000-0.033) ng/mL Serum Total Protein (6.3-8.2) g/dL Albumin (3.5-5.0) g/dL Urine Color (Yellow) Urine Appearance (Clear) Urine pH (4.6-8.0) Ur Specific [place] (1.005-1.030) Urine Protein (Negative) Urine Glucose (UA) (Negative) mg/dL Urine Ketones (Negative) Urine Blood (Negative) Urine Nitrite (Negative) Urine Bilirubin (Negative) Urine Urobilinogen (0.2) mg/dL Ur Leukocyte Esterase (Negative) U Hyaline Cast (Auto) (0-2) /LPF Urine Microscopic RBC (0-5) /HPF Urine Microscopic WBC (0-5) /HPF Ur Epithelial Cells (None Seen) /HPF Urine Bacteria (None Seen) /HPF Urine Culture Reflexed (NO) Influenza Type A Ag NEGATIVE (NEGATIVE) Influenza Type B Ag NEGATIVE (NEGATIVE) RSV (PCR) NEGATIVE (NEGATIVE) SARS-CoV-2 (PCR) NEGATIVE (NEGATIVE) Slides for Path Review 07/31/24 07/31/24 07/31/24 Range/Units 04:30 04:40 05:03 WBC 7.9 (3.98-10.04) x10^3/uL RBC 3.60 L (3.93-5.22) x10^6/uL Hgb 10.5 L (11.2-15.7) g/dL Hct 35.3 (34.1-44.9) % MCV 98.1 H (79.4-94.8) fL MCH 29.2 (25.6-32.2) pg MCHC 29.7 L (32.2-35.5) g/dL RDW 14.0 (11.7-14.4) % Plt Count 178 L (182-369) x10^3/uL MPV 9.9 (9.4-12.3) fL Gran % 69.2 (34.0-71.1) % Immature Gran % (Auto) 0.6 H (0.001-0.429) % Nucleat RBC Rel Count 0.0 (0.00-0.2) % Eos # (Auto) 0.12 (0.04-0.36) x10^3/uL Immature Gran # (Auto) 0.05 H (0.001-0.031) x10^3u/L Absolute Lymphs (auto) 1.49 (1.18-3.74) x10^3/uL Absolute Monos (auto) 0.71 (0.24-0.86) x10^3/uL Absolute Nucleated RBC 0.00 (0.00-0.012) x10^3u/L Lymphocytes % 18.9 L (19.3-51.7) % Monocytes % 9.0 (4.7-12.5) % Eosinophils % 1.5 (0.7-5.8) % Basophils % 0.8 (0.1-1.2) % Absolute Granulocytes 5.44 (1.56-6.13) x10^3/uL Basophils # 0.06 (0.01-0.08) x10^3/uL Sodium 139 (135-145) mmol/L Potassium 3.9 (3.5-5.1) mmol/L Chloride 104 (98-107) mmol/L Carbon Dioxide 25 (22-30) mmol/L Anion Gap 14.7 (5-15) MEQ/L BUN 14 (7-17) mg/dL Creatinine 0.73 (0.52-1.04) mg/dL Estimated GFR 83.1 ML/MIN Glucose 99 (74-106) mg/dL POC Glucometer (74 to 106) mg/dL Hemoglobin A1c 6.40 H (4.5-6.0) % Calcium 8.3 L (8.4-10.2) mg/dL Magnesium (1.6-2.3) mg/dL Total Bilirubin 0.60 (0.2-1.3) mg/dL AST 30 (14-36) U/L ALT 100 H (0-35) U/L Alkaline Phosphatase 98 (38-126) U/L Troponin I (0.000-0.033) ng/mL Serum Total Protein 6.2 L (6.3-8.2) g/dL Albumin 3.6 (3.5-5.0) g/dL Urine Color (Yellow) Urine Appearance (Clear) Urine pH (4.6-8.0) Ur Specific [place] (1.005-1.030) Urine Protein (Negative) Urine Glucose (UA) (Negative) mg/dL Urine Ketones (Negative) Urine Blood (Negative) Urine Nitrite (Negative) Urine Bilirubin (Negative) Urine Urobilinogen (0.2) mg/dL Ur Leukocyte Esterase (Negative) U Hyaline Cast (Auto) (0-2) /LPF Urine Microscopic RBC (0-5) /HPF Urine Microscopic WBC (0-5) /HPF Ur Epithelial Cells (None Seen) /HPF Urine Bacteria (None Seen) /HPF Urine Culture Reflexed (NO) Influenza Type A Ag (NEGATIVE) Influenza Type B Ag (NEGATIVE) RSV (PCR) (NEGATIVE) SARS-CoV-2 (PCR) (NEGATIVE) Slides for Path Review 07/31/24 Range/Units 07:25 WBC (3.98-10.04) x10^3/uL RBC (3.93-5.22) x10^6/uL Hgb (11.2-15.7) g/dL Hct (34.1-44.9) % MCV (79.4-94.8) fL MCH (25.6-32.2) pg MCHC (32.2-35.5) g/dL RDW (11.7-14.4) % Plt Count (182-369) x10^3/uL MPV (9.4-12.3) fL Gran % (34.0-71.1) % Immature Gran % (Auto) (0.001-0.429) % Nucleat RBC Rel Count (0.00-0.2) % Eos # (Auto) (0.04-0.36) x10^3/uL Immature Gran # (Auto) (0.001-0.031) x10^3u/L Absolute Lymphs (auto) (1.18-3.74) x10^3/uL Absolute Monos (auto) (0.24-0.86) x10^3/uL Absolute Nucleated RBC (0.00-0.012) x10^3u/L Lymphocytes % (19.3-51.7) % Monocytes % (4.7-12.5) % Eosinophils % (0.7-5.8) % Basophils % (0.1-1.2) % Absolute Granulocytes (1.56-6.13) x10^3/uL Basophils # (0.01-0.08) x10^3/uL Sodium (135-145) mmol/L Potassium (3.5-5.1) mmol/L Chloride (98-107) mmol/L Carbon Dioxide (22-30) mmol/L Anion Gap (5-15) MEQ/L BUN (7-17) mg/dL Creatinine (0.52-1.04) mg/dL Estimated GFR ML/MIN Glucose (74-106) mg/dL POC Glucometer 102 (74 to 106) mg/dL Hemoglobin A1c (4.5-6.0) % Calcium (8.4-10.2) mg/dL Magnesium (1.6-2.3) mg/dL Total Bilirubin (0.2-1.3) mg/dL AST (14-36) U/L ALT (0-35) U/L Alkaline Phosphatase (38-126) U/L Troponin I (0.000-0.033) ng/mL Serum Total Protein (6.3-8.2) g/dL Albumin (3.5-5.0) g/dL Urine Color (Yellow) Urine Appearance (Clear) Urine pH (4.6-8.0) Ur Specific [place] (1.005-1.030) Urine Protein (Negative) Urine Glucose (UA) (Negative) mg/dL Urine Ketones (Negative) Urine Blood (Negative) Urine Nitrite (Negative) Urine Bilirubin (Negative) Urine Urobilinogen (0.2) mg/dL Ur Leukocyte Esterase (Negative) U Hyaline Cast (Auto) (0-2) /LPF Urine Microscopic RBC (0-5) /HPF Urine Microscopic WBC (0-5) /HPF Ur Epithelial Cells (None Seen) /HPF Urine Bacteria (None Seen) /HPF Urine Culture Reflexed (NO) Influenza Type A Ag (NEGATIVE) Influenza Type B Ag (NEGATIVE) RSV (PCR) (NEGATIVE) SARS-CoV-2 (PCR) (NEGATIVE) Slides for Path Review Micro Results-Entire Visit: Accuchecks Date 07/31/24 - Radiology Exams Ordered Rad Exams-Entire Visit: Radiology Procedures Category Date Time Status CHEST 1 VIEW (PORTABLE) Stat Exams 07/30/24 08:32 Completed HEAD WITHOUT CONTRAST [CT] Stat Exams 07/30/24 08:32 Completed - Procedures and Test Procedures and Tests throughout Hospitalization: Therapy Orders & Screens 07/30/24 12:22 PT Eval & Treat (MD Order) ONCE Reason for Eval:: dizziness Diagnosis: Orthostatic dizziness, dehydration Discharge Exam General Appearance: no apparent distress, alert Neurologic Exam: alert, oriented x 3, cooperative, normal mood/affect, nml cerebellar function, sensation nml, No motor deficits Eye Exam: PERRL, EOMI, eyes nml inspection Ears, Nose, Throat Exam: normal ENT inspection, pharynx normal, moist mucous membranes Neck Exam: normal inspection, non-tender, supple, full range of motion Respiratory Exam: normal breath sounds, lungs clear, No respiratory distress Cardiovascular Exam: regular rate/rhythm, normal heart sounds Gastrointestinal/Abdomen Exam: soft, No tenderness, No mass Pelvic Exam: deferred Rectal Exam: deferred Back Exam: normal inspection, normal range of motion, No CVA tenderness, No vertebral tenderness Extremity Exam: normal inspection, normal range of motion Skin Exam: normal color, warm, dry Final Diagnosis/Problem List - Final Discharge Diagnosis/Problem (1) Dehydration Current Visit: Yes Status: Acute Code(s): E86.0 - DEHYDRATION (2) Orthostatic dizziness Current Visit: Yes Status: Acute Code(s): R42 - DIZZINESS AND GIDDINESS (3) S/P hernia repair Current Visit: Yes Status: Acute Code(s): Z98.890 - OTHER SPECIFIED POSTPROCEDURAL STATES; Z87.19 - PERSONAL HISTORY OF OTHER DISEASES OF THE DIGESTIVE SYSTEM (4) Transaminitis Current Visit: Yes Status: Acute Assessment & Plan: (1) Dehydration Current Visit: Yes Status: Acute Assessment & Plan: - Anion gap 18.2 - IVF 07/31 - resolved Code(s): E86.0 - DEHYDRATION (2) Orthostatic dizziness Current Visit: Yes Status: Acute Assessment & Plan: - 2:2 decreased oral intake at home - Orthostats + in ER will recheck in AM - IVF - Head CT negative - Meclizine PRN - Consider Echo - Previous echo 04/10/24 DESCRIPTION OF FINDINGS: Patient underwent 2D echo, M-mode study, and color flow mapping which showed normal LV size and measuring 5.2 cm, normal LV wall thickness measuring 1.0 cm with normal LV systolic function with calculated ejection fraction of 63%. The left atrium appeared to be borderline enlarged. The right atrium was normal in size. The right ventricle was normal in size. There was no evidence of any pericardial effusion. The aortic root size was within normal limits. The mitral valve appears to be mildly thickened but opening well without evidence of any restriction. The aortic valve was tricuspid and opening well without evidence of any stenosis. Tricuspid valve was pliable and opening well. Pulmonic valve appears to be within normal limits. Color Doppler flow mapping showed trace aortic insufficiency, trace mitral regurgitation, and trace tricuspid regurgitation. IMPRESSION: 1) NORMAL LEFT VENTRICULAR SIZE. 2) NORMAL LEFT VENTRICULAR SYSTOLIC FUNCTION. 3) TRACE AORTIC INSUFFICIENCY AND TRACE MITRAL REGURGITATION. 07/31 - resolved Code(s): R42 - DIZZINESS AND GIDDINESS (3) S/P hernia repair Current Visit: Yes Status: Acute Assessment & Plan: - Pt had hernia repair on 07/24- POD #6 - Mild upper abdominal tenderness around area of surgery but no acute pain - Pt reports she saw surgeon, Dr Guzman yesterday and she was transitioned to a soft diet x1 week. she was previously on a clear liquid diet - Continue omeprazole Code(s): Z98.890 - OTHER SPECIFIED POSTPROCEDURAL STATES; Z87.19 - PERSONAL HISTORY OF OTHER DISEASES OF THE DIGESTIVE SYSTEM (4) Transaminitis Current Visit: Yes Status: Acute Assessment & Plan: - AST 37, ALT 142- likely from dehydration and recent surgery- trend 07/31 - AST 30, ALT 100- f/u Op for repeat labs. Code(s): R74.01 - ELEVATION OF LEVELS OF LIVER TRANSAMINASE LEVELS - Discharge Discharge Date: 07/31/24 Disposition: Home, Self-Care Condition: Stable Prescriptions: Continue lisinopriL [Zestril] 10 tab PO DAILY Amlodipine Besylate 5 mg [Norvasc 5 mg] 5 mg PO DAILY Buspirone HCl 5 mg [Buspar 5 mg] 5 mg PO TID predniSONE [Prednisone] 5 mg PO DAILY Magnesium Oxide [Magnesium] 500 mg PO DAILY Gabapentin 100 mg PO BID Cyanocobalamin/Folic Acid [Vitamin J25-[id number] Acid Tablet] 1 each SL DAILY Calcium Carbonate [Calcium] 1,200 mg PO DAILY Rosuvastatin Calcium 10 mg PO DAILY Omeprazole 40 mg PO DAILY Metoprolol Succinate 25 mg Xl* [Toprol-Xl 25MG Tablets] 25 mg PO DAILY Follow up with: JOHANA FELIX DO [Primary Care Provider] -
[2024-07-31] MEDS: MAG-OX 400 PO SCH (09:28)
[2024-07-31] MEDS: Zestril 10 MG PO SCH (09:28)
[2024-07-31] MEDS: DELTASONE 5 MG PO SCH (09:28)
[2024-07-31] MEDS: Protonix 40MG Tablet PO SCH (09:28)
[2024-07-31] MEDS: Toprol-Xl 25MG Tablets PO SCH (09:28)
[2024-07-31] MEDS: Calcium 500MG W/Vit D Tablet PO SCH (09:28)
[2024-07-31] MEDS: ZOCOR 20MG PO SCH (09:28)
[2024-07-31] MEDS: NORVASC 5 MG PO SCH (09:28)
[2024-07-31] MEDS: PHARMACY DOSING REQUEST MC ONE (09:29)
[2024-07-31] MEDS ORDERED: FOLIC ACID SL SCH (10:00)
[2024-07-31] MEDS ORDERED: CYANOCOBALAMIN SL SCH (10:00)
[2024-07-31] MEDS ORDERED: [UNRECOGNIZED DRUG - OTHER] SL SCH (10:00)
== END 2024-07-31 10:33 | disposition home or self-care (01) ==
LOC: ED 06:37 → MED SURG 12:05
PROVIDERS: ADMIT Internal Medicine; ATTEND Internal Medicine
DX: E86.0 Dehydration (principal); R42 Dizziness and giddiness; R74.01 Elevation of levels of liver transaminase levels; I10 Essential (primary) hypertension; F41.9 Anxiety disorder, unspecified; E78.5 Hyperlipidemia, unspecified; E11.9 Type 2 diabetes mellitus without complications; E03.9 Hypothyroidism, unspecified; Z79.899 Other long term (current) drug therapy; Z87.19 Personal history of other diseases of the digestive system
CPT/HCPCS: 0241U; 36415; 70450; 71045; 80053; 81001; 82947; 83036; 83735; 84484; 85025; 93005; 93041; 96374; 99285; 93268; A9270-GY; G0378

== ENCOUNTER 2025-02-15 10:32 | Emergency (ER) | payer MEDICARE ==
[2025-02-15 10:53] VITALS: TEMP 97
--- NOTE | 2025-02-15 11:16 | ERPHSYRPT ---
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 Patient has associated dizziness. No fever or chills. No neck pain posteriorly. Patient has headache without focal neurologic changes. No chest pain or palpitations. No shortness of breath. Patient wears dentures. No followed her mouth. No sore throat Allergies/Adverse Reactions: No Known Drug Allergies Allergy (Verified 02/15/25 10:51) Home Medications: lisinopriL [Zestril] 10 tab PO DAILY 04/09/17 [History] Amlodipine Besylate 5 mg [Norvasc 5 mg] 5 mg PO DAILY 04/10/17 [History] Buspirone HCl 5 mg [Buspar 5 mg] 5 mg PO TID 01/18/23 [History] Calcium Carbonate [Calcium] 1,200 mg PO DAILY 01/29/23 [History] Cyanocobalamin/Folic Acid [Vitamin E85-Cwybq Acid Tablet] 1 each SL DAILY 01/29/23 [History] Gabapentin 100 mg PO BID 01/29/23 [History] Magnesium Oxide [Magnesium] 500 mg PO DAILY 01/29/23 [History] Metoprolol Succinate 25 mg Xl* [Toprol-Xl 25MG Tablets] 25 mg PO DAILY 06/09/24 [History] Omeprazole 40 mg PO DAILY 06/09/24 [History] Rosuvastatin Calcium 10 mg PO DAILY 06/09/24 [History] Hx Tetanus, Diphtheria Vaccination/Date Given: Yes Hx Influenza Vaccination/Date Given: Yes Hx Pneumococcal Vaccination/Date Given: No Immunizations Up to Date: Yes Travel Risk - International Travel Have you traveled outside of the country in past 3 weeks: No - Emerging Infectious Disease Are you exhibiting symptoms associated with any current EIDs: No Symptoms: Abdominal Pain, Diarrhea, Vomitting - Review of Systems All Other Systems: Reviewed and Negative (As per HPI otherwise negative) - Past Medical History Pertinent Past Medical History: Yes Neurological History: Migraines ENT History: Cataracts Cardiac History: High Cholesterol, Hypertension Respiratory History: No Pertinent History Endocrine Medical History: Diabetes Type II, Hypothyroidism Musculoskeletal History: Osteoporosis GI Medical History: Diverticulitis, Gallbladder Disease, Hernia History: Renal Disease, Other Psycho-Social History: Anxiety Female Reproductive Disorders: No Pertinent History Other Medical History: hx low platelets; Dr. Ruiz manages. - Past Surgical History Past Surgical History: Yes Neuro Surgical History: No Pertinent History Cardiac: No Pertinent History Respiratory: No Pertinent History Gastrointestinal: Appendectomy, Cholecystectomy, Colon Resection, Hernia Repair Genitourinary: No Pertinent History Musculoskeletal: No Pertinent History Female Surgical History: Hysterectomy Other Surgical History: colonoscopy,EGD Significant Family History: no pertinent family hx - Social History Smoking Status: Former smoker Exposure to second hand smoke: No Drug Use: none - Social Determinants of Health Will the patient participate in the screening: Yes Do you worry about a steady place to live?: No Do you have any problems with any of the following?: No known problems In the past 12 months,have you had to go without utilities?: No Transportation Issues: No Has anyone in your support network made you feel unsafe?: No Have you or anyone in your house had to go w/o enough food: No - Nursing Vital Signs Nursing Vital Signs: Initial Vital Signs Temperature 97 F 02/15/25 10:53 Pulse Rate 68 02/15/25 10:53 Respiratory Rate 16 02/15/25 10:53 Blood Pressure 102/63 02/15/25 10:53 O2 Sat by Pulse Oximetry 95 02/15/25 10:53 Pain Scale Pain Intensity 6 - Physical Exam SpO2: 97 Comments: 02/15/25 11:17 General: Well-nourished well-developed. No apparent distress. HEENT: Normocephalic atraumatic no obvious facial or neck deformity or injury. Pupils equal reactive round to light. Tender palpation left orbit and left maxillary sinus. Tender to palpation left masseter muscle. No oral lesions or odor. Dentures removed and there is no discharge or evident injury. Patient has tenderness also in the left sternocleidomastoid muscle Neck: Supple. No deformity or mass noted.Negative Kernig's And Brudzinski CV: RRR NL Perfusion. No edema Resp: No Respiratory distress or adventitious breath sounds Abd: ND SNT MSK: No deformity or TTP Neuro: Alert and [place] x4. No gross focal neurologic changes Psych: No SI, HI or grave disability Ordered Tests: Active Orders 24 hr Category Date Time Status FACIAL BONES WITH CONTRAST [CT] Stat Exams 02/15/25 11:14 Completed HEAD WITHOUT CONTRAST [CT] Stat Exams 02/15/25 11:13 Completed NECK WITH CONTRAST [CT] Stat Exams 02/15/25 11:13 Completed CBC W DIFF Stat Lab 02/15/25 11:25 Completed CMP Stat Lab 02/15/25 11:25 Completed PT INR [PROTIME WITH INR] Stat Lab 02/15/25 11:25 Completed PTT Stat Lab 02/15/25 11:25 Completed TROPONIN Q4H Lab 02/15/25 11:25 Completed TROPONIN Q4H Lab 02/15/25 15:15 Ordered Medication Summary Discontinued Medications Generic Name Dose Route Start Last Admin Trade Name Fareedq PRN Reason Stop Dose Admin Dexamethasone Sodium Phosphate 8 mg 02/15/25 13:03 02/15/25 13:07 Dexamethasone Sod Phosphate 10 Mg/Ml IV 02/15/25 13:04 8 mg STAT ONE Administration Dexamethasone Sodium Phosphate Confirm 02/15/25 13:06 Dexamethasone Sod Phosphate 10 Mg/Ml Administered 02/15/25 13:07 Dose 10 mg .ROUTE .STK-MED ONE Ketorolac Tromethamine 15 mg 02/15/25 13:02 02/15/25 13:05 Ketorolac Tromethamine 30 Mg/Ml Inj IV 02/15/25 13:03 15 mg STAT ONE Administration Ketorolac Tromethamine Confirm 02/15/25 13:04 Ketorolac Tromethamine 30 Mg/Ml Inj Administered 02/15/25 13:05 Dose 30 mg .ROUTE .STK-MED ONE Lab/Rad Data: Laboratory Result Diagrams 02/15/25 11:25 02/15/25 11:25 Laboratory Results 02/15/25 02/15/25 02/15/25 Range/Units 11:25 11:25 11:25 WBC 6.8 (3.98-10.04) x10^3/uL RBC 4.63 (3.93-5.22) x10^6/uL Hgb 13.2 (11.2-15.7) g/dL Hct 41.6 (34.1-44.9) % MCV 89.8 (79.4-94.8) fL MCH 28.5 (25.6-32.2) pg MCHC 31.7 L (32.2-35.5) g/dL RDW 14.5 H (11.7-14.4) % Plt Count 243 (182-369) x10^3/uL MPV 9.1 L (9.4-12.3) fL Gran % 79.5 H (34.0-71.1) % Immature Gran % (Auto) 0.3 (0.001-0.429) % Nucleat RBC Rel Count 0.0 (0.00-0.2) % Eos # (Auto) 0.02 L (0.04-0.36) x10^3/uL Immature Gran # (Auto) 0.02 (0.001-0.031) x10^3u/L Absolute Lymphs (auto) 0.97 L (1.18-3.74) x10^3/uL Absolute Monos (auto) 0.34 (0.24-0.86) x10^3/uL Absolute Nucleated RBC 0.00 (0.00-0.012) x10^3u/L Lymphocytes % 14.2 L (19.3-51.7) % Monocytes % 5.0 (4.7-12.5) % Eosinophils % 0.3 L (0.7-5.8) % Basophils % 0.7 (0.1-1.2) % Absolute Granulocytes 5.44 (1.56-6.13) x10^3/uL Basophils # 0.05 (0.01-0.08) x10^3/uL PT 10.3 (9.4-12.5) SECONDS INR 0.94 (0.8-3.0) APTT 21.9 L (25.1-36.5) SECONDS Sodium 138 (135-145) mmol/L Potassium 4.5 (3.5-5.1) mmol/L Chloride 100 (98-107) mmol/L Carbon Dioxide 28 (22-30) mmol/L Anion Gap 14.2 (5-15) MEQ/L BUN 19 H (7-17) mg/dL Creatinine 1.00 (0.52-1.04) mg/dL Estimated GFR 56.6 ML/MIN Glucose 145 H (74-106) mg/dL Calcium 9.7 (8.4-10.2) mg/dL Total Bilirubin 0.50 (0.2-1.3) mg/dL AST 22 (14-36) U/L ALT 15 (0-35) U/L Alkaline Phosphatase 53 (38-126) U/L Troponin I < 0.012 (0.000-0.033) ng/mL Serum Total Protein 7.4 (6.3-8.2) g/dL Albumin 4.6 (3.5-5.0) g/dL EKG 10:46 AM normal sinus rhythm 73 bpm no ischemic changes - Progress Progress Note: 02/15/25 13:21 Patient doing well. No finding of abscess or other infection. Patient feels she is having nasal drainage and sinus congestion. Presumptively patient could be treated prophylactically for possible early sinus infection although I do not see any definitive acute signs of infection. Patient will also use decongestant we discussed the use of Afrin nasal spray as well as [id number] decongestants period. The patient's condition was discussed with themselves and/or family members in great detail. Precautions are given and need to return or call 911 immediately for any changes or worsening are discussed. Instructions on patient's condition and noting that conditions can change or worsen and that diagnosis are presumptive and can evolve are discussed. All questions were answered. All concerns addressed at this time - Departure Departure Disposition: Home Clinical Impression: Pain of maxillary sinus, Localized myalgia of masseter Condition: Stable Critical Care Time: No Referrals: JOHANA FELIX DO [Primary Care Provider, [facility]] - Follow up/PCP as directed Instructions: Headache, Adult (DC), Sinusitis in adults, Temporomandibular joint (TMJ) disorders Additional Instructions: You have been evaluated for an emergency medical condition. At this time, given the current history and events presented, the examination conducted and any possible testing you may have had, you have been given a presumptive diagnosis based on the current information is obtained. Your discharge diagnosis is presumptive and not necessarily definitive. Medical conditions present in various stages very often without all the symptoms or findings described in medical literature. Other symptoms, concerns or conditions may arise and your diagnoses may evolve or change and/or your condition could potentially worsen after the time of disposition or discharge. You have been given a presumptive diagnosis and your condition appears to be stable, but your medical issues can change or worsen. If there is worsening of your condition including difficulty breathing, swallowing, speaking, chest pain or pressure, intractable vomiting, worsening or changing mental status, numbness, tingling or weakness of your body or arms or legs, thoughts or plans of harming yourself or others, or any other concerns, call 911 and/or return immediately to the closest emergency department. It is important you follow-up with your doctor on the next business day. Call your doctor, or the referral provided if you do not have a doctor, when they open to schedule a follow-up appointment in the next 1 or latest 2 days. Please refer to the attached sheet. If you do not have primary care doctor, you can call the [facility] referral line at [phone]. Return immediately if your symptoms worsen or if you are unable to obtain further care. My team and I thank you for choosing the [facility] emergency healthcare needs. We wish you a speedy recovery. Very respectfully, Dr. Sally Griffith M.D. [employer] Board-certified Emergency Physician
[2025-02-15 11:29] LABS: BASOPHIL % 0.7 % (0.1-1.2); Basophil (Absolute #) 0.05 x10^3/uL (0.01-0.08); Eosinophil (Absolute #) 0.02 x10^3/uL (0.04-0.36); Hematocrit 41.6 % (34.1-44.9); Hemoglobin 13.2 g/dL (11.2-15.7); IMMATURE GRAN # 0.02 x10^3u/L (0.001-0.031); IMMATURE GRAN % 0.3 % (0.001-0.429); Lymphocyte (Absolute #) 0.97 x10^3/uL (1.18-3.74); Mean Corpuscular Hemoglobin 28.5 pg (25.6-32.2); Mean Corpuscular Hgb Concent. 31.7 g/dL (32.2-35.5); Monocyte (Absolute #) 0.34 x10^3/uL (0.24-0.86); NUCLEATED RBC # 0.00 x10^3u/L (0.00-0.012); NUCLEATED RBC % 0.0 % (0.00-0.2); Platelet Count 243 x10^3/uL (182-369); Red Blood Count 4.63 x10^6/uL (3.93-5.22); White Blood Count 6.8 x10^3/uL (3.98-10.04)
[2025-02-15 11:43] LABS: Calcium 9.7 mg/dL (8.4-10.2); Carbon Dioxide 28 mmol/L (22-30); Creatinine 1 1.00 mg/dL (0.52-1.04); EST GLOMERULAR FILTRATION RATE 56.6 ML/MIN; Glucose 145 mg/dL (74-106); Potassium 4.5 mmol/L (3.5-5.1); SGOT/AST 22 U/L (14-36); SGPT/ALT 15 U/L (0-35); Total Protein 7.4 g/dL (6.3-8.2)
[2025-02-15 11:45] LABS: INR 0.94 (0.8-3.0); PROTIME 10.3 SECONDS (9.4-12.5); PTT 21.9 SECONDS (25.1-36.5)
[2025-02-15 11:55] LABS: TROPONIN < 0.012 ng/mL (0.000-0.033)
[2025-02-15 12:10] VITALS: O2SAT 97
--- NOTE | 2025-02-15 12:49 | XRAY ---
Indication: Headache and left facial pain. Multiple contiguous axial images obtained through the head without contrast. Comparison: July 30, 2024 Normal appearing brain parenchyma, ventricles, and bony calvarium for patient's age. Visualized paranasal sinuses and mastoid air cells are clear. Impression: Continued normal CT head without contrast exam.
--- NOTE | 2025-02-15 12:53 | XRAY ---
Indication: Headache and left facial pain. Multiple contiguous axial images obtained through the facial bones using 80 cc Isovue 370 contrast. Sagittal and coronal reformatted images obtained. Comparison: None Patient edentulous. Osseous structures demineralized. No acute fracture, suspicious bony lesions, or osseous destructive process. Orbits including roof, [place], and floors intact. Paranasal sinuses and nasal passages are pneumatized and clear. Moderate nasal septal deviation to the right. Moderate right and mild right TMJ degenerative changes. Minimal/mild degenerative changes visualized cervical spine including 2 mm anterior listhesis C2 on C4. Parotid and submandibular glands are bilaterally symmetric. No pathologic cervical/submandibular lymphadenopathy. Major arteries and veins are normal in course and caliber with mild left and minimal right carotid calcifications. Impression: Chronic findings including osteopenia, bilateral TMJ degenerative changes, degenerative cervical spondylosis with minimal grade 1 C2 listhesis, nasal septal deviation, and bilateral carotid calcifications. Remaining CT facial bones with contrast exam is negative.
--- NOTE | 2025-02-15 12:55 | XRAY ---
Indication: Headache and left facial pain. Multiple contiguous axial images obtained through the neck using 80 cc Isovue 370 contrast. Sagittal and coronal reformatted images obtained. Comparison: None Patient edentulous. Parotid and submandibular glands are bilaterally symmetric. No pathologic cervical/submandibular lymphadenopathy. Major arteries and veins are normal in course and caliber with mild left and minimal right carotid calcifications. Thyroid gland enhances homogeneously. Supra and infraglottic airway widely patent with normal epiglottis. Osseous structures demineralized. Moderate right and mild right TMJ degenerative changes. Minimal/mild degenerative changes v throughout cervical spine including 2 mm anterior listhesis C2 on C4. No acute fracture or suspicious bony lesions. Lung apices clear. Impression: Chronic findings including osteopenia, bilateral TMJ degenerative changes, degenerative cervical spondylosis with minimal grade 1 C2 listhesis, and bilateral carotid calcifications. Remaining CT neck with contrast exam is negative.
[2025-02-15 13:02] VITALS: RESP 15
[2025-02-15] MEDS ORDERED: TORAdol 30 mg Injection ONE (13:04)
[2025-02-15] MEDS: TORAdol 30 mg Injection IV ONE (13:05)
[2025-02-15] MEDS ORDERED: DECADRON 10MG INJ. ONE (13:06)
[2025-02-15] MEDS: DECADRON 10MG INJ. IV ONE (13:07)
[2025-02-15 13:56] VITALS: BP 111/73; PULSE 66
== END 2025-02-15 13:56 | disposition home or self-care (01) ==
LOC: ED 10:32
DX: J32.0 Chronic maxillary sinusitis (principal); M79.11 Myalgia of mastication muscle; M54.2 Cervicalgia; R51.9 Headache, unspecified; R42 Dizziness and giddiness; I10 Essential (primary) hypertension; E11.9 Type 2 diabetes mellitus without complications; Z79.899 Other long term (current) drug therapy; Z86.79 Personal history of other diseases of the circulatory system

== ENCOUNTER 2025-05-20 14:13 | Emergency (ER) | payer MEDICARE ==
--- NOTE | 2025-05-20 14:25 | ERPHSYRPT ---
- History of Present Illness Time Seen by Provider: 05/20/25 14:25 Source: patient, family Exam Limitations: no limitations Physician History: This is an 79-year-old white female patient arrives by private vehicle and is a patient Dr. Felix who presents with coughing, vomiting, decreased oral intake and constipation without diarrhea. She is a former smoker of tobacco. Symptoms began approximately 05/18/2025. She also has associated nasal congestion. Patient went to [facility] 2 days ago and they performed viral swabs. They did not obtain a monotest, chest x-ray or urinalysis. They told her that symptoms appear to be consistent with a viral infection. Patient denies shortness of breath. Patient denies abdominal pain. Patient denies chest pain. Timing/Duration: day(s) (2) Cough Quality/Degree: mild, dry cough Possible Cause: no prior episodes Modifying Factors: Improves With: coughing Associated Symptoms: chest pain/soreness (With coughing only), cough, nasal congestion, No fever, No chills, No headache, No shortness of breath, No sore throat Allergies/Adverse Reactions: No Known Drug Allergies Allergy (Verified 05/20/25 14:19) Home Medications: lisinopriL [Zestril] 10 tab PO DAILY 04/09/17 [History] Amlodipine Besylate 5 mg [Norvasc 5 mg] 5 mg PO DAILY 04/10/17 [History] Buspirone HCl 5 mg [Buspar 5 mg] 5 mg PO TID 01/18/23 [History] Calcium Carbonate [Calcium] 1,200 mg PO DAILY 01/29/23 [History] Cyanocobalamin/Folic Acid [Vitamin M07-Upkxn Acid Tablet] 1 each SL DAILY 01/29/23 [History] Gabapentin 200 mg PO BID 01/29/23 [History] Magnesium Oxide [Magnesium] 500 mg PO DAILY 01/29/23 [History] Metoprolol Succinate 25 mg Xl* [Toprol-Xl 25MG Tablets] 25 mg PO DAILY 06/09/24 [History] predniSONE [Prednisone] 5 mg PO DAILY 05/20/25 [History] Hx Tetanus, Diphtheria Vaccination/Date Given: Yes Hx Influenza Vaccination/Date Given: Yes Hx Pneumococcal Vaccination/Date Given: No Travel Risk - International Travel Have you traveled outside of the country in past 3 weeks: No - Emerging Infectious Disease Are you exhibiting symptoms associated with any current EIDs: No Symptoms: Abdominal Pain, Diarrhea, Vomitting - Review of Systems Constitutional: No Symptoms Eyes: No Symptoms Ears, Nose, & Throat: Nose Congestion Respiratory: Cough, No Dyspnea, No Dyspnea on Exertion (BONILLA) Cardiac: No Chest Pain Abdominal/Gastrointestinal: No Symptoms Genitourinary Symptoms: No Symptoms Musculoskeletal: No Symptoms Skin: No Symptoms Neurological: No Symptoms Psychological: No Symptoms Endocrine: No Symptoms Hematologic/Lymphatic: No Symptoms Immunological/Allergic: No Symptoms All Other Systems: Reviewed and Negative - Past Medical History Pertinent Past Medical History: Yes Neurological History: Migraines ENT History: Cataracts Cardiac History: High Cholesterol, Hypertension Respiratory History: No Pertinent History Endocrine Medical History: Diabetes Type II, Hypothyroidism Musculoskeletal History: Osteoporosis GI Medical History: Diverticulitis, Gallbladder Disease, Hernia History: Renal Disease, Other Psycho-Social History: Anxiety Female Reproductive Disorders: No Pertinent History Other Medical History: hx low platelets; Dr. Ruiz manages. - Past Surgical History Past Surgical History: Yes Neuro Surgical History: No Pertinent History Cardiac: No Pertinent History Respiratory: No Pertinent History Gastrointestinal: Appendectomy, Cholecystectomy, Colon Resection, Hernia Repair Genitourinary: No Pertinent History Musculoskeletal: No Pertinent History Female Surgical History: Hysterectomy Other Surgical History: colonoscopy,EGD Significant Family History: no pertinent family hx - Social History Smoking Status: Former smoker Exposure to second hand smoke: No Drug Use: none - Social Determinants of Health Will the patient participate in the screening: Yes Do you worry about a steady place to live?: No In the past 12 months,have you had to go without utilities?: No Transportation Issues: No Has anyone in your support network made you feel unsafe?: No Have you or anyone in your house had to go w/o enough food: No - Nursing Vital Signs Nursing Vital Signs: Initial Vital Signs Pulse Rate 98 H 05/20/25 14:19 Blood Pressure 131/88 05/20/25 14:19 O2 Sat by Pulse Oximetry 95 05/20/25 14:19 Pain Scale Pain Intensity 8 - Physical Exam General Appearance: mild distress, alert, anxiety Eye Exam: PERRL/EOMI, eyes nml inspection Ears, Nose, Throat Exam: normal ENT inspection, moist mucous membranes Neck Exam: normal inspection, non-tender, supple, full range of motion Respiratory Exam: normal breath sounds, lungs clear, airway intact, No chest tenderness, No respiratory distress Cardiovascular Exam: regular rate/rhythm, normal heart sounds, normal peripheral pulses Gastrointestinal/Abdomen Exam: soft, normal bowel sounds, No tenderness Pelvic Exam: not done Rectal Exam: not done Back Exam: normal inspection, normal range of motion, No CVA tenderness, No vertebral tenderness Extremity Exam: normal inspection, normal range of motion, pelvis stable Neurologic Exam: alert, oriented x 3, cooperative, 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 as tested, nml cerebellar function, nml station & gait, sensation nml Skin Exam: normal color, warm, dry Lymphatic Exam: No adenopathy SpO2 Interpretation: normal O2 Delivery: Room Air - Course Nursing assessment & vital signs reviewed: Yes Ordered Tests: Active Orders 24 hr Category Date Time Status IV Insertion STAT Care 05/20/25 14:47 Active CHEST 1 VIEW (PORTABLE) Stat Exams 05/20/25 14:48 Completed AMYLASE Stat Lab 05/20/25 15:00 Completed BLOOD CULTURE Stat Lab 05/20/25 15:15 Received CBC W DIFF Stat Lab 05/20/25 15:00 Completed CMP Stat Lab 05/20/25 15:00 Completed LIPASE Stat Lab 05/20/25 15:00 Completed Lactic Acid Stat Lab 05/20/25 14:47 Completed MONO SCREEN Stat Lab 05/20/25 15:00 Completed UA W/RFX UR CULTURE Stat Lab 05/20/25 15:05 Completed Medication Summary Discontinued Medications Generic Name Dose Route Start Last Admin Trade Name Fareedq PRN Reason Stop Dose Admin Methylprednisolone Sodium 0 mg 05/20/25 15:52 05/20/25 15:58 Succinate 125 mg/ Sterile IV 05/20/25 15:53 125 mg Water 2 ml STAT ONE Administration Sodium Chloride 1,000 mls @ 999 mls/hr 05/20/25 14:47 05/20/25 16:28 Sodium Chloride 0.9% 1000 Ml IV 05/20/25 15:47 Infused .Q1H1M STA Infusion Sodium Chloride Confirm 05/20/25 15:01 Sodium Chloride 0.9% 1000 Ml Administered 05/20/25 15:02 Dose 1,000 mls @ ud .ROUTE .STK-MED ONE Ceftriaxone Sodium 1 gm in 100 mls @ 200 mls/hr 05/20/25 15:51 05/20/25 16:28 Rocephin 1 Gm / 100 Ml Nacl IV 05/20/25 16:20 Infused STAT ONE Infusion Ceftriaxone Sodium Confirm 05/20/25 15:57 Rocephin 1 Gm / 100 Ml Nacl Administered 05/20/25 15:58 Dose 1 gm in 100 mls @ ud IV .STK-MED ONE Methylprednisolone Sodium Succinate Confirm 05/20/25 15:57 Methylprednis Sod Succ 125 Mg/2 Ml Vial Administered 05/20/25 15:58 Dose 125 mg .ROUTE .STK-MED ONE Ondansetron HCl 4 mg 05/20/25 14:47 05/20/25 15:02 Ondansetron Hcl 4 Mg/2 Ml Vial IV 05/20/25 14:48 4 mg STAT ONE Administration Ondansetron HCl Confirm 05/20/25 15:01 Ondansetron Hcl 4 Mg/2 Ml Vial Administered 05/20/25 15:02 Dose 4 mg .ROUTE .STK-MED ONE Sterile Water Confirm 05/20/25 15:57 Water For Injection,Sterile 10 Ml Vial Administered 05/20/25 15:58 Dose 10 ml IJ .STK-MED ONE Lab/Rad Data: Laboratory Result Diagrams 05/20/25 15:00 05/20/25 15:00 Laboratory Results 05/20/25 05/20/25 05/20/25 Range/Units 15:05 15:00 15:00 WBC (3.98-10.04) x10^3/uL RBC (3.93-5.22) x10^6/uL Hgb (11.2-15.7) g/dL Hct (34.1-44.9) % MCV (79.4-94.8) fL MCH (25.6-32.2) pg MCHC (32.2-35.5) g/dL RDW (11.7-14.4) % Plt Count (182-369) x10^3/uL MPV (9.4-12.3) fL Gran % (34.0-71.1) % Immature Gran % (Auto) (0.001-0.429) % Nucleat RBC Rel Count (0.00-0.2) % Eos # (Auto) (0.04-0.36) x10^3/uL Immature Gran # (Auto) (0.001-0.031) x10^3u/L Absolute Lymphs (auto) (1.18-3.74) x10^3/uL Absolute Monos (auto) (0.24-0.86) x10^3/uL Absolute Nucleated RBC (0.00-0.012) x10^3u/L Lymphocytes % (19.3-51.7) % Monocytes % (4.7-12.5) % Eosinophils % (0.7-5.8) % Basophils % (0.1-1.2) % Absolute Granulocytes (1.56-6.13) x10^3/uL Basophils # (0.01-0.08) x10^3/uL Sodium 131 L (135-145) mmol/L Potassium 4.3 (3.5-5.1) mmol/L Chloride 94 L (98-107) mmol/L Carbon Dioxide 26 (22-30) mmol/L Anion Gap 15.2 H (5-15) MEQ/L BUN 18 H (7-17) mg/dL Creatinine 1.18 H (0.52-1.04) mg/dL Estimated GFR 46.4 ML/MIN Glucose 132 H (74-106) mg/dL Lactic Acid (0.4-2.0) Calcium 9.4 (8.4-10.2) mg/dL Total Bilirubin 0.60 (0.2-1.3) mg/dL AST 62 H (14-36) U/L ALT 67 H (0-35) U/L Alkaline Phosphatase 82 (38-126) U/L Serum Total Protein 7.8 (6.3-8.2) g/dL Albumin 4.5 (3.5-5.0) g/dL Amylase 68 (30-110) U/L Lipase 70 (23-300) U/L Urine Color Yellow (Yellow) Urine Appearance Clear (Clear) Urine pH 7.0 (4.6-8.0) Ur Specific [place] 1.015 (1.005-1.030) Urine Protein 100 A (Negative) Urine Glucose (UA) Negative (Negative) mg/dL Urine Ketones Negative (Negative) Urine Blood Trace (Negative) Urine Nitrite Negative (Negative) Urine Bilirubin Negative (Negative) Urine Urobilinogen 0.2 (0.2) mg/dL Ur Leukocyte Esterase Negative (Negative) U Hyaline Cast (Auto) NONE SEEN (0-2) /LPF Urine Microscopic RBC 3-5 (0-5) /HPF Urine Microscopic WBC 0-2 (0-5) /HPF Ur Epithelial Cells Rare (None Seen) /HPF Urine Bacteria None Seen (None Seen) /HPF Urine Culture Reflexed NO (NO) Monoscreen NEGATIVE (NEGATIVE) 05/20/25 05/20/25 Range/Units 15:00 14:47 WBC 9.3 (3.98-10.04) x10^3/uL RBC 4.38 (3.93-5.22) x10^6/uL Hgb 12.5 (11.2-15.7) g/dL Hct 39.8 (34.1-44.9) % MCV 90.9 (79.4-94.8) fL MCH 28.5 (25.6-32.2) pg MCHC 31.4 L (32.2-35.5) g/dL RDW 15.5 H (11.7-14.4) % Plt Count 230 (182-369) x10^3/uL MPV 9.3 L (9.4-12.3) fL Gran % 82.1 H (34.0-71.1) % Immature Gran % (Auto) 0.4 (0.001-0.429) % Nucleat RBC Rel Count 0.0 (0.00-0.2) % Eos # (Auto) 0.02 L (0.04-0.36) x10^3/uL Immature Gran # (Auto) 0.04 H (0.001-0.031) x10^3u/L Absolute Lymphs (auto) 0.96 L (1.18-3.74) x10^3/uL Absolute Monos (auto) 0.60 (0.24-0.86) x10^3/uL Absolute Nucleated RBC 0.00 (0.00-0.012) x10^3u/L Lymphocytes % 10.3 L (19.3-51.7) % Monocytes % 6.5 (4.7-12.5) % Eosinophils % 0.2 L (0.7-5.8) % Basophils % 0.5 (0.1-1.2) % Absolute Granulocytes 7.63 H (1.56-6.13) x10^3/uL Basophils # 0.05 (0.01-0.08) x10^3/uL Sodium (135-145) mmol/L Potassium (3.5-5.1) mmol/L Chloride (98-107) mmol/L Carbon Dioxide (22-30) mmol/L Anion Gap (5-15) MEQ/L BUN (7-17) mg/dL Creatinine (0.52-1.04) mg/dL Estimated GFR ML/MIN Glucose (74-106) mg/dL Lactic Acid 1.7 (0.4-2.0) Calcium (8.4-10.2) mg/dL Total Bilirubin (0.2-1.3) mg/dL AST (14-36) U/L ALT (0-35) U/L Alkaline Phosphatase (38-126) U/L Serum Total Protein (6.3-8.2) g/dL Albumin (3.5-5.0) g/dL Amylase (30-110) U/L Lipase (23-300) U/L Urine Color (Yellow) Urine Appearance (Clear) Urine pH (4.6-8.0) Ur Specific [place] (1.005-1.030) Urine Protein (Negative) Urine Glucose (UA) (Negative) mg/dL Urine Ketones (Negative) Urine Blood (Negative) Urine Nitrite (Negative) Urine Bilirubin (Negative) Urine Urobilinogen (0.2) mg/dL Ur Leukocyte Esterase (Negative) U Hyaline Cast (Auto) (0-2) /LPF Urine Microscopic RBC (0-5) /HPF Urine Microscopic WBC (0-5) /HPF Ur Epithelial Cells (None Seen) /HPF Urine Bacteria (None Seen) /HPF Urine Culture Reflexed (NO) Monoscreen (NEGATIVE) - Progress Progress: re-examined Air Movement: good Progress Note: 05/20/25 14:55 My medical decision making and the assignment of moderate complexity of this patient's medical issue today is based on review of the patient's past medical history, reviewed the patient's medication list, reviewed patient drug allergy list, history present illness and physical findings on examination. The workup in this patient includes IV line placement, intravenous fluid infusion, Zofran infusion, CBC, CMP, amylase, lipase, urinalysis, monotest, chest x-ray. Differential diagnosis includes but is not limited to mononucleosis, bronchitis, pulmonary infiltrate, viral illness, dehydration, urinary tract infection, pancreatitis 05/20/25 16:55 I interpreted the patient's laboratory data result. Based on laboratory data result there are no acute, emergent medical issues. I interpreted the patient's preliminary chest x-ray report. I see right perihilar and right basilar infiltrate versus atelectasis. The radiologist interpreted the final chest x-ray report. There is evidence of perihilar infiltrate that is new on today's chest x-ray. Blood Culture(s) Obtained: Yes Antibiotics given: Yes Counseled pt/family regarding: lab results, diagnosis, rad results Medical Desision Making - Diagnostic Testing Diagnostic test were ordered, analyzed, and reviewed by me: Yes Radiological Interpretation: Interpreted by me, Reviewed by me, Teleradiologist Report - Risk of complications Low Risk: Low risk of morbidity from additional dx testing or treatment The pt has a mod risk of morbidity or mortality based on: Need for prescription drug management - Departure Departure Disposition: Home Clinical Impression: Right pulmonary infiltrate on CXR Condition: Stable Critical Care Time: No Referrals: JOHANA FELIX DO [Primary Care Provider, [facility]] - Follow up/PCP as directed Additional Instructions: Drink plenty of liquids. Take your antibiotics as prescribed. Increase your prednisone to 10 mg twice a day for the next 48 hours. After 48 hours decrease your prednisone back to your usual dosing. Call your primary care provider tomorrow, 05/21/2025, to make arrangements for follow-up appointment for further evaluation management. Prescriptions: Ondansetron ODT 4 MG [Zofran Odt 4 mg] 4 mg PO Q6H PRN PRN #10 tablet PRN Reason: Vomiting Cefdinir 300 mg PO BID #14 cap Hydrocodone/Acetaminophen [Hydrocodone-Acetamn 7.5-325/15] 10 ml PO Q12H PRN #60 ml MDD 20 ml PRN Reason: Cough
[2025-05-20] MEDS ORDERED: Zofran 4 MG/2 ML VIAL ONE (15:01)
[2025-05-20] MEDS: Zofran 4 MG/2 ML VIAL IV ONE (15:02)
[2025-05-20 15:16] VITALS: RESP 14
[2025-05-20 15:20] LABS: BASOPHIL % 0.5 % (0.1-1.2); Basophil (Absolute #) 0.05 x10^3/uL (0.01-0.08); Eosinophil (Absolute #) 0.02 x10^3/uL (0.04-0.36); Hematocrit 39.8 % (34.1-44.9); Hemoglobin 12.5 g/dL (11.2-15.7); IMMATURE GRAN # 0.04 x10^3u/L (0.001-0.031); IMMATURE GRAN % 0.4 % (0.001-0.429); Lymphocyte (Absolute #) 0.96 x10^3/uL (1.18-3.74); Mean Corpuscular Hemoglobin 28.5 pg (25.6-32.2); Mean Corpuscular Hgb Concent. 31.4 g/dL (32.2-35.5); Monocyte (Absolute #) 0.60 x10^3/uL (0.24-0.86); NUCLEATED RBC # 0.00 x10^3u/L (0.00-0.012); NUCLEATED RBC % 0.0 % (0.00-0.2); Platelet Count 230 x10^3/uL (182-369); Red Blood Count 4.38 x10^6/uL (3.93-5.22); White Blood Count 9.3 x10^3/uL (3.98-10.04)
[2025-05-20 15:29] LABS: Glucose, Urine Negative (Negative); Protein,Urine Dip 100 (Negative); WBC 0-2 /HPF (0-5)
[2025-05-20 15:34] LABS: Calcium 9.4 mg/dL (8.4-10.2); Carbon Dioxide 26.0 mmol/L (22-30); Creatinine 1 1.18 mg/dL (0.52-1.04); EST GLOMERULAR FILTRATION RATE 46.4 ML/MIN; Glucose 132.0 mg/dL (74-106); Potassium 4.3 mmol/L (3.5-5.1); SGOT/AST 62.0 U/L (14-36); SGPT/ALT 67.0 U/L (0-35); Total Protein 7.8 g/dL (6.3-8.2)
[2025-05-20] MEDS ORDERED: ROCEPHIN 1 GM / 100 ML NaCl 1 GM/100 ML IVPB IV ONE (15:57)
[2025-05-20] MEDS ORDERED: Sterile H2O 10 ml IJ ONE (15:57)
[2025-05-20] MEDS: ROCEPHIN 1 GM / 100 ML NaCl 1 GM/100 ML IVPB IV ONE (15:58)
[2025-05-20] MEDS: solu-MEDROL 125 MG, Sterile H2O 10 ml 2 ML IV ONE (15:58)
--- NOTE | 2025-05-20 16:32 | XRAY ---
Indication: Cough. Comparison: July 30, 2024 Portable chest demonstrates new mild right perihilar infiltrates/atelectasis without consolidation/large effusion. Remaining heart and left lung unremarkable. Bony thorax intact again with osteopenia and degenerative changes.
[2025-05-20 16:37] VITALS: BP 141/70; PULSE 98; O2SAT 93
[2025-05-20 16:55] VITALS: TEMP 103
[2025-05-20] MEDS ORDERED: TYLENOL 325 MG ONE (17:08)
[2025-05-20] MEDS ORDERED: MOTRIN 400 MG ONE (17:08)
[2025-05-20] MEDS: MOTRIN 400 MG PO ONE (17:10)
[2025-05-20] MEDS: TYLENOL 325 MG PO ONE (17:10)
== END 2025-05-20 17:26 | disposition home or self-care (01) ==
LOC: ED 14:13
DX: R91.8 Other nonspecific abnormal finding of lung field (principal); R05.1 Acute cough; R11.2 Nausea with vomiting, unspecified; R09.81 Nasal congestion; I10 Essential (primary) hypertension; E11.9 Type 2 diabetes mellitus without complications; Z79.52 Long term (current) use of systemic steroids; Z79.899 Other long term (current) drug therapy